=== PATIENT | female | born 1970 | race Caucasian/White ===

== ENCOUNTER → 2022-11-20 09:58 | Outpatient (BNVA) | payer OTHER, SELFPAY | PROVIDERS: PCP Pediatrics; Visit Provider Internal Medicine Rheumatology | DX: Z13.89 Encounter for screening for other disorder (principal) ==

== ENCOUNTER 2023-06-29 16:04 | Outpatient (REF) | payer OTHER, SELFPAY ==
--- NOTE | ~2023-06-29 | XR_ITS ---
EXAMINATION: XR FOOT, RIGHT CLINICAL INFORMATION: Arthropathic psoriasis. COMPARISON: None available. TECHNIQUE: AP, lateral, and oblique views of the right foot. FINDINGS: Bony alignment and mineralization are normal. No fracture, dislocation or right ankle joint effusion is seen. Boehler's angle is normal. There are tiny posterior and moderate plantar calcaneal spurs. There is a moderately large bunion noted at the medial aspect of the right first metatarsal head, with adjacent tiny soft tissue calcification. No bone erosion is seen. There is no focal soft tissue swelling, gas or foreign body. XR/XR foot LT min 3V IMPRESSION: 1. No fracture, dislocation or right ankle joint effusion is seen. 2. There are calcaneal spurs. 3. There is a moderately large bunion of the right first metatarsal head. 4. There is no abnormal bone erosion. EXAMINATION: XR FOOT, LEFT CLINICAL INFORMATION: Arthropathic psoriasis. COMPARISON: None available. TECHNIQUE: AP, lateral, and oblique views of the left foot. FINDINGS: Bony alignment and mineralization are normal. No fracture, dislocation or left ankle joint effusion is seen. Boehler's angle is normal. There are small posterior and moderate plantar calcaneal spurs. There are mild degenerative changes of the dorsal midfoot. There is no abnormal bone erosion. No focal soft tissue swelling, gas or foreign body is seen. IMPRESSION: 1. No fracture, dislocation or left ankle joint effusion is seen. 2. There are calcaneal spurs. 3. There is no abnormal bone erosion.
--- NOTE | ~2023-06-29 | XR_ITS ---
EXAMINATION: XR FOOT, RIGHT CLINICAL INFORMATION: Arthropathic psoriasis. COMPARISON: None available. TECHNIQUE: AP, lateral, and oblique views of the right foot. FINDINGS: Bony alignment and mineralization are normal. No fracture, dislocation or right ankle joint effusion is seen. Boehler's angle is normal. There are tiny posterior and moderate plantar calcaneal spurs. There is a moderately large bunion noted at the medial aspect of the right first metatarsal head, with adjacent tiny soft tissue calcification. No bone erosion is seen. There is no focal soft tissue swelling, gas or foreign body. XR/XR foot RT min 3V IMPRESSION: 1. No fracture, dislocation or right ankle joint effusion is seen. 2. There are calcaneal spurs. 3. There is a moderately large bunion of the right first metatarsal head. 4. There is no abnormal bone erosion. EXAMINATION: XR FOOT, LEFT CLINICAL INFORMATION: Arthropathic psoriasis. COMPARISON: None available. TECHNIQUE: AP, lateral, and oblique views of the left foot. FINDINGS: Bony alignment and mineralization are normal. No fracture, dislocation or left ankle joint effusion is seen. Boehler's angle is normal. There are small posterior and moderate plantar calcaneal spurs. There are mild degenerative changes of the dorsal midfoot. There is no abnormal bone erosion. No focal soft tissue swelling, gas or foreign body is seen. IMPRESSION: 1. No fracture, dislocation or left ankle joint effusion is seen. 2. There are calcaneal spurs. 3. There is no abnormal bone erosion.
[2023-06-29 18:03] LABS: C Reactive Protein 0.36 mg/dL (< or = 0.50)
[2023-06-29 18:09] LABS: Erythrocyte Sedimentation Rate 7 MM/HR (0-20)
== END 2023-06-29 16:05 | disposition home or self-care (01) ==
LOC: HO.XRAY 16:04
PROVIDERS: Visit Provider Internal Medicine Rheumatology
DX: L40.50 Arthropathic psoriasis, unspecified (principal)
CPT/HCPCS: 36415; 73630; 85652; 86140

== ENCOUNTER 2023-07-09 09:46 | Outpatient (AMB) | payer OTHER, SELFPAY ==
--- NOTE | 2023-07-09 09:47 | MHC.OFFVIS ---
Intake Vital Signs 07/09/23 09:48 Height 5 ft 5 in Weight 235 lb 14.314 oz BMI 39.3 BP 140/82 H Blood Pressure Location Lt brachial Position Sitting Pulse 96 Pulse Source Pulse Oximeter Intake Visit Reasons: follow up Intake Note: Patient presents today to follow up on PsA. Fermentation Scientist Required: No Accompanied by: Self / Same As Patient Allergies Penicillins Allergy (Unknown, Verified 07/09/23 09:50) Nausea and Vomiting codeine Adverse Reaction (Unknown, Verified 07/09/23 09:50) Abdominal Pain Medication List - Last Reconciled 07/09/23 by Al Fong MD apremilast (Otezla) 30 mg PO BID clobetasol 0.05% 1 appl topical BID 2 weeks meloxicam 15 mg PO DAILY NS rosuvastatin 20 mg PO BEDTIME triamcinolone acetonide 0.1% 1 appl topical DAILY HPI HPI Comments History of Present Illness Details The patient returns for evaluation of her psoriatic arthritis and psoriasis. She is currently on Otezla 30 mg b.i.d., clobetasol ointment, on triamcinolone lotion to the scalp. Unfortunate these measures have not continued with good control of her psoriasis. She has patches over the arms, scalp, abdomen, and lower back. She does remain on the meloxicam 15 mg daily for her psoriatic arthritis and osteoarthritis. There is pain in the thumbs, feet at the MTP and insteps, and in the lower back so the psoriatic arthritis is also not controlled well. Her back surgery did relieve her of the radicular pain down the legs and she finds that she is walking better. She is having neck pain that gives her paresthesias in the arms. Surgery for that has been proposed but she has not scheduled that yet. 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 Card Details: Negative chest pain, edema and syncope Resp Details: Negative for SOB, cough and wheezing GI Details: Negative indigestion/heartburn, nausea, abdominal pain, bowel changes, diarrhea, constipation and bloody stool. Details: Negative for dysuria, hematuria, nocturia, decreased force/flow and genital discharge Skin/Breast Details: As noted above, the psoriasis is more active. Negative for, hives, Raynaud's symptoms, sun sensitivity, and skin cancer Neuro Details: Some numbness in the hands comes and goes, more prominent on the right. No hand weakness. Negative for epilepsy, palsy, stroke, changes in speech and weakness Kenneth/Lymph Details: Negative for excessive bruising or bleeding. Physical Exam Vital Signs: Last Vital Signs Pulse 96 07/09/23 09:48 BP 140/82 H 07/09/23 09:48 BMI result Body Mass Index 39.3 APPEARANCE: Patient in no acute distress EYES no redness, pupils equal and reactive to light, eyelids normal EARS: External ear normal, canal clear and tympanic membrane normal. NOSE/SINUS: Airflow through both nares, no nasal discharge, no bleeding THROAT: Oral mucosa moist, no ulcerations NECK: No thyromegaly or masses, no adenopathy, trachea midline. HEART: Regulrar rhythm, S1-S2 heard, no murmurs, rubs or gallops. LUNG: Clear to percussion and auscultation ABD: Normal bowel sounds, no organomegaly, masses or tenderness. EXTREMITIES: No edema, no calf tenderness, normal peripheral pulses. JOINT EXAM: Cervical Spine:? Decreased range of motion with mild pain. There is some slight posterior cervical muscle tenderness. Thoracic Spine:? No scoliosis.? No tenderness on palpation. Lumbar Spine:? Alignment normal.? Lumbar pain with flexion at 75 degrees.? No tenderness.? Straight leg raising is negative. Chest Wall:? No tenderness, swelling, increased warmth or erythema. Hands:? Right: Slight tenderness at the thumb MCP and PIP. Minimal tenderness without swelling at the thumb CMC joint. There is mild bony enlargement at the 1st and 3rd PIP joints where there is mild tenderness. Left: There is mild tenderness at the 3rd PIP. That joint is slightly thickened. Other joints have normal pain-free range of motion without tenderness, swelling, increased warmth or erythema. Able to make a full fist and has a good master glazier strength. Wrists:? Normal pain-free range of motion without tenderness, swelling, increased warmth or erythema. Elbows: Normal pain-free range of motion without tenderness, swelling, increased warmth or erythema. Shoulders:? Left: Mild discomfort with abduction 160 degrees or with extremes of rotation.? Pain is felt over the deltoid and trapezial regions.? She has slight a anterior tenderness without abductor weakness or adenopathy.? Right:.?? Full range of motion without pain. No tenderness, weakness, swelling, increased warmth or erythema. Hips:.? Full range of motion without pain. Hip bursa:.? No tenderness. Knees:?? Normal pain-free range of motion with mild patellofemoral crepitus but no effusion, tenderness, swelling, increased warmth or erythema.? Ankles:.? Normal pain-free range of motion without tenderness, swelling, increased warmth or erythema. Feet:. Right:? Normal pain-free range of motion with mild 1st MTP bony enlargement, mild hallux valgus deformity, slight pes planus deformity, and some tenderness in the instep where she has some bony prominence. Other toes currently are not tender or swollen. Left: Slight hallux valgus deformity, mild tenderness and mild bony enlargement at the 1st MTP. This is not as tender as on the right. There is also some tenderness in the instep with some questionable bony enlargement. Other joints have no tenderness, swelling, increased warmth or erythema. Tender points: No tenderness to digital palpation at the occiput, trapezius, second rib, lateral epicondyle, knees, greater trochanter and gluteal area bilaterally. Results Reviewed Results Reviewed: Laboratory Tests 06/29/23 16:14 ESR 7 C-Reactive Protein 0.[address] [address] XRay Report Signed Patient: Yasmine Chau MR#: [id number] : 1970 Acct:[id number] Age/Sex: 53 / F ADM Date: 06/29/23 Ordering Physician: Al Fong MD Date of Service: 06/29/23 Procedure(s): XR foot RT min 3V Accession Number(s): [id number] cc: Al Fong MD~ EXAMINATION: XR FOOT, RIGHT CLINICAL INFORMATION: Arthropathic psoriasis. COMPARISON: None available. TECHNIQUE: AP, lateral, and oblique views of the right foot. FINDINGS: Bony alignment and mineralization are normal. No fracture, dislocation or right ankle joint effusion is seen. Boehler's angle is normal. There are tiny posterior and moderate plantar calcaneal spurs. There is a moderately large bunion noted at the medial aspect of the right first metatarsal head, with adjacent tiny soft tissue calcification. No bone erosion is seen. There is no focal soft tissue swelling, gas or foreign body. XR/XR foot RT min 3V IMPRESSION: 1. No fracture, dislocation or right ankle joint effusion is seen. 2. There are calcaneal spurs. 3. There is a moderately large bunion of the right first metatarsal head. 4. There is no abnormal bone erosion. EXAMINATION: XR FOOT, LEFT CLINICAL INFORMATION: Arthropathic psoriasis. COMPARISON: None available. TECHNIQUE: AP, lateral, and oblique views of the left foot. FINDINGS: Bony alignment and mineralization are normal. No fracture, dislocation or left ankle joint effusion is seen. Boehler's angle is normal. There are small posterior and moderate plantar calcaneal spurs. There are mild degenerative changes of the dorsal midfoot. There is no abnormal bone erosion. No focal soft tissue swelling, gas or foreign body is seen. IMPRESSION: 1. No fracture, dislocation or left ankle joint effusion is seen. 2. There are calcaneal spurs. 3. There is no abnormal bone erosion. 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: Code(s): Z79.899 - Other nursing home (current) drug therapy (2) Cervical osteoarthritis: Code(s): M47.812 - Spondylosis without myelopathy or radiculopathy, cervical region (3) Osteoarthritis of feet, bilateral: Code(s): M19.071 - Primary osteoarthritis, right ankle and foot; M19.072 - Primary osteoarthritis, left ankle and foot (4) Osteoarthritis of lumbar spine: Comment: L5-S1 Surgery 05/14 L4-L5 surgery 09/18 Fusion 06/2022 Code(s): M47.816 - Spondylosis without myelopathy or radiculopathy, lumbar region (5) Psoriasis: Code(s): L40.9 - Psoriasis, unspecified (6) Psoriatic arthritis: Comment: 01/09 - poor response to NSAIDs; took Mobic, now meloxicam fall - Enbrel caused injection site reactions December 2016 - Humira started - stopped 04/16 - she felt she had weight gain and not effective 06/16: Otezla started Code(s): L40.50 - Arthropathic psoriasis, unspecified Plan Psoriatic arthritis with still significant symptoms in the 1st MTPs and her thumbs bilaterally. Of course some of the joint symptoms in the neck, lower back, feet and hands could be due to osteoarthritis but the current medications are not holding back her joint symptom. Additionally the psoriasis is much more active with multiple areas of involvement spite of use of the Otezla. We had discussed previously possibly switching to a different agent. Given the prominence of the psoriatic skin changes I think pushing for an anti-IL 12/23 agent would be advisable. We will check for some serologic studies for TB and hepatitis. If those check out okay we will pursue some prior authorization procedures for the use of ustekinumab(Stelara) 90 mg in weeks 0, week 4, and then every 12 weeks thereafter. We reviewed the potential side effect issues with ustekinumab. I gave her some written information on the drug to review. When she does start the ustekinumab she probably will need some instruction on its use. At that time also she will stop the Otezla. We will schedule a recheck at about 3 months. Orders: Orders Comprehensive Met. Panel Today Z79.899 - Other revenue accounting manager (current) drug therapy Hepatitis A,B,C Profile Today Z79.899 - Other revenue accounting manager (current) drug therapy T Spot TB Today Z79.899 - Other revenue accounting manager (current) drug therapy Complete Blood Count Auto Diff Today Z79.899 - Other nursing home (current) drug therapy Medications: Refilled triamcinolone acetonide 0.1% 1 appl topical DAILY 5 mL 5RF L40.9 - Psoriasis, unspecified clobetasol 0.05% 1 appl topical BID 2 weeks 60 grams 3RF to affected sjkin areas L40.9 - Psoriasis, unspecified Coding Level of Care Code Est Pt Level 3 (36803) Diagnoses 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
[2023-07-09 09:48] VITALS: BP 140/82; PULSE 96; BMI 39.3
== END 2023-07-09 10:30 | disposition home or self-care (01) ==
PROVIDERS: PCP Pediatrics; Visit Provider Internal Medicine Rheumatology
DX: Z79.899 Other long term (current) drug therapy (principal); M47.812 Spondylosis without myelopathy or radiculopathy, cervical region; M19.071 Primary osteoarthritis, right ankle and foot; M19.072 Primary osteoarthritis, left ankle and foot; M47.816 Spondylosis without myelopathy or radiculopathy, lumbar region; L40.9 Psoriasis, unspecified; L40.50 Arthropathic psoriasis, unspecified
CPT/HCPCS: 99213

== ENCOUNTER 2023-07-09 09:46 | Outpatient (REF) | payer OTHER, SELFPAY ==
[2023-07-09 10:51] LABS: MANUAL DIFF FLAG NO
[2023-07-09 12:39] LABS: Basophils Absolute Auto 0.1 X10*3/uL (0.0-0.2); Basophils Percent Auto 0.7 % (0-2); Eosinophils Absolute Auto 0.1 X10*3/uL (0.0-0.4); Eosinophils Percent Auto 1.3 % (0-4); Hematocrit 41.5 % (37.0-47.0); Imm Gran Abs Auto 0.04 X10*3/uL (0.00-0.03); Imm Gran Pct Auto 0.5 % (0.0-0.4); Lymphocytes Absolute Auto 1.5 X10*3/uL (1.2-4.9); Mean Corpuscular HGB Conc 33.7 g/dl (31.0-35.0); Mean Corpuscular Hemoglobin 30.7 pg (27.0-33.0); Mean Platelet Volume 9.1 fL (9.4-12.3); Monocytes Absolute Auto 0.5 X10*3/uL (0.1-1.2); Monocytes Percent Auto 5.6 % (2-11); Neutrophils Absolute Auto 6.2 x10*3/uL (2.0-8.3); Neutrophils Percent Auto 73.9 % (45-73); Platelet Count 322 X10*3/uL (160-400); Red Blood Count 4.56 X10*6/uL (4.20-5.50); Red Cell Distribution Width 12.1 % (11.0-16.0); White Blood Count 8.4 X10*3/uL (4.8-10.8)
[2023-07-09 13:20] LABS: Alanine Aminotransferase 46 U/L (0-31); Albumin Level 4.4 g/dL (3.5-5.0); Alkaline Phosphatase 72 U/L (39-117); Anion Gap 12 (12-20); Aspartate Amino Transferase 33 U/L (5-31); Bilirubin Total 1.3 mg/dL (0.0-1.0); Blood Urea Nitrogen 16 mg/dL (9-16); Calcium 9.9 mg/dL (8.4-10.2); Carbon Dioxide 26 mmol/L (22-29); Chloride 105 mmol/L (96-108); Estimated Glomerular Filt Rate > 60; Glucose Random 112 mg/dL (60-115); Potassium 4.2 mmol/L (3.3-5.1); Sodium 139 mmol/L (135-145); Total Protein 7.4 g/dL (6.5-8.0)
[2023-07-10 08:13] LABS: HBS Num1 0.88 mIU/mL (0-7.99); HBc Num1 0.09 S/CO (0.00-0.79); HBsAGNum1 0.38 S/CO (0.00-0.99); Hepatitis A Antibody IgM 0.19 Index (0-0.79); Hepatitis B Core Antibody Nonreactive (Nonreactive); Hepatitis B Surface Antigen Negative (Negative); ~HepC Num1 0.13 S/CO (0.00-0.79); ~Hepatitis A Antibody IgM Nonreactive (Nonreactive); ~Hepatitis B Surface Antibody NONREACTIVE (Nonreactive); ~Hepatitis C Antibody Nonreactive (Nonreactive)
[2023-07-12 07:54] LABS: TS Negative Control Passed; TS Panel A 0; TS Panel B 0; TS Positive Control Passed; TSpotTB Negative (Negative)
== END 2023-07-09 09:47 | disposition home or self-care (01) ==
LOC: HO.LAB 09:46
PROVIDERS: PCP Pediatrics; Visit Provider Internal Medicine Rheumatology
DX: Z11.1 Encounter for screening for respiratory tuberculosis (principal); M47.812 Spondylosis without myelopathy or radiculopathy, cervical region; M19.071 Primary osteoarthritis, right ankle and foot; M19.072 Primary osteoarthritis, left ankle and foot; M47.816 Spondylosis without myelopathy or radiculopathy, lumbar region; L40.9 Psoriasis, unspecified; L40.50 Arthropathic psoriasis, unspecified; Z79.899 Other long term (current) drug therapy
CPT/HCPCS: 36415; 80053; 85025; 86481; 86704; 86706; 86709; 86803; 87340

== ENCOUNTER 2023-09-25 08:37 | Outpatient (AMB) | payer OTHER, SELFPAY ==
--- NOTE | 2023-09-25 08:39 | MHC.OFFVIS ---
Intake Vital Signs 09/25/23 08:41 Height 5 ft 5 in Weight 231 lb 7.766 oz BMI 38.5 BP 134/76 Blood Pressure Location Rt brachial Position Sitting Pulse 76 Pulse Source Pulse Oximeter Pulse Oximetry (%) 96 Oxygen Delivery Method Room Air Intake Visit Reasons: pso/psa with Dr Leroy Sol rezeb Intake Note: Pt last seen by Dr Fong 07/09/23 presents today for follow up and test results. Cable Layer Required: No Accompanied by: Self / Same As Patient Allergies Penicillins Allergy (Unknown, Verified 09/25/23 08:43) Nausea and Vomiting codeine Adverse Reaction (Unknown, Verified 09/25/23 08:43) Abdominal Pain Medication List - Last Reconciled 09/25/23 by Nora Patel MD clobetasol 0.05% 1 appl topical BID 2 weeks meloxicam 15 mg PO DAILY NS rosuvastatin 20 mg PO BEDTIME triamcinolone acetonide 0.1% 1 appl topical DAILY ustekinumab (Stelara) 90 mg subcutaneously at week 0, week 4 and then every 12 weeks thereafter 2 doses HPI HPI Comments History of Present Illness Details 53-year-old female with psoriasis and psoriatic arthritis returns for follow-up. She started Stelara about a month ago, she received the 1st 2 doses. She states that her skin is much better. She continues to have some patches on her arms and legs, lower back but much better overall. States that her joint pain is about the same overall. Continues to have pain at the base of the thumbs, bilateral 1st MCPs, few PIPs and bilateral bunions. Most recent history by Dr. Fong 06/2023: The patient returns for evaluation of her psoriatic arthritis and psoriasis. She is currently on Otezla 30 mg b.i.d., clobetasol ointment, on triamcinolone lotion to the scalp. Unfortunate these measures have not continued with good control of her psoriasis. She has patches over the arms, scalp, abdomen, and lower back. She does remain on the meloxicam 15 mg daily for her psoriatic arthritis and osteoarthritis. There is pain in the thumbs, feet at the MTP and insteps, and in the lower back so the psoriatic arthritis is also not controlled well. Her back surgery did relieve her of the radicular pain down the legs and she finds that she is walking better. She is having neck pain that gives her paresthesias in the arms. Surgery for that has been proposed but she has not scheduled that yet. 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 Review of Systems [employer] Reports arthralgias and Reports stiffness Skin/Breast Reports rash Physical Exam Vital Signs: Last Vital Signs Pulse 76 09/25/23 08:41 BP 134/76 09/25/23 08:41 Pulse Ox 96 09/25/23 08:41 Oxygen Delivery Method Room Air 09/25/23 08:41 BMI result Body Mass Index 38.5 Const General: cooperative, healthy appearing and comfortable Nutritional Appearance: obese morbidly obese Orientation/consciousness: patient oriented x3 Limitations: no limitations HEENT Head: Yes normocephalic and Yes atraumatic Mouth: moist mucous membranes Resp Effort & Inspection: normal respiratory effort and able to speak in complete sentences Auscultation: clear to auscultation bilaterally Cardio Rate: regular rate Skin Other: Faint psoriasis patches on extensor surface of arms, forearms bilaterally, lower back No nail pitting Neuro General: patient oriented x3 Extrem Other: No swollen joints, no dactylitis Pain at the base of both thumbs Bilateral 1st MCP joints Few tender PIP is Bilateral tender bunions Results Reviewed Results Reviewed: Laboratory Tests 06/29/23 16:14 ESR 7 C-Reactive Protein 0.[address] [address] XRay Report Signed Patient: Yasmine Chau MR#: [id number] : 1970 Acct:[id number] Age/Sex: 53 / F ADM Date: 06/29/23 Ordering Physician: Al Fong MD Date of Service: 06/29/23 Procedure(s): XR foot RT min 3V Accession Number(s): [id number] cc: Al Fong MD~ EXAMINATION: XR FOOT, RIGHT CLINICAL INFORMATION: Arthropathic psoriasis. COMPARISON: None available. TECHNIQUE: AP, lateral, and oblique views of the right foot. FINDINGS: Bony alignment and mineralization are normal. No fracture, dislocation or right ankle joint effusion is seen. Boehler's angle is normal. There are tiny posterior and moderate plantar calcaneal spurs. There is a moderately large bunion noted at the medial aspect of the right first metatarsal head, with adjacent tiny soft tissue calcification. No bone erosion is seen. There is no focal soft tissue swelling, gas or foreign body. XR/XR foot RT min 3V IMPRESSION: 1. No fracture, dislocation or right ankle joint effusion is seen. 2. There are calcaneal spurs. 3. There is a moderately large bunion of the right first metatarsal head. 4. There is no abnormal bone erosion. EXAMINATION: XR FOOT, LEFT CLINICAL INFORMATION: Arthropathic psoriasis. COMPARISON: None available. TECHNIQUE: AP, lateral, and oblique views of the left foot. FINDINGS: Bony alignment and mineralization are normal. No fracture, dislocation or left ankle joint effusion is seen. Boehler's angle is normal. There are small posterior and moderate plantar calcaneal spurs. There are mild degenerative changes of the dorsal midfoot. There is no abnormal bone erosion. No focal soft tissue swelling, gas or foreign body is seen. IMPRESSION: 1. No fracture, dislocation or left ankle joint effusion is seen. 2. There are calcaneal spurs. 3. There is no abnormal bone erosion. Dictated By: Den Pedro MD Signed By: <Electronically signed by Den Pedro MD in OV> 07/05/23 2752 Assessment & Plan Assessment & Plan (1) Psoriatic arthritis: Comment: 01/09 - poor response to NSAIDs; took Mobic, now meloxicam fall - Enbrel caused injection site reactions December 2016 - Humira started - stopped 04/16 - she felt she had weight gain and not effective 06/16: Otezla started ineffective DC 06/2023 Stelara 90 mg 07/2023 Code(s): L40.50 - Arthropathic psoriasis, unspecified Plan: This is a 53-year-old female with psoriasis and psoriatic arthritis who presents for follow-up. This is her 1st visit with me. She used to follow-up with Dr. Fong. She started Stelara 90 mg last month and her skin is doing much better overall. She continues to have a few patches on her arms, lower back, minimal on legs. There is no active synovitis on exam, joint symptoms are more likely related to degenerative arthritis. (2) Psoriasis: Code(s): L40.9 - Psoriasis, unspecified Plan: As mentioned above, doing better on Stelara (3) Osteoarthritis of feet, bilateral: Code(s): M19.071 - Primary osteoarthritis, right ankle and foot; M19.072 - Primary osteoarthritis, left ankle and foot Qualifiers: Osteoarthritis type: primary Qualified Code(s): M19.071 - Primary osteoarthritis, right ankle and foot; M19.072 - Primary osteoarthritis, left ankle and foot Plan: Discussed management of osteoarthritis, patient is on meloxicam daily. Advised patient to try to limit systemic NSAIDs, consider applying Voltaren gel on affected joints. Referred patient for occupational therapy for bilateral hand osteoarthritis Advised patient to wear comfortable shoes for her bunions. Can consider evaluation by Podiatry (4) Transaminitis: Code(s): R74.01 - Elevation of levels of liver transaminase levels Plan: Transaminitis is fairly common in patients with psoriasis. Will monitor periodically, if getting progressively worse, will refer to GI Plan I spent 46 minutes reviewing patient's chart, evaluating patient, ordering diagnostic workup, counseling patient and documenting in the chart Orders: Orders Complete Blood Count Auto Diff 3 Months L40.50 - Arthropathic psoriasis, unspecified Comprehensive Met. Panel 3 Months L40.50 - Arthropathic psoriasis, unspecified C Reactive Protein 3 Months L40.50 - Arthropathic psoriasis, unspecified Erythrocyte Sedimentation Rate 3 Months L40.50 - Arthropathic psoriasis, unspecified OT Evaluation and Treatment Today M19.041 - Primary osteoarthritis, right hand, M19.042 - Primary osteoarthritis, left hand Coding Level of Care Code Est Pt Level 4 (68048) Diagnoses Psoriatic arthritis L40.50 Psoriasis L40.9 Primary osteoarthritis of both feet M19.071; M19.072 Osteoarthritis type: primary Transaminitis R74.01
[2023-09-25 08:41] VITALS: BP 134/76; PULSE 76; O2SAT 96; BMI 38.5
== END 2023-09-25 09:14 | disposition home or self-care (01) ==
PROVIDERS: PCP Pediatrics; Visit Provider Student in an Organized Health Care Education/Training Program
DX: L40.50 Arthropathic psoriasis, unspecified (principal); L40.9 Psoriasis, unspecified; M19.071 Primary osteoarthritis, right ankle and foot; M19.072 Primary osteoarthritis, left ankle and foot; R74.01 Elevation of levels of liver transaminase levels
CPT/HCPCS: 99214

== ENCOUNTER → 2023-09-25 08:37 | Outpatient (BNVA) | payer OTHER, SELFPAY | PROVIDERS: PCP Pediatrics; Visit Provider Student in an Organized Health Care Education/Training Program ==

== ENCOUNTER 2023-10-24 07:00 | Outpatient (RCR) | payer OTHER, SELFPAY ==
--- NOTE | 2023-10-08 14:18 | MHC.OT.OEV ---
[address] [phone] F: [phone] Occupational Therapy Evaluation Patient Name: Yasmine Chau Diagnosis: (B)hand arthritis Date of Onset: 09/27/23 Date of Surgery: Attending Provider: Nora Patel Prescribed Treatment: MD Follow Up Appointment: History of Current Condition: Patient is a 53 year old right handed female who was referred to skilled OT for (B) arthritis of the hands. She reported that her symptoms started years ago. She reports pain of 1-3/10 at rest and 6/10 with movement. She states she has swelling when waking up, and is unable to wear her wedding rings, they are stiff, and will have pain through out the day. Significant Medical History: Patient reports: Pinched n. of the neck, 2 herniated discs and will need a fusion. The pinch n. causes numbness/ tingling in the (R)UE. 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 but reports it is painful to complete tasks Sleep: hand pain does not wake patient Driving: (I) Vision: Balance: Pain Assessment Pain Score: 6 Pain Scale Used: Numeric (0 - 10) Pain Location and Description: All fingers, (R)hand is the worst, and (R)thumb and 1st digit Aggravating Factors: Alleviating Factors: Mloxicam- for swelling of the joints Skin and Soft Tissue Assessment Skin and Soft Tissue: Comments: Nodule present at (R)1st DIP, Nerve assessment Ulnar Nerve: Median Nerve: Radial Nerve: Comments: Sensory Assessment Temperature: Light Touch: Proprioception: Vibration: Comments: Monofilament= WFL Edema Assessment Upper Extremity: Lower Extremity: Comments: Patient reports swelling in the morning Dexterity Assessment Dexterity: WFL Comments: Functional Dexterity Test= WFL Special Tests Comments: AROM(PROM) Strength Cervical Cervical Flexion: Cervical Extension: Cervical Lateral Flexion: Cervical Rotation: Comments: Shoulder Flexion: Extension: Abduction: Internal Rotation: External Rotation: Comments: WFL Flexion: Extension: Abduction: Internal Rotation: External Rotation: Comments: WFL Elbow Flexion: Extension: Pronation: Supination: Comments: WFL Flexion: Extension: Pronation: Supination: Comments: WFL Wrist Flexion: WFL Extension: (R)50*, (L)45 Ulnar Deviation: (R)WFL, (L) 20* Radial Deviation: (R)WFL, (L)15* Comments: Flexion: Extension: Ulnar Deviation: Radial Deviation: Comments: WFL Thumb Thumb CMC Flexion: Thumb MCP Flexion: Thumb IP Flexion: Radial Abduction: [place] Abduction: [place] ([place] 0-10): Comments: WFL Digits Index MCP: PIP: DIP: Long MCP: PIP: DIP: Ring MCP: PIP: DIP: Small MCP: PIP: DIP: Comments: WFL Gross Grasp: (R)33.6lbs., (L)38.6 Lateral Pinch: (R)7, (L)6 Two-Point Pinch: (R)9, (L)11 Three-Jaw Reynaldo: (R)7, (L)10 Comments: Patient Education Primary Language: Colombian Welding Manager Required: Current Knowledge: Teaching Method: Education Needs Identified on Evaluation: How did patient/family demonstrate learning? Barriers to Learning: Readiness for Learning: Who was educated? Comments: Plan of Care Assessment: Patient is 53 year old female with PMHx of Psoriasis, 2 herniated discs which causes numbness of her (R)UE, who was referred for (B) arthritis of this hands. She reported she has had symptoms for years but no one suggested therapy until recently. 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 She stated she has pain and stiffness in the morning as well as swelling to the point where she is unable to wear her wedding rings. During the day she has pain that will come and go. She reported numbness down her (R)UE but stated this is due to her 2 herniated discs and she requires a spinal fusion in the near future. She states her pain at rest can be anywhere from a 1-3/10 and during movement can be a 6/10 pain. She stated her pain is mostly in the 1st digit and the CMC of the (R)hand. Patients wrist ROM measurements are as follows: (R) wrist 50* extension, WFL flexion, radial deviation WFL, ulna deviation WFL; (L)wrist 45* extension, WFL flexion, radial deviation 15*, ulna deviation 20*, digits (B'ly) WFL. Patient's bander operator strength is under for patient's age and gender as she achieved 33.6lbs (R) and 38.6lbs. (L). Quick DASH score= 38.6 indicating patient's perceived impairment of the (B)upper extremity during functional activities. Based on initial evaluation patient presents with impaired strength, impaired ROM, pain and impaired performance during selfcare tasks. Due to the documented impairments it is recommended that patient receive skilled OT services in order to achieve enhance her QOL. Thank your for your referral. STG Duration: 2 weeks Short Term Goals: Patient will be (I) with edema management techniques Patient will increase (B)wrist extension by 10* Patient will report 4/10 pain during performance of self care tasks patient will increase bander operator strength by 5lbs. LTG Duration: 4 weeks Alf Goals: Patient will have full wrist extension for performance during self care tasks. Patient will report 0/10 pain during performance of self care tasks Patient will be (I) with HEP Patient will have improved Quick DASH score by 20 points indicating overall improved performance of the upper extremities Frequency and Duration: The patient will be seen 2x a week for 4 weeks Treatment Plan: Therapeutic Exercise Therapeutic Activity Home Exercise Program Patient Education Edema Control ADL Training Paraffin Fluidotherapy MHP Cold Packs Kinesiotaping OT evaluation and treat Electronically Signed By: TI Lamas/Jazmine, CLT Reviewed/agree with student documentation: Therapist: Please sign and return to therapist, Thank you for your referral.
--- NOTE | 2023-10-29 08:27 | MHC.OT.DC ---
[address] [phone] F: [phone] Occupational Therapy Discharge Note Patient Name: Yasmine Chau Provider: Dr Nora Patel Diagnosis: (B)hand arthritis Date of Evaluation: 10/08/23 Date of Discharge: 10/29/23 Treatments to Date: 5 Discharge Status: Achieved Goals Independent with HEP Discharge Summary: Yasmine was referred to OT for education and conservative management of B/L hand pain due to arthritis. She is reporting decreased pain in fingers, has good follow through w/ HEP and has ease w/ exercise. She has good understanding of joint protection and activity modification. No further outpatient OT indicated a this time, she will continue w/ self management. Electronically Signed By: Alana Liu, OTR/L CHT Please Sign and return to therapist, thank you for your referral.
== END 2023-10-29 08:28 | disposition home or self-care (01) ==
LOC: HO.OT 07:00
PROVIDERS: PCP Pediatrics; Visit Provider Student in an Organized Health Care Education/Training Program
DX: M19.041 Primary osteoarthritis, right hand (principal); M19.042 Primary osteoarthritis, left hand
CPT/HCPCS: 29130; 97110; 97140; 97165; 97760

== ENCOUNTER 2023-12-20 08:22 | Outpatient (AMB) | payer OTHER, SELFPAY ==
--- NOTE | 2023-12-20 08:26 | A.OFFVIS_ITS ---
Vital Signs 12/20/23 08:33 Height 5 ft 5 in Weight 234 lb 9.149 oz BMI 39.0 BP 112/86 Blood Pressure Location Rt brachial Position Sitting Pulse 82 Pulse Oximetry (%) 97 Intake Visit Reasons: PsA Intake Note: Patient last seen 09/25/23 presents today for follow up and test results. Patient reports worsening joint paints. She feels Otezla worked better than Stelara. Allergies Penicillins Allergy (Unknown, Verified 12/20/23 08:26) Nausea and Vomiting codeine Adverse Reaction (Unknown, Verified 12/20/23 08:26) Abdominal Pain Medication List - Last Reconciled 12/20/23 by Nora Patel MD clobetasol 0.05% 1 appl topical BID 2 weeks meloxicam 15 mg PO DAILY PRN NS rosuvastatin 20 mg PO BEDTIME Stelara (ustekinumab) 90 mg subcut Q12W NS triamcinolone acetonide 0.1% 1 appl topical DAILY HPI Comments Details: 53-year-old female with psoriasis and psoriatic arthritis returns for follow-up. She is on Stelara 90 mg q. twelve weeks. States that her skin is doing very well except for the soles of her feet. She is having some more joint pain especially in her thumbs, fingers, toes. She feels that Otezla worked a little better for the joints compared to the Stelara. She continues to take meloxicam 15 mg daily Most recent history by Dr. Fong 06/2023: The patient returns for evaluation of her psoriatic arthritis and psoriasis. She is currently on Otezla 30 mg b.i.d., clobetasol ointment, on triamcinolone lotion to the scalp. Unfortunate these measures have not continued with good control of her psoriasis. She has patches over the arms, scalp, abdomen, and lower back. She does remain on the meloxicam 15 mg daily for her psoriatic arthritis and osteoarthritis. There is pain in the thumbs, feet at the MTP and insteps, and in the lower back so the psoriatic arthritis is also not controlled well. Her back surgery did relieve her of the radicular pain down the legs and she finds that she is walking better. She is having neck pain that gives her paresthesias in the arms. Surgery for that has been proposed but she has not scheduled that yet. 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 Review of Systems Musc Reports arthralgias and Reports stiffness Skin/Breast Reports rash Physical Exam Vital Signs: Last Vital Signs Pulse 82 12/20/23 08:33 BP 112/86 12/20/23 08:33 Pulse Ox 97 12/20/23 08:33 BMI result Body Mass Index 39.0 Const General: cooperative, healthy appearing and comfortable Nutritional Appearance: obese morbidly obese Orientation/consciousness: patient oriented x3 Limitations: no limitations HEENT Head: Yes normocephalic and Yes atraumatic Mouth: moist mucous membranes Resp Effort & Inspection: normal respiratory effort and able to speak in complete sentences Auscultation: clear to auscultation bilaterally Cardio Rate: regular rate Skin Other: Faint psoriasis scaly plaques on the soles of her feet Neuro General: patient oriented x3 Extrem Other: No swollen joints, no dactylitis Pain at the base of both thumbs Left 2nd and 3rd PIP tenderness Results Reviewed Results Reviewed: Laboratory Tests 06/29/23 16:14 ESR 7 C-Reactive Protein 0.[address] [address] XRay Report Signed Patient: Yasimne Chau MR#: [id number] : 1970 Acct:[id number] Age/Sex: 53 / F ADM Date: 06/29/23 Ordering Physician: Al Fong MD Date of Service: 06/29/23 Procedure(s): XR foot RT min 3V Accession Number(s): [id number] cc: Al Fong MD~ EXAMINATION: XR FOOT, RIGHT CLINICAL INFORMATION: Arthropathic psoriasis. COMPARISON: None available. TECHNIQUE: AP, lateral, and oblique views of the right foot. FINDINGS: Bony alignment and mineralization are normal. No fracture, dislocation or right ankle joint effusion is seen. Boehler's angle is normal. There are tiny posterior and moderate plantar calcaneal spurs. There is a moderately large bunion noted at the medial aspect of the right first metatarsal head, with adjacent tiny soft tissue calcification. No bone erosion is seen. There is no focal soft tissue swelling, gas or foreign body. XR/XR foot RT min 3V IMPRESSION: 1. No fracture, dislocation or right ankle joint effusion is seen. 2. There are calcaneal spurs. 3. There is a moderately large bunion of the right first metatarsal head. 4. There is no abnormal bone erosion. EXAMINATION: XR FOOT, LEFT CLINICAL INFORMATION: Arthropathic psoriasis. COMPARISON: None available. TECHNIQUE: AP, lateral, and oblique views of the left foot. FINDINGS: Bony alignment and mineralization are normal. No fracture, dislocation or left ankle joint effusion is seen. Boehler's angle is normal. There are small posterior and moderate plantar calcaneal spurs. There are mild degenerative changes of the dorsal midfoot. There is no abnormal bone erosion. No focal soft tissue swelling, gas or foreign body is seen. IMPRESSION: 1. No fracture, dislocation or left ankle joint effusion is seen. 2. There are calcaneal spurs. 3. There is no abnormal bone erosion. Dictated By: Den Pedro MD Signed By: <Electronically signed by Den Pedro MD in OV> 07/05/23 4358 Assessment & Plan Assessment & Plan (1) Psoriatic arthritis: Comment: 01/09 - poor response to NSAIDs; took Mobic, now meloxicam fall - Enbrel caused injection site reactions December 2016 - Humira started - stopped 04/16 - she felt she had weight gain and not effective 06/16: Otezla started ineffective DC 06/2023 Stelara 90 mg 07/2023 effective for skin Code(s): L40.50 - Arthropathic psoriasis, unspecified Category: Medical Plan: This is a 53-year-old female with psoriasis and psoriatic arthritis who presents for follow-up. She is on Stelara 90 mg Q 12 weeks. Her psoriasis is doing great except for few scaly plaques on the soles of her feet. She is complaining of a little more joint pain. She feels that her joints are a little worse since Otezla was discontinued. On exam she does not have any swollen joints. She takes meloxicam 15 mg daily. I believe some of her joint pain is related to mild psoriatic arthritis as well as degenerative arthritis. Continue Stelara 90 mg q.12 weeks. Will change meloxicam to 7.5 mg tablet. Patient to take 1-2 tablets daily as needed for joint pain. If patient continues to have progressive joint pain. Switching to an IL 17 inhibitor such as Cosentyx or Taltz can be considered Labs before next visit in 3 months (2) Psoriasis: Code(s): L40.9 - Psoriasis, unspecified Category: Medical Plan: As mentioned above, doing better on Stelara (3) Osteoarthritis of feet, bilateral: Code(s): M19.071 - Primary osteoarthritis, right ankle and foot; M19.072 - Primary osteoarthritis, left ankle and foot Category: Medical Qualifiers: Osteoarthritis type: primary Qualified Code(s): M19.071 - Primary osteoarthritis, right ankle and foot; M19.072 - Primary osteoarthritis, left ankle and foot Plan: Discussed management of osteoarthritis, patient is on meloxicam daily. Advised patient to try to limit systemic NSAIDs, consider applying Voltaren gel on affected joints. She did OT for the hands which did help Advised patient to wear comfortable shoes for her bunions. Can consider evaluation by Podiatry (4) Transaminitis: Code(s): R74.01 - Elevation of levels of liver transaminase levels Category: Medical Plan: Transaminitis is fairly common in patients with psoriasis. Will monitor periodically, if getting progressively worse, will refer to GI Plan I spent 30 minutes reviewing patient's chart, evaluating patient, ordering diagnostic workup, counseling patient and documenting in the chart Orders: Orders Complete Blood Count Auto Diff 3 Months L40.50 - Arthropathic psoriasis, unspecified Comprehensive Met. Panel 3 Months L40.50 - Arthropathic psoriasis, unspecified C Reactive Protein 3 Months L40.50 - Arthropathic psoriasis, unspecified Erythrocyte Sedimentation Rate 3 Months L40.50 - Arthropathic psoriasis, unspecified Medications: New meloxicam 7.5 mg PO BID PRN 180 tabs 0RF joint pain Discontinued meloxicam Discontinued Reason: Doctor's Order 15 mg PO DAILY PRN 30 tabs 1RF pain NS L40.50 - Arthropathic psoriasis, unspecified Coding Level of Care Code Est Pt Level 4 (05488) Diagnoses Psoriatic arthritis L40.50 Psoriasis L40.9 Primary osteoarthritis of both feet M19.071; M19.072 Osteoarthritis type: primary Transaminitis R74.01
[2023-12-20 08:33] VITALS: BP 112/86; PULSE 82; O2SAT 97; BMI 39.0
== END 2023-12-20 08:48 | disposition home or self-care (01) ==
PROVIDERS: PCP Pediatrics; Visit Provider Student in an Organized Health Care Education/Training Program
DX: L40.50 Arthropathic psoriasis, unspecified (principal); L40.9 Psoriasis, unspecified; M19.071 Primary osteoarthritis, right ankle and foot; M19.072 Primary osteoarthritis, left ankle and foot; R74.01 Elevation of levels of liver transaminase levels
CPT/HCPCS: 99214

== ENCOUNTER → 2023-12-20 08:22 | Outpatient (BNVA) | payer OTHER, SELFPAY | PROVIDERS: PCP Pediatrics; Visit Provider Student in an Organized Health Care Education/Training Program ==

== ENCOUNTER 2024-03-13 08:59 | Outpatient (AMB) | payer OTHER, SELFPAY ==
--- NOTE | 2024-03-13 09:00 | A.OFFVIS_ITS ---
Vital Signs 03/13/24 09:03 Height 5 ft 5 in Weight 240 lb 1.334 oz BMI 39.9 BP 132/80 Blood Pressure Location Rt brachial Position Sitting Pulse 82 Pulse Source Pulse Oximeter Pulse Oximetry (%) 95 Oxygen Delivery Method Room Air Intake Visit Reasons: PsA/CM Intake Note: Patient presents for PsA. Allergies Penicillins Allergy (Unknown, Verified 03/13/24 09:02) Nausea and Vomiting codeine Adverse Reaction (Unknown, Verified 03/13/24 09:02) Abdominal Pain Medication List - Last Reconciled 03/13/24 by Nora Patel MD clobetasol 0.05% 1 appl topical BID 2 weeks meloxicam 7.5 mg PO BID PRN rosuvastatin 20 mg PO BEDTIME Stelara (ustekinumab) 90 mg subcut Q12W NS triamcinolone acetonide 0.1% 1 appl topical DAILY HPI Comments Details: 53-year-old female with psoriasis and psoriatic arthritis returns for follow-up. She is on Stelara 90 mg q. twelve weeks. States that her skin is doing very well. She states that she slipped down the stairs recently and herniated disc above her already fused disc in her lower back. She also has significant neck pain. She was evaluated by a spine surgeon and was told that she will need to surgeries, she is going to need another fusion in her spine and a fusion in her neck. She has a procedure scheduled May 15. Since last visit she has lowered her meloxicam to 7.5 mg daily. She continues to have some days when she has pain and swelling of the top of her foot. Most recent history by Dr. Fong 06/2023: The patient returns for evaluation of her psoriatic arthritis and psoriasis. She is currently on Otezla 30 mg b.i.d., clobetasol ointment, on triamcinolone lotion to the scalp. Unfortunate these measures have not continued with good control of her psoriasis. She has patches over the arms, scalp, abdomen, and lower back. She does remain on the meloxicam 15 mg daily for her psoriatic arthritis and osteoarthritis. There is pain in the thumbs, feet at the MTP and insteps, and in the lower back so the psoriatic arthritis is also not controlled well. Her back surgery did relieve her of the radicular pain down the legs and she finds that she is walking better. She is having neck pain that gives her paresthesias in the arms. Surgery for that has been proposed but she has not scheduled that yet. 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 Review of Systems ENT Reports neck pain Musc Reports back pain, Reports arthralgias, Reports neck pain and Reports stiffness Skin/Breast Denies rash Physical Exam Vital Signs: Last Vital Signs Pulse 82 03/13/24 09:03 BP 132/80 03/13/24 09:03 Pulse Ox 95 03/13/24 09:03 Oxygen Delivery Method Room Air 03/13/24 09:03 BMI result Body Mass Index 39.9 Const General: cooperative, healthy appearing and comfortable Nutritional Appearance: obese morbidly obese Orientation/consciousness: patient oriented x3 Limitations: no limitations HEENT Head: Yes normocephalic and Yes atraumatic Mouth: moist mucous membranes Resp Effort & Inspection: normal respiratory effort and able to speak in complete s entences Auscultation: clear to auscultation bilaterally Cardio Rate: regular rate Skin General skin exam: no rashes or lesions noted Neuro General: patient oriented x3 Extrem Other: No active synovitis today Results Reviewed Results Reviewed: Laboratory Tests 06/29/23 16:14 ESR 7 C-Reactive Protein 0.[address] [address] XRay Report Signed Patient: Yasmine Chau MR#: [id number] : 1970 Acct:[id number] Age/Sex: 53 / F ADM Date: 06/29/23 Ordering Physician: Al Fong MD Date of Service: 06/29/23 Procedure(s): XR foot RT min 3V Accession Number(s): [id number] cc: Al Fong MD~ EXAMINATION: XR FOOT, RIGHT CLINICAL INFORMATION: Arthropathic psoriasis. COMPARISON: None available. TECHNIQUE: AP, lateral, and oblique views of the right foot. FINDINGS: Bony alignment and mineralization are normal. No fracture, dislocation or right ankle joint effusion is seen. Boehler's angle is normal. There are tiny posterior and moderate plantar calcaneal spurs. There is a moderately large bunion noted at the medial aspect of the right first metatarsal head, with adjacent tiny soft tissue calcification. No bone erosion is seen. There is no focal soft tissue swelling, gas or foreign body. XR/XR foot RT min 3V IMPRESSION: 1. No fracture, dislocation or right ankle joint effusion is seen. 2. There are calcaneal spurs. 3. There is a moderately large bunion of the right first metatarsal head. 4. There is no abnormal bone erosion. EXAMINATION: XR FOOT, LEFT CLINICAL INFORMATION: Arthropathic psoriasis. COMPARISON: None available. TECHNIQUE: AP, lateral, and oblique views of the left foot. FINDINGS: Bony alignment and mineralization are normal. No fracture, dislocation or left ankle joint effusion is seen. Boehler's angle is normal. There are small posterior and moderate plantar calcaneal spurs. There are mild degenerative changes of the dorsal midfoot. There is no abnormal bone erosion. No focal soft tissue swelling, gas or foreign body is seen. IMPRESSION: 1. No fracture, dislocation or left ankle joint effusion is seen. 2. There are calcaneal spurs. 3. There is no abnormal bone erosion. Dictated By: Den Pedro MD Signed By: <Electronically signed by Den Pedro MD in OV> 07/05/23 1421 Assessment & Plan Assessment & Plan (1) Psoriatic arthritis: Comment: 01/09 - poor response to NSAIDs; on meloxicam fall - Enbrel caused injection site reactions December 2016 - Humira started - stopped 04/16 - she felt she had weight gain and not effective 06/16: Otezla started ineffective DC 06/2023 Stelara 90 mg 07/2023 effective for skin Code(s): L40.50 - Arthropathic psoriasis, unspecified Category: Medical Plan: This is a 53-year-old female with psoriasis and psoriatic arthritis who presents for follow-up. She is on Stelara 90 mg Q 12 weeks. Her psoriasis and psoriatic arthritis and doing quite well overall. Her skin is entirely clear. 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 He is scheduled for spine surgery May 15. Continue Stelara 90 mg q.12 weeks. Continue meloxicam 7.5 mg tablet as needed Labs today and before next visit in 4 months (2) Psoriasis: Code(s): L40.9 - Psoriasis, unspecified Category: Medical Plan: As mentioned above, doing great on Stelara Plan I spent 30 minutes reviewing patient's chart, evaluating patient, ordering diagnostic workup, counseling patient and documenting in the chart Orders: Orders Complete Blood Count Auto Diff 4 Months L40.50 - Arthropathic psoriasis, unspecified, Z79.899 - Other fpc (current) drug therapy C Reactive Protein 4 Months L40.50 - Arthropathic psoriasis, unspecified, Z79.899 - Other adjunct faculty for medical terminology (current) drug therapy Comprehensive Met. Panel 4 Months L40.50 - Arthropathic psoriasis, unspecified, Z79.899 - Other adjunct faculty for medical terminology (current) drug therapy Erythrocyte Sedimentation Rate 4 Months L40.50 - Arthropathic psoriasis, unspecified, Z79.899 - Other fpc (current) drug therapy Coding Level of Care Code Est Pt Level 4 (56874) Diagnoses Psoriatic arthritis L40.50 Psoriasis L40.9
[2024-03-13 09:03] VITALS: BP 132/80; PULSE 82; O2SAT 95; BMI 39.9
== END 2024-03-13 09:24 | disposition home or self-care (01) ==
PROVIDERS: PCP Pediatrics; Visit Provider Student in an Organized Health Care Education/Training Program
DX: L40.50 Arthropathic psoriasis, unspecified (principal); L40.9 Psoriasis, unspecified
CPT/HCPCS: 99214

== ENCOUNTER → 2024-03-13 08:59 | Outpatient (BNVA) | payer OTHER, SELFPAY | PROVIDERS: PCP Pediatrics; Visit Provider Student in an Organized Health Care Education/Training Program ==

== ENCOUNTER 2024-03-13 09:31 | Outpatient (REF) | payer OTHER, SELFPAY ==
[2024-03-13 10:46] LABS: MANUAL DIFF FLAG NO
[2024-03-13 10:51] LABS: Basophils Absolute Auto 0.1 X10*3/uL (0.0-0.2); Basophils Percent Auto 0.9 % (0-2); Eosinophils Absolute Auto 0.1 X10*3/uL (0.0-0.4); Hematocrit 43.7 % (37.0-47.0); Hemoglobin 14.9 g/dl (12.0-16.0); Imm Gran Abs Auto 0.01 X10*3/uL (0.00-0.03); Imm Gran Pct Auto 0.1 % (0.0-0.4); Lymphocytes Absolute Auto 1.6 X10*3/uL (1.2-4.9); Lymphocytes Percent Auto 22.1 % (20-40); Mean Corpuscular HGB Conc 34.1 g/dl (31.0-35.0); Mean Corpuscular Hemoglobin 30.7 pg (27.0-33.0); Mean Corpuscular Volume 90.1 fL (80.0-98.0); Mean Platelet Volume 8.9 fL (9.4-12.3); Monocytes Absolute Auto 0.6 X10*3/uL (0.1-1.2); Monocytes Percent Auto 9.1 % (2-11); Neutrophils Absolute Auto 4.6 x10*3/uL (2.0-8.3); Neutrophils Percent Auto 65.8 % (45-73); Platelet Count 321 X10*3/uL (160-400); Red Blood Count 4.85 X10*6/uL (4.20-5.50); White Blood Count 7.1 X10*3/uL (4.8-10.8)
[2024-03-13 11:33] LABS: Erythrocyte Sedimentation Rate 6 MM/HR (0-20)
[2024-03-13 11:52] LABS: Alanine Aminotransferase 36 U/L (0-31); Albumin Level 4.5 g/dL (3.5-5.0); Alkaline Phosphatase 74 U/L (39-117); Anion Gap 14 (12-20); Aspartate Amino Transferase 27 U/L (5-31); Bilirubin Total 1.5 mg/dL (0.0-1.0); Blood Urea Nitrogen 19 mg/dL (9-16); C Reactive Protein 0.26 mg/dL (< or = 0.50); Calcium 10.1 mg/dL (8.4-10.2); Carbon Dioxide 25 mmol/L (22-29); Chloride 105 mmol/L (96-108); Estimated Glomerular Filt Rate > 60; Glucose Random 130 mg/dL (60-115); Potassium 4.4 mmol/L (3.3-5.1); Sodium 140 mmol/L (135-145); Total Protein 7.4 g/dL (6.5-8.0)
== END 2024-03-13 09:32 | disposition home or self-care (01) ==
LOC: HO.10HDL 09:31
PROVIDERS: Visit Provider Student in an Organized Health Care Education/Training Program
DX: L40.50 Arthropathic psoriasis, unspecified (principal)
CPT/HCPCS: 36415; 80053; 85025; 85652; 86140

== ENCOUNTER 2024-07-11 09:46 | Outpatient (REF) | payer OTHER, SELFPAY ==
[2024-07-11 10:12] LABS: MANUAL DIFF FLAG NO
[2024-07-11 10:28] LABS: Basophils Absolute Auto 0.1 X10*3/uL (0.0-0.2); Basophils Percent Auto 0.9 % (0-2); Eosinophils Absolute Auto 0.2 X10*3/uL (0.0-0.4); Eosinophils Percent Auto 2.1 % (0-4); Hematocrit 42.3 % (37.0-47.0); Hemoglobin 14.3 g/dl (12.0-16.0); Imm Gran Abs Auto 0.03 X10*3/uL (0.00-0.03); Imm Gran Pct Auto 0.4 % (0.0-0.4); Lymphocytes Absolute Auto 1.7 X10*3/uL (1.2-4.9); Lymphocytes Percent Auto 21.9 % (20-40); Mean Corpuscular HGB Conc 33.8 g/dl (31.0-35.0); Mean Corpuscular Volume 88.9 fL (80.0-98.0); Mean Platelet Volume 8.9 fL (9.4-12.3); Monocytes Absolute Auto 0.7 X10*3/uL (0.1-1.2); Monocytes Percent Auto 8.6 % (2-11); Neutrophils Absolute Auto 5.1 x10*3/uL (2.0-8.3); Neutrophils Percent Auto 66.1 % (45-73); Platelet Count 268 X10*3/uL (160-400); Red Blood Count 4.76 X10*6/uL (4.20-5.50); White Blood Count 7.6 X10*3/uL (4.8-10.8)
[2024-07-11 11:08] LABS: Erythrocyte Sedimentation Rate 6 MM/HR (0-20)
[2024-07-11 11:16] LABS: Alanine Aminotransferase 37 U/L (0-31); Albumin Level 4.1 g/dL (3.5-5.0); Alkaline Phosphatase 88 U/L (39-117); Anion Gap 11 (12-20); Aspartate Amino Transferase 28 U/L (5-31); Bilirubin Total 1.2 mg/dL (0.0-1.0); Blood Urea Nitrogen 12 mg/dL (9-16); C Reactive Protein 0.19 mg/dL (< or = 0.50); Calcium 9.4 mg/dL (8.4-10.2); Carbon Dioxide 25 mmol/L (22-29); Chloride 105 mmol/L (96-108); Estimated Glomerular Filt Rate > 60; Glucose Random 211 mg/dL (60-115); Potassium 4.4 mmol/L (3.3-5.1); Sodium 137 mmol/L (135-145); Total Protein 6.9 g/dL (6.5-8.0)
== END 2024-07-11 09:47 | disposition home or self-care (01) ==
LOC: HO.LAB 09:46
PROVIDERS: PCP Pediatrics; Visit Provider Student in an Organized Health Care Education/Training Program
DX: L40.50 Arthropathic psoriasis, unspecified (principal); Z79.899 Other long term (current) drug therapy
CPT/HCPCS: 36415; 80053; 85025; 85652; 86140

== ENCOUNTER 2024-07-14 07:37 | Outpatient (AMB) | payer OTHER, SELFPAY ==
--- NOTE | 2024-07-14 07:40 | MHC.OFFVIS ---
Vital Signs 07/14/24 07:45 Height 5 ft 4 in Weight 245 lb 9.519 oz BMI 42.2 BP 130/82 Blood Pressure Location Lt brachial Position Sitting Pulse 9 L Pulse Source Pulse Oximeter Pulse Oximetry (%) 95 Oxygen Delivery Method Room Air Intake Visit Reasons: PsA Intake Note: Patient presents for PsA. Allergies adhesive Allergy (Severe, Verified 07/14/24 07:44) Swelling Penicillins Allergy (Unknown, Verified 07/14/24 07:44) Nausea and Vomiting codeine Adverse Reaction (Unknown, Verified 07/14/24 07:44) Abdominal Pain Medication List - Last Reconciled 07/14/24 by Nora Patel MD amlodipine 2.5 mg PO DAILY clobetasol 0.05% 1 appl topical BID 2 weeks meloxicam 7.5 mg PO BID PRN rosuvastatin 20 mg PO BEDTIME Stelara (ustekinumab) 90 mg subcut Q12W NS triamcinolone acetonide 0.1% 1 appl topical DAILY HPI Comments Details: 54-year-old female with psoriasis, psoriatic arthritis and degenerative arthritis returns for follow-up. She had cervical spine surgery about 2 months ago and will be going for back surgery in a couple of days. Her last dose of Stelara was back in January. She states that she is now having more psoriasis patches especially on her hand and on her buttocks. She was diagnosed with hypertension started on blood pressure medication as well as diabetes mellitus and metformin was discussed but patient has not started it yet Most recent history by Dr. Fong 06/2023: The patient returns for evaluation of her psoriatic arthritis and psoriasis. She is currently on Otezla 30 mg b.i.d., clobetasol ointment, on triamcinolone lotion to the scalp. Unfortunate these measures have not continued with good control of her psoriasis. She has patches over the arms, scalp, abdomen, and lower back. She does remain on the meloxicam 15 mg daily for her psoriatic arthritis and osteoarthritis. There is pain in the thumbs, feet at the MTP and insteps, and in the lower back so the psoriatic arthritis is also not controlled well. Her back surgery did relieve her of the radicular pain down the legs and she finds that she is walking better. She is having neck pain that gives her paresthesias in the arms. Surgery for that has been proposed but she has not scheduled that yet. 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 Review of Systems ENT Reports neck pain Musc Reports back pain, Reports arthralgias, Reports neck pain and Reports stiffness Skin/Breast Reports rash Physical Exam Vital Signs: Last Vital Signs Pulse 9 L 07/14/24 07:45 BP 130/82 07/14/24 07:45 Pulse Ox 95 07/14/24 07:45 Oxygen Delivery Method Room Air 07/14/24 07:45 BMI result Body Mass Index 42.2 Const General: cooperative, healthy appearing and comfortable Nutritional Appearance: obese morbidly obese Orientation/consciousness: patient oriented x3 Limitations: no limitations HEENT Head: Yes normocephalic and Yes atraumatic Mouth: moist mucous membranes Resp Effort & Inspection: normal respiratory effort and able to speak in complete sentences Auscultation: clear to auscultation bilaterally Cardio Rate: regular rate Skin Other: Rashes on the outer ulnar aspect of her right hand, Seroquel psoriasis patches on her lower back Neuro General: patient oriented x3 Extrem Other: No active synovitis today Assessment & Plan Assessment & Plan (1) Psoriatic arthritis: Comment: 01/09 - poor response to NSAIDs; on meloxicam fall - Enbrel caused injection site reactions December 2016 - Humira started - stopped 04/16 - she felt she had weight gain and not effective 06/16: Otezla started ineffective DC 06/2023 Stelara 90 mg 07/2023 effective for skin Code(s): L40.50 - Arthropathic psoriasis, unspecified Category: Medical Plan: This is a 54-year-old female with psoriasis and psoriatic arthritis who presents for follow-up. She is on Stelara 90 mg Q 12 weeks. Patient has been off her Stelara since 01/2024 in preparation for her final surgeries she had cervical spine surgery 04/2024 and will be going for L-spine surgery in 2 days. Her psoriasis is flaring. I will prescribe her clobetasol cream. Advised patient that she can restart Stelara 1 week postop provided adequate wound healing with no signs of infection. Upon evaluation today I do not see signs of active psoriatic arthritis Labs before next visit in 5 months (2) Psoriasis: Code(s): L40.9 - Psoriasis, unspecified Category: Medical Plan: As mentioned above, for now will prescribed clobetasol cream, start Stelara as mentioned above Plan I spent 25 minutes reviewing patient's chart, evaluating patient, ordering diagnostic workup, counseling patient and documenting in the chart Orders: Orders Complete Blood Count Auto Diff 5 Months L40.50 - Arthropathic psoriasis, unspecified C Reactive Protein 5 Months L40.50 - Arthropathic psoriasis, unspecified Hepatitis A,B,C Profile 5 Months Z11.59 - Encounter for screening for other viral diseases T Spot TB 5 Months Z11.7 - Encounter for testing for latent tuberculosis infection Comprehensive Met. Panel 5 Months L40.50 - Arthropathic psoriasis, unspecified Erythrocyte Sedimentation Rate 5 Months L40.50 - Arthropathic psoriasis, unspecified Medications: Refilled clobetasol 0.05% 1 appl topical BID 60 grams 3RF to affected sjkin areas 2 weeks L40.9 - Psoriasis, unspecified Coding Level of Care Code Est Pt Level 4 (94150) Diagnoses Psoriatic arthritis L40.50 Psoriasis L40.9
[2024-07-14 07:45] VITALS: BP 130/82; PULSE 9; O2SAT 95; BMI 42.2
== END 2024-07-14 08:18 | disposition home or self-care (01) ==
PROVIDERS: PCP Pediatrics; Visit Provider Student in an Organized Health Care Education/Training Program
DX: L40.50 Arthropathic psoriasis, unspecified (principal); L40.9 Psoriasis, unspecified
CPT/HCPCS: 99214

== ENCOUNTER → 2024-07-14 07:37 | Outpatient (BNVA) | payer OTHER, SELFPAY | PROVIDERS: PCP Pediatrics; Visit Provider Student in an Organized Health Care Education/Training Program ==

== ENCOUNTER 2024-12-11 06:01 | Outpatient (REF) | payer OTHER, SELFPAY ==
--- OUTSIDE RECORDS SUMMARY | 2024-12-11 06:03 | XMS_ITS | Clinical Summary ---
Author Organization [facility] Address [address] [place] [address] Care Team Providers Care Railway Signal Electrician Name Role Phone Ady Pate MD Primary Care Provider Allergies Active Allergy Reactions Severity Noted Date Comments Codeine 10/04/2005 abdominal pains Penicillins 08/09/2018 vomiting Medications Medication Sig Dispensed Refills Start Date End Date Status cyclobenzaprine (FLEXERIL) 5 MG tablet TAKE 1 OR 2 TABLETS BY MOUTH EVERY 8 HOURS NEEDED FOR MUSCLE SPASM 0 01/22/2024 Active gabapentin (NEURONTIN) 300 MG capsule TAKE ONE CAPSULE BY MOUTH THREE TIMES A DAY 0 01/22/2024 Active meloxicam (MOBIC) 7.5 MG tablet 0 03/01/2024 Active methocarbamol (ROBAXIN) 750 MG tablet TAKE ONE TABLET BY MOUTH FOUR TIMES A DAY NEEDED FOR MUSCLE SPASMS 0 01/03/2024 Active Ustekinumab 90 MG/ML Solution Prefilled Syringe Inject into the skin Every 3 Months. 0 Active amlodipine (NORVASC) 2.5 MG tablet Take 1 Tablet by mouth daily for 180 days. 90 Tablet 1 04/09/2024 Active rosuvastatin (CRESTOR) 40 MG tablet Take 1 Tablet by mouth daily for 180 days. 90 Tablet 1 04/09/2024 Active metformin (GLUCOPHAGE-XR) 500 MG 24 hr tablet Take 1 tablet by mouth daily with food 90 Tablet 1 04/09/2024 Active Active Problems Problem Noted Date Hypertension 04/09/2024 Colon cancer screening 07/11/2021 Overview: 10/18 colonoscopy neg. Repeat 10 yrs Obstructive sleep apnea mild AHI 14 05/30 Overview: [facility] Home Sleep Apnea Test: Date 06/08/2020; Wt 230#; BMI 38; NGUYỄN (AHI) 14, AI 3; HI 11; Unclassified apneas 1; Obstructive apneas 17; Central apneas 3; Mixed apneas 0; hypopneas 90; average oxygen saturation 93% (lowest 87% without saturations <88% for 5% or more of study) - Obstructive Sleep Apnea - mild; mostly hypopneas with some obstructive and central apneas; without sleep related hypoventilation by 2019 home sleep apnea test. Primary osteoarthritis of both feet 04/29 Diabetes 09/13/2017 Overview: 04/22 - HgbA1C 6.9% Lumbar disc disease with radiculopathy 1 08/01/2015 Overview: L5-S1 Surgery 05/14 L4-L5 surgery 09/18 Family history of ovarian cancer 015 Overview: 10/11 - did not follow up on Genetics referral Last Assessment & Plan: I am referring you for potential genetic testing. Family history of carotid endarterectomy 09/23/2007 Sacroiliitis - by xray 09/0609/10/2007 Overview: Clem Causey Psoriatic arthropathy 10/01/2006 Overview: Dr. Fong 01/09 - poor response to NSAIDs; took Mobic, now meloxicam fall - Enbrel caused injection site reactions December 2016 - Humira started - stopped 04/16 - she felt she had weight gain and not effective 06/16: Otezla started Psoriasis 02/02/2006 Overview: Julio Cesar Doss PA-C 04/13 - apremilast denied coverage by insurance 08/14 - referred to external gaming floor supervisor for consideration of UV therapy Last Assessment & Plan: Make sure to keep your gaming floor supervisor appointment. Mixed hyperlipidemia 10/04/2005 Overview: 04/13 - ASCVD 10yr risk 0.8% IMO update Obesity (BMI 30-39.9) 10/04/2005 Resolved Problems Problem Noted Date Resolved Date Left shoulder pain 03/14/2013 07/18/2013 Overview: [facility] - minimal improvement Left foot pain 05/12/2009 09/25/2014 Immunizations Name Administration Dates Next Due COVID-19 (Moderna) 11/18/2020,10/20/2020 Influenza (> 6 Months) 06/20/2020 Influenza Vaccine-preservati ve Free-quadrivalent 4 Years 04/09/2024,07/11/2021,05/10/2018 Pneumoccoccal(Adult) Polysaccharide PPSV23 09/10 Tdap 03/20/2023,07/18/2013 Family History Medical History Relation Name Comments Cancer, Other Aunt ovarian Alcohol and Other Drug Abuse Father Arthritis Maternal Grandmother Hypertension Maternal Grandmother Arthritis Mother Cholesterol Level Mother Hypertension Mother Stroke Mother Hypertension Uncle 1 AL Uncle 1 AL Uncle 2 Relation Name Status Comments Aunt Father alcoholism Maternal Grandmother Mother Uncle 1 Uncle 2 Social History Tobacco Use Types Packs/Day Years Used Date Smoking Tobacco: Never Smokeless Tobacco: Never Tobacco Cessation:Counseling Given: Not Answered Alcohol Use Standard Drinks/Week Comments Yes 0 (1 standard drink = 0.6 oz pur e alcohol) rare Sex Assigned at Date Recorded Not on file Last Filed Vital Signs Vital Sign Reading Time Taken Comments Blood Pressure 142/80 04/09/2024 11:05 AM EDT Pulse 64 04/09/2024 10:32 AM EDT Temperature 36.3 ??C (97.3 ??F) 04/09/2024 1 0:32 AM EDT Respiratory Rate 14 03/20/2023 9:47 AM EDT Oxygen Saturation 96% 05/10/2022 9:11 AM EDT Inhaled Oxygen Concentration - - Weight 110.8 kg (244 lb 3.2 oz) 024 10:32 AM EDT Height 167.6 cm (5' 6 ) 04/09/2024 10:3 2 AM EDT Body Mass Index 39.41 04/09/2024 10:32 AM EDT Plan of Treatment Health Maintenance Due Date Last Done Comments DIABETES: ANNUAL EYE EXAM 1988 DIABETES: ANNUAL FOOT EXAM 1988 DIABETES: ANNUAL URINE PROTE IN TEST (MICROALBUMIN) 1988 CERVICAL CANCER SCREENING 1991 SHINGLES VACCINE (1 of 2) 2020 BASELINE HEALTH EXAM 40-64 07/26/202007/26, 07/26/2018, 09/10/2017, Additional history exists Covid-19 Vaccine (3 - 2022-2 4 season) 2024 11/18/2020, 10/20/2020 DIABETES: BLOOD SUGAR CONTRO L TEST (HGBA1C) 07/09/2024 04/09/2024, 03/20/2023, 03/24/2022, Additional history exists BMI CHECK/ADVISE 07/30/2024 03/20/2023, , 04/06/2022, Additional history exists MAMMOGRAM 11/21/2024 11/22/2023, 10/29 (External Completion), 11/16/2022, Additional history exists DIABETES/HEART DISEASE: MALGORZATA MCKENZIE CHOLESTEROL (LDL) 04/09/2025 04/09/2024, 03/20/2023, 09/20/2022, Additional history exists COLON CANCER SCREENING 10/21/2031 , 10/20/2021 (Completed) DTAP/TDAP/TD (3 - Td or Tdap) 03/20/2033 03/20/2023, 07/18/2013 PNEUMOCOCCAL VACCINE FOR HIG H RISK PATIENTS (#2) 2035 09/10/2017 INFLUENZA Completed 04/09/2024, 06/29, 06/20/2020, Additional history exists Insurance Payer Benefit Plan / Group Subscriber ID Effective Dates Phone Address Type WORKERS COMP WORKERS COMPENS[place] [id number] 2002-Pres ent [id number] [place] [address] OTHER [facility]/10%/ 30/F/PPO [id number] 2014-Pres ent [address] [place] [address] PPO Fee-for- Service WORKERS COMP WORKERS COMPENSATIO [place] [id number] 2015-Pre sent [address] [facility] [address] [place] [address] OTHER [employer] PPO $0 [place] [id number] 2021-Pre sent [employer] [address] [address] [place] [address] PPO Fee-for- Service Care Teams Railway Signal Electrician Relationship Specialty Start Date End Date Ady Pate MD [address] [place] [address] PCP - General Internal Medicine 04/23/21
--- OUTSIDE RECORDS SUMMARY | 2024-12-11 06:03 | XMS_ITS | Encounter Summary ---
Author Organization [facility] Address [address] [place] [address] Care Team Providers Care Credit Portfolio Advisor Name Role Phone Ady Pate MD Primary Care Provider +1- [phone] Encounter Details Date Type Department Care Team Description 03/29/2022 Pt. Non Urgent Medical Question Adult Medicine - [place] [address] [place] [address] Ady Pate MD [address] [place], [place] [id number] Social History Tobacco Use Types Packs/Day Years Used Date Smoking Tobacco: Never Smokeless Tobacco: Never Alcohol Use Standard Drinks/Week Comments Yes 0 (1 standard drink = 0.6 oz pur e alcohol) rare Sex Assigned at Date Recorded Not on file documented as of this encounter Miscellaneous Notes * Telephone Encounter - John Sorenson - 03/29/2022 9:38 AM EDTFrom: Yasmine Chau To: Rishi Pate Sent: 03/29/2022 9:36 AM EDT Subject: Shoulder Good morning I have been having a lot of pain in my left shoulder. I discontinued working out for the last couple of weeks as it was getting worse by the day. It has not helped. Can you please send a referral to whomever you would recommend I see? Thank you. Yasmine documented in this encounter Plan of Treatment Not on file documented as of this encounter Visit Diagnoses Not on filedocumented in this encounter Care Teams Credit Portfolio Advisor Relationship Specialty Start Date End Date Ady Pate MD [address] [place] [address] PCP - General Internal Medicine 04/23/21 documented as of this encounter
--- OUTSIDE RECORDS SUMMARY | 2024-12-11 06:03 | XMS_ITS | Encounter Summary ---
Author Organization [facility] Address [address] [place] [address] Care Team Providers Care Electroplating Laborer Name Role Phone Shannon Cardozo MD Primary Care Provider Ady Meng MD Primary Care Provider Reason for Visit * Reason Onset Date Comments Prior Authorization 05/20/2019 Elizabeth Encounter Details Date Type Department Care Team Description 05/20/2019 Telephone Adult Medicine - [address] [address] Shannon Cardozo MD Prior Authorization (Elizabeth) Social History Tobacco Use Types Packs/Day Years Used Date Smoking Tobacco: Never Smokeless Tobacco: Never Alcohol Use Standard Drinks/Week Comments Yes 0 (1 standard drink = 0.6 oz pur e alcohol) rare Sex Assigned at Date Recorded Not on file documented as of this encounter Miscellaneous Notes * Telephone Encounter - Lacy Wong L.P.N. - 05/23/2019 11:17 AM EDT She needs a new PA.. I think I actually filled one out and put it on your desk,,, I sent this because it is CMM * Telephone Encounter - Al Fong MD - 05/22/2019 1:49 PM EDT Miriam Do you know what this is about? We restarted it 06/16 Dr. Fong * Telephone Encounter - Aniyah Osullivan - 05/20/2019 1:54 PM EDT Prior Authorization for Medication-do not complete and send this encounter unless you have the fax from the pharmacy. Is this a Cover My Meds request: Yes -- Barker Code [id number] Name of Medication Apremilast (OTEZLA) 30 MG Tab Dose of Medication 30MG What is the RX # from the faxed refill? How does patient take this med? Sig - Route: Take 30 mg by mouth 2 times daily. - Oral What Pharmacy did the fax come from: [facility] fax #: [phone] [employer] Party Information from fax: What Prescription Plan does the patient have? [employer] RX BIN/PCN if applicable: Cardholder ID:[id number] Person Code: Relationship Code: spouse Help desk phone: documented in this encounter Plan of Treatment Not on file documented as of this encounter Visit Diagnoses Not on filedocumented in this encounter Care Teams Electroplating Laborer Relationship Specialty Start Date End Date Shannon Cardozo MD PCP - General Internal Medicine 12/06/15 04/22/21 Ady Pate MD [address] [place] [address] PCP - General Internal Medicine 04/23/21 documented as of this encounter
--- OUTSIDE RECORDS SUMMARY | 2024-12-11 06:03 | XMS_ITS | Encounter Summary ---
Author Organization [facility] Address [address] [place] [address] Care Team Providers Care Professor Of Music Name Role Phone Shannon Cardozo MD Primary [facility] Ady Pate MD Primary Care Provider Encounter Details Date Type Department Care Team Description 10/24/2018 Diesel Dinkey Engineer Report Medical Records [address] [place] [address] Elinor Shepherd Social History Tobacco Use Types Packs/Day Years Used Date Smoking Tobacco: Never Smokeless Tobacco: Never Alcohol Use Standard Drinks/Week Comments Yes 0 (1 standard drink = 0.6 oz pur e alcohol) rare Sex Assigned at Date Recorded Not on file documented as of this encounter Plan of Treatment Not on file documented as of this encounter Visit Diagnoses Not on filedocumented in this encounter Care Teams Professor Of Music Relationship Specialty Start Date End Date Shannon Cardozo MD PCP - General Internal Medicine 12/06/15 04/22/21 Ady Pate MD [address] [place] [address] PCP - General Internal Medicine 04/23/21 documented as of this encounter
--- OUTSIDE RECORDS SUMMARY | 2024-12-11 06:03 | XMS_ITS | Encounter Summary ---
Author Organization [facility] Address [address] [place] [address] Care Team Providers Care Client Consultant Name Role Phone Shannon Cardozo MD Primary Care Provider Ady Meng MD Primary Care Provider Reason for Visit * Reason Onset Date Comments Abnormal Mammogram 08/07/2018 Encounter Details Date Type Department Care Team Description 08/07/2018 Telephone Radiology - [address] [address] Radiology, Authorizing Abnormal Mammogram Social History Tobacco Use Types Packs/Day Years Used Date Smoking Tobacco: Never Smokeless Tobacco: Never Alcohol Use Standard Drinks/Week Comments Yes 0 (1 standard drink = 0.6 oz pur e alcohol) rare Sex Assigned at Date Recorded Not on file documented as of this encounter Miscellaneous Notes * Telephone Encounter - Timoteo Wyatt - 08/19/2018 2:44 PM EST [facility] to [facility] for 2nd breast biopsy. L.m. Therefore orders will be removed from our schedule.Thank you * Telephone Encounter - Cece Joe - 08/07/2018 12:05 PM EST [place] for pt to call us to sced appt For 6mo f/u rt brst us 08/07/18 bw documented in this encounter Plan of Treatment Not on file documented as of this encounter Visit Diagnoses Not on filedocumented in this encounter Care Teams Client Consultant Relationship Specialty Start Date End Date Shannon Cardozo MD PCP - General Internal Medicine 12/06/15 04/22/21 Ady Pate MD [address] [place] [address] PCP - General Internal Medicine 04/23/21 documented as of this encounter
--- OUTSIDE RECORDS SUMMARY | 2024-12-11 06:03 | XMS_ITS | Encounter Summary ---
Author Organization [facility] Address [address] [place] [address] Care Team Providers Care Oil And Gas Drafter Name Role Phone Ady Pate MD Primary Care Provider [phone]- [phone] Reason for Visit * Reason Onset Date Comments Orders Call 07/07/2022 Encounter Details Date Type Department Care Team Description 07/07/2022 Telephone Adult Medicine - [place] [address] [place], [place] [phone] Ady Pate MD [address] [place], [place] [phone] Orders Call Social History Tobacco Use Types Packs/Day Years Used Date Smoking Tobacco: Never Smokeless Tobacco: Never Alcohol Use Standard Drinks/Week Comments Yes 0 (1 standard drink = 0.6 oz pur e alcohol) rare Sex Assigned at Date Recorded Not on file documented as of this encounter Miscellaneous Notes * Telephone Encounter - Goldie Rosas L.P.N. - 07/11/2022 11:06 AM EST Called pt advised she needs hospital f/u with pcp States she has not had post op visit with her surgeon yet Will call us back to schedule after that post op appt is made * Telephone Encounter - Goldie Rosas L.P.N. - 07/07/2022 1:24 PM EST Left msg advising [facility] pcp will sign orders, if hospital f/u scheduled Called pt home:She is still in hospital per ,and advised to call us to schedule Hopsital d/cf/u agreed * Telephone Encounter - Ady Pate MD - 07/07/2022 12:07 PM EST If she schedules a hospital follow-up we can sign her orders * Telephone Encounter - Astrid Candelaria - 07/07/2022 10:14 AM EST Shweta Sarmiento [facility] called stating patient had a back surgery in [place]. Surgeon in not licensed in [place]. [facility] is asking if Dr will sign all the orders for the patient. Please advise documented in this encounter Plan of Treatment Not on file documented as of this encounter Visit Diagnoses Not on filedocumented in this encounter Care Teams Oil And Gas Drafter Relationship Specialty Start Date End Date Ady Pate MD [address] [place] [address] PCP - General Internal Medicine 04/23/21 documented as of this encounter
--- OUTSIDE RECORDS SUMMARY | 2024-12-11 06:03 | XMS_ITS | Encounter Summary ---
Author Organization [facility] Address [address] [place] [address] Care Team Providers Care Vamp Maker Name Role Phone Ady Pate MD Primary Care Provider [phone]- [phone] Encounter Details Date Type Department Care Team Description 11/20/2022 Cord Cutter Report Medical Records [address] [place] [address] Al Fong MD Social History Tobacco Use Types Packs/Day Years [...] on filedocumented in this encounter Care Teams Vamp Maker Relationship Specialty Start Date End Date Ady Pate MD [address] [place] [address] PCP - General Internal Medicine 04/23/21 documented as of this encounter
--- OUTSIDE RECORDS SUMMARY | 2024-12-11 06:03 | XMS_ITS | Encounter Summary ---
Author Organization [facility] Address [address] [place] [address] Care Team Providers Care Oil Separator Name Role Phone Ady Pate MD Primary Care Provider [phone]- [phone] Encounter Details Date Type Department Care Team Description 02/06/2024 Regional Wildlife Agent Report Medical Records [address] [place] [address] Abstract, Provider Social History Tobacco Use Types Packs/Day Years [...] filedocumented in this encounter Care Teams Oil Separator Relationship Specialty Start Date End Date Ady Pate MD [address] [place] [address] PCP - General Internal Medicine 04/23/21 documented as of this encounter
--- OUTSIDE RECORDS SUMMARY | 2024-12-11 06:03 | XMS_ITS | Encounter Summary ---
Author Organization [facility] Address [address] [place] [address] Care Team Providers Care Top Frame Fitter Name Role Phone Ady Pate MD Primary Care Provider [phone]- [phone] Reason for Visit * Reason Onset Date Comments Sleep Study 10/04/2022 Please request a [facility] for sleep study . Encounter Details Date Type Department Care Team Description 10/04/2022 Telephone Pulmonology - [place] [address] [phone] Carrie Deleon MD [address] [phone] Sleep Study (Please request auth for sleep study .) Social History Tobacco Use Types Packs/Day Years Used Date Smoking Tobacco: Never Smokeless Tobacco: Never Alcohol Use Standard Drinks/Week Comments Yes 0 (1 standard drink = 0.6 oz pur e alcohol) rare Sex Assigned at Date Recorded Not on file COVID-19 Exposure Response Date Recorded In the last 10 days, have yo u been in contact with someone who was confirmed or suspected to have Coronavirus/COVID-19? No / Unsure 09/20/2022 9:44 AM EST documented as of this encounter Plan of Treatment Not on file documented as of this encounter Visit Diagnoses Not on filedocumented in this encounter Care Teams Top Frame Fitter Relationship Specialty Start Date End Date Ady Pate MD [address] [place] [address] PCP - General Internal Medicine 04/23/21 documented as of this encounter
--- OUTSIDE RECORDS SUMMARY | 2024-12-11 06:03 | XMS_ITS | Encounter Summary ---
Author Organization [facility] Address [address] [place] [address] Care Team Providers Care Green Material Value Added Assessor Name Role Phone Ady Pate MD Primary Care Provider [phone]- [phone] Encounter Details Date Type Department Care Team Description 12/20/2023 Microfabrication Engineer Manager Report Medical Records [address] [place] [address] Nora Patel MD Social History Tobacco Use Types Packs/Day [...] on filedocumented in this encounter Care Teams Green Material Value Added Assessor Relationship Specialty Start Date End Date Ady Pate MD [address] [place], [place] [phone] PCP - General Internal Medicine 04/23/21 documented as of this encounter
--- OUTSIDE RECORDS SUMMARY | 2024-12-11 06:04 | XMS_ITS | Encounter Summary ---
Author Organization [facility] Address [address] [place] [address] Care Team Providers Care Manager Neonatal Name Role Phone Ady Pate MD Primary Care Provider Unava ilable Javier Recinos MD Unavailable [phone] System, Provider Not In Unavailable Unavaila ble Encounter Details Date Type Department Care Team (Late st Contact Info) Description 05/15/2024 Scanned Document [facility] [address] [place] [phone] Javier Recinos MD [address] [place] [address] [address] [place] [address] Social History Tobacco Use Types Packs/Day Years Used Date Smoking Tobacco: Never Smokeless Tobacco: Never Alcohol Use Standard Drinks/Week Comments Yes 0 (1 standard drink = 0.6 oz pure alcohol) 1-2 glass/month advised to stop 2 weeks before surgery AUDIT-C Answer Date Recorded Q1: How often do you have a drink containing alcohol? Monthly or less 04/22/2024 Q2: How many drinks containi ng alcohol do you have on a typical day when you are drinking? Patient does not drink Q3: How often do you have si x or more drinks on one occasion? Never 04/22/2024 Comments No Sex and Gender Information Value Date Recorded Sex Assigned at Female 03/03/2024 9:39 AM EDT Legal Sex Female 1:11 PM EST Gender Identity Female 03/03/2024 9:39 AM EDT Sexual Orientation Heterosexual (straight) 04/23 11:40 AM EDT documented as of this encounter Plan of Treatment Upcoming Encounters Date Type Department Care Team (Late st Contact Info) Description 12/15/2024 8:15 AM EDT [facility] Visit [facility] [address] [place] [address] Jocy Lazcano PA-C [address] [address] 02/27/2025 8:00 AM EDT [facility] [address] [phone] Javier Recinos MD [address] [place] [phone] documented as of this encounter Visit Diagnoses Not on filedocumented in this encounter Care Teams Manager Neonatal Relationship Specialty Start Date End Date Ady Pate MD PCP - General 06/09/22 Javier Recinos MD [address] [place] [phone] Surgery, Orthopedic 06/09/22 System, Provider Not In 07/02/24 documented as of this encounter
--- OUTSIDE RECORDS SUMMARY | 2024-12-11 06:04 | XMS_ITS | Encounter Summary ---
Author Organization [facility] Address [address] [place] [address] Care Team Providers Care Pigment Presser Name Role Phone Shannon Cardozo MD Primary Care Provider Parveen Ady Mariano MD Primary Care Provider [phone]- [phone] Reason for Visit * Reason Comments E-prescribe Rx Request Encounter Details Date Type Department Care Team Description 05/07/2020 Refill Adult Medicine - [address] [address] Shannon Cardozo MD E-prescribe Rx Request Social History Tobacco Use Types Packs/Day Years Used Date Smoking Tobacco: Never Smokeless Tobacco: Never Alcohol Use Standard Drinks/Week Comments Yes 0 (1 standard drink = 0.6 oz pur e alcohol) rare Sex Assigned at Date Recorded Not on file documented as of this encounter Miscellaneous Notes * Telephone Encounter - Jane Tinsley L.P.N. - 05/10/2020 10:18 AM EDT Lab Results Component Value Date CHOL 250 04/01/2020 LDL 154 04/01/2020 HDL 50 04/01/2020 TRIG 232 04/01/2020 Lab Results Component Value Date ALB 4.4 04/01/2020 SGOT 29 04/01/2020 SGPT 29 04/01/2020 TBILI 1.3 04/01/2020 DBILI 0.1 12/21/2016 IBILI 0.5 12/21/2016 ALKPHOS 84 04/01/2020 TP 7.6 04/01/2020 * Telephone Encounter - Mignon Roberts - 05/10/2020 9:35 AM EDT Patient would like script to be: E-PRESCRIBED/FAXED TO PHARMACY WHEN WAS THE PATIENT'S LAST APPOINTMENT IN ADULT MEDICINE? 03/30/2020 WHEN WAS THE LAST TIME THE PATIENT SAW THEIR PCP? Same as above Does patient have an upcoming appointment? Yes 09/20/2020 (THE MEDICATION REQUESTED IS ON THE MED LIST ABOVE) All of the medications requested were on the CURRENT MEDS list Did you check the Pharmacy information above?: YES Patient wants: 30 -day supply Is this a mail order prescription request ? NO If the refill is from a FAXED refill request what is the RX # listed on the fax? N/A Patients current insurance carrier is: Payor: [facility] / Plan: POS $0 GALLITO [id number] / Product Type: POS [id number] documented in this encounter Plan of Treatment Not on file documented as of this encounter Visit Diagnoses Not on filedocumented in this encounter Care Teams Pigment Presser Relationship Specialty Start Date End Date Shannon Cardozo MD PCP - General Internal Medicine 12/06/15 04/22/21 Ady Pate MD [address] [place] [address] PCP - General Internal Medicine 04/23/21 documented as of this encounter
--- OUTSIDE RECORDS SUMMARY | 2024-12-11 06:04 | XMS_ITS | Encounter Summary ---
Author Organization [facility] Address [address] [place] [address] Care Team Providers Care Electronic Publications Specialist Name Role Phone Shannon Cardozo MD Primary Care Provider [facility] Ady Pate MD Primary Care Provider Encounter Details Date Type Department Care Team Description 08/15/2019 Sharepoint Solutions Developer Report Medical Records [address] [place] [address] Jersey Rooney Social History Tobacco Use Types Packs/Day Years [...] on filedocumented in this encounter Care Teams Electronic Publications Specialist Relationship Specialty Start Date End Date Shannon Cardozo MD PCP - General Internal Medicine 12/06/15 04/22/21 Ady Pate MD [address] [place] [address] PCP - General Internal Medicine 04/23/21 documented as of this encounter
--- OUTSIDE RECORDS SUMMARY | 2024-12-11 06:04 | XMS_ITS | Encounter Summary ---
Author Organization [facility] Address [address] [place] [address] Care Team Providers Care Treatment Manager Name Role Phone Ady Pate MD Primary Care Provider Unava ilable Javier Recinos MD Unavailable [phone] System, Provider Not In Unavailable Unavaila ble Encounter Details Date Type Department Care Team (Late st Contact Info) Description 02/13/2024 Scanned Document [facility] [address] [place] [phone] Huan Foley MD [address] [facility] [address] [place] [address] Social History Tobacco Use Types Packs/Day Years Used Date Smoking Tobacco: Never Smokeless Tobacco: Never Alcohol Use Standard Drinks/Week Comments Yes 0 (1 standard drink = 0.6 oz pure alcohol) 1-2 glass/month advised to stop 2 weeks before surgery AUDIT-C Answer Date Recorded Q1: How often do you have a drink containing alc ohol? Monthly or less 06/12/2022 Q2: How many drinks containi ng alcohol do you have on a typical day when you are drinking? 1 or 2 06/12/2022 Q3: How often do you have si x or more drinks on one occasion? Never 06/12/2022 Comments No Sex and Gender Information Value [...] 8:15 AM EDT Office Visit [facility] [address] [facility] [place] [address] Jocy Lazcano PA-C [address] [address] 02/27/2025 8:00 AM EDT [facility] [address] [phone] Javier Recinos MD [address] [place] [address] [phone] documented as of this encounter Visit Diagnoses Not on filedocumented in this encounter Care Teams Treatment Manager Relationship Specialty Start Date End Date Ady Pate MD PCP - General 06/09/22 Javier Recinos MD [address] [place] [address] [phone] Surgery, Orthopedic 06/09/22 System, Provider Not In 07/02/24 documented as of this encounter
--- OUTSIDE RECORDS SUMMARY | 2024-12-11 06:04 | XMS_ITS | Encounter Summary ---
Author Organization [facility] Address [address] [place] [address] Care Team Providers Care Can Filler Name Role Phone Shannon Cardozo MD Primary Care Provider Parveena Ady Mariano MD Primary Care Provider Reason for Referral * Non RAQUEL (Routine) - Authorized/Booked Specialty Diagnoses / Procedures Referred By Sydney moore Referred To Contact Pulmonology Procedures REFERRAL TO PULMONOLOGY Shannon Cardozo MD [address] [place] [address] Pulmo/[place] [address] [facility] [place] [address] Referral ID Status Reason Start Date Expiration Date V isits Requested Visits Authorized [id number] Authorized/B ooked 06/23/2020 06/23/2021 1 1 Reason for Visit * Reason Onset Date Comments Sleep Study 05/21/2020 Encounter Details Date Type Department Care Team Description 05/21/2020 Telephone Pulmonology - [place] [address] [place] [address] Reema Nunez FNP [address] [place] [address] Sleep Study Social History Tobacco Use Types Packs/Day Years Used Date Smoking Tobacco: Never Smokeless Tobacco: Never Alcohol Use Standard Drinks/Week Comments Yes 0 (1 standard drink = 0.6 oz pur e alcohol) rare Sex Assigned at Date Recorded Not on file documented as of this encounter Miscellaneous Notes * Telephone Encounter - Shannon Cardozo MD - 06/23/2020 12:54 PM EST Spoke with patient about sleep study demonstrating mild to moderate sleep apnea and benefits of CPAP for this. She agrees to referral to pulmonary which is ordered. * Telephone Encounter - LEONOR Cohen - 06/17/2020 4:44 PM EST Sleep study pending upload on EMR - media/procedures. DALY diagnosed - mild. Please refer to pulmo if the patient wishes to use CPAP and if you wish us to consult/manage. Thank you. * Telephone Encounter - Shannon Cardozo MD - 05/21/2020 7:58 PM EDT noted * Telephone Encounter - LEONOR Cohen - 05/21/2020 6:24 PM EDT Home study did not record sufficient data. SMS should be contacting patient for a repeat study. documented in this encounter Plan of Treatment Not on file documented as of this encounter Visit Diagnoses Diagnosis Obstructive sleep apnea mild AHI 14 Obstructive sleep apnea (adult) (pediatric) documented in this encounter Care Teams Can Filler Relationship Specialty Start Date End Date Shannon Cardozo MD PCP - General Internal Medicine 12/06/15 04/22/21 Ady Pate MD [address] [place] [id number] PCP - General Internal Medicine 04/23/21 documented as of this encounter
--- OUTSIDE RECORDS SUMMARY | 2024-12-11 06:04 | XMS_ITS | Encounter Summary ---
Author Organization [facility] Address [address] [place] [address] Care Team Providers Care Reliner Name Role Phone Jose Angel Tang Primary Care Provider Unav ailable Shannon Cardozo MD [facility] Ady Pate MD Primary Care Provider [phone] Encounter Details Date Type Department Care Team Description 10/04/2010 Night Triage Doc Medical Records [address] [place] [address] Abstract, Provider Social History Tobacco Use Types Packs/Day Years Used Date Smoking Tobacco: Never Alcohol Use Standard Drinks/Week Comments Yes 0 (1 standard drink = 0.6 oz pur e alcohol) rare Sex Assigned at Date Recorded Not on file documented as of this encounter Plan of Treatment Not on file documented as of this encounter Visit Diagnoses Not on filedocumented in this encounter Care Teams Reliner Relationship Specialty Start Date End Date Jose Angel Tang PCP - General 08/09/06 12/05/15 Shannon Cardozo MD PCP - General Internal Medicine 12/06/15 04/22/21 Ady Pate MD [address] [place], [place] [phone] PCP - General Internal Medicine 04/23/21 documented as of this encounter
--- OUTSIDE RECORDS SUMMARY | 2024-12-11 06:04 | XMS_ITS | Encounter Summary ---
Author Organization [facility] Address [address] [place] [address] Care Team Providers Care Utilities Service Investigator Name Role Phone Jose Angel Tang Primary Care Provider Unav ailable Shannon Cardozo MD Primary Care Provider Unavaila ble Ady Pate MD Primary Care Provider Encounter Details Date Type Department Care Team Description 03/10/2013 Packing Clerk Report Medical Records [address] [place] [address] [place] [address] [place] [address] Social History Tobacco Use Types Packs/Day Years Used Date Smoking Tobacco: Never Alcohol Use Standard Drinks/Week Comments Yes 0 (1 standard drink = 0.6 oz pur e alcohol) rare Sex Assigned at Date Recorded Not on file documented as of this encounter Plan of Treatment Not on file documented as of this encounter Visit Diagnoses Not on filedocumented in this encounter Care Teams Utilities Service Investigator Relationship Specialty Start Date End Date Jose Angel Tang PCP - General 08/09/06 12/05/15 Shannon Cardozo MD PCP - General Internal Medicine 12/06/15 04/22/21 Ady Pate MD [address] [place], [place] [phone] PCP - General Internal Medicine 04/23/21 documented as of this encounter
--- OUTSIDE RECORDS SUMMARY | 2024-12-11 06:04 | XMS_ITS | Encounter Summary ---
Author Organization [facility] Address [address] [place] [address] Care Team Providers Care Glass Technologist Name Role Phone Ady Pate MD Primary Care Provider [phone] Reason for Visit * Reason Onset Date Comments Prior Authorization 09/22/2021 Colonoscopy Encounter Details Date Type Department Care Team Description 09/22/2021 Telephone Internal Medicine - [address], [address] [place] [address] Michell William MD Prior Authorization (Colonoscopy) Social History Tobacco Use Types Packs/Day Years Used Date Smoking Tobacco: Never Smokeless Tobacco: Never Alcohol Use Standard Drinks/Week Comments Yes 0 (1 standard drink = 0.6 oz pur e alcohol) rare Sex Assigned at Date Recorded Not on file documented as of this encounter Miscellaneous Notes * Telephone Encounter - Missy Ochoa - 09/22/2021 12:42 PM EST R auth # [id number] Valid 09/22/21-10/20/21 {Per David Frank with [employer] Forwarded to [facility] Schedulers documented in this encounter Plan of Treatment Not on file documented as of this encounter Visit Diagnoses Not on filedocumented in this encounter Care Teams Glass Technologist Relationship Specialty Start Date End Date Ady Pate MD [address] [place] [address] PCP - General Internal Medicine 04/23/21 documented as of this encounter
--- OUTSIDE RECORDS SUMMARY | 2024-12-11 06:04 | XMS_ITS | Clinical Summary ---
Author Organization [facility] Address [address] [place] [address] Care Team Providers Care Potato Chip Sacking Machine Operator Name Role Phone Ady Pate MD Primary Care Provider Javier Gonzalez MD Unavailable [phone] System, Provider Not In Unavailable Unavaila ble Allergies Active Allergy Reactions Criticality Noted Date Comments Adhesives/Tape Rash/Dermatitis Medium 07/02/2024 Codeine Other (See Comments) Medium 06/12/2022 Stomach cramps Penicillins GI Intolerance/Nausea/Vomiting Low 05/30 Medications amLODIPine (NORVASC) 2.5 MG tablet Take 1 tablet (2.5 mg total) by mouth every evening. 4 Active Stelara 90 MG/ML subcutaneous injection Inject 1 mL (90 mg total) under the skin every 3 (three) months. Last taken 03/01/2024 4 Active rosuvastatin (CRESTOR) 40 MG tablet 4 Active gabapentin (NEURONTIN) 300 MG capsuleIndication s:Radiculopathy, lumbar region Take 1 capsule (300 mg total) by mouth 3 (three) times a day. 90 capsule 5 Active methylPREDNISolon e (MEDROL DOSEPAK) 4 MG tabletIndications :Radiculopathy, lumbar region Take as directed on package insert. Take with food to avoid GI upset. 21 tablet 5 Active methocarbamol (ROBAXIN) 750 MG tabletIndications :Lumbar radiculitis TAKE ONE TABLET BY MOUTH FOUR TIMES A DAY NEEDED FOR MUSCLE SPASMS 60 tablet 5 Active Active Problems Problem Noted Date Diagnosed Date Lumbar radiculitis 07/16/2024 Neurogenic claudication due to lumbar spinal josie nosis 07/02/2024 Assessment & Plan (07/02/2024 4:33 PM EST): Planned surgical intervention of L3-4 xtreme lumbar interbody fusion on 07/16/[address] Recinos. 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 Recinos. Morbid obesity 04/22/2024 Assessment & Plan (07/03/2024 8:00 AM EST): Preop BMI 43.22. Weight loss encouraged Assessment & Plan (04/22/2024 4:42 PM EDT): BMI at PREPARE Weight loss encouraged Hypertension 04/09/2024 Assessment & Plan (07/02/2024 4:39 PM EST): Well controlled on amlodipine- take the night before surgery. Assessment & Plan (04/22/2024 4:40 PM EDT): Well controlled on current medication. Take amlodipine the night before surgery. S/P laminectomy with spinal fusion 07/05/2022 Diabetes 09/13/2017 Overview (04/22/2024): 04/22 - HgbA1C 6.9% Assessment & Plan (07/02/2024 4:39 PM EST): Preop Hgb A1C Diet controlled Assessment & Plan (04/22/2024 4:40 PM EDT): Preop Hgb A1C 6.9. Diet controlled. No medication for diabetes. Mixed hyperlipidemia 10/04/2005 Overview (04/22/2024): 04/13 - ASCVD 10yr risk 0.8% IMO update Assessment & Plan (07/02/2024 4:39 PM EST): Managed on rosuvastatin Assessment & Plan (04/22/2024 4:41 PM EDT): Managed on rosuvastatin. Psoriatic arthritis Assessment & Plan (07/02/2024 4:38 PM EST): Followed by brake holder Dr. Bharat patrick appt 12/20/2023. Currently on stelara- last injection 03/01/2024. Do not take any further injections prior to surgery Assessment & Plan (04/22/2024 4:41 PM EDT): Followed by brake holder Dr. Bharat patrick appt 12/20/2023. Currently on stelara- last injection 03/01/2024. Sleep apnea Overview (06/15/2022): presumed, hasn't performed sleep study as of 05/2022 Assessment & Plan (07/02/2024 4:39 PM EST): Mild- no CPAP. Perioperative DALY protocols. Assessment & Plan (04/22/2024 4:39 PM EDT): Noncompliant with CPAP. Perioperative DALY protocols. Resolved Problems Problem Noted Date Diagnosed Date Resolved Date Acute deep vein thrombosis ( DVT) of proximal vein of right lower extremity 05/20/2024 07/03/2024 Encounters Date Type Department Care Team Description 11/03/2024 Refill [facility] [address] [place] [address] Javier Recinos MD Lumbar radiculitis 10/27/2024 8:30 AM EDT Ancillary Procedure [facility] [address] [phone] 10/27/2024 8:15 AM EDT Office Visit [facility] [address] [phone] Jocy Lazcano PA-C Postsurgical arthrodesis status (Primary Dx) 10/23/2024 Orders Only [facility] [address] [phone] Jocy Lazcano PA-C Radiculopathy, lumbar region (Primary Dx) 10/13/2024 5:30 PM EDT Treatment [facility] [address] [address] Yari García, PT Lumbar radiculopathy (Primary Dx) 10/07/2024 7:30 AM EDT Treatment [facility] [address] [address] Yari García, PT Lumbar radiculopathy (Primary Dx) 10/03/2024 7:30 AM EST Treatment [facility] [address] [address] Yari García, PT Lumbar radiculopathy (Primary Dx) 10/01/2024 7:00 AM EST Treatment [facility] [address] [address] Yari García, PT Lumbar radiculopathy (Primary Dx) 09/24/2024 8:30 AM EST Treatment [facility] [address] [address] Yari García, PT Lumbar radiculopathy (Primary Dx) 09/22/2024 11:15 AM EST Treatment [facility] [address] [address] Yari García, PT Lumbar radiculopathy (Primary Dx) 09/17/2024 1:00 PM EST Treatment [facility] [address] [place] [address] Yari García, PT Lumbar radiculopathy (Primary Dx) from Last 3 Months Family History Medical History Relation Name Comments Heart disease Brother 1 Skin cancer Brother 1 Skin cancer Brother 3 Heart attack Brother 4 Hyperlipidemia Mother Hypertension Mother Stroke Mother Relation Name Status Comments Brother 1 Alive Brother 2 Alive Brother 3 Brother 4 Mother Social History Tobacco Use Types Packs/Day Years Used Date Smoking Tobacco: Never Passive Smoke Exposure: Past Smokeless Tobacco: Never Tobacco Cessation:Counseling Given: Not Answered Alcohol Use Standard Drinks/Week Comments Yes 0 (1 standard drink = 0.6 oz pure alcohol) 1 glass/month advised to stop 2 weeks before surgery [facility] [employer] Answer Date Recorded In the past 12 months has th e [employer], gas, oil, or water [employer] threatened to shut off services in your home? No 07/17/2024 AUDIT-C Answer Date Recorded Q1: How often do you have a drink containing alc ohol? Monthly or less 07/02/2024 Q2: How many drinks containi ng alcohol do you have on a typical day when you are drinking? 1 or 2 07/02/2024 Q3: How often do you have si x or more drinks on one occasion? Never 07/02/2024 Hunger Vital Sign Answer Date Recorded Within the past 12 months, y ou worried that your food would run out before you got the money to buy more. Never true 07/17/20 24 Within the past 12 months, t he food you bought just didn't last and you didn't have money to get more. Never true 07/17/2024 PRAPARE - Transportation Answer Date Re corded In the past 12 months, has l ack of transportation kept you from medical appointments or from getting medications? No 06/29 In the past 12 months, has l ack of transportation kept you from meetings, work, or from getting things needed for daily living? No 07/17/2024 Housing Stability Vital Sign Answer Dante e Recorded In the last 12 months, was t here a time when you were not able to pay the mortgage or rent on time? No 07/17/2024 In the past 12 months, how m any times have you moved where you were living? 0 07/17/2024 At any time in the past 12 m [facility], were you homeless or living in a senior care (including now)? No 07/17/2024 Comments No Sex and Gender Information Value Date Recorded Sex Assigned at Female 03/03/2024 9:39 AM EDT Legal Sex Female 1:11 PM EST Gender Identity Female 03/03/2024 9:39 AM EDT Sexual Orientation Heterosexual (straight) 04/23 11:40 AM EDT Last Filed Vital Signs Vital Sign Reading Time Taken Comments Blood Pressure 133/64 07/17/2024 9:00 AM EST Pulse 86 07/17/2024 9:00 AM EST Temperature 36.4 ??C (97.5 ??F) 07/17/2024 9:00 AM ES T Respiratory Rate 18 07/17/2024 9:00 AM EST Oxygen Saturation 97% 07/17/2024 9:00 AM EST Inhaled Oxygen Concentration - - Weight 111 kg (244 lb) 07/17/2024 10:49 AM EST Height 160 cm (5' 3 ) 07/17/2024 10:49 AM EST Body Mass Index 43.22 07/17/2024 10:49 AM EST Plan of Treatment Upcoming Encounters Date Type Department Care Team (Late st Contact Info) Description 12/15/2024 8:15 AM EDT [facility] [address] [phone] Jocy Lazcano PA-C [address] [place] [address] 02/27/2025 8:00 AM EDT [facility] [address] [phone] Javier Recinos MD [address] [place] [address] Health Maintenance Due Date Last Done Comments Hepatitis C Virus Screening 1970 Foot Exam 1980 Lipid Panel 1980 Ophthalmology Exam 1980 Quantiferon Gold TB 1980 HIV Screening 1983 Microalbumin/Creatinine Rati o Urine 1988 DTaP/Tdap/Td Vaccines (1 - Tdap) 1989 Hepatitis B Vaccines (1 of 3 - 19+ 3-dose series) 1989 Pneumococcal Vaccines 50+ (1 of 2 - PCV) 1989 Zoster (Shingles) Vaccine (1 of 2) 1989 Pap Smear (Ages 21-65) 1991 Mammogram 2010 Colonoscopy 2015 COVID-19 Vaccine (3 - Modern a risk series) 12/16/2020 11/18/2020, 10/20/2020 Hemoglobin A1C 01/01/2025 07/03/2024, 05/30, 07/16/2018 Influenza Vaccine 02/27/2025 04/09/2024, , 07/11/2021, Additional history exists Creatinine with GFR 07/17/2025 07/17/2024, 07/03/2024, 07/06/2022, Additional history exists Goals Goal Patient Goal Type Associated Problems Recent Progress Patient-Stated? Author PT LTG 2 Physical Therapy On track(2024 6:31 PM EDT) No Yari García, PT Note: Increase Forward Flexion AROM to 75% to be able to decrease pain and be independent in ADLs in 8 weeks. Increase strength of B hip flexion to be able to lift groceries without pain in 8 weeks. Demonstrate good posture without cueing in 4 weeks. Report pain less than 3/10 in 4 weeks. Be able to sit greater than or equal to 30 minutes to be able to return to work in 4 weeks. Independent in HEP in 4 weeks. Be able to walk 30 minutes to be able to lift groceries without pain in 8 weeks. Be able to lift 10# grocery bag to be able to lift groceries without pain in 8 weeks. Decrease Oswestry/NDI score by 20 in 8 weeks. Patient will have centralization of LB radiculopathy, with no pain in LE in 8 weeks. Medical Devices Implanted Type Area Commercial Lines Account Executive Device Identifier Shelf Expiration Date Model / Serial / Lot [id number] Re-Line-O Ti Ned, 5.5x35mm Lordotic Implanted:Qty : 2 on 07/05/2022 by Javier Recinos MD at [facility] Nail/Ned N/A: Spine Lumbar [employer] [id number] / / [id number] Ned Spinal 55mm 5.5mm Reline Lrdtc Ti Mas Nonst - [id number] Implanted:Qty : 1 on 07/16/2024 by Javier Recinos MD at [facility] Nail/Ned N/A: Spine Lumbar [employer] 03/08/2040 [id number] / / N/A [id number] Ned Spinal 55mm 5.5mm Reline Lrdtc Ti Mas Nonst - [id number] Implanted:Qty : 1 on 07/16/2024 by Javier Recinos MD at [facility] Nail/Ned N/A: Spine Lumbar [employer] 03/08/2040 [id number] / / N/A [id number] Screw Bone Spine Reline 2c 50mm 7.5mm Mdlr Shnk Nonst Mas - [id number] Implanted:Qty : 4 on 07/05/2022 by Javier Recinos MD at [facility] Spine N/A: Spine Lumbar [employer] [id number] / / [id number] Screw Bone Spine Reline Mdlr Reduction Extension Tulip Nonst - [id number] Implanted:Qty : 4 on 07/05/2022 by Javier Recinos MD at [facility] Spine N/A: Spine Lumbar [employer] [id number] / / [id number] Screw Bone Spine Reline 5.5mm Lock Open [place] Nonst - [id number] Implanted:Qty : 4 on 07/05/2022 by Javier Recinos MD at [facility] Spine N/A: Spine Lumbar [employer] [id number] / / [id number] Screw Bone Spine Reline 5.5mm Lock Open Tulip - [id number] Implanted:Qty : 1 on 07/16/2024 by Javier Recinos MD at [facility] Spine N/A: Spine Lumbar [employer] [id number] / / [id number] Screw Bone Spine Reline 5.5mm Lock Open Tulip - [id number] Implanted:Qty : 1 on 07/16/2024 by Javier Recinos MD at [facility] Spine N/A: Spine Lumbar [employer] [id number] / / [id number] Screw Bone Spine Reline 5.5mm Lock Open Tulip - [id number] Implanted:Qty : 1 on 07/16/2024 by Javier Recinos MD at [facility] Spine N/A: Spine Lumbar [employer] [id number] / / [id number] Screw Bone Spine Reline 5.5mm Lock Open [place]ip - [id number] Implanted:Qty : 1 on 07/16/2024 by Javier Recinos MD at [facility] Spine N/A: Spine Lumbar [employer] [id number] / / [id number] Screw Bone Spine Reline 5.5mm Lock Open Tulip - [id number] Implanted:Qty : 1 on 07/16/2024 by Javier Recinos MD at [facility] Spine N/A: Spine Lumbar [employer] [id number] / / [id number] Screw Bone Spine Reline 5.5mm Lock Open [place]ip - [id number] Implanted:Qty : 1 on 07/16/2024 by Javier Recinos MD at [facility] Spine N/A: Spine Lumbar [employer] [id number] / / [id number] Screw Bone Spine Reline Mdlr Reduction Extension [place]ip Nonst - [id number] Implanted:Qty : 1 on 07/16/2024 by Javier Recinos MD at [facility] Spine N/A: Spine Lumbar [employer] [id number] / / [id number] Screw Bone Spine Reline Mdlr Reduction Extension [place]ip Nonst - [id number] Implanted:Qty : 1 on 07/16/2024 by Javier Recinos MD at [facility] Spine N/A: Spine Lumbar [employer] [id number] / / [id number] Screw Bone Spine Reline Mdlr Reduction Extension [place]ip Nonst - [id number] Implanted:Qty : 1 on 07/16/2024 by Javier Recinos MD at [facility] Spine N/A: Spine Lumbar [employer] [id number] / / [id number] Screw Bone Spine Reline 2c 50mm 7.5mm Mdlr Shnk Nonst Mas - [id number] Implanted:Qty : 1 on 07/16/2024 by Javier Recinos MD at [facility] Spine N/A: Spine Lumbar [employer] 07/04/2027 [id number] / / N/A [id number] Shank Screw 50mm 6.5mm Reline 2c Spine Mdlr Mas Nonst Lf - [id number] Implanted:Qty : 1 on 07/16/2024 by Javier Recinos MD at [facility] Spine N/A: Spine Lumbar [employer] [id number] / / [id number] Shank Screw 50mm 6.5mm Reline 2c Spine Mdlr Mas Nonst Lf - [id number] Implanted:Qty : 1 on 07/16/2024 by Javier Recinos MD at [facility] Spine N/A: Spine Lumbar [employer] [id number] / / [id number] Substitute Bone Graft Ms Grft Matrix Block Void Filler 20ml - [id number] Implanted:Qty : 1 on 07/05/2022 by Javier Recinos MD at [facility] Void Filler N/A: Spine Lumbar [employer] 01/26/2025 [id number] / / [id number] Filler Bone Void 15cc 1.7-10mm Canc Algrf Chp Frzdr - [id number] Implanted:Qty : 1 on 07/05/2022 by Javier Recinos MD at [facility] Void Filler N/A: Spine Lumbar [employer]LET[employer] TRANSPLANT F[employer] 02/14/2025 [id number] / [id number] / [id number] Filler Bone Void 5cc Dbx Algrf Putty Frzdr - [id number] Implanted:Qty : 1 on 07/16/2024 by Javier Recinos MD at [facility] Void Filler N/A: Spine Lumbar [employer] 03/05/2026 [id number] / [id number] / [id number] Filler Bone Void 30cc 1.7-10mm Canc Algrf Chp Frzdr - [id number] Implanted:Qty : 1 on 07/16/2024 by Javier Recinos MD at [facility] Void Filler N/A: Spine Lumbar [employer] 04/05/2027 [id number] / [id number] / [id number], 20 Degree Implanted:Qty : 1 on 07/05/2022 by Javier Recinos MD at [facility] N/A: Spine Lumbar 03/15/2027 / / [id number] Description:catalog# [id number] [id number] Implanted:Qty : 1 on 07/16/2024 by Javier Recinos MD at [facility] N/A: Spine Lumbar [employer] [id number] / / Procedures Procedure Name Priority Date/Time Associated Diagnosis Comments XR LUMBAR SPINE COMPLETE W/FLEX,EXT 4+VIEWS Routine 10/27/2024 8:29 AM EDT Postsurgical arthrodesis status BASIC METABOLIC PANEL Routine 07/17/2024 4:55 AM EST HEMOGLOBIN A1C WITH ESTIMATED AVERAGE GLUCOSE Routine 07/03/2024 9:00 AM EST Preop examination Neurogenic claudication due to lumbar spinal stenosis Type 2 diabetes mellitus without complication, without long-term current use of insulin (HCC) Obstructive sleep apnea syndrome Primary hypertension Psoriatic arthritis (HCC) Mixed hyperlipidemia Morbid obesity (HCC) from Last 3 Months or Most Recently Relevant to Health Maintenance Results * XR Lumbar spine complete w/Flex,Ext, 4+Views (10/27/2024 8:29 AM EDT) Narrative OAH - 10/27/2024 8:29 AM EDT This exam was performed in office at [facility] and images reviewed by orthopedic provider. ??Any findings are documented within ambulatory encounter note on date of service. us Jocy Lazcano PA-C IMG DIAGNOSTIC IMAGING ORDERA BLES Final Result OA * (ABNORMAL) Basic Metabolic Panel (07/17/2024 4:55 AM EST) Glucose 215(H) 65 - 99 mg/dL 07/17/2024 7:20 AM [facility] Comment:Fasting: <100 mg/dL, Non-Fasting: <200 mg/dL (ADA 2005) Blood Urea Nitrogen (BUN) 12 8 - 21 mg/dL 07/17/2024 7:20 AM [facility] Creatinine 0.7 0.4 - 1.1 mg/dL 07/17/2024 7:20 AM [facility] eGFR >90 >59 07/17/2024 7:20 AM [facility] Comment:CKD-EPI (2020) in mL /min/1.73 sq meters. Sodium 136 136 - 145 mmol/L 07/17/2024 7:20 AM [facility] Potassium 4.5 3.4 - 5.3 mmol/L 07/17/2024 7:20 AM [facility] Chloride 103 98 - 107 mmol/L 07/17/2024 7:20 AM [facility] CO2 22 22 - 33 mmol/L 07/17/2024 7:20 AM [facility] Anion Gap 11 7 - 17 07/17/2024 7:20 AM [facility] Calcium 9.0 8.7 - 10.5 mg/dL 07/17/2024 7:20 AM [facility] BUN/Creatinine Ratio 17 10.0 - 25.0 Ratio 07/17/2024 7:20 AM [facility] Blood (Plasma/Serum) 07/17/2024 4:55 AM EST 07/17/2024 5:32 AM EST us Javier Recinos MD LAB BLOOD [place]AB[place] [address], [place] [address] * (ABNORMAL) Hemoglobin A1c with Estimated Average Glucose (07/03/2024 9:00 AM EST) Hemoglobin A1C 7.8(H) <5.7 % 07/03/2024 1:28 PM [facility] Comment: A1c% ? Interpretation 5.7 - 6.0 ?Increase risk of diabetes 6.1 - 6.4 ?Higher risk of diabetes > or = 6.5 ?? Consistent with diabetes Diabetes Care, 33(Supp 1):S1-S61, 2010 Estimated Average Glucose 177 mg/dL 07/03/2024 1:28 PM EST [facility] Blood Blood specimen / Unknown 07/03/2024 9:00 AM EST 07/03/2024 12:57 PM EST Li Woodson PA-C LAB BLOOD ORDERABLES Final Result Performing Organization Address City/State/[facility] Co de Phone Number [facility] [address] [place] [address], [facility] [address] [place] [address] from Last 3 Months or Most Recently Relevant to Health Maintenance Insurance [facility] UMR Advance Directives * Full Code (Latest Code Status on File) Date Activated Date Inactivated Comments 07/16/2024 7:54 PM * Full Code Date Activated Date Inactivated Comments 07/16/2024 10:28 AM 07/16/2024 7:54 PM * Full Code Date Activated Date Inactivated Comments 07/05/2022 3:24 PM 07/16/2024 10:23 AM * Full Code Date Activated Date Inactivated Comments 07/05/2022 6:49 AM 07/05/2022 3:24 PM Care Teams Potato Chip Sacking Machine Operator Relationship Specialty Start Date End Date Ady Pate MD PCP - General 06/09/22 Javier Recinos MD [address] [place] [address] Surgery, Orthopedic 06/09/22 System, Provider Not In 07/02/24
--- OUTSIDE RECORDS SUMMARY | 2024-12-11 06:04 | XMS_ITS | Encounter Summary ---
Author Organization [facility] Address [address] [place] [address] Care Team Providers Care Message And Delivery Service Pricer Name Role Phone Ady Pate MD Primary Care Provider Unava ilable Javier Recinos MD Unavailable [phone] System, Provider Not In Unavailable Unavaila ble Encounter Details Date Type Department Care Team (Late st Contact Info) Description 06/14/2022 Telephone [facility] [address] [facility] [address] [place] [address] Jia Osorio, [place] [address] [place] [address] Social History Tobacco Use Types Packs/Day Years [...] drinks on one occasion? Never 06/12/2022 Comments Unknown Sex and Gender Information Value Date Recorded Sex Assigned at Female 03/03/2024 9:39 AM EDT Legal Sex Female 1:11 PM EST Gender Identity Female 03/03/2024 9:39 AM EDT Sexual Orientation Heterosexual (straight) 04/23 11:40 AM EDT COVID-19 Exposure Response Date Recorded In the last 10 days, have yo u been in contact with someone who was confirmed or suspected to have Coronavirus/COVID-19? No / Unsure 06/15/2022 7:21 AM EST documented as of this encounter Miscellaneous Notes * Telephone Encounter - Jia Osorio MA - 06/14/2022 4:02 PM EST COVID screen: 1) Current temperature: Temp Readings from Last 1 Encounters: No data found for Temp - Temperature >100.0 F: No In the past two weeks, have you experienced (two of the following): 2) Cough: No 3) Difficulty breathing: No 4) Shortness of breath: No 5) N/V: No 6) Diarrhea: No 7) Abdominal pain: No 8) Loss of sense of taste: No 9) Loss of sense of smell: No 10) Body aches: No 11) Muscle pain: No 12) Sneezing: No 13) Runny nose: No 14) Sore throat: No 15) Headache: No 16)Fever: No 17)Chills: No 18)Repeated shaking with chills: No Have you recently been in close contact with a person confirmed or suspected of COVID-19? No Have you recently been in close contact with a person with flu like symptoms? No Have you recently had an admission to SNF/Rehab/Penitentiary? No Have you traveled internationally or domestically in the last month? No documented in this encounter Plan of Treatment Upcoming Encounters Date Type Department Care Team (Late st Contact Info) Description 12/15/2024 8:15 AM EDT [facility] [address] [phone] Jocy Lazcano PA-C [address] [place] [address] 02/27/2025 8:00 AM EDT [facility] [address] [phone] Javier Recinos MD [address] [place] [phone] documented as of this encounter Visit Diagnoses Not on filedocumented in this encounter Care Teams Message And Delivery Service Pricer Relationship Specialty Start Date End Date Ady Pate MD PCP - General 06/09/22 Javier Recinos MD [address] [place] [address] Surgery, Orthopedic 06/09/22 System, Provider Not In 07/02/24 documented as of this encounter
--- OUTSIDE RECORDS SUMMARY | 2024-12-11 06:04 | XMS_ITS | Encounter Summary ---
Author Organization [facility] Address [address] [place] [address] Care Team Providers Care Lieutenant Shift Supervisor Name Role Phone Shannon Cardozo MD Primary Care Provider [facility] Ady Pate MD Primary Care Provider [phone] Encounter Details Date Type Department Care Team Description 04/01/2020 Orders Only Adult Medicine - [place] [address] [place] [address] Shannon Cardozo MD Social History Tobacco Use Types Packs/Day Years Used Date Smoking Tobacco: Never Smokeless Tobacco: Never Alcohol Use Standard Drinks/Week Comments Yes 0 (1 standard drink = 0.6 oz pur e alcohol) rare Sex Assigned at Date Recorded Not on file COVID-19 Exposure Response Date Recorded In the last month, have you been in contact with someone who was confirmed or suspected to have Coronavirus / COVID-19? No / Unsure 04/01/2020 12:15 PM EDT documented as of this encounter Plan of Treatment Not on file documented as of this encounter Visit Diagnoses Not on filedocumented in this encounter Care Teams Lieutenant Shift Supervisor Relationship Specialty Start Date End Date Shannon Cardozo MD PCP - General Internal Medicine 12/06/15 04/22/21 Ady Pate MD [address] [place] [address] PCP - General Internal Medicine 04/23/21 documented as of this encounter
--- OUTSIDE RECORDS SUMMARY | 2024-12-11 06:04 | XMS_ITS | Encounter Summary ---
Author Organization [facility] Address [address] [place] [address] Care Team Providers Care Natural Gas Plant Supervisor Name Role Phone Shannon Cardozo MD Primary Care Provider [facility] Ady Pate MD Primary Care Provider [phone] Encounter Details Date Type Department Care Team Description 09/12/2019 [facility] Medical Records [address] [place] [address] [place] Rooney Social History Tobacco Use Types [...] on filedocumented in this encounter Care Teams Natural Gas Plant Supervisor Relationship Specialty Start Date End Date Shannon Cardozo MD PCP - General Internal Medicine 12/06/15 04/22/21 Ady Pate MD [address] [place] [address] PCP - General Internal Medicine 04/23/21 documented as of this encounter
--- OUTSIDE RECORDS SUMMARY | 2024-12-11 06:04 | XMS_ITS | Encounter Summary ---
Author Organization [facility] Address [address] [place] [address] Care Team Providers Care Podiatry Teacher Name Role Phone Ady Pate MD Primary Care Provider [phone] Reason for Visit * Reason Onset Date Comments Prior Authorization 07/12/2021 Encounter Details Date Type Department Care Team Description 07/12/2021 Telephone Gastroenterology - [place] [address] [facility] [address] [place] [id number] Michell William MD Prior Authorization Social History Tobacco Use Types Packs/Day Years [...] have Coronavirus / COVID-19? No / Unsure 07/11/2021 9:35 AM EST documented as of this encounter Miscellaneous Notes * Telephone Encounter - Missy Ochoa - 09/22/2021 12:40 PM EST R Auth # [id number] Valid 09/22/21-10/20/21 Per David Frank with [employer] * Telephone Encounter - Aiden Luo - 09/20/2021 9:58 AM EST Good morning, Patient has a plan through [employer] - ID [id number]. Sorry for he delay, I was finally able to reach her today. * Telephone Encounter - Missy Erazoauregard - 09/20/2021 9:14 AM EST Any update on patient insurance? * Telephone Encounter - Aiden Luo - 09/13/2021 10:43 AM EST Phoned patient, LM on to obtain new insurance information. * Telephone Encounter - Missy Ochoa - 09/13/2021 10:32 AM EST Patient insurance termed 07/29/21. Please get updated insurance information so we may obtain authorization for patient Thank You Missy Ochoa [phone] Prior Auth Department * Telephone Encounter - Aiden Luo - 07/12/2021 2:12 PM EST Pre-auth needed Patient is scheduled for a colonoscopy 10/20/2021 Diagnosis Screening Patients insurance: [facility] Appointment is with Michell William MD Code to process pre-auth for: [id number] Location of procedure: [facility] documented in this encounter Plan of Treatment Not on file documented as of this encounter Visit Diagnoses Not on filedocumented in this encounter Care Teams Podiatry Teacher Relationship Specialty Start Date End Date Ady Pate MD [address] [place] [id number] PCP - General Internal Medicine 04/23/21 documented as of this encounter
--- OUTSIDE RECORDS SUMMARY | 2024-12-11 06:04 | XMS_ITS | Encounter Summary ---
Author Organization [facility] Address [address] [place] [address] Care Team Providers Care Assembler Sandal Parts Name Role Phone Ady Pate MD Primary Care Provider [phone] Reason for Visit * Reason Onset Date Comments LAB WORK 07/11/2021 Encounter Details Date Type Department Care Team Description 07/11/2021 Telephone Adult Medicine - [place] [address] [place] [address] Ady Pate MD [address] [place], [place] [phone] LAB WORK Social History Tobacco Use Types Packs/Day Years [...] encounter Miscellaneous Notes * Telephone Encounter - Nadja Darnell M.A. - 07/11/2021 2:04 PM EST Patient notified. * Telephone Encounter - Ady Pate MD - 07/11/2021 1:46 PM EST We do not routinely test vitamin D. There were no specific issues at her visit that would warrant this testing. * Telephone Encounter - Nadja Darnell M.A. - 07/11/2021 1:35 PM EST Patient requesting vit d. Pended if appropriate * Telephone Encounter - Carey Jesus - 07/11/2021 10:46 AM EST Patient calling to request labs be ordered: What lab work is patient requesting? Vit D Does patient have an upcoming appointment, if yes when and WITH WHO? yes Today Patients PCP is: Ady Pate documented in this encounter Plan of Treatment Not on file documented as of this encounter Visit Diagnoses Not on filedocumented in this encounter Care Teams Assembler Sandal Parts Relationship Specialty Start Date End Date Ady Pate MD [address] [place] [id number] PCP - General Internal Medicine 04/23/21 documented as of this encounter
--- OUTSIDE RECORDS SUMMARY | 2024-12-11 06:04 | XMS_ITS | Encounter Summary ---
Author Organization [facility] Address [address] [place] [address] Care Team Providers Care Circuit Court Magistrate Name Role Phone Shannon Cardozo MD Primary Care Provider [facility] Ady Pate MD Primary Care Provider [phone] Encounter Details Date Type Department Care Team Description 05/16/2016 Help Desk Rep Report Medical Records [address] [place] [address] [place] Rooney Social History Tobacco Use Types [...] on filedocumented in this encounter Care Teams Circuit Court Magistrate Relationship Specialty Start Date End Date Shannon Cardozo MD PCP - General Internal Medicine 12/06/15 04/22/21 Ady Pate MD [address] [place] [address] PCP - General Internal Medicine 04/23/21 documented as of this encounter
--- OUTSIDE RECORDS SUMMARY | 2024-12-11 06:04 | XMS_ITS | Encounter Summary ---
Author Organization [facility] Address [address] [place] [address] Care Team Providers Care Chief Catalyst Operator Name Role Phone Shannon Cardozo MD Primary Care Provider [facility] Ady Pate MD Primary Care Provider Encounter Details Date Type Department Care Team Description 02/08/2016 WELLNESS ASSISTANT/[employer] Report Medical Records [address] [place] [address] Abstract, Provider Social History Tobacco Use Types [...] on filedocumented in this encounter Care Teams Chief Catalyst Operator Relationship Specialty Start Date End Date Shannon Cardozo MD PCP - General Internal Medicine 12/06/15 04/22/21 Ady Pate MD [address] [place] [address] PCP - General Internal Medicine 04/23/21 documented as of this encounter
--- OUTSIDE RECORDS SUMMARY | 2024-12-11 06:04 | XMS_ITS | Encounter Summary ---
Author Organization [facility] Address [address] [place] [address] Care Team Providers Care Studio Musician Name Role Phone Shannon Cardozo MD Primary Care Provider [facility] Ady Pate MD Primary Care Provider Encounter Details Date Type Department Care Team Description 09/10/2020 Old Medical Records Medical Records [address] [place] [address] Abstract, Provider Social History Tobacco Use Types [...] on filedocumented in this encounter Care Teams Studio Musician Relationship Specialty Start Date End Date Shannon Cardozo MD PCP - General Internal Medicine 12/06/15 04/22/21 Ady Pate MD [address] [place] [address] PCP - General Internal Medicine 04/23/21 documented as of this encounter
--- OUTSIDE RECORDS SUMMARY | 2024-12-11 06:04 | XMS_ITS | Encounter Summary ---
Author Organization [facility] Address [address] [place] [address] Care Team Providers Care Testing Manager Name Role Phone Ady Pate MD Primary Care Provider Unava ilable Javier Recinos MD Unavailable [phone] System, Provider Not In Unavailable Unavaila ble Encounter Details Date Type Department Care Team (Late st Contact Info) Description 05/27/2024 Scanned Document [facility] [address] [phone] Mayte Lowe [address] [place] [address] Social History Tobacco Use Types Packs/Day Years [...] 8:15 AM EDT Office Visit [facility] [address] [facility] [place] [address] Jocy Lazcano PA-C [address] [address] 02/27/2025 8:00 AM EDT [facility] [address] [phone] Javier Recinos MD [address] [place] [phone] documented as of this encounter Visit Diagnoses Not on filedocumented in this encounter Care Teams Testing Manager Relationship Specialty Start Date End Date Ady Pate MD PCP - General 06/09/22 Javier Recinos MD [address] [place] [phone] Surgery, Orthopedic 06/09/22 System, Provider Not In 07/02/24 documented as of this encounter
--- OUTSIDE RECORDS SUMMARY | 2024-12-11 06:04 | XMS_ITS | Encounter Summary ---
Author Organization [facility] Address [address] [place] [address] Care Team Providers Care Registered Account Administrator Name Role Phone Shannon Cardozo MD Primary Care Provider [facility] Ady Pate MD Primary Care Provider Encounter Details Date Type Department Care Team Description 11/14/2016 Orders Only Adult Medicine [address] [address] Marni Bejarano MD Bacterial sinusitis (Primary Dx) Social History Tobacco Use Types Packs/Day Years Used Date Smoking Tobacco: Never Smokeless Tobacco: Never Alcohol Use Standard Drinks/Week Comments Yes 0 (1 standard drink = 0.6 oz pur e alcohol) rare Sex Assigned at Date Recorded Not on file documented as of this encounter Plan of Treatment Not on file documented as of this encounter Visit Diagnoses Diagnosis Bacterial sinusitis- Primary Unspecified sinusitis (chronic) documented in this encounter Care Teams Registered Account Administrator Relationship Specialty Start Date End Date Shannon Cardozo MD PCP - General Internal Medicine 12/06/15 04/22/21 Ady Pate MD [address] [place] [address] PCP - General Internal Medicine 04/23/21 documented as of this encounter
--- OUTSIDE RECORDS SUMMARY | 2024-12-11 06:04 | XMS_ITS | Encounter Summary ---
Author Organization [facility] Address [address] [place] [address] Care Team Providers Care Functional Mental Disability Teacher Name Role Phone Jose Angel Tang Primary Care Provider Shannon Hernadez MD Primary Care Provider Ady Meng MD Primary Care Provider [phone] Reason for Visit * Reason Onset Date Comments REFERRAL 12/30/2014 Encounter Details Date Type Department Care Team Description 12/30/2014 Telephone Podiatry - [address] [address] Krupa Sanon DPM REFERRAL Social History Tobacco Use Types Packs/Day Years Used Date Smoking Tobacco: Never Alcohol Use Standard Drinks/Week Comments Yes 0 (1 standard drink = 0.6 oz pur e alcohol) rare Sex Assigned at Date Recorded Not on file documented as of this encounter Miscellaneous Notes * Telephone Encounter - Libia Barraza - 12/30/2014 12:53 PM EDT Patient was referred for: Podiatry. Reason for referral: Problem visit for pain in foot Priority: Next Available FYI We left 2 messages and sent an unable to reach letter. No response from patient. We took the referral off the report. Thank You documented in this encounter Plan of Treatment Not on file documented as of this encounter Visit Diagnoses Not on filedocumented in this encounter Care Teams Functional Mental Disability Teacher Relationship Specialty Start Date End Date Jose Angel Tang PCP - General 08/09/06 12/05/15 Shannon Cardozo MD PCP - General Internal Medicine 12/06/15 04/22/21 Ady Pate MD [address] [place] [address] PCP - General Internal Medicine 04/23/21 documented as of this encounter
--- OUTSIDE RECORDS SUMMARY | 2024-12-11 06:04 | XMS_ITS | Encounter Summary ---
Author Organization [facility] Address [address] [place] [address] Care Team Providers Care Repair Armature Winder Name Role Phone Ady Pate MD Primary Care Provider Unava ilable Javier Recinos MD Unavailable [phone] System, Provider Not In Unavailable Unavaila ble Encounter Details Date Type Department Care Team (Late st Contact Info) Description 09/03/2024 Scanned Document [facility] [address] [phone] Mayte Lowe [address] [place] [phone] Social History Tobacco Use Types Packs/Day Years Used Date Smoking Tobacco: Never Passive Smoke Exposure: Past Smokeless Tobacco: Never Alcohol Use Standard Drinks/Week Comments Yes 0 (1 standard drink = 0.6 oz pure alcohol) 1 glass/month advised to stop 2 weeks before surgery [facility] Utilities Answer Date Recorded In the past 12 months has [employer], oil, or water [employer] threatened to shut off services in your [...] any time in the past 12 m onths, were you homeless or living in a retirement (including now)? No 07/17/2024 Comments No Sex [...] 12/15/2024 8:15 AM EDT Office Visit Orthopedic [address] [phone] Jocy Lazcano PA-C [address] [place] [address] 02/27/2025 8:00 AM EDT Office Visit Orthopedic [address] [phone] Javier Recinos MD [address] [address] documented as of this encounter Goals Goal Patient Goal Type Associated Problems [...] no pain in LE in 8 weeks. documented as of this encounter Visit Diagnoses Not on filedocumented in this encounter Care Teams Repair Armature Winder Relationship Specialty Start Date End Date Ady Pate MD PCP - General 06/09/22 Javier Recinos MD [address] [place] [address] Surgery, Orthopedic 06/09/22 System, Provider Not In 07/02/24 documented as of this encounter
--- OUTSIDE RECORDS SUMMARY | 2024-12-11 06:04 | XMS_ITS | Encounter Summary ---
Author Organization [facility] Address [address] [place] [address] Care Team Providers Care Counselor Camp Name Role Phone Ady Pate MD Primary Care Provider [phone] Encounter Details Date Type Department Care Team Description 04/25/2021 Telephone Rheumatology - [address] [address] Al Fong MD Social History Tobacco Use Types Packs/Day Years Used Date Smoking Tobacco: Never Smokeless Tobacco: Never Alcohol Use Standard Drinks/Week Comments Yes 0 (1 standard drink = 0.6 oz pur e alcohol) rare Sex Assigned at Date Recorded Not on file documented as of this encounter Miscellaneous Notes * Telephone Encounter - Adriana Trevino L.P.N. - 04/25/2021 4:37 PM EDT Prior authorization form filled out and forwarded to provider. On CMM for Otezla 30 mg 1 BID [facility] documented in this encounter Plan of Treatment Not on file documented as of this encounter Visit Diagnoses Not on filedocumented in this encounter Care Teams Counselor Camp Relationship Specialty Start Date End Date Ady Pate MD [address] [place] [address] PCP - General Internal Medicine 04/23/21 documented as of this encounter
--- OUTSIDE RECORDS SUMMARY | 2024-12-11 06:04 | XMS_ITS | Encounter Summary ---
Author Organization [facility] Address [address] [place] [address] Care Team Providers Care Sheet Rock Sander Name Role Phone Shannon Cardozo MD Primary Care Provider [facility] Ady Pate MD Primary Care Provider Encounter Details Date Type Department Care Team Description 04/04/2016 Safety Teacher Report Medical Records [address] [place] [address] [place] Social History Tobacco Use Types [...] on filedocumented in this encounter Care Teams Sheet Rock Sander Relationship Specialty Start Date End Date Shannon Cardozo MD PCP - General Internal Medicine 12/06/15 04/22/21 Ady Pate MD [address] [place] [address] PCP - General Internal Medicine 04/23/21 documented as of this encounter
--- OUTSIDE RECORDS SUMMARY | 2024-12-11 06:04 | XMS_ITS | Encounter Summary ---
Author Organization [facility] Address [address] [place] [address] Care Team Providers Care Director Field Services Name Role Phone Shannon Cardozo MD Primary Care Provider Ady Meng MD Primary Care Provider [phone] Reason for Visit * Reason Onset Date Comments REFERRAL 09/21/2017 Encounter Details Date Type Department Care Team Description 09/21/2017 Telephone Genetic & Disease Counseling - [address] [address] Aysha Espinoza PA-C REFERRAL Social History Tobacco Use Types Packs/Day Years Used Date Smoking Tobacco: Never Smokeless Tobacco: Never Alcohol Use Standard Drinks/Week Comments Yes 0 (1 standard drink = 0.6 oz pur e alcohol) rare Sex Assigned at Date Recorded Not on file documented as of this encounter Miscellaneous Notes * Telephone Encounter - Libia Waggoner - 09/21/2017 11:55 AM EST FYI ONLY. Called pt 09/11/17,09/13/17, and sent letter 09/14/17 with no response. I am removing this pt's order from the genetic testing schedule. Order expires 09/10/18,[facility]. documented in this encounter Plan of Treatment Not on file documented as of this encounter Visit Diagnoses Not on filedocumented in this encounter Care Teams Director Field Services Relationship Specialty Start Date End Date Shannon Cardozo MD PCP - General Internal Medicine 12/06/15 04/22/21 Ady Pate MD [address] [place] [address] PCP - General Internal Medicine 04/23/21 documented as of this encounter
--- OUTSIDE RECORDS SUMMARY | 2024-12-11 06:04 | XMS_ITS | Encounter Summary ---
Author Organization [facility] Address [address] [place] [address] Care Team Providers Care Drilling Superintendent Name Role Phone Shannon Cardozo MD Primary Care Provider [facility] Ady Pate MD Primary Care Provider Encounter Details Date Type Department Care Team Description 02/23/2017 Underground Mine Superintendent Report Medical Records [address] [place] [address] Al Gonzalez PA-C Social History Tobacco Use Types Packs/Day Years [...] on filedocumented in this encounter Care Teams Drilling Superintendent Relationship Specialty Start Date End Date Shannon Cardozo MD PCP - General Internal Medicine 12/06/15 04/22/21 Ady Pate MD [address] [place] [address] PCP - General Internal Medicine 04/23/21 documented as of this encounter
--- OUTSIDE RECORDS SUMMARY | 2024-12-11 06:04 | XMS_ITS | Continuity of Care Document ---
Author Organization [facility] Address [address] [place] [address] Care Team Providers Care Cogeneration Technician Name Role Phone Cases Gary MENDOZA Unavailable Unavailable Procedures Procedure Date Patient Left Without Being Seen 014 Advance Directives Directive Yes / No Effective Date File Name No Information Encounters Encounter Description Practice Location Reason(s) For Visit Diagnoses Date Provider Providers Copied on Encounter [facility], [address], [place], [place], [id number], [place] [facility] [place] No Information Cases Gary. [address], [address], [place], [place], [id number], [place]. tel:[phone] Family History Family Member Type Diagnosis Age At Onset No Information Payers Payer name Insurance type Covered libertarian ID Authoriza tion(s) [employer] PPO POS EPO QPOS MISC CI [id number] Social History Type Description Quantity Date Captured [...]
--- OUTSIDE RECORDS SUMMARY | 2024-12-11 06:04 | XMS_ITS | Encounter Summary ---
Author Organization [facility] Address [address] [place] [address] Care Team Providers Care Beer Coil Cleaner Name Role Phone Shannon Cardozo MD Primary Care Provider Ady Meng MD Primary Care Provider Reason for Visit * Reason Onset Date Comments Call From Pharmacy 12/29/2019 meloxicam ([place] BIC) 15 MG tablet Encounter Details Date Type Department Care Team Description 12/29/2019 Telephone Rheumatology - [address] [address] Al Fong MD Call From Pharmacy (meloxicam (MOBIC) 15 MG tablet) Social History Tobacco Use Types Packs/Day Years Used Date Smoking Tobacco: Never Smokeless Tobacco: Never Alcohol Use Standard Drinks/Week Comments Yes 0 (1 standard drink = 0.6 oz pur e alcohol) rare Sex Assigned at Date Recorded Not on file documented as of this encounter Miscellaneous Notes * Telephone Encounter - Beverley Carroll M.A. - 12/29/2019 1:54 PM EDT Called patient to confirm how she is taking it. Left voicemail asking to return call. * Telephone Encounter - Sindhu Mancia - 12/29/2019 11:11 AM EDT Who is calling? A pharmacist: Pharmacy: [facility] Pharmacist Name: [facility] Name of the medication meloxicam (MOBIC) 15 MG tablet What is the specific problem or interaction? The pharmacy is refilling this and states the patient is telling them she takes two tablets daily. Please review. If the patient is having a problem with taking the med - how long has the problem been going on? N/A documented in this encounter Plan of Treatment Not on file documented as of this encounter Visit Diagnoses Not on filedocumented in this encounter Care Teams Beer Coil Cleaner Relationship Specialty Start Date End Date Shannon Cardozo MD PCP - General Internal Medicine 12/06/15 04/22/21 Ady Pate MD [address] [place] [id number] PCP - General Internal Medicine 04/23/21 documented as of this encounter
--- OUTSIDE RECORDS SUMMARY | 2024-12-11 06:04 | XMS_ITS | Clinical Summary ---
Author Organization [facility] [address] [facility] lding Address [address] [place] [address] Phone Care Team Providers Care Fixing Machine Operator Name Role Phone Rishi Pate MD Primary Care Provider [phone] Allergies Active Allergy Reactions Criticality Noted Date Comments Codeine GI intolerance 10/04/2005 abdominal pains Penicillins Nausea And Vomiting 08/09/2018 Medications cyclobenzaprin e (FLEXERIL) 5 mg tablet TAKE 1 OR 2 TABLETS BY MOUTH EVERY 8 HOURS NEEDED FOR MUSCLE SPASM 01/22/20 24 Active gabapentin (NEURONTIN) 300 mg capsule if needed. 01/22/20 24 Active meloxicam (MOBIC) 7.5 mg tablet 03/01/20 24 Active metFORMIN XR (GLUCOPHAGE-XR ) 500 mg 24 hr tablet Take 1 tablet by mouth daily with food 04/09/20 24 Active methocarbamoL (ROBAXIN) 750 mg tablet TAKE ONE TABLET BY MOUTH FOUR TIMES A DAY NEEDED FOR MUSCLE SPASMS 01/03/20 24 Active rosuvastatin (CRESTOR) 40 mg tablet Take 1 Tablet by mouth daily for 180 days. 04/09/20 24 Active ustekinumab (Stelara) 90 mg/mL syringe Inject into the skin Every 3 Months. Active blood-glucose meter kit Use to check blood sugar every morning before breakfast and 2 hours after if BS is below 120. If higher than 120 in the AM or 250 - 300 2 hours after meal contact MD office. 1 kit 10/30/19 25 Active glucose blood (Contour Test Strips) test strip Use as instructed 200 each 11 04/11/ 026 Active lancets lancets Check blood sugar 4 times a day or as directed. 200 each 11/08/19 25 026 Active amLODIPine (NORVASC) 2.5 mg tablet TAKE 1 TABLET BY MOUTH ONCE DAILY 90 tablet 1 12/09/19 25 Active amLODIPine (NORVASC) 2.5 mg tablet Take 1 tablet (2.5 mg total) by mouth 1 (one) time each day. 90 tablet 10/03/19 025 Discontinued Active Problems Problem Noted Date Diagnosed Date Hypertension 04/09/2024 Obstructive sleep apnea 06/17/2020 Overview (08/28/2024): [facility] Home Sleep Apnea Test: Date 06/08/2020; [...] apnea test. Primary osteoarthritis of both feet 05/13/2019 Diabetes ([facility] V24, [facility] V28) 09/13/2017 Overview (08/28/2024): 04/22 - HgbA1C 6.9% Lumbar disc disease with radiculopathy 6 Overview (08/28/2024): L5-S1 Surgery 05/14 L4-L5 surgery 09/18 Sacroiliitis ([facility] V24) 09/10/2007 Overview (08/28/2024): Clem Causey Psoriatic arthropathy ([facility] V24, [facility] V28) 10/01/2006 Overview (08/28/2024): Dr. Fong 01/09 - poor response to NSAIDs; took Mobic, now meloxicam fall - Enbrel caused injection site reactions December 2016 - Humira started - stopped 04/16 - she felt she had weight gain and not effective 06/16: Otezla started Psoriasis 02/02/2006 Overview (08/28/2024): Julio Cesar Doss PA-C 04/13 - apremilast denied coverage by insurance 08/14 - referred to external wet crown blocking operator for consideration of UV therapy Last Assessment & Plan: Make sure to keep your wet crown blocking operator appointment. Mixed hyperlipidemia 10/04/2005 Overview (08/28/2024): 04/13 - ASCVD 10yr risk 0.8% IMO update Obesity (BMI 30-39.9) 10/04/2005 Encounters Date Type Department Care Team Description 10/23/2024 3:30 PM EDT Office Visit Adult Medicine [address] [phone] Edna Mcpherson NP Primary hypertension (Primary Dx); Type 2 diabetes mellitus without complication, without long-term current use of insulin ([facility] V24, [facility] V28); Mixed hyperlipidemia from Last 3 Months Immunizations Name Administration Dates Next Due Influenza Quadravalent, MDCK , 0.5ml, preservative free (Flucelvax) 6mo and older 04/09/2024,07/11/2021,05/10/2018 Influenza trivalent, 0.5mL, preservative free (Fluarix; FluLaval; Fluzone) ages 6mo and older (Afluria) 3 years and older 06/20/2020 Pneumococcal polysaccharide 23 valent (Pneumovax 23) 2yo and older 09/10/2017 Tdap Tetanus diptheria acell ular pertussis (Boostrix; Adacel) 7yo and older 03/20/2023,07/18/2013 Surgical History Surgery Date Site/Laterality Comments CHOLECYSTECTOMY PROCEDURE: CA LAPAROSCOPY SURG CHOLECYSTECTOMY BREAST BIOPSY 2018 Right PROCEDURE: BX BREAST; PERC NEEDLE CORE W/IMAG GUID BACK SURGERY 04/2016 PROCEDURE: HISTORICAL BACK SURGERY; COMMENT: microdiskectomy S5-L1 OTHER SURGICAL HISTORY 09/15/2019 Right PROCEDURE: HISTORY OTHER; COMMENT: microdiscectomy on l4=-5 COLONOSCOPY 10/20/2021 PROCEDURE: HISTORICAL COLONOSCOPY; COMMENT: negative Medical History Medical History Date Comments Obesity, unspecified 10/04/2005 DX:Obesity, unspecified Other and unspecified hyperlipidemia 10/04/2005 DX:Other and unspecified hyperlipidemia Esophageal reflux 10/04/2005 DX:Esophageal reflux; COMMENT: improved after DC [employer] Other psoriasis and similar disorders 02/02/2006 DX:Other psoriasis and similar disorders Left shoulder pain 03/14/2013 DX:Left shoul teresa pain; COMMENT: [facility] - minimal improvement Left foot pain 05/12/2009 DX:Left foot keven n Family History Medical History Relation Name Comments Other cancer Aunt ovarian Alcohol/Drug Father Arthritis Maternal Grandmother Hypertension Maternal Grandmother Arthritis Mother Hyperlipidemia Mother Hypertension Mother Stroke Mother Heart attack Uncle 1 Hypertension Uncle 1 Heart attack Uncle 2 Relation Name Status Comments Aunt Father alcoholism Maternal Grandmother Mother Uncle 1 Uncle 2 Social History Tobacco Use Types Packs/Day Years Used Date Smoking Tobacco: Never Smokeless Tobacco: Never Alcohol Use Standard Drinks/Week Comments Yes 0 (1 standard drink = 0.6 oz pur e alcohol) occasional Comments No Sex and Gender Information Value Date Recorded Sex Assigned at Not on file Legal Sex Female 7:27 AM EST Gender Identity Not on file Sexual Orientation Not on file Obstetrics History Last Filed Vital Signs Vital Sign Reading Time Taken Comments Blood Pressure 122/86 10/23/2024 3:42 PM EDT Pulse 83 10/23/2024 3:42 PM EDT Temperature 36.7 ??C (98.1 ??F) 10/23/2024 3:42 PM ED T Respiratory Rate - - Oxygen Saturation - - Inhaled Oxygen Concentration - - Weight 110 kg (242 lb) 10/23/2024 3:42 PM EDT Height 167.6 cm (5' 6 ) 10/23/2024 3:42 PM EDT Body Mass Index 39.06 10/23/2024 3:42 PM EDT Plan of Treatment Upcoming Encounters Date Type Department Care Team (Late st Contact Info) Description 01/26/2025 3:00 PM EDT Office Visit Adult Medicine - [place] [address] [place] [address] Edna Mcpherson NP [address] [place] [address] Health Maintenance Due Date Last Done Comments Diabetes: Annual Foot Exam 1980 Diabetes: Annual Retina Eye Exam 1980 Hepatitis B Vaccines (1 of 3 - 19+ 3-dose series) 1989 Cervical Cancer Screening: Pap Smear 1991 Pneumococcal Vaccine: 50+ Years (2 of 2 - PCV) 09/10/2018 09/10/2017 Pneumococcal Vaccine: Pediatrics (0 to 5 Years) and At-Risk Patients (6 to 64 Years) (2 of 2 - PCV) 09/10/2018 09/10/2017 Zoster Vaccines (1 of 2) 2020 Breast Cancer Screening 08/05/2020 08/05/2018, 07/26 Depression Screening 07/08/2022 HIV Screening 07/08/2022 Social Influencers of Health Screening 07/08/2022 COVID-19 Vaccine ( season) 2024 05/26/2021, 11/18/2020, 10/20/2020 Diabetes: Annual Urine Albumin-Creatinine Ratio (uACR) 05/08/2024 Diabetes: Blood Sugar Control Test (HGBA1C) 01/01/2025 07/03/2024, 04/09/2024, 04/09/2024 Diabetes: Annual GFR (Glomerular Filtration Rate) 07/17/2025 07/17/2024, 07/17/2024, 07/03/2024, Additional history exists Hypertension/CHF/CAD Annual BMP Blood Test 07/17/2025 07/17/2024, 07/17/2024, 07/03/2024, Additional history exists Cholesterol Screening (Lipid Panel) 04/09/2029 04/09/2024, 04/09/2024 Colorectal Cancer Screening: Colonoscopy 10/21/2031 10/20/2021 DTaP,Tdap,and Td Vaccines (3 - Td or Tdap) 03/20/2033 03/20/2023, 07/18/2013 Hepatitis C Screening Completed 12/21/2016 Influenza Vaccine Completed 04/09/2024, , 06/20/2020, Additional history exists HIB Vaccines Aged Out No longer eligi ble based on patient's age to complete this topic HPV Vaccines Aged Out No longer eligi ble based on patient's age to complete this topic Hepatitis A Vaccines Aged Out No long er eligible based on patient's age to complete this topic IPV Vaccines Aged Out No longer eligi ble based on patient's age to complete this topic MMR Vaccines Aged Out No longer eligi ble based on patient's age to complete this topic Meningococcal ACWY Vaccine Aged Out N o longer eligible based on patient's age to complete this topic Meningococcal B Vaccine Aged Out No l onger eligible based on patient's age to complete this topic RSV Immunization Patients Under 20 months Aged Out No longer eligible based on patient's age to complete this topic Varicella Vaccines Aged Out No longer eligible based on patient's age to complete this topic Procedures Procedure Name Priority Date/Time Associated Diagnosis Comments ANNUAL BMP BLOOD TEST Routine 04/09/2024 HEMOGLOBIN A1C Routine 04/09/2024 LIPID PANEL Routine 04/09/2024 COLONOSCOPY Routine 10/20/2021 DX MAMMO INCL CAD UNI Routine 08/05/2018 10:37 AM EST Other abnormal and inconclusive findings on diagnostic imaging of breast HEPATITIS C SCREENING Routine 12/21/2016 from Last 3 Months or Most Recently Relevant to Health Maintenance Results * Annual BMP Blood Test (04/09/2024) Pathologist [facility] Annual BMP Blood Test abstracted Historical Provider HEALTH MAINTENANCE Final Result * (ABNORMAL) Hemoglobin A1c (04/09/2024) Pathologist [facility] Hemoglobin A1C 6.9(A) <=6.5 % Blood Venous blood specimen / Unknown Historical Provider LAB BLOOD ORDERABLES [place] Result * (ABNORMAL) Lipid panel (04/09/2024) Pathologist [facility] LDL/HDL Ratio 4 0 - 4 Triglycerides 202(A) 0 - 150 mg/dL Cholesterol 213(A) 0 - 200 mg/dL HDL 49 >=40 mg/dL LDL Cholesterol 124(A) 0 - 100 mg/dL Blood Venous blood specimen / Unknown Result [facility] Historical Provider LAB BLOOD ORDERABLES [place] Result * Colonoscopy (10/20/2021) Pathologist [facility] Colonoscopy no interpretation , abstracted Anatomical Region Laterality Modality Other Result [facility] Historical Provider HEALTH MAINTENANCE Final Result * DX MAMMO INCL CAD UNI (08/05/2018 10:37 AM EST) Anatomical Region Laterality Modality Mammography 08/01/2018 3:08 PM EST Narrative 08/06/2018 12:46 PM EST This is a summary report. The complete report is available in the patient's medical record. If you cannot access the medical record, please contact the sending organization for a detailed fax or copy. Postprocedure digital right mammogram: Digital right mammogram 2 projections following ultrasound-guided core biopsy with clip placement demonstrates the biopsy clip to be within the well-circumscribed oval mammographic mass right breast noted on baseline screening mammogram. Impression: Ultrasound placed biopsy clip documented be within the well- circumscribed oval mammographic mass right breast noted on recent screening mammogram. Procedure Note Al Edward MD - 07/18/2022 This is a summary report. The complete report is available in thepatient's medical record. If you cannot access the medical record, pleasecontact the sending organization for a detailed fax or copy. Postprocedure digital right mammogram: Digital right mammogram 2projections following ultrasound-guided core biopsy with clip placementdemonstrates the biopsy clip to be within the well-circumscribed ovalmammographic mass right breast noted on baseline screening mammogram. Impression: Ultrasound placed biopsy clip documented be within thewell- circumscribed oval mammographic mass right breast noted on recentscreening mammogram. Shannon Cardozo MD IMG BI PROCEDURES Final Result * Hepatitis C Screening (12/21/2016) Pathologist [facility] Hepatitis C Screening abstracted us Historical Provider HEALTH MAINTENANCE Final Result from Last 3 Months or Most Recently Relevant to Health Maintenance Insurance [facility] [id number] Care Teams Fixing Machine Operator Relationship Specialty Start Date End Date Rishi Pate MD [address] [place] [id number] PCP - General Internal Medicine 04/23/21
--- OUTSIDE RECORDS SUMMARY | 2024-12-11 06:04 | XMS_ITS ---
Author Name [facility] Results Test Name/Text Value Interpretation Date Range Source POC Glucose 201mg/dL Above high normal 65 - 99 [facility] POC Glucose 194mg/dL Above high normal 65 - 99 [facility] Glucose SerPl-mCnc 215mg/dL Above high normal 65 - 99 [facility] BUN/Creat SerPl 17Ratio Normal 10 - 25 H [facility] Sodium SerPl-sCnc 136mmol/L Normal 136 - 145 [facility] BUN SerPl-mCnc 12mg/dL Normal 8 - 21 HH CCT GFR/BSA.pred SerPlBld [id number] 90 Normal 59 - H[facility]CT Potassium SerPl-sCnc 4.5mmol/L Normal 3.4 - 5.3 [facility] Calcium SerPl-mCnc 9mg/dL Normal 8.7 - 10 .5 [facility] Anion Gap Bld-sCnc 11 Normal 7 - 17 [facility] CO2 SerPl-sCnc 22mmol/L Normal 22 - 33 HH CCT Creat SerPl-mCnc 0.7mg/dL Normal 0.4 - 1.1 [facility] Chloride SerPl-sCnc 103mmol/L Normal 98 - 10 7 H[facility]CT MCHC RBC Auto-mCnc 33.2g/dL Normal 30 - 36 [facility] RBC num Bld Auto 4.19Mil/uL Normal 4 - 5.4 [facility] Platelet num Bld Auto 252Thou/uL Normal 150 - 450 [facility] MCV RBC Auto 89fL Normal 80 - 100 HHCC T MCH RBC Qn Auto 29.6pg Normal 27 - 31 H HCCT Hct VFr Bld Auto 37.3% Normal 35 - 47 H[facility] WBC num Bld Auto 16.4Thou/uL Above high normal [id number] 4 - 11 [facility] PMV Bld Auto 9.1fL Normal 7.5 - 12.[address] Hgb Bld-mCnc 12.4g/dL Normal 11.7 - 15.7 HH CCT RDW RBC Auto-Rto 11.9% Normal 11.5 - 14. 5 [facility] POC Glucose 222mg/dL Above high normal [id number] 65 - 99 [facility] POC Glucose 259mg/dL Above high normal [id number] 65 - 99 [facility] POC Glucose 224mg/dL Above high normal [id number] 65 - 99 [facility] POC Glucose 210mg/dL Above high normal [id number] 65 - 99 [facility] POC Glucose 157mg/dL Above high normal [id number] 65 - 99 [facility] Prealb SerPl-mCnc 22mg/dL Normal 20 - 40 [facility] Glucose SerPl-mCnc 199mg/dL Above high normal [id number] 65 - 99 H[facility]CT Creat SerPl-mCnc 0.6mg/dL Normal 0.4 - 1.1 H[facility]CT GFR/BSA.pred SerPlBld [id number] 90 Normal [id number] 59 - HHCCT CO2 SerPl-sCnc 22mmol/L Normal [id number] 22 - 33 HH CCT Chloride SerPl-sCnc 102mmol/L Normal 98 - 10 7 [facility] BUN/Creat SerPl 22Ratio Normal [id number] 10 - 25 H HCCT Anion Gap Bld-sCnc 13 Normal [id number] 7 - 17 [facility] BUN SerPl-mCnc 13mg/dL Normal 8 - 21 HH CCT Calcium SerPl-mCnc 9.4mg/dL Normal 8.7 - 10 .5 H[facility]CT Potassium SerPl-sCnc 4.4mmol/L Normal 3.4 - 5.3 H[facility]CT Sodium SerPl-sCnc 137mmol/L Normal 136 - 145 H[facility]CT Transferrin SerPl-mCnc 313mg/dL Normal 200 - 360 [facility] aPTT PPP 33seconds Normal 25 - 36 [facility] Anticoagulant Normal [facility] CT Prothrombin time 10.3seconds Normal 10 - 13. 5 H[facility] INR PPP 0.9 Normal CCT Anticoagulant Normal [facility] CT Hgb A1c MFr Bld 7.8% Above high normal [id number] - 5 .7 [facility] Est. average glucose Bld gHb Est-mCnc 177mg/dL Normal [facility] Basophils/leuk NFr Bld Auto 0.7% Normal H[facility]CT MCHC RBC Auto-mCnc 33.2g/dL Normal 30 - 36 H[facility]CT Hgb Bld-mCnc 14.2g/dL Normal 11.7 - 15.7 HH CCT Eosinophil/leuk NFr Bld Auto 1.9% Normal H[facility]CT Monocytes/leuk NFr Bld Auto 6.7% Normal H[facility]CT Lymphocytes num Bld Auto 1.34Thou/uL Below low normal 1.5 - 4.5 H[facility]CT Neutrophils/leuk NFr Bld Auto 72.3% Normal H[facility] MCV RBC Auto 89fL Normal 80 - 100 [facility] T Eosinophil num Bld Auto 0.14Thou/uL Normal 0 - 0.7 H[facility] Imm Granulocytes/leuk NFr Bld Auto 0.1% Normal H[facility] Basophils num Bld Auto 0.05Thou/uL Normal 0 - 0.2 H[facility]CT Hct VFr Bld Auto 42.8% Normal 35 - 47 [facility] Monocytes num Bld Auto 0.49Thou/uL Normal 0. 2 - 1.5 [facility] Imm Granulocytes num Bld Auto 0.01Thou/uL Normal 0 - 0.1 [facility] PMV Bld Auto 8.6fL Normal 7.5 - 12.[address] Platelet num Bld Auto 297Thou/uL Normal 150 - 450 H[facility]CT MCH RBC Qn Auto 29.4pg Normal 27 - 31 H HCCT RBC num Bld Auto 4.83Mil/uL Normal 4 - 5.4 H[facility]CT WBC num Bld Auto 7.3Thou/uL Normal 4 - 11 [facility] RDW RBC Auto-Rto 11.9% Normal 11.5 - 14. 5 [facility] Lymphocytes/leuk NFr Bld Auto 18.3% Normal H[facility]CT Neutrophils num Bld Auto 5.3Thou/uL Normal 2 - 7.5 H[facility] Result Normal [id number] - [facility] Result Normal [id number] - [facility] Transferrin SerPl-mCnc 333mg/dL Normal [id number] 200 - 360 [facility] Prealb SerPl-mCnc 22mg/dL Normal [id number] 20 - 40 H[facility] INR PPP 0.9 Normal [id number] CCT Prothrombin time 10seconds Normal [id number] 10 - 13.5 [facility]CT Anticoagulant Normal [id number] [facility] CT aPTT PPP 33seconds Normal [id number] 25 - 36 [facility] Anticoagulant Normal [id number] [facility] CT History of Medication Use Medication Directions Dispensed Refills Start Date End Date Stat methocarbamol (ROBAXIN) 750 MG tablet TAKE ONE TABLET BY MOUTH FOUR TIMES A DAY NEEDED FOR MUSCLE SPASMS 11/03/2024 active bisacodyl (DULCOLAX) 10 MG suppository Insert 1 suppository (10 mg total) into the rectum daily as needed for constipation (if no bowel movement by day 2). 07/17/2024 active polyethylene glycol (miraLAx) 17 g packet Take 1 packet (17 g total) by mouth daily. 07/17/2024 active clindamycin (CLEOCIN) 300 MG capsule TAKE 2 CAPSULES BY MOUTH 1 HOUR PRIOR TO DENTAL PROCEDURE 07/07/2024 4 active rosuvastatin (CRESTOR) 40 MG tablet 07/03/2024 active senna (SENOKOT) 8.6 MG Tab tablet Take 1 tablet by mouth 2 (two) times a day as needed for constipation. 05/14/2024 active gabapentin (NEURONTIN) 300 MG capsule Take 1 capsule (300 mg total) by mouth 3 (three) times a day. 01/22/2024 5 active cyclobenzaprine (FLEXERIL) 5 MG tablet Take 1 or 2 tabs by mouth every 8 hours as needed for muscle spasm 01/22/2024 active methocarbamol (ROBAXIN) 750 MG tablet Take 1 tablet (750 mg total) by mouth 4 (four) times a day as needed for muscle spasms. 07/07/2022 5 active ustekinumab (STELARA) 90 MG/ML subcutaneous injection Inject under the skin. 4 aborted rosuvastatin (CRESTOR) 20 MG tablet Take 1 tablet (20 mg total) by mouth nightly. active Problems Problem Status Onset Date Problem Type Date of Resoluti on Source Lumbar radiculitis active 2024-07-16 ProblemAct [facility] Psoriatic arthritis active ProblemAct [facility] S/P laminectomy with spinal fusion active 2022-07-05 ProblemAct [facility] Hypertension active 2024-04-09 ProblemAct [facility] Disorder of intervertebral disc at C5-C6 level with radiculopathy active 2024-04-22 ProblemAct [facility] Morbid obesity active 2024-04-22 ProblemAct [facility] CT Neurogenic claudication due to lumbar spinal stenosis active 2024-07-02 ProblemAct [facility] Mixed hyperlipidemia active 2005-10-04 ProblemAct [facility] Diabetes active 2017-09-13 ProblemAct [facility] Sleep apnea active ProblemAct [facility] Encounters Encounter Type Encounter Reason Primary Diagnosis Location Date [facility]ulatory [facility] 10/27/2024 Ambulatory Arthrodesis status Arthrodesis status [facility] 10/27/2024 Ambulatory Radiculopathy, lumba r region Radiculopathy, lumbar region [facility] 10/13/2024 Ambulatory Radiculopathy, lumba r region Radiculopathy, lumbar region [facility] 10/07/2024 Ambulatory Radiculopathy, lumba r region Radiculopathy, lumbar region [facility] 10/03/2024 Ambulatory Radiculopathy, lumba r region Radiculopathy, lumbar region [facility] 10/01/2024 Ambulatory Radiculopathy, lumba r region Radiculopathy, lumbar region [facility] 09/24/2024 Ambulatory Radiculopathy, lumba r region Radiculopathy, lumbar region [facility] 09/17/2024 Ambulatory Radiculopathy, lumba r region Radiculopathy, lumbar region [facility] 09/10/2024 Ambulatory Radiculopathy, lumba r region Radiculopathy, lumbar region [facility] 09/04/2024 Ambulatory Radiculopathy, lumba r region Radiculopathy, lumbar region [facility] 09/02/2024 Ambulatory Radiculopathy, cervical region Radiculopathy, cervical region [facility] 08/29/2024 Ambulatory [facility] 08/29/2024 Ambulatory Radiculopathy, cervical region Radiculopathy, cervical region [facility] 08/29/2024 Ambulatory Radiculopathy, cervical region Radiculopathy, cervical region [facility] 08/26/2024 Ambulatory Radiculopathy, cervical region Radiculopathy, cervical region [facility] 08/22/2024 Ambulatory Radiculopathy, cervical region Radiculopathy, cervical region [facility] 08/20/2024 Ambulatory Radiculopathy, cervical region Radiculopathy, cervical region [facility] 08/13/2024 Ambulatory [facility] 08/01/2024 Ambulatory Radiculopathy, lumba r region Radiculopathy, lumbar region [facility] 08/01/2024 Inpatient Radiculopathy, lumba r region Radiculopathy, lumbar region [facility] 07/16/2024 Ambulatory Encounter for other preprocedural examination Encounter for other preprocedural examination [facility] 07/03/2024 Ambulatory [facility] 06/02/2024 Ambulatory Radiculopathy, cervical region Radiculopathy, cervical region [facility] 06/02/2024 Ambulatory Pain Pain [facility] 05/20/2024 Ambulatory CREATE Cervical disc disorder at C5-C6 level with radiculopathy [facility] 05/15/2024 Ambulatory Pain Pain [facility] 05/12/2024 Ambulatory Spinal stenosis, lumbar region with neurogenic claudication Spinal stenosis, lumbar region with neurogenic claudication [facility] 05/06/2024 Ambulatory Encounter for other preprocedural examination Encounter for other preprocedural examination [facility] 04/24/2024 Ambulatory Follow-up Follow-up [facility] 03/03/2024 Ambulatory CREATE Radiculopathy, lumbosacral region [facility] 02/13/2024 Ambulatory Radiculopathy, lumbosacral region Radiculopathy, lumbosacral region [facility] 02/06/2024 Ambulatory Lumbago with sciatica, left side Lumbago with sciatica, left side [facility] 01/22/2024 Ambulatory [facility] 12/12/2023 [facility] Cervical disc disorder at C5-C6 level with radiculopathy Cervical disc disorder at C5-C6 level with radiculopathy [facility] 03/09/2023 Ambulatory Sacroiliitis, no t elsewhere classified [facility] 02/20/2023 Inpatient Arthrodesis status [facility] 07/05/2022 Ambulatory Encounter for preprocedural laboratory examination [facility] 07/03/2022 Ambulatory Encounter for ot her preprocedural examination [facility] 06/15/2022 Care Team Organization Name Specialty Phone Email Start Date End Da te [facility] 04/16/2024 [facility] 02/08/2024 [facility] 12/12/2023 [facility] 06/15/202211/26/ 025 [facility] 06/15/2022 07/06/2022
--- OUTSIDE RECORDS SUMMARY | 2024-12-11 06:04 | XMS_ITS | Encounter Summary ---
Author Organization [facility] Address [address] [place] [address] Care Team Providers Care Forging Engineer Name Role Phone Ady Pate MD Primary Care Provider [phone] Encounter Details Date Type Department Care Team Description 04/24/2024 Mammal Control Agent Report Medical Records [address] [place] [id number] Abstract, Provider Social History Tobacco Use Types [...] on filedocumented in this encounter Care Teams Forging Engineer Relationship Specialty Start Date End Date Ady Pate MD [address] [place] [address] PCP - General Internal Medicine 04/23/21 documented as of this encounter
--- OUTSIDE RECORDS SUMMARY | 2024-12-11 06:04 | XMS_ITS | Encounter Summary ---
Author Organization [facility] Address [address] [place] [address] Care Team Providers Care Grain Grader Name Role Phone Ady Pate MD Primary Care Provider [phone]- [phone] Reason for Visit * Reason Comments E-prescribe Rx Request Encounter Details Date Type Department Care Team Description 02/17/2022 Refill Rheumatology - [address] [address] Al Fong MD E-prescribe Rx Request Social History Tobacco Use Types Packs/Day Years Used Date Smoking Tobacco: Never Smokeless Tobacco: Never Alcohol Use Standard Drinks/Week Comments Yes 0 (1 standard drink = 0.6 oz pur e alcohol) rare Sex Assigned at Date Recorded Not on file documented as of this encounter Miscellaneous Notes * Telephone Encounter - Ady Pate MD - 02/17/2022 11:29 AM EDT This medication needs to be prescribed by a book publisher. * Telephone Encounter - Tamiko Tomas M.A. - 02/17/2022 11:26 AM EDT Brit - 07/19/21 Nov - 03/07/22 Lab Results Component Value Date HGBA1C 6.1 07/11/2021 CHOL 170 07/11/2021 LDL 95 07/11/2021 HDL 52 07/11/2021 TRIG 116 07/11/2021 GLU 96 07/11/2021 CREAT 0.80 07/11/2021 * Telephone Encounter - Divya Evans - 02/17/2022 8:13 AM EDT Patient would like script to be: E-PRESCRIBED/FAXED TO PHARMACY WHEN WAS THE PATIENT'S LAST APPOINTMENT IN ADULT MEDICINE? 07/19/21 WHEN WAS THE LAST TIME THE PATIENT SAW THEIR PCP? 07/11/21 Does patient have an upcoming appointment? Yes 03/07/22 (THE MEDICATION REQUESTED IS ON THE MED LIST ABOVE) All of the medications requested were on the CURRENT MEDS list Did you check the Pharmacy information above?: YES Patient wants: 90 -day supply Is this a mail order prescription request ? NO If the refill is from a FAXED refill request what is the RX # listed on the fax? N/A Patients current insurance carrier is: Payor: [employer] / Plan: PPO $0 [place] [id number] / Product Type: PPO [id number] documented in this encounter Plan of Treatment Not on file documented as of this encounter Visit Diagnoses Diagnosis Psoriatic arthropathy Psoriasis Other psoriasis documented in this encounter Care Teams Grain Grader Relationship Specialty Start Date End Date Ady Pate MD [address] [place] [address] PCP - General Internal Medicine 04/23/21 documented as of this encounter
--- OUTSIDE RECORDS SUMMARY | 2024-12-11 06:04 | XMS_ITS | Encounter Summary ---
Author Organization [facility] Address [address] [place] [address] Care Team Providers Care Library Page Name Role Phone Shannon Cardozo MD [facility] Provider [facility] Ady Pate MD Primary Care Provider [phone]- [phone] Encounter Details Date Type Department Care Team Description 09/19/2019 [facility] Medical Records [address] [place] [address] [place] Rooney Social History Tobacco Use Types [...] on filedocumented in this encounter Care Teams Library Page Relationship Specialty Start Date End Date Shannon Cardozo MD PCP - General Internal Medicine 12/06/15 04/22/21 Ady Pate MD [address] [place] [address] PCP - General Internal Medicine 04/23/21 documented as of this encounter
--- OUTSIDE RECORDS SUMMARY | 2024-12-11 06:04 | XMS_ITS | Encounter Summary ---
Author Organization [facility] Address [address] [place] [address] Care Team Providers Care Emergency Department Rn Name Role Phone Ady Pate MD Primary Care Provider Unava ilable Javier Recinos MD Unavailable [phone] System, Provider Not In Unavailable Unavaila ble Encounter Details Date Type Department Care Team (Late st Contact Info) Description 01/24/2023 Scanned Document [facility] [address] [place] [phone] Javier Recinos MD [address] [place] [address] [address] [place] [address] Social History Tobacco Use Types Packs/Day Years [...] 8:15 AM EDT Office Visit [facility] [address] [place] [address] Jocy Lazcano PA-C [address] [address] 02/27/2025 8:00 AM EDT [facility] [address] [phone] Javier Recinos MD [address] [place] [address] [phone] documented as of this encounter Visit Diagnoses Not on filedocumented in this encounter Care Teams Emergency Department Rn Relationship Specialty Start Date End Date Ady Pate MD PCP - General 06/09/22 Javier Recinos MD [address] [place] [address] [phone] Surgery, Orthopedic 06/09/22 System, Provider Not In 07/02/24 documented as of this encounter
[2024-12-11 06:14] LABS: MANUAL DIFF FLAG NO
[2024-12-11 07:17] LABS: Basophils Absolute Auto 0.1 X10*3/uL (0.0-0.2); Eosinophils Absolute Auto 0.1 X10*3/uL (0.0-0.4); Eosinophils Percent Auto 2.3 % (0-4); Hematocrit 44.6 % (37.0-47.0); Hemoglobin 14.6 g/dl (12.0-16.0); Imm Gran Abs Auto 0.01 X10*3/uL (0.00-0.03); Imm Gran Pct Auto 0.2 % (0.0-0.4); Lymphocytes Absolute Auto 1.6 X10*3/uL (1.2-4.9); Mean Corpuscular HGB Conc 32.7 g/dl (31.0-35.0); Mean Corpuscular Volume 88.7 fL (80.0-98.0); Monocytes Absolute Auto 0.6 X10*3/uL (0.1-1.2); Monocytes Percent Auto 10.3 % (2-11); Neutrophils Absolute Auto 3.6 x10*3/uL (2.0-8.3); Neutrophils Percent Auto 59.2 % (45-73); Platelet Count 273 X10*3/uL (160-400); Red Blood Count 5.03 X10*6/uL (4.20-5.50); Red Cell Distribution Width 12.2 % (11.0-16.0)
[2024-12-11 07:43] LABS: Alanine Aminotransferase 37 U/L (0-31); Albumin Level 4.4 g/dL (3.5-5.0); Alkaline Phosphatase 95 U/L (39-117); Anion Gap 12 (12-20); Aspartate Amino Transferase 30 U/L (5-31); Bilirubin Total 1.7 mg/dL (0.0-1.0); Blood Urea Nitrogen 21 mg/dL (9-16); C Reactive Protein 0.16 mg/dL (< or = 0.50); Calcium 9.9 mg/dL (8.4-10.2); Carbon Dioxide 25 mmol/L (22-29); Chloride 106 mmol/L (96-108); Estimated Glomerular Filt Rate > 60; Glucose Random 176 mg/dL (60-115); Potassium 3.9 mmol/L (3.3-5.1); Sodium 139 mmol/L (135-145); Total Protein 7.2 g/dL (6.5-8.0)
[2024-12-11 07:55] LABS: Erythrocyte Sedimentation Rate 11 MM/HR (0-20)
[2024-12-11 08:14] LABS: HBS Num1 1.07 mIU/mL (0-7.99); HBc Num1 0.08 S/CO (0.00-0.79); HBsAGNum1 0.48 S/CO (0.00-0.99); Hepatitis A Antibody IgM 0.14 Index (0-0.79); Hepatitis B Core Antibody Nonreactive (Nonreactive); Hepatitis B Surface Antigen Negative (Negative); ~HepC Num1 0.08 S/CO (0.00-0.79); ~Hepatitis A Antibody IgM Nonreactive (Nonreactive); ~Hepatitis B Surface Antibody NONREACTIVE (Nonreactive); ~Hepatitis C Antibody Nonreactive (Nonreactive)
[2024-12-15 04:40] LABS: TS Negative Control Passed; TS Panel A 0; TS Panel B 0; TS Positive Control Passed; TSpotTB Negative (Negative)
== END 2024-12-11 06:02 | disposition home or self-care (01) ==
LOC: HO.LAB 06:01
PROVIDERS: PCP Pediatrics; Visit Provider Student in an Organized Health Care Education/Training Program
DX: L40.50 Arthropathic psoriasis, unspecified (principal); Z11.7 Encounter for testing for latent tuberculosis infection; Z79.899 Other long term (current) drug therapy; Z11.59 Encounter for screening for other viral diseases
CPT/HCPCS: 36415; 80053; 85025; 85652; 86140; 86481; 86704; 86706; 86709; 86803; 87340

== ENCOUNTER 2024-12-17 07:16 | Outpatient (AMB) | payer OTHER, SELFPAY ==
--- OUTSIDE RECORDS SUMMARY | 2024-12-17 07:19 | XMS_ITS | Encounter Summary ---
Author Organization [facility] Address [address] [place] [address] Care Team Providers Care Cementer Oil Well Name Role Phone Shannon Cardozo MD Primary Care Provider Ady Meng MD Primary Care Provider [phone] Reason for Visit * Reason Onset Date Comments Prior Authorization 05/20/2019 Elizabeth Encounter Details Date Type Department Care Team Description 05/20/2019 Telephone Adult Medicine - [address] [address] Shannon Cardozo MD Prior Authorization (Elizabeth) Social [...] My Meds request: Yes -- Barker Code [id number] Name of Medication Apremilast (OTEZLA) 30 MG Tab Dose of Medication 30MG What is the RX # from the faxed refill? How does patient take this med? Sig - Route: Take 30 mg by mouth 2 times daily. - Oral What Pharmacy did the fax come from: [facility] fax #: [phone] Third Green Party Information from fax: What Prescription Plan does the patient have? Optum RX BIN/PCN if applicable: Cardholder ID:[id number] Person Code: Relationship Code: spouse Help desk phone: documented in this encounter Plan of Treatment Not on file documented as of this encounter Visit Diagnoses Not on filedocumented in this encounter Care Teams Cementer Oil Well Relationship Specialty Start Date End Date Shannon Cardozo MD PCP - General Internal Medicine 12/06/15 04/22/21 Ady Pate MD [address] [place] [address] PCP - General Internal Medicine 04/23/21 documented as of this encounter
--- OUTSIDE RECORDS SUMMARY | 2024-12-17 07:19 | XMS_ITS | Encounter Summary ---
Author Organization [facility] Address [address] [place] [address] Care Team Providers Care Tree Pruner Name Role Phone Ady Pate MD Primary Care Provider [phone]- [phone] Encounter Details Date Type Department Care Team Description 06/15/2022 [facility] Medical Records [address] [place] [address] Abstract, Provider Social History Tobacco Use Types [...] on filedocumented in this encounter Care Teams Tree Pruner Relationship Specialty Start Date End Date Ady Pate MD [address] [place] [address] PCP - General Internal Medicine 04/23/21 documented as of this encounter
--- OUTSIDE RECORDS SUMMARY | 2024-12-17 07:19 | XMS_ITS | Clinical Summary ---
Author Organization [facility] Address [address] [place] [address] Care Team Providers Care Tile And Marble Installer Name Role Phone Ady Pate MD Primary [...] sleep apnea mild AHI 14 05/30 Overview: [facility] Home Sleep Apnea Test: Date 06/08/2020; Wt [...] by insurance 08/14 - referred to external parking meter attendant for consideration of UV therapy Last Assessment & Plan: Make sure to keep your parking meter attendant appointment. Mixed hyperlipidemia 10/04/2005 Overview: 04/13 - ASCVD 10yr risk 0.8% IMO update Obesity (BMI 30-39.9) 10/04/2005 Resolved Problems Problem Noted Date Resolved Date Left shoulder pain 03/14/2013 07/18/2013 Overview: [facility] - minimal improvement [...] Hypertension Mother Stroke Mother Hypertension Uncle 1 [place] Uncle 1 [place] Uncle 2 Relation Name Status Comments Aunt [...] Address Type WORKERS COMP WORKERS COMPENSATIO N/[place] [id number] 2002-Pres ent [address] [place] [address] OTHER [facility]/10%/ 30/F/PPO [id number] 2014-Pres ent [address] [place] [address] PPO Fee-for- Service WORKERS COMP WORKERS COMPENSATIO [place] [id number] 2015-Pre sent [address] [facility] [address] [place] [address] OTHER [employer] PPO $0 [place] [id number] 2021-Pre sent [employer] [address] [address] [place] [address] PPO Fee-for- Service Care Teams Tile And Marble Installer Relationship Specialty Start Date End Date Ady Pate MD [address] [place] [address] PCP - General Internal Medicine 04/23/21
--- OUTSIDE RECORDS SUMMARY | 2024-12-17 07:19 | XMS_ITS | Encounter Summary ---
Author Organization [facility] Address [address] [place] [address] Care Team Providers Care Phlebotomy Manager Name Role Phone Shannon Cardozo MD Primary Care Provider Ady Meng MD Primary Care Provider Reason for Visit * Reason Onset Date Comments Back Pain 07/24/2019 Encounter Details Date Type Department Care Team Description 07/24/2019 Telephone Adult Medicine - [address] [address] Shannon Cardozo MD Back Pain Social History Tobacco Use Types Packs/Day Years Used Date Smoking Tobacco: Never Smokeless Tobacco: Never Alcohol Use Standard Drinks/Week Comments Yes 0 (1 standard drink = 0.6 oz pur e alcohol) rare Sex Assigned at Date Recorded Not on file documented as of this encounter Miscellaneous Notes * Telephone Encounter - Shannon Cardozo MD - 08/01/2019 9:51 PM EST Noted. * Telephone Encounter - Aria Griffin - 07/24/2019 1:47 PM EST Patient is going in for back surgery on 08/15/19 at [facility]. FYI documented in this encounter Plan of Treatment Not on file documented as of this encounter Visit Diagnoses Not on filedocumented in this encounter Care Teams Phlebotomy Manager Relationship Specialty Start Date End Date Shannon Cardozo MD PCP - General Internal Medicine 12/06/15 04/22/21 Ady Pate MD [address] [place] [address] PCP - General Internal Medicine 04/23/21 documented as of this encounter
--- OUTSIDE RECORDS SUMMARY | 2024-12-17 07:19 | XMS_ITS | Encounter Summary ---
Author Organization [facility] Address [address] [place] [address] Care Team Providers Care Public Address Systems Mechanic Name Role Phone Ady Pate MD Primary Care Provider [phone] Encounter Details Date Type Department Care Team Description 08/09/2023 Orders Only Medical Records [address] [place] [address] Ady Pate MD [address] [place], [place] [id number] Social History Tobacco Use Types Packs/Day Years Used Date Smoking Tobacco: Never Smokeless Tobacco: Never Alcohol Use Standard Drinks/Week Comments Yes 0 (1 standard drink = 0.6 oz pur e alcohol) rare Sex Assigned at Date Recorded Not on file documented as of this encounter Plan of Treatment Not on file documented as of this encounter Procedures Procedure Name Priority Date/Time Associated Diagnosis Comments OUTSIDE MAMMO Routine 11/16/2022 documented in this encounter Results * OUTSIDE MAMMO (11/16/2022) Ady Pate MD RADIOLOGY documented in this encounter Visit Diagnoses Not on filedocumented in this encounter Care Teams Public Address Systems Mechanic Relationship Specialty Start Date End Date Ady Pate MD [address] [place], [place] [phone] PCP - General Internal Medicine 04/23/21 documented as of this encounter
--- OUTSIDE RECORDS SUMMARY | 2024-12-17 07:19 | XMS_ITS | Encounter Summary ---
Author Organization [facility] Address [address] [place] [address] Care Team Providers Care Healthcare Educator Name Role Phone Ady Pate MD Primary Care Provider [phone] Encounter Details Date Type Department Care Team Description 11/20/2022 Transition Coach Report Medical Records [address] [place] [address] Al Fong MD Social History Tobacco Use [...] on filedocumented in this encounter Care Teams Healthcare Educator Relationship Specialty Start Date End Date Ady Pate MD [address] [place] [address] PCP - General Internal Medicine 04/23/21 documented as of this encounter
--- OUTSIDE RECORDS SUMMARY | 2024-12-17 07:19 | XMS_ITS | Encounter Summary ---
Author Organization [facility] Address [address] [place] [address] Care Team Providers Care Seasonal Warehouse Associate Name Role Phone Ady Pate MD Primary Care Provider [phone] Encounter Details Date Type Department Care Team Description 12/05/2023 Orders Only Medical Records [address] [place] [address] Ady Pate MD [address] [place], [place] [phone] Social History Tobacco Use Types Packs/Day Years [...] Date/Time Associated Diagnosis Comments OUTSIDE MAMMO Routine 11/22/2023 documented in this encounter Results * OUTSIDE MAMMO (11/22/2023) Ady Pate MD RADIOLOGY documented in this encounter Visit Diagnoses Not on filedocumented in this encounter Care Teams Seasonal Warehouse Associate Relationship Specialty Start Date End Date Ady Pate MD [address] [place], [place] [phone] PCP - General Internal Medicine 04/23/21 documented as of this encounter
--- OUTSIDE RECORDS SUMMARY | 2024-12-17 07:19 | XMS_ITS | Encounter Summary ---
Author Organization [facility] Address [address] [place] [address] Care Team Providers Care Manager Qa Name Role Phone Ady Pate MD Primary Care Provider [phone]- [phone] Encounter Details Date Type Department Care Team Description 04/24/2024 Rn Hyperbaric Report Medical Records [address] [place] [address] Abstract, Provider Social History Tobacco Use Types [...] filedocumented in this encounter Care Teams Manager Qa Relationship Specialty Start Date End Date Ady Pate MD [address] [place] [address] PCP - General Internal Medicine 04/23/21 documented as of this encounter
--- OUTSIDE RECORDS SUMMARY | 2024-12-17 07:19 | XMS_ITS | Encounter Summary ---
Author Organization [facility] Address [address] [place] [address] Care Team Providers Care Orchid Grower Name Role Phone Ady Pate MD Primary Care Provider [phone]- [phone] Reason for Visit * Reason Onset Date Comments Prior Authorization 07/05/2022 In lab sleep study Encounter Details Date Type Department Care Team Description 07/05/2022 Telephone Adult Medicine [address] [address] Talita Arthur MD [address] [place] [phone] Prior Authorization (In lab sleep study) Social History Tobacco Use Types Packs/Day Years Used Date Smoking Tobacco: Never Smokeless Tobacco: Never Alcohol Use Standard Drinks/Week Comments Yes 0 (1 standard drink = 0.6 oz pur e alcohol) rare Sex Assigned at Date Recorded Not on file documented as of this encounter Miscellaneous Notes * Telephone Encounter - Margaux Krishnan - 07/05/2022 11:11 AM EST [employer] - Per [employer] for [employer] no auth required call reference # [id number]. [employer] phone # [phone] Order and benefits faxed to [email or web address] for scheduling. They will contact pt. Notification letter sent. documented in this encounter Plan of Treatment Not on file documented as of this encounter Visit Diagnoses Not on filedocumented in this encounter Care Teams Orchid Grower Relationship Specialty Start Date End Date Ady Pate MD [address] [place] [address] PCP - General Internal Medicine 04/23/21 documented as of this encounter
--- OUTSIDE RECORDS SUMMARY | 2024-12-17 07:19 | XMS_ITS | Encounter Summary ---
Author Organization [facility] Address [address] [place] [address] Care Team Providers Care Laminated Plastics Assembler And Gluer Name Role Phone Ady Pate MD Primary Care Provider [phone]- [phone] Reason for Visit * Reason Comments E-prescribe Rx Request Encounter Details Date Type Department Care Team Description 03/08/2022 Refill Rheumatology - [address] [address] Al Fong MD E-prescribe Rx Request Social History Tobacco Use Types Packs/Day Years Used Date Smoking Tobacco: Never Smokeless Tobacco: Never Alcohol Use Standard Drinks/Week Comments Yes 0 (1 standard drink = 0.6 oz pur e alcohol) rare Sex Assigned at Date Recorded Not on file documented as of this encounter Miscellaneous Notes * Telephone Encounter - Rosmery Harrislydia - 03/13/2022 8:34 AM EDT Duplicate - please close * Telephone Encounter - Divya Evans - 03/10/2022 1:47 PM EDT Images from the original note were not included. Possible duplicate: documented in this encounter Plan of Treatment Not on file documented as of this encounter Visit Diagnoses Diagnosis Psoriatic arthropathy documented in this encounter Care Teams Laminated Plastics Assembler And Gluer Relationship Specialty Start Date End Date Ady Pate MD [address] [place] [address] PCP - General Internal Medicine 04/23/21 documented as of this encounter
--- OUTSIDE RECORDS SUMMARY | 2024-12-17 07:20 | XMS_ITS | Encounter Summary ---
Author Organization [facility] Address [address] [place] [address] Care Team Providers Care Elastic Cutter Name Role Phone Shannon Cardozo MD Primary Care Provider [facility] Ady Pate MD Primary Care Provider Encounter Details Date Type Department Care Team Description 05/24/2020 Orders Only Medical Records [address] [place] [address] Shannon Cardozo MD Social History Tobacco Use [...] Name Priority Date/Time Associated Diagnosis Comments OUTSIDE SLEEP STUDY Routine 05/18/2020 documented in this encounter Results * OUTSIDE SLEEP STUDY (05/18/2020) Shannon Cardozo MD PULMONOLOGY documented in this encounter Visit Diagnoses Not on filedocumented in this encounter Care Teams Elastic Cutter Relationship Specialty Start Date End Date Shannon Cardozo MD PCP - General Internal Medicine 12/06/15 04/22/21 Ady Pate MD [address] [place] [address] PCP - General Internal Medicine 04/23/21 documented as of this encounter
--- OUTSIDE RECORDS SUMMARY | 2024-12-17 07:20 | XMS_ITS | Encounter Summary ---
Author Organization [facility] Address [address] [place] [address] Care Team Providers Care Humane Officer Name Role Phone Shannon Cardozo MD Primary Care Provider [facility] Ady Pate MD Primary Care Provider [phone]- [phone] Encounter Details Date Type Department Care Team Description 09/19/2019 [facility] Medical Records [address] [place] [address] [place] Rooney Social History Tobacco Use Types [...] on filedocumented in this encounter Care Teams Humane Officer Relationship Specialty Start Date End Date Shannon Cardozo MD PCP - General Internal Medicine 12/06/15 04/22/21 Ady Pate MD [address] [place] [address] PCP - General Internal Medicine 04/23/21 documented as of this encounter
--- OUTSIDE RECORDS SUMMARY | 2024-12-17 07:20 | XMS_ITS | Encounter Summary ---
Author Organization [facility] Address [address] [place] [address] Care Team Providers Care Computational Sciences Professor Name Role Phone Shannon Cardozo MD [facility] Ady Pate MD Primary Care Provider [phone]- [phone] Encounter Details Date Type Department Care Team Description 04/01/2020 Orders Only Adult Medicine - [facility] [address] [place] [address] Shannon Cardozo MD Social History Tobacco Use [...] on filedocumented in this encounter Care Teams Computational Sciences Professor Relationship Specialty Start Date End Date Shannon Cardozo MD PCP - General Internal Medicine 12/06/15 04/22/21 Ady Pate MD [address] [place] [address] PCP - General Internal Medicine 04/23/21 documented as of this encounter
--- OUTSIDE RECORDS SUMMARY | 2024-12-17 07:20 | XMS_ITS | Encounter Summary ---
Author Organization [facility] Address [address] [place] [address] Care Team Providers Care Remote Sensing Scientist Name Role Phone Shannon Cardozo MD Primary Care Provider [facility] Ady Pate MD Primary Care Provider [phone] Encounter Details Date Type Department Care Team Description 05/16/2016 Shellfish Checker Report Medical Records [address] [place] [address] [place] Rooney Social History Tobacco Use Types [...] on filedocumented in this encounter Care Teams Remote Sensing Scientist Relationship Specialty Start Date End Date Shannon Cardozo MD PCP - General Internal Medicine 12/06/15 04/22/21 Ady Pate MD [address] [place] [address] PCP - General Internal Medicine 04/23/21 documented as of this encounter
--- OUTSIDE RECORDS SUMMARY | 2024-12-17 07:20 | XMS_ITS | Encounter Summary ---
Author Organization [facility] Address [address] [place] [address] Care Team Providers Care Promotions Firm Accounts Manager Name Role Phone Shannon Cardozo MD Primary Care Provider [facility] Ady Pate MD Primary Care Provider Encounter Details Date Type Department Care Team Description 11/14/2016 Orders Only Adult Medicine [address] [address] Marni Bejarano MD Bacterial sinusitis (Primary Dx) [...] (chronic) documented in this encounter Care Teams Promotions Firm Accounts Manager Relationship Specialty Start Date End Date Shannon Cardozo MD PCP - General Internal Medicine 12/06/15 04/22/21 Ady Pate MD [address] [place] [address] PCP - General Internal Medicine 04/23/21 documented as of this encounter
--- OUTSIDE RECORDS SUMMARY | 2024-12-17 07:20 | XMS_ITS | Encounter Summary ---
Author Organization [facility] Address [address] [place] [address] Care Team Providers Care Pump Technician Name Role Phone Ady Pate MD Primary Care Provider [phone]- [phone] Reason for Visit * Reason Comments E-prescribe Rx Request Encounter Details Date Type Department Care Team Description 02/17/2022 Refill Rheumatology - [address] [address] Al Fong MD E-prescribe Rx Request Social [...] medication needs to be prescribed by a top frame fitter. * Telephone Encounter - Tamiko Tomas M.A. [...] Payor: [employer] / Plan: PPO $0 [place] [id number] / Product Type: PPO [id number] documented in this encounter Plan of Treatment Not on file documented as of this encounter Visit Diagnoses Diagnosis Psoriatic arthropathy Psoriasis Other psoriasis documented in this encounter Care Teams Pump Technician Relationship Specialty Start Date End Date Ady Pate MD [address] [place] [address] PCP - General Internal Medicine 04/23/21 documented as of this encounter
--- OUTSIDE RECORDS SUMMARY | 2024-12-17 07:20 | XMS_ITS | Encounter Summary ---
Author Organization [facility] Address [address] [place] [address] Care Team Providers Care Software Configuration Engineer Name Role Phone Shannon Cardozo MD Primary Care Provider Ady Meng MD Primary Care Provider [phone] Reason for Visit * Reason Onset Date Comments medication problems 03/22/2020 Encounter Details Date Type Department Care Team Description 03/22/2020 Telephone Adult Medicine - [address] [address] Shannon Cardozo MD medication problems Social History Tobacco Use Types Packs/Day Years Used Date Smoking Tobacco: Never Smokeless Tobacco: Never Alcohol Use Standard Drinks/Week Comments Yes 0 (1 standard drink = 0.6 oz pur e alcohol) rare Sex Assigned at Date Recorded Not on file documented as of this encounter Miscellaneous Notes * Telephone Encounter - Denisse Jackson L.P.N. - 03/22/2020 2:21 PM EDT Patient will call back to schedule follow up appt.Advised over due for follow up only 30 sent to [facility] * Telephone Encounter - Mignon Roberts - 03/22/2020 2:18 PM EDT Who is calling? The patient Name of the medication rosuvastatin (CRESTOR) 10 MG tablet What is the specific problem or interaction? Pt states that this medication is suppose to go to [facility] not [facility]. Please advise/. If the patient is having a problem with taking the med - how long has the problem been going on? N/A documented in this encounter Plan of Treatment Not on file documented as of this encounter Visit Diagnoses Not on filedocumented in this encounter Care Teams Software Configuration Engineer Relationship Specialty Start Date End Date Shannon Cardozo MD PCP - General Internal Medicine 12/06/15 04/22/21 Ady Pate MD [address] [place] [address] PCP - General Internal Medicine 04/23/21 documented as of this encounter
--- OUTSIDE RECORDS SUMMARY | 2024-12-17 07:20 | XMS_ITS | Encounter Summary ---
Author Organization [facility] Address [address] [place] [address] Care Team Providers Care Methodologist Name Role Phone Shannon Cardozo MD Primary Care Provider Parveena Ady Mariano MD Primary Care Provider [phone] Encounter Details Date Type Department Care Team Description 04/09/2020 Pt. Non Urgent Medical Question Adult Medicine - [address] [address] Shannon Cardozo MD Social History Tobacco Use [...] PM EDT documented as of this encounter Progress Notes * Denisse Jackson L.P.N. - 04/09/2020 8:43 AM EDTFrom: Yasmine Chau To: Shannon Cardozo MD Sent: 04/09/2020 12:34 AM EDT Subject: Question regarding CHOLESTEROL I have a question about CHOLESTEROL resulted on 04/01/20, 4:13 PM. Hi I started taking 2 tablets. Please go ahead and update the script with [facility]. I have a 90 day supply(1 pill per day) so I will be ok for a while. Thank you. I am going to see a subway repair supervisor and I am doing the 45 minutes of exercise per session. Yasmine documented in this encounter Plan of Treatment Not on file documented as of this encounter Visit Diagnoses Not on filedocumented in this encounter Care Teams Methodologist Relationship Specialty Start Date End Date Shannon Cardozo MD PCP - General Internal Medicine 12/06/15 04/22/21 Ady Pate MD [address] [place] [address] PCP - General Internal Medicine 04/23/21 documented as of this encounter
--- OUTSIDE RECORDS SUMMARY | 2024-12-17 07:20 | XMS_ITS | Encounter Summary ---
Author Organization [facility] Address [address] [place] [address] Care Team Providers Care Section Housekeeper Name Role Phone Ady Pate MD Primary Care Provider Unava ilable Javier Recinos MD Unavailable [phone] System, Provider Not In Unavailable Unavaila ble Encounter Details Date Type Department Care Team (Late st Contact Info) Description 09/03/2024 Scanned Document [facility] [address] [phone] Mayte Lowe [address] [place] [address] Social History Tobacco Use Types Packs/Day Years Used Date Smoking Tobacco: Never Passive Smoke Exposure: Past Smokeless Tobacco: Never Alcohol Use Standard Drinks/Week Comments Yes 0 (1 standard drink = 0.6 oz pure alcohol) 1 glass/month advised to stop 2 weeks before surgery [facility] Utilities Answer Date Recorded In the past 12 months has [email or web address] gas, oil, or water [employer] threatened to shut off services in your [...] were you homeless or living in a care home (including now)? No 07/17/2024 Comments No Sex and Gender Information Value Date Recorded Sex Assigned at Female 03/03/2024 9:39 AM EDT Legal Sex Female 1:11 PM EST Gender Identity Female 03/03/2024 9:39 AM EDT Sexual Orientation Heterosexual (straight) 04/23 11:40 AM EDT documented as of this encounter Plan of Treatment Upcoming Encounters Date Type Department Care Team (Late st Contact Info) Description 02/27/2025 8:00 AM EDT [facility] [address] [address] Javier Recinos MD [address] [place] [address] 03/16/2025 8:00 AM EDT Office Visit Orthopedic [address] [phone] Jocy Lazcano PA-C [address] [address] documented as of this encounter Goals Goal [...] on filedocumented in this encounter Care Teams Section Housekeeper Relationship Specialty Start Date End Date Ady Pate MD PCP - General 06/09/22 Javier Recinos MD [address] [place] [address] Surgery, Orthopedic 06/09/22 System, Provider Not In 07/02/24 documented as of this encounter
--- OUTSIDE RECORDS SUMMARY | 2024-12-17 07:20 | XMS_ITS | Encounter Summary ---
Author Organization [facility] Address [address] [place] [address] Care Team Providers Care Jewelry Consultant Name Role Phone Shannon Cardozo MD Primary Care Provider [facility] Ady Pate MD Primary Care Provider Encounter Details Date Type Department Care Team Description 02/23/2017 Senior Analyst Market Intelligence Report Medical Records [address] [place] [address] Al Gonzalez PA-C Social History Tobacco Use [...] on filedocumented in this encounter Care Teams Jewelry Consultant Relationship Specialty Start Date End Date Shannon Cardozo MD PCP - General Internal Medicine 12/06/15 04/22/21 Ady Pate MD [address] [place] [address] PCP - General Internal Medicine 04/23/21 documented as of this encounter
--- OUTSIDE RECORDS SUMMARY | 2024-12-17 07:20 | XMS_ITS | Encounter Summary ---
Author Organization [facility] Address [address] [place] [address] Care Team Providers Care Curb Worker Name Role Phone Shannon Cardozo MD Primary Care Provider [facility] Ady Pate MD Primary Care Provider [phone] Encounter Details Date Type Department Care Team Description 09/10/2020 Old Medical Records Medical Records [address] [place] [address] Abstract, Provider Social History Tobacco Use Types [...] on filedocumented in this encounter Care Teams Curb Worker Relationship Specialty Start Date End Date Shannon Cardozo MD PCP - General Internal Medicine 12/06/15 04/22/21 Ady Pate MD [address] [place] [address] PCP - General Internal Medicine 04/23/21 documented as of this encounter
--- OUTSIDE RECORDS SUMMARY | 2024-12-17 07:20 | XMS_ITS | Encounter Summary ---
Author Organization [facility] Address [address] [place] [address] Care Team Providers Care Warehouse Clerk Name Role Phone Shannon Cardozo MD Primary [facility] Provider [facility] Ady Pate MD Primary Care Provider Encounter Details Date Type Department Care Team Description 06/21/2020 Orders Only Medical Records [address] [place] [address] Shannon Cardozo MD Social History Tobacco Use [...] Associated Diagnosis Comments OUTSIDE SLEEP STUDY Routine 06/08/2020 documented in this encounter Results * OUTSIDE SLEEP STUDY (06/08/2020) Shannon Cardozo MD PULMONOLOGY documented in this encounter Visit Diagnoses Not on filedocumented in this encounter Care Teams Warehouse Clerk Relationship Specialty Start Date End Date Shannon Cardozo MD PCP - General Internal Medicine 12/06/15 04/22/21 Ady Pate MD [address] [place] [address] PCP - General Internal Medicine 04/23/21 documented as of this encounter
--- OUTSIDE RECORDS SUMMARY | 2024-12-17 07:20 | XMS_ITS | Encounter Summary ---
Author Organization [facility] Address [address] [place] [address] Care Team Providers Care Insurance Instructor Name Role Phone Shannon Cardozo MD Primary Care Provider Parveena Ady Mariano MD Primary Care Provider [phone] Reason for Referral * Non RAQUEL (Routine) - Authorized/Booked Specialty Diagnoses / Procedures Referred By Sydney moore Referred To Contact Pulmonology Procedures REFERRAL TO PULMONOLOGY Shannon Cardozo MD [address] [place] [address] Pulmo/[place] [address] [facility] [address] [place] [address] Referral ID Status Reason Start Date Expiration Date V isits Requested Visits Authorized [id number] Authorized/B ooked 06/23/2020 06/23/2021 1 1 Reason for Visit * Reason Onset Date Comments Sleep Study 05/21/2020 Encounter Details Date Type Department Care Team Description 05/21/2020 Telephone Pulmonology - [place] [address] [facility] [address] [place] [address] Reema Nunez FNP [address] [place] [address] Sleep Study Social History Tobacco Use Types [...] (pediatric) documented in this encounter Care Teams Insurance Instructor Relationship Specialty Start Date End Date Shannon Cardozo MD PCP - General Internal Medicine 12/06/15 04/22/21 Ady Pate MD [address] [place] [address] PCP - General Internal Medicine 04/23/21 documented as of this encounter
--- OUTSIDE RECORDS SUMMARY | 2024-12-17 07:20 | XMS_ITS | Clinical Summary ---
Author Organization [facility] [address] [facility] Address [address] [place] [address] Phone Care Team Providers Care Bicycle Subassembler Name Role Phone Rishi Pate MD Primary Care Provider [phone] Allergies Active Allergy Reactions Criticality Noted Date [...] NEEDED FOR MUSCLE SPASMS 01/03/20 24 Active ustekinumab (Stelara) 90 mg/mL syringe [...] test strip Use as instructed 200 each 11/08/19 25 026 Active lancets lancets Check blood sugar 4 times a day or as directed. 200 each 11/08/19 25 026 Active amLODIPine (NORVASC) 2.5 mg tablet TAKE 1 TABLET BY MOUTH ONCE DAILY 90 tablet 1 12/09/19 25 Active rosuvastatin (CRESTOR) 40 mg tablet Take 1 tablet (40 mg total) by mouth 1 (one) time each day. 90 tablet 1 12/15/19 25 Active rosuvastatin (CRESTOR) 40 mg tablet Take 1 tablet (40 mg total) by mouth 1 (one) time each day. 15 tablet 12/15/19 25 Active rosuvastatin (CRESTOR) 40 mg tablet Take 1 Tablet by mouth daily for 180 days. 04/09/20 24 025 Discontinued(Re order) amLODIPine (NORVASC) 2.5 mg tablet Take 1 tablet (2.5 mg total) by mouth 1 (one) time each day. 90 tablet 10/03/19 25 025 Discontinued Active Problems Problem Noted Date Diagnosed Date Hypertension 04/09/2024 Obstructive sleep apnea 06/17/2020 Overview (08/28/2024): [facility] Home Sleep Apnea Test: Date 06/08/2020; Wt [...] Primary osteoarthritis of both feet 05/13/2019 Diabetes ([facility] V24, [facility] V28) 09/13/2017 Overview (08/28/2024): 04/22 - HgbA1C 6.9% Lumbar disc disease with radiculopathy 6 Overview (08/28/2024): L5-S1 Surgery 05/14 L4-L5 surgery 09/18 Sacroiliitis ([facility] V24) 09/10/2007 Overview (08/28/2024): Clem Causey Psoriatic arthropathy ([facility] V24, [facility] V28) 10/01/2006 Overview (08/28/2024): Dr. Fong 01/09 [...] by insurance 08/14 - referred to external student advisor for consideration of UV therapy Last Assessment & Plan: Make sure to keep your student advisor appointment. Mixed hyperlipidemia 10/04/2005 Overview (08/28/2024): 04/13 - ASCVD 10yr risk 0.8% IMO update Obesity (BMI 30-39.9) 10/04/2005 Encounters Date Type Department Care Team Description 10/23/2024 3:30 PM EDT Office Visit Adult Medicine [address] [phone] Edna Mcpherson NP Primary hypertension (Primary Dx); Type 2 diabetes mellitus without complication, without long-term current use of insulin ([facility] V24, [facility] V28); Mixed hyperlipidemia from Last 3 Months [...] History Surgery Date Site/Laterality Comments CHOLECYSTECTOMY PROCEDURE: IN LAPAROSCOPY SURG CHOLECYSTECTOMY BREAST BIOPSY 2018 Right [...] pain 03/14/2013 DX:Left shoul teresa pain; COMMENT: [facility] - minimal improvement [...] PM EDT Office Visit Adult Medicine - [place] [address] [place] [phone] Edna Mcpherson NP [address] [place] [address] Health Maintenance Due Date Last Done Comments [...] 09/10/2017 Zoster Vaccines (1 of 2) 2020 Depression Screening 07/08/2022 HIV Screening 07/08/2022 Social Influencers of Health Screening 07/08/2022 COVID-19 Vaccine ( season) 2024 05/26/2021, 11/18/2020, 10/20/2020 Diabetes: Annual Urine Albumin-Creatinine Ratio (uACR) 05/08/2024 Diabetes: Blood Sugar Control Test (HGBA1C) 01/01/2025 07/03/2024, 04/09/2024, 04/09/2024 Diabetes: Annual GFR (Glomerular Filtration Rate) 07/17/2025 07/17/2024, 07/17/2024, 07/03/2024, Additional history exists Hypertension/CHF/CAD Annual BMP Blood Test 07/17/2025 07/17/2024, 07/17/2024, 07/03/2024, Additional history exists Breast Cancer Screening 12/11/2026 12/12/19, 08/05/2018, 07/26/2018 Cholesterol Screening (Lipid Panel) 04/09/2029 04/09/2024, 04/09/2024 [...] Procedure Name Priority Date/Time Associated Diagnosis Comments EXTERNAL CLINICAL LAB 12/11/2024 EXTERNAL MAMMOGRAM REPORT 12/11/2024 ANNUAL BMP BLOOD TEST Routine 04/09/2024 HEMOGLOBIN A1C Routine 04/09/2024 LIPID PANEL Routine 04/09/2024 COLONOSCOPY Routine 10/20/2021 HEPATITIS C SCREENING Routine 12/21/2016 from Last 3 Months or Most Recently Relevant to Health Maintenance Results * External Mammogram Report (12/11/2024) Anatomical Region Laterality Modality Mammography us Provider [facility] IMG BI PROCEDURES Final Result * External clinical lab (12/11/2024) us Provider [facility] LAB BLOOD ORDERABLES Fin al Result * Annual BMP Blood Test (04/09/2024) [facility] Annual BMP Blood Test abstracted [facility] Provider HEALTH MAINTENANCE Final Result * (ABNORMAL) Hemoglobin A1c (04/09/2024) [facility] Hemoglobin A1C 6.9(A) <=6.5 % Blood Venous blood specimen / Unknown Result [facility] Provider LAB BLOOD ORDERABLES [place] Result * (ABNORMAL) Lipid panel (04/09/2024) [facility] LDL/HDL Ratio 4 0 - 4 Triglycerides 202(A) 0 - 150 mg/dL Cholesterol 213(A) 0 - 200 mg/dL HDL 49 >=40 mg/dL LDL Cholesterol 124(A) 0 - 100 mg/dL Blood Venous blood specimen / Unknown Result [facility] Provider LAB BLOOD ORDERABLES [place] Result * Colonoscopy (10/20/2021) [facility] Colonoscopy no interpretation , abstracted Anatomical Region Laterality Modality Other [facility] Provider HEALTH MAINTENANCE Final Result * Hepatitis C Screening (12/21/2016) [facility] Hepatitis C Screening abstracted [facility] Provider HEALTH MAINTENANCE Final Result from Last 3 Months or Most Recently Relevant to Health Maintenance Insurance [facility] [place] [id number] Care Teams Bicycle Subassembler Relationship Specialty Start Date End Date Rishi Pate MD [address] [place] [address] PCP - General Internal Medicine 04/23/21
--- OUTSIDE RECORDS SUMMARY | 2024-12-17 07:20 | XMS_ITS | Encounter Summary ---
Author Organization [facility] Address [address] [place] [address] Care Team Providers Care Groundskeeping Maintenance Name Role Phone Shannon Cardozo MD Primary Care Provider Ady Meng MD Primary Care Provider Reason for Visit * Reason Onset Date Comments Call From Pharmacy 12/29/2019 meloxicam (MO BIC) 15 MG tablet Encounter Details Date Type Department Care Team Description 12/29/2019 Telephone Rheumatology - [address] [address] Al Fong MD Call From Pharmacy (meloxicam [...] pharmacist: Pharm[facility] Pharmacist Name: [facility] Name of the medication meloxicam (MOBIC) [...] on filedocumented in this encounter Care Teams Groundskeeping Maintenance Relationship Specialty Start Date End Date Shannon Cardozo MD PCP - General Internal Medicine 12/06/15 04/22/21 Ady Pate MD [address] [place] [address] PCP - General Internal Medicine 04/23/21 documented as of this encounter
--- OUTSIDE RECORDS SUMMARY | 2024-12-17 07:21 | XMS_ITS | Encounter Summary ---
Author Organization [facility] Address [address] [place] [address] Care Team Providers Care Reo Asset Manager Name Role Phone Ady Pate MD Primary Care Provider Unava ilable Javier Recinos MD Unavailable [phone] System, Provider Not In Unavailable Unavaila ble Encounter Details Date Type Department Care Team (Late st Contact Info) Description 02/13/2024 Scanned Document [facility] [address] [place] [phone] Huan Foley MD [address] [facility] [address] [place] [address] Social History Tobacco Use Types Packs/Day Years [...] 8:00 AM EDT [facility] [address] [phone] Javier Recinos MD 31 [facility] [address] [place] [address] 03/16/2025 8:00 AM EDT Office Visit [facility] [address] [place] [phone] Jocy Lazcano PA-C [address] [place] [address] documented as of this encounter Visit Diagnoses Not on filedocumented in this encounter Care Teams Reo Asset Manager Relationship Specialty Start Date End Date Ady Pate MD PCP - General 06/09/22 Javier Recinos MD [address] [facility] [address] [place] [address] Surgery, Orthopedic 06/09/22 System, Provider Not In 07/02/24 documented as of this encounter
--- OUTSIDE RECORDS SUMMARY | 2024-12-17 07:21 | XMS_ITS | Encounter Summary ---
Author Organization [facility] Address [address] [place] [address] Care Team Providers Care Account Services Specialist Name Role Phone Ady Pate MD Primary Care Provider Unava ilable Javier Recinos MD Unavailable [phone] System, Provider Not In Unavailable Unavaila ble Encounter Details Date Type Department Care Team (Late st Contact Info) Description 06/14/2022 Telephone [facility] [place] [address] [facility] 2nd [address] [place] [address] Jia Osor[place], [place] [address] [place] [address] Social History Tobacco Use Types Packs/Day Years [...] Have you recently had an admission to SNF/Rehab/Fdc? No Have you traveled internationally or domestically in the last month? No documented in this encounter Plan of Treatment Upcoming Encounters Date Type Department Care Team (Late st Contact Info) Description 02/27/2025 8:00 AM EDT [facility] [address] [phone] Javier Recinos MD [address] [place] [address] 03/16/2025 8:00 AM EDT [facility] [address] [address] Jocy Lazcano PA-C 7 [facility] [address] [place] [address] documented as of this encounter Visit Diagnoses Not on filedocumented in this encounter Care Teams Account Services Specialist Relationship Specialty Start Date End Date Ady Pate MD PCP - General 06/09/22 Javier Recinos MD [address] [place] [address] Surgery, Orthopedic 06/09/22 System, Provider Not In 07/02/24 documented as of this encounter
--- OUTSIDE RECORDS SUMMARY | 2024-12-17 07:21 | XMS_ITS | Encounter Summary ---
Author Organization [facility] Address [address] [place] [address] Care Team Providers Care Grinder Set Up Operator Thread Tool Name Role Phone Shannon Cardozo MD Primary Care Provider Ady Meng MD Primary Care Provider [phone] Reason for Visit * Reason Onset Date Comments REFERRAL 09/21/2017 Encounter Details Date Type Department Care Team Description 09/21/2017 Telephone Genetic & Disease Counseling - [address] [address] Aysha Espinoza PA-C REFERRAL Social History Tobacco [...] from the genetic testing schedule. Order expires 09/10/18,[facility]. documented in this encounter Plan of Treatment Not on file documented as of this encounter Visit Diagnoses Not on filedocumented in this encounter Care Teams Grinder Set Up Operator Thread Tool Relationship Specialty Start Date End Date Shannon Cardozo MD PCP - General Internal Medicine 12/06/15 04/22/21 Ady Pate MD [address] [place] [address] PCP - General Internal Medicine 04/23/21 documented as of this encounter
--- OUTSIDE RECORDS SUMMARY | 2024-12-17 07:21 | XMS_ITS | Encounter Summary ---
Author Organization [facility] Address [address] [place] [address] Care Team Providers Care Corn Sheller Name Role Phone Shannon Cardozo MD Primary Care Provider [facility] Ady Pate MD Primary Care Provider Encounter Details Date Type Department Care Team Description 12/07/2015 Wire Strander Report Medical Records [address] [place] [address] [facility] [address] [phone] Social History Tobacco Use Types Packs/Day Years Used Date Smoking Tobacco: Never Alcohol Use Standard Drinks/Week Comments Yes 0 (1 standard drink = 0.6 oz pur e alcohol) rare Sex Assigned at Date Recorded Not on file documented as of this encounter Plan of Treatment Not on file documented as of this encounter Visit Diagnoses Not on filedocumented in this encounter Care Teams Corn Sheller Relationship Specialty Start Date End Date Shannon Cardozo MD PCP - General Internal Medicine 12/06/15 04/22/21 Ady Pate MD [address] [place] [address] PCP - General Internal Medicine 04/23/21 documented as of this encounter
--- OUTSIDE RECORDS SUMMARY | 2024-12-17 07:21 | XMS_ITS | Encounter Summary ---
Author Organization [facility] Address [address] [place] [address] Care Team Providers Care Coloring Machine Operator Name Role Phone Ady Pate MD Primary Care Provider Unava ilable Javier Recinos MD Unavailable [phone] System, Provider Not In Unavailable Unavaila ble Encounter Details Date Type Department Care Team (Late st Contact Info) Description 01/24/2023 Scanned Document [facility] [address] [place] [phone] Javier Recinos MD [address] [place] [address] [place] [address] [place] [address] Social History Tobacco Use Types Packs/Day Years [...] 8:00 AM EDT [facility] [address] [phone] Javier Recinos MD 31 [facility] [address] [place] [address] 03/16/2025 8:00 AM EDT Office Visit [facility] [address] [place] [phone] Jocy Lazcano PA-C [address] [place] [address] documented as of this encounter Visit Diagnoses Not on filedocumented in this encounter Care Teams Coloring Machine Operator Relationship Specialty Start Date End Date Ady Pate MD PCP - General 06/09/22 Javier Recinos MD 31 [facility] [address] [place] [address] Surgery, Orthopedic 06/09/22 System, Provider Not In 07/02/24 documented as of this encounter
--- OUTSIDE RECORDS SUMMARY | 2024-12-17 07:21 | XMS_ITS | Clinical Summary ---
Author Organization [facility] Address [address] [place] [address] Care Team Providers Care Blanching Machine Operator Name Role Phone Ady Pate MD Primary Care Provider Javier Gonzalez MD Unavailable [phone] System, Provider Not In Unavailable Unavaila ble Allergies Active Allergy Reactions Criticality Noted Date Comments Adhesives/Tape Rash/Dermatitis Medium 07/02/2024 Codeine Other (See Comments) Medium 06/12/2022 Stomach cramps Penicillins GI Intolerance/Nausea/Vomiting Low 05/30 Medications amLODIPine (NORVASC) 2.5 MG tablet Take 1 tablet (2.5 mg total) by mouth every evening. 04/09/20 24 Active Stelara 90 MG/ML subcutaneous injection Inject 1 mL (90 mg total) under the skin every 3 (three) months. Last taken 03/01/2024 07/30/19 24 Active rosuvastatin (CRESTOR) 40 MG tablet 07/03/20 24 Active Blood Glucose Monitoring Suppl ([facility] Blood Glucose Meter) w/Device Kit Use to check blood sugar every morning before breakfast and 2 hours after if BS is below 120. If higher than 120 in the AM or 250 - 300 2 hours after meal contact MD office. 10/30/19 25 Active Lancets [facility] Check blood sugar 4 times a day or as directed. 11/08/19 25 026 Active glucose blood (Contour Test) test strip See Admin Instructions . 11/08/19 25 026 Active Lancets (OneTouch Delica Plus Olpsnp80E) Misc 10/31/19 25 Active metFORMIN (GLUCOPHAGE-XR) 500 MG 24 hr tablet Take 1 tablet by mouth daily. 04/09/20 24 Active gabapentin (NEURONTIN) 300 MG capsuleIndicati ons:Radiculopat hy, lumbar region Take 1 capsule (300 mg total) by mouth 3 (three) times a day. 90 capsule 3 12/16/19 25 Active methocarbamol (ROBAXIN) 750 MG tabletIndicatio ns:Lumbar radiculitis Take 1 tablet (750 mg total) by mouth nightly as needed for muscle spasms. 30 tablet 12/16/19 25 Active meloxicam (MOBIC) 7.5 MG tablet Take 7.5 mg by mouth daily. Active gabapentin (NEURONTIN) 300 MG capsuleIndicati ons:Radiculopat hy, lumbar region Take 1 capsule (300 mg total) by mouth 3 (three) times a day. 90 capsule 08/05/19 25 025 Discontinued(Re order) methylPREDNISol one (MEDROL DOSEPAK) 4 MG tabletIndicatio ns:Radiculopath y, lumbar region Take as directed on package insert. Take with food to avoid GI upset. 21 tablet 10/24/19 25 025 Discontinued methocarbamol (ROBAXIN) 750 MG tabletIndicatio ns:Lumbar radiculitis TAKE ONE TABLET BY MOUTH FOUR TIMES A DAY NEEDED FOR MUSCLE SPASMS 60 tablet 11/04/19 25 025 Discontinued(Re order) Active Problems Problem Noted Date Diagnosed Date [...] C5-7 anterior cervical discectomy and fusion at [facility] on 05/15/[address] Recinos. Morbid obesity [...] (07/02/2024 4:38 PM EST): Followed by brake operator helper Dr. Bharat patrick appt 12/20/2023. Currently on stelara- last injection 03/01/2024. Do not take any further injections prior to surgery Assessment & Plan (04/22/2024 4:41 PM EDT): Followed by brake operator helper Dr. Bharat patrick appt 12/20/2023. Currently on [...] Encounters Date Type Department Care Team Description 12/15/2024 8:30 AM EDT Ancillary Procedure Orthopedic [address] [phone] Arrived 12/15/2024 8:15 AM EDT Office Visit Orthopedic [address] [phone] Jocy Lazcano PA-C Status post lumbar spinal arthrodesis (Primary Dx); Radiculopathy, lumbar region; Lumbar radiculitis 11/03/2024 [facility]ill [facility] [address] [place] [address] Javier Recinos MD Lumbar radiculitis 10/27/2024 8:30 AM EDT Ancillary Procedure Orthopedic [address] [phone] 10/27/2024 8:15 AM EDT Office Visit Orth[facility] [address] [phone] Jocy Lazcano PA-C Postsurgical arthrodesis status (Primary Dx) 10/23/2024 Orders Only [facility] [address] [address] Jocy Lazcano PA-C Radiculopathy, lumbar region (Primary Dx) 10/13/2024 5:30 PM EDT Treatment [facility] [address] [address] Yari García, PT Lumbar radiculopathy (Primary Dx) 10/07/2024 7:30 AM EDT [facility] [address] [address] Yari García, PT Lumbar radiculopathy (Primary Dx) 10/03/2024 7:30 AM EST [facility] [address] [address] Yari García, PT Lumbar radiculopathy (Primary Dx) 10/01/2024 7:00 AM EST [facility] [address] [address] Yari García, PT Lumbar radiculopathy (Primary Dx) 09/24/2024 8:30 AM EST Treatment [facility] [address] [address] Yari García, PT Lumbar radiculopathy (Primary Dx) 09/22/2024 11:15 AM EST Treatment [facility] [address] [address] Yari García, PT Lumbar radiculopathy (Primary Dx) [...] advised to stop 2 weeks before surgery [facility] Utilities Answer Date Recorded In the past 12 months has th e electric, gas, oil, or water company threatened to shut off services in your [...] any time in the past 12 m [facility], were you homeless or living in a mcfp (including now)? No 07/17/2024 Comments No Sex [...] 8:00 AM EDT [facility] [address] [phone] Javier Recinos MD [address] [place] [address] 03/16/2025 8:00 AM EDT [facility] Visit [facility] [address] [place] [address] Jocy Lazcano PA-C [address] [place] [address] Health Maintenance Due Date Last Done Comments [...] 8 weeks. Medical Devices Implanted Type Area Electrostatic Painter Device Identifier Shelf Expiration Date Model / Serial / Lot [id number] Re-Line-O Ti Ned, 5.5x35mm Lordotic Implanted:Qty : 2 on 07/05/2022 by Javier Recinos MD at [facility] Nail/Ned N/A: Spine Lumbar [employer] [id number] / / [id number] Ned Spinal 55mm 5.5mm Reline Lrdtc Ti Mas Nonst - [id number] Implanted:Qty : 1 on 07/16/2024 by Javier Recinos MD at [facility] Nail/Ned N/A: Spine Lumbar [employer] 03/08/2040 [id number] / / N/A [id number] Ned Spinal 55mm 5.5mm Reline Lrdtc Ti Mas Nonst - [id number] Implanted:Qty : 1 on 07/16/2024 by Javier Recinos MD at [facility] Nail/Ned N/A: Spine Lumbar [employer] 03/08/2040 [id number] / / N/A [id number] Screw Bone Spine Reline 2c 50mm 7.5mm Mdlr Shnk Nonst Mas - [id number] Implanted:Qty : 4 on 07/05/2022 by Javier Recinos MD at [facility] Spine N/A: Spine Lumbar [employer] [id number] / / [id number] Screw Bone Spine Reline Mdlr Reduction Extension [place] Nonst - [id number] Implanted:Qty : 4 on 07/05/2022 by Javier Recinos MD at [facility] Spine N/A: Spine Lumbar [employer] [id number] / / [id number] Screw Bone Spine Reline 5.5mm Lock Open [place] Nonst - [id number] Implanted:Qty : 4 on 07/05/2022 by Javier Recinos MD at [facility] Spine N/A: Spine Lumbar [employer] [id number] / / [id number] Screw Bone Spine Reline 5.5mm Lock Open [place] - [id number] Implanted:Qty : 1 on 07/16/2024 by Javier Recinos MD at [facility] Spine N/A: Spine Lumbar [employer] [id number] / / [id number] Screw Bone Spine Reline 5.5mm Lock Open [place] - [id number] Implanted:Qty : 1 on 07/16/2024 by Javier Recinos MD at [facility] Spine N/A: Spine Lumbar [employer] [id number] / / [id number] Screw Bone Spine Reline 5.5mm Lock Open [place] - [id number] Implanted:Qty : 1 on 07/16/2024 by Javier Recinos MD at [facility] Spine N/A: Spine Lumbar [employer] [id number] / / [id number] Screw Bone Spine Reline 5.5mm Lock Open [place] - [id number] Implanted:Qty : 1 on 07/16/2024 by Javier Recinos MD at [facility] Spine N/A: Spine Lumbar [employer] [id number] / / [id number] Screw Bone Spine Reline 5.5mm Lock Open [place] - [id number] Implanted:Qty : 1 on 07/16/2024 by Javier Recinos MD at [facility] Spine N/A: Spine Lumbar [employer] [id number] / / [id number] Screw Bone Spine Reline 5.5mm Lock Open [place] - [id number] Implanted:Qty : 1 on 07/16/2024 by Javier Recinos MD at [facility] Spine N/A: Spine Lumbar [employer] [id number] / / [id number] Screw Bone Spine Reline Mdlr Reduction Extension [place] Nonst - [id number] Implanted:Qty : 1 on 07/16/2024 by Javier Recinos MD at [facility] Spine N/A: Spine Lumbar [employer] [id number] / / [id number] Screw Bone Spine Reline Mdlr Reduction Extension [place] Nonst - [id number] Implanted:Qty : 1 on 07/16/2024 by Javier Recinos MD at [facility] Spine N/A: Spine Lumbar [employer] [id number] / / [id number] Screw Bone Spine Reline Mdlr Reduction Extension [place] Nonst - [id number] Implanted:Qty : 1 on 07/16/2024 by Javier Recinos MD at [facility] Spine N/A: Spine Lumbar [employer] [id number] / / [id number] Screw Bone Spine Reline 2c 50mm 7.5mm Mdlr Shnk Nonst Mas - [id number] Implanted:Qty : 1 on 07/16/2024 by Javier Recinos MD at [facility] Spine N/A: Spine Lumbar [employer] 07/04/2027 [id number] / / N/A [id number] Shank Screw 50mm 6.5mm Reline 2c Spine Mdlr Mas Nonst Lf - [id number] Implanted:Qty : 1 on 07/16/2024 by Javier Recinos MD at [facility] Spine N/A: Spine Lumbar [employer] [id number] / / [id number] Shank Screw 50mm 6.5mm Reline 2c Spine [facility] - [id number] Implanted:Qty : 1 on 07/16/2024 by Javier Recinos MD at [facility] Spine N/A: Spine Lumbar [employer] [id number] / / [id number] Substitute Bone Graft Ms Grft Matrix Block Void Filler 20ml - [id number] Implanted:Qty : 1 on 07/05/2022 by Javier Recinos MD at [facility] Void Filler N/A: Spine Lumbar [employer] MIN[employer]ALLY INV[employer] T 01/26/2025 [id number] / / [id number] Filler Bone Void 15cc 1.7-10mm Canc Algrf Chp Frzdr - [id number] Implanted:Qty : 1 on 07/05/2022 by Javier Recinos MD at [facility] Void Filler N/A: Spine Lumbar [employer] F[employer] 02/14/2025 [id number] / [id number] / [id number] Filler Bone Void 5cc Dbx Algrf Putty Frzdr - [id number] Implanted:Qty : 1 on 07/16/2024 by Javier Recinos MD at [facility] Void Filler N/A: Spine Lumbar [employer] 03/05/2026 [id number] / [id number] / [id number] Filler Bone Void 30cc 1.7-10mm Canc Algrf Chp Frzdr - [id number] Implanted:Qty : 1 on 07/16/2024 by Javier Recinos MD at [facility] Void Filler N/A: Spine Lumbar [employer] 04/05/2027 [id number] / [id number] / [id number], 20 Degree Implanted:Qty : 1 on 07/05/2022 by Javier Recinos MD at [facility] N/A: Spine Lumbar 03/15/2027 / / [id number] Description:catalog# [id number] 10d Implanted:Qty : 1 on 07/16/2024 by Javier Recinos MD at [facility] N/A: Spine Lumbar [employer] [id number] / / Procedures Procedure Name Priority Date/Time Associated Diagnosis Comments XR LUMBAR SPINE COMPLETE 4+ VIEWS Routine 12/15/2024 8:28 AM EDT Status post lumbar spinal arthrodesis XR LUMBAR SPINE COMPLETE W/FLEX,EXT 4+VIEWS Routine [...] Maintenance Results * XR Lumbar spine complete 4+ views (12/15/2024 8:28 AM EDT) Narrative [facility] - 12/15/2024 8:28 AM EDT This exam was performed in office at [facility] and images reviewed by orthopedic provider. ??Any findings are documented within ambulatory encounter note on date of service. Jocy Lazcano PA-C IMG DIAGNOSTIC IMAGING ORDERA BLES Final Result Performing Organization Address City/[facility]/ZIP Co de Phone Number OAH * XR Lumbar spine complete w/Flex,Ext, 4+Views (10/27/2024 8:29 AM EDT) Narrative [facility] - 10/27/2024 8:29 AM EDT [facility] and images reviewed by orthopedic provider. ??Any findings are documented within ambulatory encounter note on date of service. Jocy Lazcano PA-C IMG DIAGNOSTIC IMAGING ORDERA BLES Final Result Performing Organization Address [facility]/State/ZIP Co de Phone Number OA * (ABNORMAL) Basic Metabolic Panel (07/17/2024 4:55 AM EST) Glucose 215(H) 65 - 99 mg/dL 07/17/2024 7:20 AM [facility] Comment:Fasting: <100 mg/dL, Non-Fasting: <200 mg/dL (ADA 2004) Blood Urea Nitrogen (BUN) 12 8 - 21 mg/dL 07/17/2024 7:20 AM [facility] Creatinine 0.7 0.4 - 1.1 mg/dL 07/17/2024 7:20 AM [facility] eGFR >90 >59 07/17/2024 7:20 AM [facility] Comment:CKD-EPI (2020) in mL /min/1.73 sq meters. Sodium 136 136 - 145 mmol/L 07/17/2024 7:20 AM [facility] Potassium 4.5 3.4 - 5.3 mmol/L 07/17/2024 7:20 AM [facility] Chloride 103 98 - 107 mmol/L 07/17/2024 7:20 AM [facility] CO2 22 22 - 33 mmol/L 07/17/2024 7:20 AM [facility] Anion Gap 11 7 - 17 07/17/2024 7:20 AM [facility] Calcium 9.0 8.7 - 10.5 mg/dL 07/17/2024 7:20 AM [facility] BUN/Creatinine Ratio 17 10.0 - 25.0 Ratio 07/17/2024 7:20 AM [facility] Blood (Plasma/Serum) 07/17/2024 4:55 AM EST 07/17/2024 5:32 AM EST us Javier Recinos MD LAB BLOOD ORDERABLES [place] [address], [place] [address] * (ABNORMAL) Hemoglobin A1c with Estimated Average Glucose (07/03/2024 9:00 AM EST) Hemoglobin A1C 7.8(H) <5.7 % 07/03/2024 1:28 PM [facility] Comment: A1c% ? Interpretation 5.7 - 6.0 ?Increase risk of diabetes 6.1 - 6.4 ?Higher risk of diabetes > or = 6.5 ?? Consistent with diabetes Diabetes Care, 33(Supp 1):S1-S61, 2010 Estimated Average Glucose 177 mg/dL 07/03/2024 1:28 PM EST [facility] Blood Blood specimen / Unknown 07/03/2024 9:00 AM EST 07/03/2024 12:57 PM EST Li Woodson PA-C LAB BLOOD ORDERABLES Final Result Performing Organization Address City/State/[facility] Co de Phone Number [address] [address], [address] [address] from Last 3 Months or Most Recently Relevant to Health Maintenance Insurance [facility] UMR UMR Advance Directives * Full Code (Latest Code Status on File) Date Activated Date Inactivated Comments 07/16/2024 7:54 PM * Full Code Date Activated Date Inactivated Comments 07/16/2024 10:28 AM 07/16/2024 7:54 PM * Full Code Date Activated Date Inactivated Comments 07/05/2022 3:24 PM 07/16/2024 10:23 AM * Full Code Date Activated Date Inactivated Comments 07/05/2022 6:49 AM 07/05/2022 3:24 PM Care Teams Blanching Machine Operator Relationship Specialty Start Date End Date Ady Pate MD PCP - General 06/09/22 Javier Recinos MD [address] [place] [address] Surgery, Orthopedic 06/09/22 System, Provider Not In 07/02/24
--- OUTSIDE RECORDS SUMMARY | 2024-12-17 07:21 | XMS_ITS | Encounter Summary ---
Author Organization [employer] [facility] Address [address] [place] [address] Care Team Providers Care Electricity Trader Name Role Phone Ady Pate MD Primary Care Provider [phone] Reason for Visit * Reason Onset Date Comments Prior Authorization 09/22/2021 Colonoscopy Encounter Details Date Type Department Care Team Description 09/22/2021 Telephone Internal Medicine - [address], [address] [place] [address] Michell William MD Prior Authorization (Colonoscopy) Social [...] 09/22/2021 12:42 PM EST R auth # [id number] Valid 09/22/21-10/20/21 {Per David Frank with [employer] Forwarded to [employer] Schedulers documented in this encounter Plan of Treatment Not on file documented as of this encounter Visit Diagnoses Not on filedocumented in this encounter Care Teams Electricity Trader Relationship Specialty Start Date End Date Ady Pate MD [address] [place] [address] PCP - General Internal Medicine 04/23/21 documented as of this encounter
--- OUTSIDE RECORDS SUMMARY | 2024-12-17 07:21 | XMS_ITS | Encounter Summary ---
Author Organization [facility] Address [address] [place] [address] Care Team Providers Care Cardiology Physician Name Role Phone Ady Pate MD Primary Care Provider Unava Javier Grossman MD Unavailable [phone] System, Provider Not In Unavailable Unavaila ble Encounter Details Date Type Department Care Team (Late st Contact Info) Description 12/15/2024 8:30 AM EDT [facility] [address] [phone] Arrived Social History Tobacco Use Types Packs/Day Years Used Date Smoking Tobacco: Never Passive Smoke Exposure: Past Smokeless Tobacco: Never Alcohol Use Standard Drinks/Week Comments Yes 0 (1 standard drink = 0.6 oz pure alcohol) 1 glass/month advised to stop 2 weeks before surgery [facility] Utilities Answer Date Recorded In the past 12 months has [employer], gas, oil, or water [employer] threatened to shut off services in your [...] any time in the past [address] [facility], were you homeless or living in a long-term (including now)? No 07/17/2024 Comments No Sex [...] 8:00 AM EDT [facility] [address] [phone] Javier Recinos MD [address] [place] [address] 03/16/2025 8:00 AM EDT [facility] [address] [phone] Jocy Lazcano PA-C [address] [place] [phone] documented as of this encounter Goals Goal [...] 8 weeks. documented as of this encounter Procedures Procedure Name Priority Date/Time Associated Diagnosis Comments XR LUMBAR SPINE COMPLETE 4+ VIEWS Routine 12/15/2024 8:28 AM EDT Status post lumbar spinal arthrodesis documented in this encounter Results * XR Lumbar spine complete 4+ views (12/15/2024 8:28 AM EDT) Narrative [facility] - 12/15/2024 8:28 AM EDT This exam was performed in office at [facility] and images reviewed by orthopedic provider. ??Any findings are documented within ambulatory encounter note on date of service. Jocy Lazcano PA-C IMG DIAGNOSTIC IMAGING ORDERA BLES Final Result [facility] documented in this encounter Visit Diagnoses Not on filedocumented in this encounter Care Teams Cardiology Physician Relationship Specialty Start Date End Date Ady Pate MD PCP - General 06/09/22 Javier Recinos MD [address] [place] [address] Surgery, Orthopedic 06/09/22 System, Provider Not In 07/02/24 documented as of this encounter
--- OUTSIDE RECORDS SUMMARY | 2024-12-17 07:21 | XMS_ITS | Encounter Summary ---
Author Organization [facility] Address [address] [place] [address] Care Team Providers Care Collection Officer Name Role Phone Shannon Cardozo MD Primary Care Provider [facility] Ady Pate MD Primary Care Provider [phone] Encounter Details Date Type Department Care Team Description 02/08/2016 POLO COACH/[facility] Report Medical Records [address] [place] [address] Abstract, Provider Social History Tobacco Use Types [...] on filedocumented in this encounter Care Teams Collection Officer Relationship Specialty Start Date End Date Shannon Cardozo MD PCP - General Internal Medicine 12/06/15 04/22/21 Ady Pate MD [address] [place] [address] PCP - General Internal Medicine 04/23/21 documented as of this encounter
--- OUTSIDE RECORDS SUMMARY | 2024-12-17 07:21 | XMS_ITS | Encounter Summary ---
Author Organization [facility] Address [address] [place] [address] Care Team Providers Care Studio Operation Engineer Name Role Phone Ady Pate MD Primary Care Provider Unava ilable Javier Recinos MD Unavailable [phone] System, Provider Not In Unavailable Unavaila ble Encounter Details Date Type Department Care Team (Late st Contact Info) Description 05/15/2024 Scanned Document [facility] [address] [place] [phone] Javier Recinos MD [address] [place] [address] [address] [place] [address] Social History Tobacco Use Types Packs/Day Years [...] 8:00 AM EDT [facility] [address] [phone] Javier Recinos MD [address] [facility] [address] [place] [address] 03/16/2025 8:00 AM EDT [facility] Visit [facility] [address] [place] [phone] Jocy Lazcano PA-C [address] [place] [address] documented as of this encounter Visit Diagnoses Not on filedocumented in this encounter Care Teams Studio Operation Engineer Relationship Specialty Start Date End Date Ady Pate MD PCP - General 06/09/22 Javier Recinos MD [address] [facility] [address] [place] [address] Surgery, Orthopedic 06/09/22 System, Provider Not In 07/02/24 documented as of this encounter
--- OUTSIDE RECORDS SUMMARY | 2024-12-17 07:21 | XMS_ITS | Encounter Summary ---
Author Organization [facility] Address [address] [place] [address] Care Team Providers Care Secret Code Expert Name Role Phone Ady Pate MD Primary Care Provider Javier Gonzalez MD Unavailable [phone] System, Provider Not In Unavailable Unavaila ble Reason for Visit * Reason Comments Follow-up Encounter Details Date Type Department Care Team (Late st Contact Info) Description 12/15/2024 8:15 AM EDT [facility] [address] [phone] Jocy Lazcano PA-C [address] [place] [address] Status post lumbar spinal arthrodesis (Primary Dx); Radiculopathy, lumbar region; Lumbar radiculitis Social History Tobacco Use Types Packs/Day Years Used Date Smoking Tobacco: Never Passive Smoke Exposure: Past Smokeless Tobacco: Never Alcohol Use Standard Drinks/Week Comments Yes 0 (1 standard drink = 0.6 oz pure alcohol) 1 glass/month advised to stop 2 weeks before surgery [facility] Utilities Answer Date Recorded In the past 12 months has [employer], gas, oil, or water [employer] threatened to shut off services in your [...] were you homeless or living in a correction (including now)? No 07/17/2024 Comments No Sex and Gender Information Value Date Recorded Sex Assigned at Female 03/03/2024 9:39 AM EDT Legal Sex Female 1:11 PM EST Gender Identity Female 03/03/2024 9:39 AM EDT Sexual Orientation Heterosexual (straight) 04/23 11:40 AM EDT documented as of this encounter Progress Notes * Jocy Lazcano PA-C - 12/15/2024 8:15 AM EDT Images from the original note were not included. [facility] [address] [facility] [address] [facility] [phone] Encounter Date: 12/15/2024 Assessment & Plan Yasmine Chau is a 54 y.o. female 5-month status post L3-L4 XLIF and posterolateral decompression instrumented fusion 07/16/2024. This is her 4th spine surgery. She understands her expected timeline for rehab and recovery. Encouraged to continue with exercising. We discussed alternatives to ov op-bec-tqxrvlc pain medications. She does take meloxicam 7.5 mg at bedtime in addition to methocarbamol. These medications help decrease pain which also helps her to sleep. NSAID use currently limited secondary to chronic NSAID use and her diabetes. Prior to her second fusion, she was taking up to 2700 mg of gabapentin. We discussed increasing her gabapentin to 3 times a day, more if needed. I will plan to reevaluate her in 3 months. We did briefly discuss sending her to a different pain management doctor for second opinion as she was previously getting injections with a brilliandeer lopper out of [place]. Greater than 30 minutes was spent reviewing the patient's EMR, independently reviewing outside and/or internal imaging, conducting today's history and physical exam, discussing the diagnosis and treatment options with the patient, and coordinating their follow-up care. History of Present Illness Yasmine Chau is a 54 y.o. female 5 months status post adjacent segment L3-4 XLIF and L3-4 laminectomy and L3-L5 fusion 07/16/2024. Her previous surgery consisted of an L4-5 TLIF performed 07/05/2022, following 2 previous right-sided microdiscectomies done from an outside surgeon. Patient was last seen 10/27/2024. She reported developing severe recurrent lower back pain while working with physical therapy. She was given a Medrol Dosepak. Patient encouraged to continue with therapy. Patient returns today for routine follow-up. She is tearful. She feels frustrated. She continues toreport lower back pain and pressure radiating to the bilateral hips that limits her activities. Prior to surgery, she was incapacitated by leg pain. She states that this has improved and she no longer requires assistance to ambulate. Nevertheless, her back pain continues to limit her. She is participating in aquatic aerobics and chair exercises. She notes that her stamina has improved in that she is no longer incapacitated by pain following exercise. She finds it difficult to lose weight given her ongoing back and hip pain. She is diabetic. Following her surgery in June, her A1c increased from 6.8 to 7.7. Physical Exam Imaging X-rays taken today demonstrate interbody cages at L3-L4 and L4-L5. There are bilateral transpedicular screws and rods L3-L5. There is severe degenerative L5- S1 spondylosis. There is no subluxation indynamic views. No evidence of hardware migration, failure, or lucency. Visit Orders 1. Status post lumbar spinal arthrodesis - XR Lumbar spine complete 4+ views; Future - XR Lumbar spine complete 4+ views 2. Radiculopathy, lumbar region - gabapentin (NEURONTIN) 300 MG capsule; Take 1 capsule (300 mg total) by mouth 3 (three) times a day. Dispense: 90 capsule; Refill: 3 3. Lumbar radiculitis - methocarbamol (ROBAXIN) 750 MG tablet; Take 1 tablet (750 mg total) by mouth nightly as needed for muscle spasms. Dispense: 30 tablet; Refill: 0 Jocy Lazcano PA-C documented in this encounter Plan of Treatment Upcoming Encounters Date Type Department Care Team (Late st Contact Info) Description 02/27/2025 8:00 AM EDT [facility] [address] [phone] Javier Recinos MD [address] [place] [address] 03/16/2025 8:00 AM EDT Office Visit [facility] [address] [place] [phone] Jocy Lazcano PA-C [address] [place] [phone] documented as of this encounter Goals Goal [...] 4+ views (12/15/2024 8:28 AM EDT) Narrative [facility] - 12/15/2024 8:28 AM EDT This exam was performed in office at [facility] and images reviewed by orthopedic provider. ??Any findings are documented within ambulatory encounter note on date of service. Jocy Lazcano PA-C IMG DIAGNOSTIC IMAGING ORDERA BLES Final Result [facility] documented in this encounter Visit Diagnoses Diagnosis Status post lumbar spinal arthrodesis- Primary Radiculopathy, lumbar region Thoracic or lumbosacral neuritis or radiculitis, unspecified Lumbar radiculitis documented in this encounter Care Teams Secret Code Expert Relationship Specialty Start Date End Date Ady Pate MD PCP - General 06/09/22 Javier Recinos MD [address] [place] [address] Surgery, Orthopedic 06/09/22 System, Provider Not In 07/02/24 documented as of this encounter
--- OUTSIDE RECORDS SUMMARY | 2024-12-17 07:21 | XMS_ITS | Encounter Summary ---
Author Organization [facility] Address [address] [place] [address] Care Team Providers Care Manager Planning Name Role Phone Shannon Cardozo MD Primary Care Provider Ady Meng MD Primary Care Provider Reason for Visit * Reason Onset Date Comments refill request 10/27/2020 Encounter Details Date Type Department Care Team Description 10/27/2020 Refill Adult Medicine [address] [address] Shannon Cardozo MD refill request Social History Tobacco Use Types Packs/Day Years Used Date Smoking Tobacco: Never Smokeless Tobacco: Never Alcohol Use Standard Drinks/Week Comments Yes 0 (1 standard drink = 0.6 oz pur e alcohol) rare Sex Assigned at Date Recorded Not on file documented as of this encounter Miscellaneous Notes * Telephone Encounter - Shannon Cardozo MD - 10/28/2020 12:35 PM EDT This was ordered by rheumatology in a different encounter. This request was sent to me in error. * Telephone Encounter - Tamiko Tomas M.A. - 10/28/2020 9:03 AM EDT Brit = 10/01/20 Nov - none vm left. Refill pended if appropriate. Thank you * Telephone Encounter - Krupa Damariusz - 10/27/2020 3:29 PM EDT Patient would like script to be: E-PRESCRIBED/FAXED TO PHARMACY WHEN WAS THE PATIENT'S LAST APPOINTMENT IN ADULT MEDICINE? 10/01/20 WHEN WAS THE LAST TIME THE PATIENT SAW THEIR PCP? Same as above Does patient have an upcoming appointment? No-unable to reach left [facility] to call for appointment due to refill request. Appt due (THE MEDICATION REQUESTED IS ON THE MED [...] N/A Patients current insurance carrier is: Payor: [facility] / Plan: POS $0 GALLITO [id number] / Product Type: POS [id number] documented in this encounter Plan of Treatment Not on file documented as of this encounter Visit Diagnoses Diagnosis Psoriatic arthropathy documented in this encounter Care Teams Manager Planning Relationship Specialty Start Date End Date Shannon Cardozo MD PCP - General Internal Medicine 12/06/15 04/22/21 Ady Pate MD [address] [place] [id number] PCP - General Internal Medicine 04/23/21 documented as of this encounter
--- OUTSIDE RECORDS SUMMARY | 2024-12-17 07:21 | XMS_ITS | Encounter Summary ---
Author Organization [facility] Address [address] [place] [address] Care Team Providers Care Relocation Services Specialist Name Role Phone Ady Pate MD Primary Care Provider Unava ilable Javier Recinos MD Unavailable [phone] System, Provider Not In Unavailable Unavaila ble Encounter Details Date Type Department Care Team (Late st Contact Info) Description 05/27/2024 Scanned Document [facility] [address] [phone] Mayte Lowe [address] [place] [address] Social History Tobacco Use Types Packs/Day Years [...] 8:00 AM EDT [facility] [address] [phone] Javier Recinos MD [address] [facility] [address] [place] [address] 03/16/2025 8:00 AM EDT [facility] Visit [facility] [address] [place] [phone] Jocy Lazcano PA-C [address] [place] [address] documented as of this encounter Visit Diagnoses Not on filedocumented in this encounter Care Teams Relocation Services Specialist Relationship Specialty Start Date End Date Ady Paet MD PCP - General 06/09/22 Javier Recinos MD [address] [facility] [address] [place] [address] Surgery, Orthopedic 06/09/22 System, Provider Not In 07/02/24 documented as of this encounter
--- OUTSIDE RECORDS SUMMARY | 2024-12-17 07:21 | XMS_ITS | Continuity of Care Document ---
Author Organization [facility] Address [address] [place] [address] Care Team Providers Care Community Development Technician Name Role Phone Cases Gary MENDOZA Unavailable Unavailable Procedures Procedure Date Patient Left Without Being Seen 014 Advance Directives Directive Yes / No Effective Date File Name No Information Encounters Encounter Description Practice Location Reason(s) For Visit Diagnoses Date Provider Providers Copied on Encounter [facility], [address], [place], [place], [id number], [place] [facility] [place] No Information Cases Gary. [address], [address], [place], [place], [id number], [place]. tel:[phone] Family History Family Member Type Diagnosis Age At Onset No Information Payers Payer name Insurance type Covered republican ID Authoriza tion(s) [employer] PPO POS EPO QPOS MISC CI [id number] Social History Type Description Quantity Date Captured [...]
--- OUTSIDE RECORDS SUMMARY | 2024-12-17 07:21 | XMS_ITS | Encounter Summary ---
Author Organization [facility] Address [address] [place] [address] Care Team Providers Care Crm Marketing Executive Name Role Phone Shannon Cardozo MD Primary Care Provider Ady Meng MD Primary Care Provider Reason for Visit * Reason Onset Date Comments Information Needed 09/23/2020 FYI Encounter Details Date Type Department Care Team Description 09/23/2020 Telephone Pulmonology - [place] [address] [facility] [address] [place] [phone] [facility] [address] [place] [address] Information Needed (FYI ) Social History Tobacco Use Types Packs/Day Years [...] have Coronavirus / COVID-19? No / Unsure 09/20/2020 8:11 AM EST documented as of this encounter Miscellaneous Notes * Telephone Encounter - Vamsi Lama - 09/23/2020 2:13 PM EST Caller requesting call back from provider: Is the caller the patient? YES If caller is not the patient, what is the callers name? N/A Callers relationship to patient? N/A If person calling is not the patient themselves, is there a verbal release in FYI or permanent comments for this person: NO Reason for call back: Patient was calling office to let Reema know that she cant schedule follow upyet due to her insurance company not approving her cpap yet. She will call insurance to resolve theissue and will call to back to schedule follow up. Caller offered to speak with the nurse for assistance: YES Response: Patient offered to speak with nurse for assistance and patient agreed. Message forwarded to nurse. documented in this encounter Plan of Treatment Not on file documented as of this encounter Visit Diagnoses Not on filedocumented in this encounter Care Teams Crm Marketing Executive Relationship Specialty Start Date End Date Shannon Cardozo MD PCP - General Internal Medicine 12/06/15 04/22/21 Ady Pate MD [address] [place] [address] PCP - General Internal Medicine 04/23/21 documented as of this encounter
--- OUTSIDE RECORDS SUMMARY | 2024-12-17 07:21 | XMS_ITS | Encounter Summary ---
Author Organization [facility] Address [address] [place] [address] Care Team Providers Care Chemist Pharmaceutical Name Role Phone Ady Pate MD Primary Care Provider [phone] Encounter Details Date Type Department Care Team Description 04/25/2021 Telephone Rheumatology - [address] [address] Al Fong MD Social History Tobacco Use [...] Otezla 30 mg 1 BID [facility] documented in this encounter Plan of Treatment Not on file documented as of this encounter Visit Diagnoses Not on filedocumented in this encounter Care Teams Chemist Pharmaceutical Relationship Specialty Start Date End Date Ady Pate MD [address] [place] [address] PCP - General Internal Medicine 04/23/21 documented as of this encounter
--- OUTSIDE RECORDS SUMMARY | 2024-12-17 07:21 | XMS_ITS | Encounter Summary ---
Author Organization [facility] Address [address] [place] [address] Care Team Providers Care Marine Equipment Engineer Name Role Phone Ady Pate MD Primary Care Provider [phone] Reason for Visit * Reason Onset Date Comments Prior Authorization 07/12/2021 Encounter Details Date Type Department Care Team Description 07/12/2021 Telephone Gastroenterology - [place] [address] [facility] [address] [place] [phone] Michell William MD Prior Authorization Social History [...] 09/22/2021 12:40 PM EST R Auth # [id number] Valid 09/22/21-10/20/21 Per David Frank with [employer] * Telephone Encounter - Aiden Luo - 09/20/2021 9:58 AM EST Good morning, Patient has a plan through [employer] - ID [id number]. Sorry for he delay, I was finally [...] authorization for patient Thank You Missy Ochoa [phone] Prior Auth Department * Telephone Encounter - Aiden Luo - 07/12/2021 2:12 PM EST Pre-auth needed Patient is scheduled for a colonoscopy 10/20/2021 Diagnosis Screening Patients insurance: [facility] Appointment is with Michell William MD Code to process pre-auth for: [id number] Location of procedure: [facility] documented in this encounter Plan of Treatment Not on file documented as of this encounter Visit Diagnoses Not on filedocumented in this encounter Care Teams Marine Equipment Engineer Relationship Specialty Start Date End Date Ady Pate MD [address] [place] [id number] PCP - General Internal Medicine 04/23/21 documented as of this encounter
--- NOTE | 2024-12-17 07:23 | A.OFFVIS_ITS ---
Vital Signs 12/17/24 07:29 Height 5 ft 4 in Weight 240 lb 15.444 oz BMI 41.4 BP 134/92 H Blood Pressure Location Lt brachial Position Sitting Pulse 79 Pulse Source Pulse Oximeter Pulse Oximetry (%) 95 Oxygen Delivery Method Room Air Intake Visit Reasons: PSO Intake Note: Patient presents for PsO follow up. Allergies adhesive Allergy (Severe, Verified 12/17/24 07:28) Swelling Penicillins Allergy (Unknown, Verified 12/17/24 07:28) Nausea and Vomiting codeine Adverse Reaction (Unknown, Verified 12/17/24 07:28) Abdominal Pain Medication List - Last Reconciled 12/17/24 by Christel Pierce MD amlodipine 2.5 mg PO DAILY clobetasol 0.05% 1 appl topical BID 2 weeks meloxicam 7.5 mg PO BID 30 days rosuvastatin 20 mg PO BEDTIME Stelara (ustekinumab) 90 mg subcut Q12W NS triamcinolone acetonide 0.1% 1 appl topical DAILY HPI Comments Details: Patient is a 54-year-old female with hypertension, hyperlipidemia, polyarticular osteoarthritis (C-spine, L-spine, hands), psoriasis complicated by psoriatic arthritis here today for follow up Interval History: Patient last seen 07/14/[address] Patel. At that time she was following up for her psoriasis, psoriatic arthritis and degenerative arthritis. She had recently had cervical spine surgery and was planning to do back surgery. She was on hold for her Stelara and was having worsening of her psoriatic patches and was given clobetasol cream for this. She had a successful back surgery and was doing well. Was able to restart her Stelara and her psoriasis improved currently only has 2 small patches on her back. Respect to her hands she continues to have intermittent pain and stiffness but no swelling or dactylitis. She currently takes meloxicam 7.5 mg 1 to 2 times a day which helps with the pain States that she got a letter from her insurance stating that Stelara will not be covered moving forward Rheumatologic History: PsO/PsA 01/09 - poor response to NSAIDs; on meloxicam fall - Enbrel caused injection site reactions December 2016 - Humira started - stopped 04/16 - she felt she had weight gain and not effective 06/16: Otezla started ineffective DC 06/2023 Stelara 90 mg 07/2023 effective for skin Current Rheumatology Medication(s): Stelara 90mg SC every 12 weeks Meloxicam 7.5mg bid Clobetasol topical 0.05% bid [facility] Medical History (Updated 12/17/24 @ 16:20 by Christel Pierce MD) Diabetes mellitus Surgical History H/O cervical spine surgery History of back surgery Family History Mother Arthritis Hypertension Stroke Father Alcohol abuse Substance abuse Maternal Grandmother Arthritis Hypertension Family/Other Ovarian cancer Social History Household Members: Spouse Housing: House Alcohol intake: current Alcohol intake frequency: holidays/special occasions only Alcohol type: wine Patient Tobacco Use Status: Never used Tobacco service: No Current occupational status: employed 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 Review of Systems Const Details: Review of Systems Constitutional: Denies fever, chills, weight loss ENT: Denies vision changes, eye pain or eye redness, dental caries, dry mouth GI: Denies nausea, vomiting, diarrhea, abdominal pain, change in BM Pulm: Denies SOB, NGUYEN, hemoptysis, wheezing Cards: Denies chest pain, palpitations Skin: Denies Raynaud's, rash, nail changes, photosensitivity, 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 Well appearing and in no apparent painful distress HEENT Conjunctiva and sclera clear. ?Pupils equal round and reactive to light. ?No l ymphadenopathy. ? CHEST/RESPIRATORY SYSTEM Normal respiratory effort and able to speak in complete sentences. ?Clear to auscultation bilaterally. ?No crackles, rales, rhonchi, wheezes heard. CARDIAC SYSTEM Regular rate and rhythm. ?S1 and S2 heard no murmurs. ?Radial pulses intact bilaterally MSK Hands: ?Able to make a fist. No synovitis noted to the MCPs, PIPs or DIPs. ?No tenderness to palpation of these joints. Heberden's nodes noted? Wrists: ?Full range of motion at the wrists without pain. ?No tenderness to palpation or synovitis noted to the wrists. Elbows: Full range of motion without pain. No tenderness, weakness, swelling, increased warmth or erythema. Shoulders: Full range of active range of motion without pain. No tenderness, weakness, swelling, increased warmth or erythema. Knees: ?Full range of motion. ?No tenderness, swelling, increased warmth or erythema.?No effusion or crepitations Ankles: Full range of motion. ?No tenderness, swelling, increased warmth or erythema.? Feet: ?Negative squeeze test. ?No tenderness to palpation or swelling of the MTPs. Tender points:?No tenderness to palpation of the bilateral trapezius, supraspinatus, greater trochanters, anterior costochondral junctions, bilateral gluteal areas, bilateral suboccipital muscle insertions SKIN two 1 cm psoriasis plaques noted to the lower back Results Reviewed Results Reviewed: Laboratory Tests 12/11/24 06:11 WBC 6.0 RBC 5.03 Hgb 14.6 Hct 44.6 Plt Count 273 ESR 11 Sodium 139 Potassium 3.9 Chloride 106 Carbon Dioxide 25 BUN 21 H Creatinine 0.94 AST 30 ALT 37 H C-Reactive Protein 0.16 Infectious serologies 12/11/24 06:11 Hepatitis A IgM Ab Nonreactive Hep Bs Antigen Negative Hep Bs Antibody NONREACTIVE Hep B Core Total Ab Nonreactive Hepatitis C Ab (EIA) Nonreactive TB Test (T-Spot) Com Negative Assessment & Plan Assessment & Plan (1) Psoriatic arthritis: Comment: 01/09 - poor response to NSAIDs; on meloxicam fall - Enbrel caused injection site reactions December 2016 - Humira started - stopped 04/16 - she felt she had weight gain and not effective 06/16: Otezla started ineffective DC 06/2023 Stelara 90 mg 07/2023 effective for skin Code(s): L40.50 - Arthropathic psoriasis, unspecified Category: Medical Plan: #PsO/PsA Patient is a 54-year-old female with psoriasis complicated by psoriatic arthritis here today for follow up. Patient is currently in remission of psoriasis and psoriatic arthritis on Stelara. We will continue with this medication. Restarted the pharmacy and she has a prior Auth for this medication until January 2025. We will continue this unless advised otherwise by her insurance For complaining of hand and foot pain which is likely due to her degenerative arthritis but we will check XRs Plan - Stelara 90mg every 12 weeks - XRs hands and feet - RTC 4 months - Labs before visit: CBC, CMP, ESR, CRP (2) Osteoarthritis of hands, bilateral: Code(s): M19.041 - Primary osteoarthritis, right hand; M19.042 - Primary osteoarthritis, left hand Category: Medical Qualifiers: Osteoarthritis type: primary Qualified Code(s): M19.041 - Primary osteoarthritis, right hand; M19.042 - Primary osteoarthritis, left hand Plan: #OA Patient also with bilateral hand osteoarthritis I responds pretty well to meloxicam. Discussed with patient that she has mild transaminitis and she would need to be mindful of the amount of meloxicam that she uses. Recommended that she use the lowest dose she can for modest pain relief (3) Long-term current use of ustekinumab: Code(s): Z79.620 - senior care (current) use of immunosuppressive biologic Plan: #senior care ustekinumab Risks and benefits of ustekinumab (Stelara) discussed with the patient Risks include increased risk of infections and certain types of cancers Benefits include improved disease control Plan I spent 30 minutes reviewing the record and labs, taking a history, examining the patient, discussing the treatment plan, ordering diagnostic work up and documenting in the medical record Orders: Orders Comprehensive Met. Panel 4 Months L40.50 - Arthropathic psoriasis, unspecified, M19.041 - Primary osteoarthritis, right hand, M19.042 - Primary osteoarthritis, left hand C Reactive Protein 4 Months L40.50 - Arthropathic psoriasis, unspecified, M19.041 - Primary osteoarthritis, right hand, M19.042 - Primary osteoarthritis, left hand Erythrocyte Sedimentation Rate 4 Months L40.50 - Arthropathic psoriasis, unspecified, M19.041 - Primary osteoarthritis, right hand, M19.042 - Primary osteoarthritis, left hand XR hand RT min 3V Today L40.50 - Arthropathic psoriasis, unspecified, M19.041 - Primary osteoarthritis, right hand, M19.042 - Primary osteoarthritis, left hand Complete Blood Count Auto Diff 4 Months L40.50 - Arthropathic psoriasis, unspecified, M19.041 - Primary osteoarthritis, right hand, M19.042 - Primary osteoarthritis, left hand XR foot RT min 3V Today L40.50 - Arthropathic psoriasis, unspecified, M19.041 - Primary osteoarthritis, right hand, M19.042 - Primary osteoarthritis, left hand XR foot LT min 3V Today L40.50 - Arthropathic psoriasis, unspecified, M19.041 - Primary osteoarthritis, right hand, M19.042 - Primary osteoarthritis, left hand XR hand LT min 3V Today L40.50 - Arthropathic psoriasis, unspecified, M19.041 - Primary osteoarthritis, right hand, M19.042 - Primary osteoarthritis, left hand Coding Level of Care Code Est Pt Level 4 (43584) Complex EM visit Add On G2211 Diagnoses Psoriatic arthritis L40.50 Primary osteoarthritis of both hands M19.041; M19.042 Osteoarthritis type: primary Long-term current use of ustekinumab Z79.620
[2024-12-17 07:29] VITALS: BP 134/92; PULSE 79; O2SAT 95; BMI 41.4
== END 2024-12-17 08:08 | disposition home or self-care (01) ==
LOC: HO.RHE 07:16
PROVIDERS: PCP Pediatrics; Visit Provider Student in an Organized Health Care Education/Training Program
DX: L40.50 Arthropathic psoriasis, unspecified (principal); M19.041 Primary osteoarthritis, right hand; M19.042 Primary osteoarthritis, left hand; Z79.620 Long term (current) use of immunosuppressive biologic
CPT/HCPCS: 99214; G2211

== ENCOUNTER 2025-04-15 11:46 | Outpatient (REF) | payer OTHER, SELFPAY ==
--- OUTSIDE RECORDS SUMMARY | 2014-02-23 07:00 | XMS_ITS | Continuity of Care Document ---
Author Organization [facility] Address [address] [place] [address] Care Team Providers Care Sprinkler Inspector Name Role Phone Cases Gary MENDOZA Unavailable Unavailable Procedures Procedure Date Patient Left Without Being Seen 014 Advance Directives Directive Yes / No Effective Date File Name No Information Encounters Encounter Description Practice Location Reason(s) For Visit Diagnoses Date Provider Providers Copied on Encounter [facility], [address], [place], [place], [id number], [place] [facility] [place] No Information Cases Gary. [address], [address], [place], [place], [id number], [place]. tel:[phone] Family History Family Member Type Diagnosis Age At Onset No Information Payers Payer name Insurance type Covered democrat ID Authoriza tion(s) Cign[employer] PPO POS EPO QPOS MISC CI [id number] Social History Type Description Quantity Date Captured Comments Sex Female Smoking Status No Information Chief Complaint And Reason For Visit No Information Reason For Referral Reason For Referral No Information History Of Present Illness Encounter Date Complaint History Of Prese nt Illness No Information Functional Status Date Functional Assessmen t No Information Instructions Date Instruction Additional Infor mation No Information Assessments Type Assessment Date No Information Patient Care Teams Name Effective Dates (start - stop) Status Members No Information
[2025-04-15 14:18] LABS: MANUAL DIFF FLAG NO
[2025-04-15 14:30] LABS: Hematocrit 45.0 % (37.0-47.0); Hemoglobin 14.9 g/dl (12.0-16.0); Imm Gran Abs Auto 0.01 X10*3/uL (0.00-0.03); Imm Gran Pct Auto 0.2 % (0.0-0.4); Lymphocytes Absolute Auto 1.5 X10*3/uL (1.2-4.9); Mean Corpuscular HGB Conc 33.1 g/dl (31.0-35.0); Mean Corpuscular Hemoglobin 29.7 pg (27.0-33.0); Mean Corpuscular Volume 89.6 fL (80.0-98.0); NRBC Abs Auto 0.000 X10*3/uL (0.0-0.012); NRBC Pct Auto 0.0 /100WBC (0.0-0.2); Platelet Count 266 X10*3/uL (160-400); Red Blood Count 5.02 X10*6/uL (4.20-5.50); White Blood Count 6.0 X10*3/uL (4.8-10.8)
[2025-04-15 14:42] LABS: Alanine Aminotransferase 133 U/L (0-31); Albumin Level 4.8 g/dL (3.5-5.0); Alkaline Phosphatase 100 U/L (39-117); Anion Gap 11 (12-20); Aspartate Amino Transferase 65 U/L (5-31); Blood Urea Nitrogen 23 mg/dL (9-16); Calcium 10.2 mg/dL (8.4-10.2); Carbon Dioxide 28 mmol/L (22-29); Chloride 107 mmol/L (96-108); Estimated Glomerular Filt Rate > 60; Potassium 4.2 mmol/L (3.3-5.1); Sodium 142 mmol/L (135-145); Total Protein 7.3 g/dL (6.5-8.0)
--- OUTSIDE RECORDS SUMMARY | 2025-04-15 15:16 | XMS_ITS ---
Author Name [facility] Organization Unknown Results Test Name/Text Value Interpretation Date Range Source POC Glucose 201.0 mg/dL Above high normal 07/17/2024 65 - 99 [facility] POC Glucose 194.0 mg/dL Above high normal 07/17/2024 65 - 99 [facility] Glucose SerPl-mCnc 215.0 mg/dL Above high normal 07/17/2024 65 - 99 [facility] BUN/Creat SerPl 17.0 Ratio Normal 07/17/2024 10 - 25 [facility] Sodium SerPl-sCnc 136.0 mmol/L Normal 07/17/2024 136 - 14 5 [facility] BUN SerPl-mCnc 12.0 mg/dL Normal 07/17/2024 8 - [address] GFR/BSA.pred SerPlBld [id number] >90.0 Normal 07/17/2024 59 - [facility] Potassium SerPl-sCnc 4.5 mmol/L Normal 07/17/2024 3.4 - 5 .3 [facility] Calcium SerPl-mCnc 9.0 mg/dL Normal 07/17/2024 8.7 - 10.5 [facility] Anion Gap Bld-sCnc 11.0 Normal 07/17/2024 7 - 17 [facility] CO2 SerPl-sCnc 22.0 mmol/L Normal 07/17/2024 22 - 33 [facility] CCT Creat SerPl-mCnc 0.7 mg/dL Normal 07/17/2024 0.4 - 1.1 [facility] Chloride SerPl-sCnc 103.0 mmol/L Normal 07/17/2024 98 - 1 07 [facility] MCHC RBC Auto-mCnc 33.2 g/dL Normal 07/17/2024 30 - 36 [facility] RBC num Bld Auto 4.19 Mil/uL Normal 07/17/2024 4 - 5.4 [facility] Platelet num Bld Auto 252.0 Thou/uL Normal 07/17/2024 150 - 450 [facility] MCV RBC Auto 89.0 fL Normal 07/17/2024 80 - 100 [facility] MCH RBC Qn Auto 29.6 pg Normal 07/17/2024 27 - [address] Hct VFr Bld Auto 37.3 % Normal 07/17/2024 35 - 47 [facility] CCT WBC num Bld Auto 16.4 Thou/uL Above high normal 07/17/2024 4 - 11 [facility] PMV Bld Auto 9.1 fL Normal 07/17/2024 7.5 - 12.5 [facility] Hgb Bld-mCnc 12.4 g/dL Normal 07/17/2024 11.7 - 15.7 HHCC T RDW RBC Auto-Rto 11.9 % Normal 07/17/2024 11.5 - 14.5 [facility] POC Glucose 222.0 mg/dL Above high normal 07/17/2024 65 - 99 [facility] POC Glucose 259.0 mg/dL Above high normal 07/17/2024 65 - 99 [facility] POC Glucose 224.0 mg/dL Above high normal 07/16/2024 65 - 99 [facility] POC Glucose 210.0 mg/dL Above high normal 07/16/2024 65 - 99 [facility] POC Glucose 157.0 mg/dL Above high normal 07/16/2024 65 - 99 [facility] Prealb SerPl-mCnc 22.0 mg/dL Normal 07/03/2024 20 - 40 [facility] Glucose SerPl-mCnc 199.0 mg/dL Above high normal 07/03/2024 65 - 99 [facility] Creat SerPl-mCnc 0.6 mg/dL Normal 07/03/2024 0.4 - 1.1 HH CCT GFR/BSA.pred SerPlBld [id number] >90.0 Normal 07/03/2024 59 - [facility] CO2 SerPl-sCnc 22.0 mmol/L Normal 07/03/2024 22 - 33 [facility] CCT Chloride SerPl-sCnc 102.0 mmol/L Normal 07/03/2024 98 - 1 07 [facility] BUN/Creat SerPl 22.0 Ratio Normal 07/03/2024 10 - 25 [facility] CCT Anion Gap Bld-sCnc 13.0 Normal 07/03/2024 7 - 17 [facility] BUN SerPl-mCnc 13.0 mg/dL Normal 07/03/2024 8 - [address] Calcium SerPl-mCnc 9.4 mg/dL Normal 07/03/2024 8.7 - 10.5 [facility] Potassium SerPl-sCnc 4.4 mmol/L Normal 07/03/2024 3.4 - 5 .3 [facility] Sodium SerPl-sCnc 137.0 mmol/L Normal 07/03/2024 136 - 14 5 [facility] Transferrin SerPl-mCnc 313.0 mg/dL Normal 07/03/2024 200 - 360 [facility] aPTT PPP 33.0 seconds Normal 07/03/2024 25 - 36 [facility] Anticoagulant Information not given Normal 07/03/2024 CCT Prothrombin time 10.3 seconds Normal 07/03/2024 10 - 13.5 [facility] INR PPP 0.9 Normal 07/03/2024 [facility] Anticoagulant Information not given Normal 07/03/2024 [facility] Hgb A1c MFr Bld 7.8 % Above high normal 07/03/2024 - 5.7 [facility] Est. average glucose Bld gHb Est-mCnc 177.0 mg/dL Normal 07/03/2024 CCT Basophils/leuk NFr Bld Auto 0.7 % Normal 07/03/2024 CCT MCHC RBC Auto-mCnc 33.2 g/dL Normal 07/03/2024 30 - 36 [facility] Hgb Bld-mCnc 14.2 g/dL Normal 07/03/2024 11.7 - 15.7 [facility] T Eosinophil/leuk NFr Bld Auto 1.9 % Normal 07/03/2024 [facility] Monocytes/leuk NFr Bld Auto 6.7 % Normal 07/03/2024 [facility] Lymphocytes num Bld Auto 1.34 Thou/uL Below low normal 07/03/2024 1.5 - 4.5 [facility] Neutrophils/leuk NFr Bld Auto 72.3 % Normal 07/03/2024 CCT MCV RBC Auto 89.0 fL Normal 07/03/2024 80 - 100 [facility] Eosinophil num Bld Auto 0.14 Thou/uL Normal 07/03/2024 0 - 0.7 [facility] Imm Granulocytes/leuk NFr Bld Auto 0.1 % Normal 07/03/2024 [facility] Basophils num Bld Auto 0.05 Thou/uL Normal 07/03/2024 0 - 0.2 [facility] Hct VFr Bld Auto 42.8 % Normal 07/03/2024 35 - 47 [facility] Monocytes num Bld Auto 0.49 Thou/uL Normal 07/03/2024 0.2 - 1.5 [facility] Imm Granulocytes num Bld Auto 0.01 Thou/uL Normal 07/03/2024 0 - 0.1 [facility] PMV Bld Auto 8.6 fL Normal 07/03/2024 7.5 - 12.5 [facility] Platelet num Bld Auto 297.0 Thou/uL Normal 07/03/2024 150 - 450 [facility] MCH RBC Qn Auto 29.4 pg Normal 07/03/2024 27 - [address] RBC num Bld Auto 4.83 Mil/uL Normal 07/03/2024 4 - 5.4 [facility] WBC num Bld Auto 7.3 Thou/uL Normal 07/03/2024 4 - 11 [facility] RDW RBC Auto-Rto 11.9 % Normal 07/03/2024 11.5 - 14.5 [facility] Lymphocytes/leuk NFr Bld Auto 18.3 % Normal 07/03/2024 [facility] Neutrophils num Bld Auto 5.3 Thou/uL Normal 07/03/2024 2 - 7.5 [facility] Result Not Detected Normal 07/03/2024 - [facility] Result Not Detected Normal 04/24/2024 - [facility] Transferrin SerPl-mCnc 333.0 mg/dL Normal 04/24/2024 200 - 360 [facility] Prealb SerPl-mCnc 22.0 mg/dL Normal 04/24/2024 20 - 40 [facility] INR PPP 0.9 Normal 04/24/2024 [facility] Prothrombin time 10.0 seconds Normal 04/24/2024 10 - 13.5 [facility] Anticoagulant Information not given Normal 04/24/2024 [facility] aPTT PPP 33.0 seconds Normal 04/24/2024 25 - 36 [facility] Anticoagulant Information not given Normal 04/24/2024 [facility] History of Medication Use Medication Directions Dispensed Refills Start Date End Date Stat us methocarbamol (ROBAXIN) 750 MG tablet TAKE ONE TABLET BY MOUTH FOUR TIMES A DAY NEEDED FOR MUSCLE SPASMS 11/03/2024 active glucose blood (Contour Test) test strip See Admin Instructions. 10/29/2024 active bisacodyl (DULCOLAX) 10 MG suppository Insert 1 suppository (10 mg total) into the rectum daily as needed for constipation (if no bowel movement by day 2). 07/17/2024 active polyethylene glycol (miraLAx) 17 g packet Take 1 packet (17 g total) by mouth daily. 07/17/2024 active clindamycin (CLEOCIN) 300 MG capsule TAKE 2 CAPSULES BY MOUTH 1 HOUR PRIOR TO DENTAL PROCEDURE 07/07/2024 active rosuvastatin (CRESTOR) 40 MG tablet 07/03/2024 active senna (SENOKOT) 8.6 MG Tab tablet Take 1 tablet by mouth 2 (two) times a day as needed for constipation. 05/14/2024 active metFORMIN (GLUCOPHAGE-XR) 500 MG 24 hr tablet Take 1 tablet by mouth daily. 04/09/2024 active gabapentin (NEURONTIN) 300 MG capsule Take 1 capsule (300 mg total) by mouth 3 (three) times a day. 01/22/2024 active cyclobenzaprine (FLEXERIL) 5 MG tablet Take 1 or 2 tabs by mouth every 8 hours as needed for muscle spasm 01/22/2024 active methocarbamol (ROBAXIN) 750 MG tablet Take 1 tablet (750 mg total) by mouth 4 (four) times a day as needed for muscle spasms. 07/07/2022 active ustekinumab (STELARA) 90 MG/ML subcutaneous injection Inject under the skin. aborted rosuvastatin (CRESTOR) 20 MG tablet Take 1 tablet (20 mg total) by mouth nightly. active Allergies Allergen Reaction Severity Comment Documented Date Source Statu s ADHESIVES/TAPE RASH/DERMATITIS 07/02/2024 [facility] active PENICILLINS GI INTOLERANCE/NAUS EA/VOMITING 06/12/2022 [facility] active CODEINE OTHER (SEE COMMENTS) Stomach cramps [facility] Problems Problem Status Onset Date Problem Type Date of Resoluti on Source Neurogenic claudication due to lumbar spinal stenosis active 2024-07-02 ProblemAct [facility] Psoriatic arthritis active ProblemAct [facility] Sleep apnea active ProblemAct [facility] S/P laminectomy with spinal fusion active 2022-07-05 ProblemAct [facility] Diabetes active 2017-09-13 ProblemAct [facility] Lumbar radiculitis active 2024-07-16 ProblemAct [facility] Hypertension active 2024-04-09 ProblemAct [facility] Mixed hyperlipidemia active 2005-10-04 ProblemAct [facility] Disorder of intervertebral disc at C5-C6 level with radiculopathy active 2024-04-22 ProblemAct [facility] Morbid obesity active 2024-04-22 Problem[address] [facility] Encounters Encounter Type Encounter Reason Primary Diagnosis Location Date Ambulatory [facility] 02/27/2025 Ambulatory Arthrodesis status Arthrodesis status [facility] 02/27/2025 Ambulatory [facility] 12/15/2024 Ambulatory Low back pain, unspecified Low back pain, unspecified [facility] 12/15/2024 Ambulatory [facility] 10/27/2024 Ambulatory Arthrodesis status Arthrodesis status [facility] 10/27/2024 Ambulatory Radiculopathy, lumba r region Radiculopathy, lumbar region [facility] 10/13/2024 Ambulatory Radiculopathy, lumba r region Radiculopathy, lumbar region [facility] 10/07/2024 Ambulatory Radiculopathy, lumba r region Radiculopathy, lumbar region [facility] 10/03/2024 Ambulatory Radiculopathy, lumba r region Radiculopathy, lumbar region [facility] 10/01/2024 Ambulatory Radiculopathy, lumba r region Radiculopathy, lumbar region [facility] 09/24/2024 Ambulatory Radiculopathy, lumba r region Radiculopathy, lumbar region [facility] 09/22/2024 Ambulatory Radiculopathy, lumba r region Radiculopathy, lumbar region [facility] 09/17/2024 Ambulatory Radiculopathy, lumba r region Radiculopathy, lumbar region [facility] 09/10/2024 Ambulatory Radiculopathy, lumba r region Radiculopathy, lumbar region [facility] 09/04/2024 Ambulatory Radiculopathy, lumba r region Radiculopathy, lumbar region [facility] 09/02/2024 Ambulatory Radiculopathy, cervical region Radiculopathy, cervical region [facility] 08/29/2024 Ambulatory [facility] 08/29/2024 Ambulatory Radiculopathy, cervical region Radiculopathy, cervical region [facility] 08/29/2024 Ambulatory Radiculopathy, cervical region Radiculopathy, cervical region [facility] 08/26/2024 Ambulatory Radiculopathy, cervical region Radiculopathy, cervical region [facility] 08/22/2024 Ambulatory Radiculopathy, cervical region Radiculopathy, cervical region [facility] 08/20/2024 Ambulatory Radiculopathy, cervical region Radiculopathy, cervical region [facility] 08/13/2024 Ambulatory [facility] 08/01/2024 Ambulatory Radiculopathy, lumba r region Radiculopathy, lumbar region [facility] 08/01/2024 Inpatient Radiculopathy, lumba r region Radiculopathy, lumbar region [facility] 07/16/2024 Ambulatory Encounter for other preprocedural examination Encounter for other preprocedural examination [facility] 07/03/2024 Ambulatory [facility] 06/02/2024 Ambulatory Radiculopathy, cervical region Radiculopathy, cervical region [facility] 06/02/2024 Ambulatory Pain Pain [facility] 05/20/2024 Ambulatory [facility] Cervical disc disorder at C5-C6 level with radiculopathy [facility], [facility] 05/15/2024 Ambulatory Pain Pain [facility] 05/12/2024 Ambulatory Spinal stenosis, lumbar region with neurogenic claudication Spinal stenosis, lumbar region with neurogenic claudication [facility] 05/06/2024 Ambulatory Encounter for other preprocedural examination Encounter for other preprocedural examination [facility] 04/24/2024 Ambulatory Follow-up Follow-up [facility] 03/03/2024 Ambulatory [facility] Radiculopathy, lumbosacral region [facility] 02/13/2024 Ambulatory Radiculopathy, lumbosacral region Radiculopathy, lumbosacral region [facility] 02/06/2024 Ambulatory Lumbago with sciatica, left side Lumbago with sciatica, left side [facility] 01/22/2024 Ambulatory [facility] 12/12/2023 Ambulatory Arthrodesis status Arthrodesis status [facility] 12/12/2023 Ambulatory Cervical disc disorder at C5-C6 level with radiculopathy Cervical disc disorder at C5-C6 level with radiculopathy [facility] 03/09/2023 Ambulatory Sacroiliitis, no t elsewhere classified [facility] 02/20/2023 Inpatient Arthrodesis status [facility] 07/05/2022 Ambulatory Encounter for preprocedural laboratory examination [facility] 07/03/2022 Ambulatory Encounter for ot her preprocedural examination [facility] 06/15/2022 Care Team Organization Name Specialty Phone Email Start Date End Da te [facility] 12/15/2024 03/28/2025 [facility] 04/16/2024 [facility] 02/08/2024 [facility] 12/12/2023 [facility] 06/15/2022 025 [facility] 06/15/2022 07/06/2022
--- OUTSIDE RECORDS SUMMARY | 2025-04-15 15:16 | XMS_ITS | Encounter Summary ---
Author Organization [facility] Address [address] [place] [address] Care Team Providers Care Resident Engineer Name Role Phone Ady Pate MD Primary Care Provider Unava ilable Javier Recinos MD Unavailable [phone] System, Provider Not In Unavailable Unavaila ble Encounter Details Date Type Department Care Team (Late st Contact Info) Description 09/03/2024 Scanned Document [facility] [address] [phone] Mayte Lowe [address] [place] [id number] Social History Tobacco Use Types Packs/Day Years Used Date Smoking Tobacco: Never Passive Smoke Exposure: Past Smokeless Tobacco: Never Alcohol Use Standard Drinks/Week Comments Yes 0 (1 standard drink = 0.6 oz pure alcohol) 1 glass/month advised to stop 2 weeks before surgery [facility] Utilities Answer Date Recorded In the past 12 months has Clinical [employer], oil, or water [employer] threatened to shut off services in your [...] Care Team (Late st Contact Info) Description 04/16/2025 8:00 AM EDT Office Visit [facility] [address] [phone] Javier Recinos MD [address] [facility] [address] [place] [address] Chris Thurston MD [address] [place] [id number] 06/22/2025 8:00 AM EST Office Visit [facility] [address] [phone] Jocy Lazcano PA-C [address] [phone] 08/26/2025 8:00 AM EST Office Visit [facility] [address] [phone] Jocy Lazcano PA-C [address] [id number] documented as of this encounter Goals Goal [...] no pain in LE in 8 weeks. This documentation is for closing of the episode of care. The patient was not treated on the date of this documentation and there are no charges associated with this documentation. documented as of this encounter Visit Diagnoses Not on filedocumented in this encounter Care Teams Resident Engineer Relationship Specialty Start Date End Date Ady Pate MD PCP - General 06/09/22 Javier Recinos MD [address] [place] [id number] Surgery, Orthopedic 06/09/22 System, Provider Not In 07/02/24 documented as of this encounter
--- OUTSIDE RECORDS SUMMARY | 2025-04-15 15:16 | XMS_ITS | Clinical Summary ---
Author Organization Formerly [facility] Address [address] [place] [address] Care Team Providers Care Java Technical Architect Name Role Phone Ady Pate MD Primary Care Provider Javier Gonzalez MD Unavailable [phone] System, Provider Not In Unavailable Unavaila [...] rosuvastatin (CRESTOR) 40 MG tablet 4 Active Blood Glucose Monitoring Suppl ([facility] Blood Glucose Meter) w/Device Kit Use to check blood sugar every morning before breakfast and 2 hours after if BS is below 120. If higher than 120 in the AM or 250 - 300 2 hours after meal contact MD office. 5 Active Lancets [facility] Check blood sugar 4 times a day or as directed. 5 11/08/19 26 Active glucose blood (Contour Test) test strip See Admin Instructions. 5 11/08/19 26 Active Lancets (OneTouch Delica Plus [id number]) Misc 5 Active metFORMIN (GLUCOPHAGE-XR) 500 MG 24 hr tablet Take 1 tablet by mouth daily. 4 Active meloxicam (MOBIC) 7.5 MG tablet Take 7.5 mg by mouth daily. Active gabapentin (NEURONTIN) 300 MG capsuleIndication s:Radiculopathy, lumbar region TAKE 1 CAPSULE BY MOUTH 3 TIMES DAILY 270 capsule 3 5 Active methocarbamol (ROBAXIN) 750 MG tabletIndications :Lumbar radiculitis TAKE 1 TABLET BY MOUTH EVERY NIGHT NEEDED FOR MUSCLE SPASM(S) 30 tablet 5 Active Active Problems Problem Noted [...] C5-7 anterior cervical [place]ce[place] [facility] [place] Recinos. Morbid obesity [...] Plan (07/02/2024 4:38 PM EST): Followed by side framer Dr. Bharat patrick appt 12/20/2023. Currently on stelara- last injection 03/01/2024. Do not take any further injections prior to surgery Assessment & Plan (04/22/2024 4:41 PM EDT): Followed by side framer Dr. Bharat patrick appt 12/20/2023. Currently on [...] Encounters Date Type Department Care Team Description 04/02/2025 Documentation [facility] [address] [phone] Salma Ramirez, PT Lower Back - PT Discharge 03/09/2025 Refill [facility] [address] [phone] Jocy Lazcano PA-C Lumbar radiculitis 02/27/2025 8:10 AM EDT Ancillary Procedure [facility] [address] [phone] Javier Recinos MD 02/27/2025 8:00 AM EDT Office Visit [facility] [address] [phone] Javier Recinos MD S/P lumbar spinal fusion (Primary Dx) 02/03/2025 Refill [facility] [address] [phone] Jocy Lazcano PA-C Radiculopathy, lumbar region from Last 3 Months Family History Medical [...] advised to stop 2 weeks before surgery [facility] Utilities Answer Date Recorded In the past 12 months has [employer], [employer], oil, or water [employer] threatened to shut off services in your [...] any time in the past 12 m [facility], were you homeless or living in a group home (including now)? No 07/17/2024 Comments No [...] 86 07/17/2024 9:00 AM EST Temperature 36.4 C (97.5 F) 07/17/2024 9:00 AM EST Respiratory Rate 18 07/17/2024 9:00 AM EST [...] Description 04/16/2025 8:00 AM EDT Office Visit [facility] PH[facility]ICAL MEDIC[facility] & [facility] [address] [facility] [address] [place] [address] Javier Recinos MD 31 [facility] 100 [place] [address] Chris Thurston MD [address] [place] [address] [address] [place], [place] [address] 06/22/2025 8:00 AM EST [facility] Visit [facility] [address] [place] [address] Jocy Lazcano PA-C [address] [address] 08/26/2025 8:00 AM EST [facility] [address] [phone] Jocy Lazcano PA-C [address] [phone] Health Maintenance Due Date Last Done Comments [...] Modern a risk series) 12/16/2020 11/18/2020, 10/20/2020 Diabetic Self-Management Tra ining (DSMT) 04/22/2024 Medical Nutrition Therapy (MNT) 07/30/2024 Influenza Vaccine 02/27/2025 04/09/2024, , 07/11/2021, Additional history exists Hemoglobin A1C 04/25/2025 01/23/2025, 1211/2023, 06/15/2022, Additional history exists Creatinine with GFR 07/17/2025 [...] are no charges associated with this documentation. Medical Devices Implanted Type Area Laundry Helper Device Identifier Shelf Expiration Date Model / Serial / Lot [id number] Re-Line-O Ti Ned, 5.5x35mm Lordotic Implanted:Qty : 2 on 07/05/2022 by Javier Recinos MD at [facility] Nail/Ned N/A: Spine Lumbar [employer] [id number] / / [id number] Ned Spinal 55mm 5.5mm Reline Lrdtc Ti Mas Nonst - [id number] Implanted:Qty : 1 on 07/16/2024 by Javier Recinos MD at [facility] Nail/Ned N/A: Spine Lumbar [employer] 03/08/2040 [id number] / / N/A [id number] Ned Spinal 55mm 5.5mm Reline Lrdtc Ti Mas Nonst - [id number] Implanted:Qty : 1 on 07/16/2024 by Javier Recinos MD at [facility] Nail/Ned N/A: Spine Lumbar [employer] 03/08/2040 [id number] / / N/A [id number] Screw Bone Spine Reline 2c 50mm 7.5mm Mdlr Shnk Nonst Mas - [id number] Implanted:Qty : 4 on 07/05/2022 by Javier Recinos MD at [facility] Spine N/A: Spine Lumbar [employer] [id number] / / [id number] Screw Bone Spine Reline Mdlr Reduction Extension [place] Nonst - [id number] Implanted:Qty : 4 on 07/05/2022 by Javier Recinos MD at [facility] Spine N/A: Spine Lumbar [employer] [id number] / / [id number] Screw Bone Spine Reline 5.5mm Lock Open [place] Nonst - [id number] Implanted:Qty : 4 on 07/05/2022 by Javier Recinos MD at [facility] Spine N/A: Spine Lumbar [employer] [id number] / / [id number] Screw Bone Spine Reline 5.5mm Lock Open [place] - [id number] Implanted:Qty : 1 on 07/16/2024 by Javier Recinos MD at [facility] Spine N/A: Spine Lumbar [employer] [id number] / / [id number] Screw Bone Spine Reline 5.5mm Lock Open [place] - [id number] Implanted:Qty : 1 on 07/16/2024 by Javier Recinos MD at [facility] Spine N/A: Spine Lumbar [employer] [id number] / / [id number] Screw Bone Spine Reline 5.5mm Lock Open [place] - [id number] Implanted:Qty : 1 on 07/16/2024 by Javier Recinos MD at [facility] Spine N/A: Spine Lumbar [employer] [id number] / / [id number] Screw Bone Spine Reline 5.5mm Lock Open [place] - [id number] Implanted:Qty : 1 on 07/16/2024 by Javier Recinos MD at [facility] Spine N/A: Spine Lumbar [employer] [id number] / / [id number] Screw Bone Spine Reline 5.5mm Lock Open [place] - [id number] Implanted:Qty : 1 on 07/16/2024 by Javier Recinos MD at [facility] Spine N/A: Spine Lumbar [employer] [id number] / / [id number] Screw Bone Spine Reline 5.5mm Lock Open [place] - [id number] Implanted:Qty : 1 on 07/16/2024 by Javier Recinos MD at [facility] Spine N/A: Spine Lumbar [employer] [id number] / / [id number] Screw Bone Spine Reline Mdlr Reduction Extension [place] Nonst - [id number] Implanted:Qty : 1 on 07/16/2024 by Javier Recinos MD at [facility] Spine N/A: Spine Lumbar [employer] [id number] / / [id number] Screw Bone Spine Reline Mdlr Reduction Extension [place] Nonst - [id number] Implanted:Qty : 1 on 07/16/2024 by Javier Recinos MD at [facility] Spine N/A: Spine Lumbar [employer] [id number] / / [id number] Screw Bone Spine Reline Mdlr Reduction Extension [place] Nonst - [id number] Implanted:Qty : 1 on 07/16/2024 by Javier Recinos MD at [facility] Spine N/A: Spine Lumbar [employer] [id number] / / [id number] Screw Bone Spine Reline 2c 50mm 7.5mm Mdlr Shnk Nonst Mas - [id number] Implanted:Qty : 1 on 07/16/2024 by Javier Recinos MD at [facility] Spine N/A: Spine Lumbar [employer] 07/04/2027 [id number] / / N/A [id number] Shank Screw 50mm 6.5mm Reline 2c Spine Mdlr Mas Nonst Lf - [id number] Implanted:Qty : 1 on 07/16/2024 by Javier Recinos MD at [facility] Spine N/A: Spine Lumbar [employer] [id number] / / [id number] Shank Screw 50mm 6.5mm Reline 2c Spine Mdlr Mas Nonst Lf - [id number] Implanted:Qty : 1 on 07/16/2024 by Javier Recinos MD at [facility] Spine N/A: Spine Lumbar [employer] [id number] / / [id number] Substitute Bone Graft Ms Grft Matrix Block Void Filler 20ml - [id number] Implanted:Qty : 1 on 07/05/2022 by Javier Recinos MD at [facility] Void Filler N/A: Spine Lumbar [employer] MINIMALLY INVASIVE T 01/26/2025 [id number] / / [id number] Filler Bone Void 15cc 1.7-10mm Canc Algrf Chp Frzdr - [id number] Implanted:Qty : 1 on 07/05/2022 by Javier Recinos MD at [facility] Void Filler N/A: Spine Lumbar [employer] TRANS[employer] F[employer] 02/14/2025 [id number] / [id number] / [id number] Filler Bone Void 5cc Dbx Algrf Putty Frzdr - [id number] Implanted:Qty : 1 on 07/16/2024 by Javier Recinos MD at [facility] Void Filler N/A: Spine Lumbar [employer] 03/05/2026 [id number] / [id number] / [id number] Filler Bone Void 30cc 1.7-10mm Canc Algrf Chp Frzdr - [id number] Implanted:Qty : 1 on 07/16/2024 by Javier Recinos MD at [facility] Void Filler N/A: Spine Lumbar [employer] 04/05/2027 [id number] / [id number] / [id number] 20 Degree Implanted:Qty : 1 on 07/05/2022 by Javier Recinos MD at [facility] N/A: Spine Lumbar 03/15/2027 / / [id number] Description:catalog# [id number] Mod [id number] 10d Implanted:Qty : 1 on 07/16/2024 by Javier Recinos MD at [facility] N/A: Spine Lumbar [employer] [id number] / / Procedures Procedure Name Priority Date/Time Associated Diagnosis Comments XR LUMBAR SPINE COMPLETE W/FLEX,EXT 4+VIEWS Routine 02/27/2025 8:17 AM EDT S/P lumbar spinal fusion BASIC METABOLIC PANEL Routine 07/17/2024 4:55 AM [...] * XR Lumbar spine complete w/Flex,Ext, 4+Views (02/27/2025 8:17 AM EDT) Narrative OAH - 02/27/2025 8:17 AM EDT This exam was performed in office at [facility] and images reviewed by orthopedic provider. Any findings are documented within ambulatory encounter note on date of service. us Javier Recinos MD IMG DIAGNOSTIC IMAGING ORDERAB LES Final Result OA * (ABNORMAL) Basic Metabolic Panel (07/17/2024 4:55 AM EST) Glucose 215(H) 65 - 99 mg/dL 07/17/2024 7:20 AM EST [facility] Comment:Fasting: <100 mg/dL, Non-Fasting: <200 mg/dL (ADA 2005) Blood Urea Nitrogen (BUN) 12 8 - 21 mg/dL 07/17/2024 7:20 AM [facility] Creatinine 0.7 0.4 - 1.1 mg/dL 07/17/2024 7:20 AM [facility] eGFR >90 >59 07/17/2024 7:20 AM [facility] Comment:CKD-EPI (2020) in mL /min/1.73 sq meters. Sodium 136 136 - 145 mmol/L 07/17/2024 7:20 AM [facility] Potassium 4.5 3.4 - 5.3 mmol/L 07/17/2024 7:20 AM [facility] Chloride 103 98 - 107 mmol/L 07/17/2024 7:20 AM [facility] CO2 22 22 - 33 mmol/L 07/17/2024 7:20 AM [facility] Anion Gap 11 7 - 17 07/17/2024 7:20 AM [facility] Calcium 9.0 8.7 - 10.5 mg/dL 07/17/2024 7:20 AM [facility] BUN/Creatinine Ratio 17 10.0 - 25.0 Ratio 07/17/2024 7:20 AM [facility] Blood (Plasma/Serum) 07/17/2024 4:55 AM EST 07/17/2024 5:32 AM EST Javier Recinos MD LAB BLOOD [place] [address], [place] [address] from Last 3 Months or Most Recently Relevant to Health Maintenance Insurance R [facility] R Advance Directives * Full Code (Latest Code Status on File) Date Activated Date Inactivated Comments 07/16/2024 7:54 PM * Full Code Date Activated Date Inactivated Comments 07/16/2024 10:28 AM 07/16/2024 7:54 PM * Full Code Date Activated Date Inactivated Comments 07/05/2022 3:24 PM 07/16/2024 10:23 AM * Full Code Date Activated Date Inactivated Comments 07/05/2022 6:49 AM 07/05/2022 3:24 PM Care Teams Java Technical Architect Relationship Specialty Start Date End Date Ady Pate MD PCP - General 06/09/22 Javier Recinos MD [address] [place] [address] Surgery, Orthopedic 06/09/22 System, Provider Not In 07/02/24
--- OUTSIDE RECORDS SUMMARY | 2025-04-15 15:16 | XMS_ITS | Encounter Summary ---
Author Organization Formerly [facility] Address [address] [place] [address] Care Team Providers Care Business Support Manager Name Role Phone Ady Pate MD Primary Care Provider Unava ilable Javier Recinos MD Unavailable [phone] System, Provider Not In Unavailable Unavaila ble Encounter Details Date Type Department Care Team (Late st Contact Info) Description 05/15/2024 Scanned Document [facility] [address] [place] [phone] Javier Recinos MD [address] [place] [address] [address] [place] [address] Social History Tobacco Use Types Packs/Day Years [...] Description 04/16/2025 8:00 AM EDT Office Visit [facility] & [facility] [address] [phone] Javier Recinos MD 31 [facility] 100 [place] [address] Chris Thurston MD 538 [facility] 103 [place] [address] 06/22/2025 8:00 AM EST [facility] [address] [phone] Jocy Lazcano PA-C [address] [address] 08/26/2025 8:00 AM EST [facility] [address] [phone] Jocy Lazcano PA-C [address] [address] documented as of this encounter Visit Diagnoses Not on filedocumented in this encounter Care Teams Business Support Manager Relationship Specialty Start Date End Date Ady Pate MD PCP - General 06/09/22 Javier Recinos MD 31 [facility] 100 [place] [address] Surgery, Orthopedic 06/09/22 System, Provider Not In 07/02/24 documented as of this encounter
--- OUTSIDE RECORDS SUMMARY | 2025-04-15 15:16 | XMS_ITS | Clinical Summary ---
Author Organization [facility] [address] [facility] lding Address [address] [place] [address] Phone Care Team Providers Care Canvas Products Sales Representative Name Role Phone Rishi Pate MD Primary Care Provider [phone] Allergies Active Allergy Reactions Criticality Noted Date Comments Adhesive Rash Medium 07/02/2024 Codeine GI intolerance 10/04/2005 abdominal pains Penicillins Nausea And Vomiting 08/09/2018 Medications cyclobenzaprine (FLEXERIL) 5 mg tablet TAKE 1 OR 2 TABLETS BY MOUTH EVERY 8 HOURS NEEDED FOR MUSCLE SPASM 01/22/20 24 Active gabapentin (NEURONTIN) 300 mg capsule if needed. 01/22/20 24 Active meloxicam (MOBIC) 7.5 mg tablet 03/01/20 24 Active methocarbamoL (ROBAXIN) 750 mg tablet TAKE ONE TABLET BY MOUTH FOUR TIMES A DAY NEEDED FOR MUSCLE SPASMS 01/03/20 24 Active amLODIPine (NORVASC) 2.5 mg tablet TAKE 1 TABLET BY MOUTH ONCE DAILY 90 tablet 1 12/09/19 25 Active blood-glucose,r eceiver,cont (Dexcom G6 Houseperson) miscIndications :Type 2 diabetes mellitus without complication, without long-term current use of insulin (CMS/HCC V24, CMS/HCC V28) Use to check blood sugar every morning before breakfast and 2 hours after if BS is below 120. If higher than 120 in the AM or 250 - 300 2 hours after meal contact MD office. 1 each 12/27/19 25 Active Wezlana 90 mg/mL syringe Inject 90 mg under the skin every 3 (three) months. 01/14/20 25 Active blood-glucose sensor (Dexcom G6 Sensor) deviceIndicatio ns:Type 2 diabetes mellitus without complication, without long-term current use of insulin ([facility] V24, [facility] V28) APPLY 1 SENSOR ONTO SKIN DIRECTED AND CHANGE EVERY 10 DAYS. USE TO CHECK BLOOD SUGAR EVERY MORNING BEFORE BREAKFAST AND 2 HOURS AFTER IF BLOOD SUGAR IS BELOW 120. IF HIGHER THAN 120 IN THE MORNING OR 250-300 2 HOURS AFTER MEAL CONTACT MD OFFICE 9 each 03/04/20 25 Active rosuvastatin (CRESTOR) 40 mg tablet TAKE 1 TABLET BY MOUTH ONCE DAILY 90 tablet 3 03/10/20 25 Active Dexcom G6 Transmitter deviceIndicatio ns:Type 2 diabetes mellitus without complication, without long-term current use of insulin ([facility] V24, [facility] V28) USE DIRECTED CONTINUOUSLY 1 each 3 03/10/20 25 Active metFORMIN XR (GLUCOPHAGE-XR) 500 mg 24 hr tablet Take 1 tablet (500 mg total) by mouth 1 (one) time each day. with food 30 each 03/10/20 25 026 Active tirzepatide (Mounjaro) 5 mg/0.5 mL injectionIndica tions:Type 2 diabetes mellitus without complication, without long-term current use of insulin ([facility] V24, [facility] V28) Inject 0.5 mL (5 mg total) under the skin every 7 (seven) days. 2 mL 1 04/14/20 25 025 Active tirzepatide (Mounjaro) 5 mg/0.5 mL injectionIndica tions:Type 2 diabetes mellitus without complication, without long-term current use of insulin ([facility] V24, [facility] V28) Inject 0.5 mL (5 mg total) under the skin every 7 (seven) days. 2 mL 1 02/24/20 25 025 Discontin ued(Reord er) tirzepatide (Mounjaro) 5 mg/0.5 mL injectionIndica tions:Type 2 diabetes mellitus without complication, without long-term current use of insulin ([facility] V24, [facility] V28) Inject 0.5 mL (5 mg total) under the skin every 7 (seven) days. 2 mL 1 04/06/20 25 025 Discontin ued(Reord er) Active Problems Problem Noted Date Diagnosed Date Hypertension 04/09/2024 Obstructive sleep apnea 06/17/2020 Overview (08/28/2024): [facility] Home Sleep Apnea Test: Date [...] Primary osteoarthritis of both feet 05/13/2019 Diabetes ([facility] V24, [facility] V28) 09/13/2017 Overview (08/28/2024): 04/22 - HgbA1C 6.9% Lumbar disc disease with radiculopathy Overview (08/28/2024): L5-S1 Surgery 05/14 L4-L5 surgery 09/18 Sacroiliitis ([facility] V24) 09/10/2007 Overview (08/28/2024): Clem Causey Psoriatic arthropathy ([facility] V24, [facility] V28) 10/01/2006 Overview (08/28/2024): Dr. Fong 01/09 [...] by insurance 08/14 - referred to external sports intern for consideration of UV therapy Last Assessment & Plan: Make sure to keep your sports intern appointment. Mixed hyperlipidemia 10/04/2005 Overview (08/28/2024): 04/13 - ASCVD 10yr risk 0.8% IMO update Obesity (BMI 30-39.9) 10/04/2005 Encounters Date Type Department Care Team Description 01/26/2025 3:00 PM EDT Office Visit Adult [place] [address] [place] [address] Edna Mcpherson, JEANNIE Type 2 diabetes mellitus without complication, without long-term current use of insulin ([facility] V24, [facility] V28) (Primary Dx) from Last 3 Months Immunizations Name Administration [...] History Surgery Date Site/Laterality Comments CHOLECYSTECTOMY PROCEDURE: [place] LAPAROSCOPY SURG CHOLECYSTECTOMY BREAST BIOPSY 2018 Right [...] pain 03/14/2013 DX:Left shoul teresa pain; COMMENT: [facility] PT - minimal improvement [...] Sign Reading Time Taken Comments Blood Pressure 133/83 01/26/2025 3:08 PM EDT Pulse 80 01/26/2025 3:08 PM EDT Temperature 36.6 C (97.8 F) 01/26/2025 3:08 PM EDT Respiratory Rate - - Oxygen Saturation - - Inhaled Oxygen Concentration - - Weight 110 kg (242 lb) 01/26/2025 3:08 PM EDT Height 167.6 cm (5' 6 ) 01/26/2025 3:08 PM EDT Body Mass Index 39.06 01/26/2025 3:08 PM EDT Plan of Treatment Upcoming Encounters Date Type Department Care Team (Late st Contact Info) Description 04/28/2025 8:30 AM EDT Office Visit Adult Medicine [facility] [address] [place] [address] Edna Mcpherson NP [address] [place] [address] Health Maintenance Due Date Last Done Comments Diabetes: Annual Foot Exam 1980 Diabetes: Annual Retina Eye Exam 1980 Hepatitis B Vaccines (1 of 3 - 19+ 3-dose series) 1989 Cervical Cancer Screening: Pap Smear 1991 Pneumococcal Vaccine: 50+ Years (2 of 2 - PCV) 09/10/2018 09/10/2017 Zoster Vaccines (1 of 2) 2020 HIV Screening 07/08/2022 Social Influencers of Health Screening 07/08/2022 Diabetes: Annual Urine Albumin-Creatinine Ratio (uACR) 05/08/2024 Depression Screening 07/30/2024 COVID-19 Vaccine ( season) 2025 05/26/2021, 11/18/2020, 10/20/2020 Influenza Vaccine (#1) 2025 , 07/11/2021, 06/20/2020, Additional history exists Diabetes: Blood Sugar Control Test (HGBA1C) 07/25/2025 01/23/2025, 07/03/2024, 04/09/2024, Additional history exists Diabetes: Annual GFR (Glomerular Filtration Rate) 01/23/2026 01/23/2025, 07/17/2024, 07/17/2024, Additional history exists Hypertension/CHF/CAD Annual BMP Blood Test 01/23/2026 01/23/2025, 07/17/2024, 07/17/2024, Additional history exists Breast Cancer Screening 12/11/2026 12/12/19, 08/05/2018, 07/26/2018 Cholesterol Screening (Lipid Panel) 01/23/2030 01/23/2025, 04/09/2024, 04/09/2024 Colorectal Cancer Screening: Colonoscopy 10/21/2031 10/20/2021 DTaP,Tdap,and Td Vaccines (3 - Td or Tdap) 03/20/2033 03/20/2023, 07/18/2013 Hepatitis C Screening Completed 12/21/2016 HIB Vaccines Aged Out No longer eligi [...] Procedure Name Priority Date/Time Associated Diagnosis Comments HEMOGLOBIN A1C Routine 01/23/2025 1:28 PM EDT Type 2 diabetes mellitus without complication, without long-term current use of insulin ([facility] V24, [facility] V28) Mixed hyperlipidemia LIPID PANEL WITH REFLEX TO DIRECT LDL Routine 01/23/2025 1:28 PM EDT Mixed hyperlipidemia COMPREHENSIVE METABOLIC PANEL Routine 01/23/2025 1:28 PM EDT Primary hypertension EXTERNAL MAMMOGRAM REPORT 12/11/2024 COLONOSCOPY Routine 10/20/2021 HEPATITIS C SCREENING Routine 12/21/2016 from Last 3 Months or Most Recently Relevant to Health Maintenance Results * (ABNORMAL) Lipid panel with reflex to direct LDL (01/23/2025 1:28 PM EDT) Cholesterol 183 0 - 200 mg/dL LAB CHEMISTRY METHOD 01/23/2025 3:[address] [facility] Triglycerides 284(H) 0 - 150 mg/dL LAB CHEMISTRY METHOD 01/23/2025 3:[address] [facility] HDL 47 >=40 mg/dL LAB CHEMISTRY METHOD 01/23/2025 3:[address] [facility] LDL Calculated 79 0 - 100 mg/dL LAB CHEMISTRY METHOD 01/23/2025 3:[address] [facility] VLDL Cholesterol [place] 56.8 mg/dL LAB CHEMISTRY METHOD 01/23/2025 3:[address] [facility] Non HDL Chol. (LDL+VLDL) 136 <145 mg/dL LAB CHEMISTRY METHOD 01/23/2025 3:[address] [facility] Chol/HDL Ratio 3.9 0.0 - 4.4 LAB CHEMISTRY METHOD 01/23/2025 3:[address] [facility] Blood Venous blood specimen / Unknown Venipuncture / Unknown 01/23/2025 1:28 PM EDT 01/23/2025 1:29 PM EDT Edna Mcpherson ECONOMICS DEPARTMENT CHAIR LAB BLOOD ORDERABLES Final Res ult Performing Organization Address [facility]/ZIP Co de Phone Number [facility] [address] [place] [address], [place] [phone] * (ABNORMAL) Hemoglobin A1c (01/23/2025 1:28 PM EDT) Pathologist [facility] Hemoglobin A1C 9.4(H) <6.5 % LAB CHEMISTRY METHOD 01/23/2025 10:[address] [facility] Mean Bld Glu Estim. 223 mg/dL LAB CHEMISTRY METHOD 01/23/2025 10:[address] [facility] Blood Venous blood specimen / Unknown Venipuncture / Unknown 01/23/2025 1:28 PM EDT 01/23/2025 1:29 PM EDT Edna Mcpherson ECONOMICS DEPARTMENT CHAIR LAB BLOOD ORDERABLES Final Res ult Performing Organization Address [facility]/ZIP Co de Phone Number [facility] [address] [place] [address], [place] [phone] * (ABNORMAL) Comprehensive metabolic panel (01/23/2025 1:28 PM EDT) Pathologist [facility] Sodium 136 133 - 145 mmol/L LAB CHEMISTRY METHOD 01/23/2025 3:[address] [facility] Potassium 4.1 3.5 - 5.5 mmol/L LAB CHEMISTRY METHOD 01/23/2025 3:[address] [facility] Chloride 102 96 - 110 mmol/L LAB CHEMISTRY METHOD 01/23/2025 3:44 PM [facility] CO2 27 21 - 32 mmol/L LAB CHEMISTRY METHOD 01/23/2025 3:44 PM [facility] Anion Gap 7 3 - 11 LAB CHEMISTRY METHOD 01/23/2025 3:44 PM [facility] Glucose 197(H) 70 - 100 mg/dL LAB CHEMISTRY METHOD 01/23/2025 3:44 PM [facility] BUN 18 5 - 25 mg/dL LAB CHEMISTRY METHOD 01/23/2025 3:44 PM [facility] Creatinine 1.01 0.50 - 1.10 mg/dL LAB CHEMISTRY METHOD 01/23/2025 3:44 PM [facility] eGFR 66 >=60 mL/min/1. 73m2 LAB CHEMISTRY METHOD 01/23/2025 3:44 PM [facility] Comment:Calculation based on the Chronic Kidney Disease Epidemiology Collaboration (CKD-EPI) equation refit without adjustment for race. BUN/Creatinine Ratio 17.8 LAB CHEMISTRY METHOD 01/23/2025 3:44 PM [facility] Calcium 9.7 8.5 - 10.5 mg/dL LAB CHEMISTRY METHOD 01/23/2025 3:44 PM [facility] AST (SGOT) 24 10 - 42 unit/L LAB CHEMISTRY METHOD 01/23/2025 3:44 PM [facility] ALT (SGPT) 47 10 - 60 unit/L LAB CHEMISTRY METHOD 01/23/2025 3:44 PM [facility] Alkaline Phosphatase 105 42 - 121 unit/L LAB CHEMISTRY METHOD 01/23/2025 3:44 PM [facility] Total Protein 7.1 6.0 - 8.0 g/dL LAB CHEMISTRY METHOD 01/23/2025 3:44 PM [facility] Albumin 3.8 3.2 - 5.0 g/dL LAB CHEMISTRY METHOD 01/23/2025 3:[address] [facility] Total Bilirubin 1.6(H) 0.0 - 1.4 mg/dL LAB CHEMISTRY METHOD 01/23/2025 3:[address] [facility] Blood Venous blood specimen / Unknown Venipuncture / Unknown 01/23/2025 1:28 PM EDT 01/23/2025 1:29 PM EDT Edna Mcpherson ECONOMICS DEPARTMENT CHAIR LAB BLOOD ORDERABLES Final Res ult [facility] [address] [place] [address], [place] [phone] * External Mammogram Report (12/11/2024) Anatomical Region Laterality Modality Mammography Provider [facility] IMG BI PROCEDURES Final Result * Colonoscopy (10/20/2021) Pathologist [facility] Colonoscopy no interpretation , abstracted Anatomical Region Laterality Modality Other Historical Provider HEALTH MAINTENANCE Final Result * Hepatitis C Screening (12/21/2016) Pathologist [facility] Hepatitis C Screening abstracted Historical Provider HEALTH MAINTENANCE Final Result from Last 3 Months or Most Recently Relevant to Health Maintenance Insurance [facility] Care Teams Can[employer] Products Sales Representative Relationship Specialty Start Date End Date Rishi Pate MD [address] [place] [id number] PCP - General Internal Medicine 04/23/21
--- OUTSIDE RECORDS SUMMARY | 2025-04-15 15:16 | XMS_ITS | Encounter Summary ---
Author Organization [facility] Address [address] [place] [address] Care Team Providers Care Director Information Security Name Role Phone Ady Pate MD Primary Care Provider Unava ilable Javier Recinos MD Unavailable [phone] System, Provider Not In Unavailable Unavaila ble Encounter Details Date Type Department Care Team (Late st Contact Info) Description 06/14/2022 Telephone [facility] [address] [facility] 2nd Floor [address] [place] [address] Jia Osorio, [place] [address] [place] [address] Social History Tobacco Use Types Packs/Day Years [...] Have you recently had an admission to SNF/Rehab/Group Home? No Have you traveled internationally or domestically in the last month? No documented in this encounter Plan of Treatment Upcoming Encounters Date Type Department Care Team (Late st Contact Info) Description 04/16/2025 8:00 AM EDT Office Visit [facility] PHYSICAL [facility]IC[facility] & REHAB [address] [phone] Javier Recinos MD [address] [address] Chris Thurston MD [address] [place] [address] 06/22/2025 8:00 AM EST [facility] Visit [facility] [address] [place] [phone] Jocy Lazcano PA-C [address] [phone] 08/26/2025 8:00 AM EST [facility] [address] [phone] Jocy Lazcano PA-C [address] [phone] documented as of this encounter Visit Diagnoses Not on filedocumented in this encounter Care Teams Director Information Security Relationship Specialty Start Date End Date Ady Pate MD PCP - General 06/09/22 Javier Recinos MD [address] [place] [address] Surgery, Orthopedic 06/09/22 System, Provider Not In 07/02/24 documented as of this encounter
--- OUTSIDE RECORDS SUMMARY | 2025-04-15 15:16 | XMS_ITS | Encounter Summary ---
Author Organization [facility] Address [address] [place] [address] Care Team Providers Care Forensic Structural Engineer Name Role Phone dAy Pate MD Primary Care Provider Unava ilable Javier Recinos MD Unavailable [phone] System, Provider Not In Unavailable Unavaila ble Encounter Details Date Type Department Care Team (Late st Contact Info) Description 02/13/2024 Scanned Document [facility] [address] [place] [phone] Huan Foley MD [address] [facility] [address] [place] [address] Social History Tobacco Use Types Packs/Day Years [...] Description 04/16/2025 8:00 AM EDT Office Visit [facility] PHYSICAL MEDICINE & REHAB [facility] [address] [address] Javier Recinos MD 31 [facility] 100 [place] [address] Chris Thurston MD 538 [facility] [address] [place] [address] 06/22/2025 8:00 AM EST [facility] [address] [phone] Jocy Lazcano PA-C [address] [address] 08/26/2025 8:00 AM EST [facility] [address] [phone] Jocy Lazcano PA-C [address] [phone] documented as of this encounter Visit Diagnoses Not on filedocumented in this encounter Care Teams Forensic Structural Engineer Relationship Specialty Start Date End Date Ady Pate MD PCP - General 06/09/22 Javier Recinos MD 31 [facility] [address] [place] [address] Surgery, Orthopedic 06/09/22 System, Provider Not In 07/02/24 documented as of this encounter
--- OUTSIDE RECORDS SUMMARY | 2025-04-15 15:16 | XMS_ITS | Encounter Summary ---
Author Organization [facility] [place] Address [address] [place] [address] Care Team Providers Care Hobbies [employer] Crafts Sales Representative Name Role Phone Ady Pate MD Primary Care Provider Unava ilable Javier Recinos MD Unavailable [phone] System, Provider Not In Unavailable Unavaila ble Encounter Details Date Type Department Care Team (Late st Contact Info) Description 01/24/2023 Scanned Document [facility] [address] [place] [phone] Javier Recinos MD [address] [place] [address] [place] [address] [place] [address] Social History Tobacco Use Types Packs/Day Years [...] Description 04/16/2025 8:00 AM EDT Office Visit [facility] PHYSICAL MEDICINE & REHAB [facility] 76 [facility] [address] [place] [address] Javier Recinos MD 31 [facility] 100 [place] [address] Chris Thurston MD 538 [facility] 103 [place] [address] 06/22/2025 8:00 AM EST [facility] [address] [phone] Jocy Lazcano PA-C [address] [address] 08/26/2025 8:00 AM EST [facility] [address] [phone] Jocy Lazcano PA-C [address] [address] documented as of this encounter Visit Diagnoses Not on filedocumented in this encounter Care Teams [employer] Sales Representative Relationship Specialty Start Date End Date Ady Pate MD PCP - General 06/09/22 Javier Recinos MD 31 [facility] [address] [place] [address] Surgery, Orthopedic 06/09/22 System, Provider Not In 07/02/24 documented as of this encounter
--- OUTSIDE RECORDS SUMMARY | 2025-04-15 15:16 | XMS_ITS | Encounter Summary ---
Author Organization [facility] Address [address] [place] [address] Care Team Providers Care In School Suspension Aide Name Role Phone Ady Pate MD Primary Care Provider Unava ilable Javier Recinos MD Unavailable [phone] System, Provider Not In Unavailable Unavaila ble Encounter Details Date Type Department Care Team (Late st Contact Info) Description 05/27/2024 Scanned Document [facility] [address] [phone] Mayte Lowe [address] [place] [phone] Social History Tobacco Use Types Packs/Day Years [...] Description 04/16/2025 8:00 AM EDT Office Visit [facility] PHYSICAL MEDICINE & REHAB [facility] [address] [phone] Javier Recinos MD [address] [facility] 100 [place] [address] Chris Thurston MD 538 [facility] [address] [place] [address] 06/22/2025 8:00 AM EST [facility] [address] [phone] Jocy Lazcano PA-C [address] [phone] 08/26/2025 8:00 AM EST [facility] [address] [phone] Jocy Lazcano PA-C [address] [phone] documented as of this encounter Visit Diagnoses Not on filedocumented in this encounter Care Teams In School Suspension Aide Relationship Specialty Start Date End Date Ady Pate MD PCP - General 06/09/22 Javier Recinos MD [address] [address] Surgery, Orthopedic 06/09/22 System, Provider Not In 07/02/24 documented as of this encounter
== END 2025-04-15 11:47 | disposition home or self-care (01) ==
LOC: HO.WFDLDS 11:46
PROVIDERS: Visit Provider Student in an Organized Health Care Education/Training Program
DX: L40.50 Arthropathic psoriasis, unspecified (principal); M19.041 Primary osteoarthritis, right hand; M19.042 Primary osteoarthritis, left hand
CPT/HCPCS: 36415; 80053; 85025; 85652; 86140

== ENCOUNTER 2025-04-21 07:27 | Outpatient (AMB) | payer OTHER, SELFPAY ==
--- OUTSIDE RECORDS SUMMARY | 2014-02-23 07:00 | XMS_ITS | Continuity of Care Document ---
Author Organization [facility] Address [address] [place] [address] Care Team Providers Care Associate Web Developer Name Role Phone Cases Gary MENDOZA Unavailable Unavailable Procedures Procedure Date Patient Left Without Being Seen 014 Advance Directives Directive Yes / No Effective Date File Name No Information Encounters Encounter Description Practice Location Reason(s) For Visit Diagnoses Date Provider Providers Copied on Encounter [facility], [address], [place], [place], [id number], [place] [facility] [place] No Information Cases Gary. [address], [address], [place], [place], [id number], [place]. tel:[phone] Family History Family Member Type Diagnosis Age At Onset No Information Payers Payer name Insurance type Covered libertarian ID Authoriza tion(s) C[employer] PPO POS EPO QPOS MISC CI [id number] Social History Type Description Quantity Date Captured [...]
--- OUTSIDE RECORDS SUMMARY | 2025-04-16 08:00 | XMS_ITS | Encounter Summary ---
Author Organization [facility] Address [address] [place] [address] Care Team Providers Care Slitter Scorer Cut Off Operator Name Role Phone Ady Pate MD Primary Care Provider Unava ilable Javier Recinos MD Unavailable [phone] System, Provider Not In Unavailable Unavaila ble Reason for Visit * Reason Comments Back Pain Lower back pain * Pain Management (Routine) - Pending Review Specialty Diagnoses / Procedures Referred By Contact Referred To Contact Pain Medicine / Physical Medicine and Rehabilitation Diagnoses S/P lumbar spinal fusion Javier Recinos MD [address] [place] [address] Phone: tel: fax: Chris Thurston MD [address] [place] [address] Phone: tel: fax: Referral ID Status Reason Start Date Expiration Date Visits Requested Visits Authorized [id number] Pending Review Consult 02/27/2025 02/28/2026 1 1 Encounter Details Date Type Department Care Team (Late st Contact Info) Description 04/16/2025 8:00 AM EDT Office Visit [facility] PHYSICAL MEDICINE & REHAB [address] [phone] Javier Recinos MD [address] [place] [address] Chris Thurston MD [address] [address] Social History Tobacco Use Types Packs/Day Years Used Date Smoking Tobacco: Never Passive Smoke Exposure: Past Smokeless Tobacco: Never Alcohol Use Standard Drinks/Week Comments Yes 0 (1 standard drink = 0.6 oz pure alcohol) 1 glass/month advised to stop 2 weeks before surgery [facility] Utilities Answer Date Recorded In the past 12 months has e [employer], [employer], oil, or water [employer] threatened to shut off services in your [...] any time in the past 12 m [facility], were you homeless or living in a chcf (including now)? No 07/17/2024 Physical Activity Answer Date Recorded On average, how many days pe r week do you engage in moderate to strenuous exercise (like a brisk walk)? 0 days 04/16/2025 On average, how many minutes do you exercise per day at this level? 0 min 04/16/2025 Comments No Sex and Gender Information Value Date Recorded Sex Assigned at Female 03/03/2024 9:39 AM EDT Legal Sex Female 1:11 PM EST Gender Identity Female 03/03/2024 9:39 AM EDT Sexual Orientation Heterosexual (straight) 04/23 11:40 AM EDT documented as of this encounter Last Filed Vital Signs Vital Sign Reading Time Taken Comments Blood Pressure 108/70 04/16/2025 8:06 AM EDT Pulse - - Temperature - - Respiratory Rate - - Oxygen Saturation - - Inhaled Oxygen Concentration - - Weight - - Height - - Body Mass Index - - documented in this encounter Plan of Treatment Upcoming Encounters Date Type Department Care Team (Late st Contact Info) Description 05/07/2025 9:30 AM EDT Patient Off Site Visit [facility] PHYSICAL MEDICINE & REHAB [address] [phone] Chris Thurston MD [address] [place] [address] 06/04/2025 8:00 AM EST Telemedicine [facility] PHYSICAL MEDICINE & REHAB [address] [phone] Chris Thurston MD [address] [place] [address] 06/22/2025 8:00 AM EST [facility] [address] [phone] Jocy Lazcano PA-C [address] [place] [address] 08/26/2025 8:00 AM EST [facility] [address] [phone] Jocy Lazcano PA-C 7 [facility] [address] [place] [address] documented as of this encounter Goals Goal [...] on filedocumented in this encounter Care Teams Slitter Scorer Cut Off Operator Relationship Specialty Start Date End Date Ady Pate MD PCP - General 06/09/22 Javier Rceinos MD [address] [place] [address] [address] [place] [address] Surgery, Orthopedic 06/09/22 System, Provider Not In 07/02/24 documented as of this encounter
--- OUTSIDE RECORDS SUMMARY | 2025-04-21 07:30 | XMS_ITS | Encounter Summary ---
Author Organization [facility] Address [address] [place] [address] Care Team Providers Care Svp Innovation Partnerships Name Role Phone Ady Pate MD Primary Care Provider Javier Gonzalez MD Unavailable [phone] System, Provider Not In Unavailable Unavaila ble Encounter Details Date Type Department Care Team (Latest Contact Info) Description 04/16/2025 Travel Social History Tobacco Use Types Packs/Day Years Used Date Smoking Tobacco: Never Passive Smoke Exposure: Past Smokeless Tobacco: Never Alcohol Use Standard Drinks/Week Comments Yes 0 (1 standard drink = 0.6 oz pure alcohol) 1 glass/month advised to stop 2 weeks before surgery [facility] Utilities Answer Date Recorded In the past 12 months has e [employer] gas, oil, or water [employer] threatened to shut off services in your [...] any time in the past 12 [facility], were you homeless or living in a long term (including now)? No 07/17/2024 Physical Activity Answer [...] 9:30 AM EDT Patient Off Site Visit [facility] [address] [address] Chris Thurston MD [address] [place] [address] 06/04/2025 8:00 AM EST Telemedicine [facility] & RE[facility] [address] [address] Chris Thurston MD [address] [place] [address] 06/22/2025 8:00 AM EST [facility] [address] [place] [address] Jocy Lazcano PA-C [address] [place], [place] [address] 08/26/2025 8:00 AM EST [facility] [address] [phone] Jocy Lazcano PA-C [address] [place], [place] [phone] documented as of this encounter Goals Goal [...] on filedocumented in this encounter Care Teams Svp Innovation Partnerships Relationship Specialty Start Date End Date Ady Pate MD PCP - General 06/09/22 Javier Recinos MD [address] [place] [address] Surgery, Orthopedic 06/09/22 System, Provider Not In 07/02/24 documented as of this encounter
--- OUTSIDE RECORDS SUMMARY | 2025-04-21 07:30 | XMS_ITS | Encounter Summary ---
Author Organization [facility] Address [address] [place] [address] Care Team Providers Care Manager Private Name Role Phone Ady Pate MD Primary Care Provider [phone] Encounter Details Date Type Department Care Team Description 04/24/2024 Sawing And Assembly Supervisor Report Medical Records [address] [place] [address] Abstract, Provider Social History Tobacco Use Types [...] filedocumented in this encounter Care Teams Manager Private Relationship Specialty Start Date End Date Ady Pate MD [address] [place] [address] PCP - General Internal Medicine 04/23/21 documented as of this encounter
--- OUTSIDE RECORDS SUMMARY | 2025-04-21 07:30 | XMS_ITS | Encounter Summary ---
Author Organization [facility] Address [address] [place] [address] Care Team Providers Care Disaster Recovery Manager Name Role Phone Shannon Cardozo MD Primary Care Provider Ady Meng MD Primary Care Provider Reason for Visit * Reason Onset Date Comments Call From Pharmacy 12/29/2019 meloxicam (MO BIC) 15 MG tablet Encounter Details Date Type Department Care Team Description 12/29/2019 Telephone Rheumatology - [address] [address] Al Fong MD Call From Pharmacy (meloxicam [...] pharmacist: [facility] Pharmacist Name: [facility] Name of the medication meloxicam (MOBIC) [...] on filedocumented in this encounter Care Teams Disaster Recovery Manager Relationship Specialty Start Date End Date Shannon Cardozo MD PCP - General Internal Medicine 12/06/15 04/22/21 Ady Pate MD [address] [place] [address] PCP - General Internal Medicine 04/23/21 documented as of this encounter
--- OUTSIDE RECORDS SUMMARY | 2025-04-21 07:30 | XMS_ITS | Encounter Summary ---
Author Organization [facility] Address [address] [place] [address] Care Team Providers Care Sheet Folder Name Role Phone Shannon Cardozo MD Primary Care Provider [facility] Ady Pate MD Primary Care Provider [phone]- [phone] Encounter Details Date Type Department Care Team Description 09/19/2019 [facility] [address] [place] [address] Jersey Rooney Social History Tobacco Use Types [...] filedocumented in this encounter Care Teams Sheet Folder Relationship Specialty Start Date End Date Shannon Cardozo MD PCP - General Internal Medicine 12/06/15 04/22/21 Ady Pate MD [address] [place] [address] PCP - General Internal Medicine 04/23/21 documented as of this encounter
--- OUTSIDE RECORDS SUMMARY | 2025-04-21 07:30 | XMS_ITS | Encounter Summary ---
Author Organization [facility] Address [address] [place] [address] Care Team Providers Care Refrigeration Installer Name Role Phone Ady Pate MD Primary Care Provider Unava ilable Javier Recinos MD Unavailable [phone] System, Provider Not In Unavailable Unavaila ble Encounter Details Date Type Department Care Team (Late st Contact Info) Description 09/03/2024 Scanned Document [facility] [address] [address] Mayte Lowe [address] [place] [address] Social History Tobacco Use Types Packs/Day Years Used Date Smoking Tobacco: Never Passive Smoke Exposure: Past Smokeless Tobacco: Never Alcohol Use Standard Drinks/Week Comments Yes 0 (1 standard drink = 0.6 oz pure alcohol) 1 glass/month advised to stop 2 weeks before surgery [facility] Utilities Answer Date Recorded In the past 12 months has [employer] gas, oil, or water [employer] threatened to shut off services in your [...] were you homeless or living in a nursing home (including now)? No 07/17/2024 Comments No [...] 9:30 AM EDT Patient Off Site Visit [facility] PHYSICAL MEDICINE & REHAB [address] [phone] Chris Thurston MD [address] [place] [address] 06/04/2025 8:00 AM EST Telemedicine [facility] PHYSICAL MEDICINE & REHAB [address] [address] Chris Thurston MD [address] [place] [address] 06/22/2025 8:00 AM EST [facility] Visit [facility] [address] [place] [phone] Jocy Lazcano PA-C [address] [place], [place] [address] 08/26/2025 8:00 AM EST [facility] [address] [phone] Jocy Lazcano PA-C [address] [place], [place] [phone] documented as of this encounter Goals Goal [...] on filedocumented in this encounter Care Teams Refrigeration Installer Relationship Specialty Start Date End Date Ady Pate MD PCP - General 06/09/22 Javier Recinos MD [address] [place] [address] Surgery, Orthopedic 06/09/22 System, Provider Not In 07/02/24 documented as of this encounter
--- OUTSIDE RECORDS SUMMARY | 2025-04-21 07:30 | XMS_ITS | Encounter Summary ---
Author Organization [facility] Address [address] [place] [address] Care Team Providers Care Practice Advisor Name Role Phone Shannon Cardozo MD Primary Care Provider Ady Meng MD Primary Care Provider Reason for Visit * Reason Onset Date Comments Abnormal Mammogram 08/07/2018 Encounter Details Date Type Department Care Team Description 08/07/2018 Telephone Radiology - [address] [address] Radiology, Authorizing Abnormal Mammogram Social History Tobacco [...] 08/19/2018 2:44 PM EST Pt went to [facility] for 2nd breast biopsy. L.m. Therefore [...] on filedocumented in this encounter Care Teams Practice Advisor Relationship Specialty Start Date End Date Shannon Cardozo MD PCP - General Internal Medicine 12/06/15 04/22/21 Ady Pate MD [address] [place] [address] PCP - General Internal Medicine 04/23/21 documented as of this encounter
--- OUTSIDE RECORDS SUMMARY | 2025-04-21 07:30 | XMS_ITS | Encounter Summary ---
Author Organization [facility] Address [address] [place] [address] Care Team Providers Care Millinery Salesperson Name Role Phone Shannon Cardozo MD Primary Care Provider [facility] Ady Pate MD Primary Care Provider [phone] Encounter Details Date Type Department Care Team Description 09/10/2018 Orders Only Medical Records [address] [place] [address] Abstract, Provider Social History Tobacco Use Types [...] on filedocumented in this encounter Care Teams Millinery Salesperson Relationship Specialty Start Date End Date Shannon Cardozo MD PCP - General Internal Medicine 12/06/15 04/22/21 Ady Pate MD [address] [place] [address] PCP - General Internal Medicine 04/23/21 documented as of this encounter
--- OUTSIDE RECORDS SUMMARY | 2025-04-21 07:30 | XMS_ITS | Encounter Summary ---
Author Organization [facility] Address [address] [place] [address] Care Team Providers Care Family Readiness Support Assistant Name Role Phone Ady Pate MD Primary Care Provider [phone] Reason for Visit * Reason Onset Date Comments Prior Authorization 07/12/2021 Encounter Details Date Type Department Care Team Description 07/12/2021 Telephone Gastroenterology - [place] [address] [facility] [address] [place] [phone] Michell William MD Prior Authorization Social History [...] 09/22/2021 12:40 PM EST R Auth # [id number] Valid 09/22/21-10/20/21 Per David Frank with [employer] * Telephone Encounter - Aiden Luo - 09/20/2021 9:58 AM EST Good morning, Patient has a plan through [employer] - ID [id number]. Sorry for he delay, I was finally able to reach her today. * Telephone Encounter - Missy Erazoauregard - 09/20/2021 9:14 AM EST Any update on patient insurance? * Telephone Encounter - Aiden uLo - 09/13/2021 10:43 AM EST Phoned patient, LM on to obtain new insurance information. * Telephone Encounter - Missy Ochoa - 09/13/2021 10:32 AM EST Patient insurance termed 07/29/21. Please get updated insurance information so we may obtain authorization for patient Thank You Missy Ochoa [phone] Prior Auth Department * Telephone Encounter - Aiden Luo - 07/12/2021 2:12 PM EST Pre-auth needed Patient is scheduled for a colonoscopy 10/20/2021 Diagnosis Screening Patients insurance: [facility] Appointment is with Michell William MD Code to process pre-auth for: [id number] Location of procedure: [facility] documented in this encounter Plan of Treatment Not on file documented as of this encounter Visit Diagnoses Not on filedocumented in this encounter Care Teams Family Readiness Support Assistant Relationship Specialty Start Date End Date Ady Pate MD [address] [place] [id number] PCP - General Internal Medicine 04/23/21 documented as of this encounter
--- OUTSIDE RECORDS SUMMARY | 2025-04-21 07:30 | XMS_ITS | Encounter Summary ---
Author Organization [facility] Address [address] [place] [address] Care Team Providers Care Route Supervisor Name Role Phone Shannon Cardozo MD Primary Care Provider [facility] Ady Pate MD Primary Care Provider [phone] Encounter Details Date Type Department Care Team Description 05/29/2016 Release of Information Medical Records [address] [place] [address] Abstract, Provider Social History Tobacco Use Types [...] on filedocumented in this encounter Care Teams Route Supervisor Relationship Specialty Start Date End Date Shannon Cardozo MD PCP - General Internal Medicine 12/06/15 04/22/21 Ady Pate MD [address] [place] [address] PCP - General Internal Medicine 04/23/21 documented as of this encounter
--- OUTSIDE RECORDS SUMMARY | 2025-04-21 07:30 | XMS_ITS | Encounter Summary ---
Author Organization [facility] Address [address] [place] [address] Care Team Providers Care Seam Stay Stitcher Name Role Phone Jose Angel Tang Primary Care Provider Unav ailable Shannon Cardozo MD Primary Care Provider Unavaila ble Ady Pate MD Primary Care Provider Encounter Details Date Type Department Care Team Description 03/10/2013 Consultant Internship Report Medical Records [address] [place] [address] [place] [address] [place] [address] Social History Tobacco Use Types Packs/Day Years Used Date Smoking Tobacco: Never Alcohol Use Standard Drinks/Week Comments Yes 0 (1 standard drink = 0.6 oz pur e alcohol) rare Sex Assigned at Date Recorded Not on file documented as of this encounter Plan of Treatment Not on file documented as of this encounter Visit Diagnoses Not on filedocumented in this encounter Care Teams Seam Stay Stitcher Relationship Specialty Start Date End Date Jose Angel Tang PCP - General 08/09/06 12/05/15 Shannon Cardozo MD PCP - General Internal Medicine 12/06/15 04/22/21 Ady Pate MD [address] [place], [place] [phone] PCP - General Internal Medicine 04/23/21 documented as of this encounter
--- OUTSIDE RECORDS SUMMARY | 2025-04-21 07:30 | XMS_ITS | Encounter Summary ---
Author Organization [facility] Address [address] [place] [address] Care Team Providers Care Gravity Prospecting Operator Name Role Phone Ady Pate MD Primary Care Provider [phone] Encounter Details Date Type Department Care Team Description 03/29/2022 Pt. Non Urgent Medical Question Adult Medicine - [place] [address] [place] [address] Ady Pate MD [address] [place], [place] [phone] Social History Tobacco Use Types Packs/Day Years [...] on filedocumented in this encounter Care Teams Gravity Prospecting Operator Relationship Specialty Start Date End Date Ady Pate MD [address] [place] [address] PCP - General Internal Medicine 04/23/21 documented as of this encounter
--- OUTSIDE RECORDS SUMMARY | 2025-04-21 07:30 | XMS_ITS | Encounter Summary ---
Author Organization [facility] Address [address] [place] [address] Care Team Providers Care Eligibility Manager Name Role Phone Ady Pate MD Primary Care Provider Unava ilable Javier Recinos MD Unavailable [phone] System, Provider Not In Unavailable Unavaila ble Encounter Details Date Type Department Care Team (Late st Contact Info) Description 05/15/2024 Scanned Document [facility] [address] [place] [phone] Javier Recinos MD [address] [place] [address] [address] [place] [address] Social History Tobacco Use Types Packs/Day Years [...] 9:30 AM EDT Patient Off Site Visit [facility] PHYSICAL MEDICINE & REHAB [address] [phone] Chris Thurston MD [address] [place] [address] 06/04/2025 8:00 AM EST Telemedicine [facility] & REHAB [address] [phone] Chris Thurston MD [address] [place] [address] 06/22/2025 8:00 AM EST [facility] [address] [phone] Jocy Lazcano PA-C [address] [address] 08/26/2025 8:00 AM EST [facility] [address] [address] Jocy Lazcano PA-C [address] [address] documented as of this encounter Visit Diagnoses Not on filedocumented in this encounter Care Teams Eligibility Manager Relationship Specialty Start Date End Date Ady Pate MD PCP - General 06/09/22 Javier Recinos MD [address] [address] Surgery, Orthopedic 11/11/22 System, Provider Not In 07/02/24 documented as of this encounter
--- OUTSIDE RECORDS SUMMARY | 2025-04-21 07:30 | XMS_ITS | Encounter Summary ---
Author Organization [facility] Address [address] [place] [address] Care Team Providers Care Educational Psychology Teacher Name Role Phone Shannon Cardozo MD Primary Care Provider [facility] Ady Pate MD Primary Care Provider [phone] Encounter Details Date Type Department Care Team Description 09/10/2020 Old Medical Records Medical Records [address] [place] [address] Abstract, Provider Social History Tobacco Use Types [...] on filedocumented in this encounter Care Teams Educational Psychology Teacher Relationship Specialty Start Date End Date Shannon Cardozo MD PCP - General Internal Medicine 12/06/15 04/22/21 Ady Pate MD [address] [place] [address] PCP - General Internal Medicine 04/23/21 documented as of this encounter
--- OUTSIDE RECORDS SUMMARY | 2025-04-21 07:30 | XMS_ITS | Encounter Summary ---
Author Organization [facility] Address [address] [place] [address] Care Team Providers Care Meter Calibrator Name Role Phone Ady Pate MD Primary Care Provider Unava ilable Javier Recinos MD Unavailable [phone] System, Provider Not In Unavailable Unavaila ble Encounter Details Date Type Department Care Team (Late st Contact Info) Description 01/24/2023 Scanned Document [facility] [address] [place] [phone] Javier Recinos MD [address] [place] [address] [address] [place] [address] Social History Tobacco Use Types Packs/Day Years [...] 9:30 AM EDT Patient Off Site Visit [facility] PHYSICAL MEDICINE & REHAB [address] [address] Chris Thurston MD [address] [place] [address] 06/04/2025 8:00 AM EST Telemedicine [facility]YSICAL MEDICINE & REHAB [address] [address] Chris Thurston MD [address] [place] [address] 06/22/2025 8:00 AM EST [facility] [address] [address] Jocy Lazcano PA-C [address] [address] 08/26/2025 8:00 AM EST [facility] [address] [address] Jocy Lazcano PA-C [address] [address] documented as of this encounter Visit Diagnoses Not on filedocumented in this encounter Care Teams Meter Calibrator Relationship Specialty Start Date End Date Ady Pate MD PCP - General 06/09/22 Javier Recinos MD [address] [address] Surgery, Orthopedic 06/09/22 System, Provider Not In 07/02/24 documented as of this encounter
--- OUTSIDE RECORDS SUMMARY | 2025-04-21 07:30 | XMS_ITS | Encounter Summary ---
Author Organization [facility] Address [address] [place] [address] Care Team Providers Care Circulation Librarian Name Role Phone Shannon Cardozo MD Primary Care Provider Ady Meng MD Primary Care Provider Reason for Visit * Reason Onset Date Comments refill request 10/27/2020 Encounter Details Date Type Department Care Team Description 10/27/2020 Refill Adult Medicine [address] [address] Shannon Cardozo MD refill request Social History [...] an upcoming appointment? No-unable to reach left [facility] to call for appointment due to refill [...] N/A Patients current insurance carrier is: Payor: [facility] / Plan: POS $0 GALLITO [id number] / Product Type: POS [id number] documented in this encounter Plan of Treatment Not on file documented as of this encounter Visit Diagnoses Diagnosis Psoriatic arthropathy documented in this encounter Care Teams Circulation Librarian Relationship Specialty Start Date End Date Shannon Cardozo MD PCP - General Internal Medicine 12/06/15 04/22/21 Ady Pate MD [address] [place] [id number] PCP - General Internal Medicine 04/23/21 documented as of this encounter
--- OUTSIDE RECORDS SUMMARY | 2025-04-21 07:30 | XMS_ITS | Encounter Summary ---
Author Organization [facility] Address [address] [place] [address] Care Team Providers Care School Community Relations Coordinator Name Role Phone Ady Pate MD Primary Care Provider [phone] Reason for Visit * Reason Comments E-prescribe Rx Request Encounter Details Date Type Department Care Team Description 03/08/2022 Refill Rheumatology - [address] [address] Al Fong MD E-prescribe Rx Request Social [...] arthropathy documented in this encounter Care Teams School Community Relations Coordinator Relationship Specialty Start Date End Date Ady Pate MD [address] [place] [address] PCP - General Internal Medicine 04/23/21 documented as of this encounter
--- OUTSIDE RECORDS SUMMARY | 2025-04-21 07:30 | XMS_ITS | Encounter Summary ---
Author Organization [facility] Address [address] [place] [address] Care Team Providers Care Copper Etcher Name Role Phone Shannon Cardozo MD Primary [facility] Ady Pate MD Primary Care Provider Encounter Details Date Type Department Care Team Description 06/13/2016 Pelletizer Tender Report Medical Records [address] [place] [address] [place] Rooney Social History Tobacco Use Types [...] on filedocumented in this encounter Care Teams Copper Etcher Relationship Specialty Start Date End Date Shannon Cardozo MD PCP - General Internal Medicine 12/06/15 04/22/21 Ady Pate MD [address] [place] [address] PCP - General Internal Medicine 04/23/21 documented as of this encounter
--- OUTSIDE RECORDS SUMMARY | 2025-04-21 07:30 | XMS_ITS | Encounter Summary ---
Author Organization [facility] Address [address] [place] [address] Care Team Providers Care Brattice Builder Name Role Phone Shannon Cardozo MD Primary Care Provider Ady Meng MD Primary Care Provider [phone] Reason for Visit * Reason Onset Date Comments Prior Authorization 05/20/2019 [place] Encounter Details Date Type Department Care Team Description 05/20/2019 Telephone Adult Medicine - [address] [address] Shannon Cardozo MD Prior Authorization ([place]) Social [...] My Meds request: Yes -- Barker Code [id number] Name of Medication Apremilast (OTEZLA) 30 MG Tab Dose of Medication 30MG What is the RX # from the faxed refill? How does patient take this med? Sig - Route: Take 30 mg by mouth 2 times daily. - Oral What Pharmacy did the fax come from: [facility] fax #: [phone] [employer] Party Information from fax: What Prescription Plan does the patient have? [employer] RX BIN/PCN if applicable: Cardholder ID:[id number] Person Code: Relationship Code: spouse Help desk phone: documented in this encounter Plan of Treatment Not on file documented as of this encounter Visit Diagnoses Not on filedocumented in this encounter Care Teams Brattice Builder Relationship Specialty Start Date End Date Shannon Cardozo MD PCP - General Internal Medicine 12/06/15 04/22/21 Ady Pate MD [address] [place] [address] PCP - General Internal Medicine 04/23/21 documented as of this encounter
--- OUTSIDE RECORDS SUMMARY | 2025-04-21 07:30 | XMS_ITS | Encounter Summary ---
Author Organization [facility] Address [address] [place] [address] Care Team Providers Care Dive Superintendent Name Role Phone Shannon Cardozo MD Primary Care Provider [facility] Ady Pate MD Primary Care Provider Encounter Details Date Type Department Care Team Description 11/14/2016 Orders Only Adult Medicine [address] [address] Marni Bejarano MD Bacterial sinusitis (Primary Dx) [...] (chronic) documented in this encounter Care Teams Dive Superintendent Relationship Specialty Start Date End Date Shannon Cardozo MD PCP - General Internal Medicine 12/06/15 04/22/21 Ady Pate MD [address] [place] [address] PCP - General Internal Medicine 04/23/21 documented as of this encounter
--- OUTSIDE RECORDS SUMMARY | 2025-04-21 07:30 | XMS_ITS | Encounter Summary ---
Author Organization [facility] Address [address] [place] [address] Care Team Providers Care Manager Construction Name Role Phone Ady Pate MD Primary Care Provider Unava Javier Grossman MD Unavailable [phone] System, Provider Not In Unavailable Unavaila ble Encounter Details Date Type Department Care Team (Late st Contact Info) Description 04/16/[address] [facility] [address] [phone] Georgia Abel, JT [address] [place] [address] Social History Tobacco Use Types Packs/Day Years Used Date Smoking Tobacco: Never Passive Smoke Exposure: Past Smokeless Tobacco: Never Alcohol Use Standard Drinks/Week Comments Yes 0 (1 standard drink = 0.6 oz pure alcohol) 1 glass/month advised to stop 2 weeks before surgery [facility] Utilities Answer Date Recorded In the past 12 months has [employer], [employer], oil, or water [employer] threatened to shut off services in your [...] a nursing home (including now)? No 07/17/2024 Physical Activity Answer [...] 9:30 AM EDT Patient Off Site Visit [facility] [address] [phone] Chris Thurston MD [address] [place] [address] 06/04/2025 8:00 AM EST Telemedicine [facility] [address] [facility] [address] [place] [phone] Chris Thurston MD 8 [facility] [address] [place] [address] 06/22/2025 8:00 AM EST Office Visit [facility] [address] [place] [phone] Jocy Lazcano PA-C 7 [facility] [address] [place], [place] [phone] 08/26/2025 8:00 AM EST [facility] [address] [phone] Jocy Lazcano PA-C 7 [facility] [address] [place], [place] [phone] documented as of this encounter Goals Goal [...] filedocumented in this encounter Care Teams Manager Construction Relationship Specialty Start Date End Date Ady Pate MD PCP - General 06/09/22 Javier Recinos MD [address] [place] [address] Surgery, Orthopedic 06/09/22 System, Provider Not In 07/02/24 documented as of this encounter
--- OUTSIDE RECORDS SUMMARY | 2025-04-21 07:30 | XMS_ITS | Encounter Summary ---
Author Organization [facility] Address [address] [place] [address] Care Team Providers Care Premium Card Cancellation Clerk Name Role Phone Ady Pate MD Primary Care Provider [phone] Encounter Details Date Type Department Care Team Description 11/20/2022 Desk Officer Report Medical Records [address] [place] [address] Al Fong MD Social History Tobacco Use [...] on filedocumented in this encounter Care Teams Premium Card Cancellation Clerk Relationship Specialty Start Date End Date Ady Pate MD [address] [place] [address] PCP - General Internal Medicine 04/23/21 documented as of this encounter
--- OUTSIDE RECORDS SUMMARY | 2025-04-21 07:30 | XMS_ITS | Encounter Summary ---
Author Organization [facility] Address [address] [place] [address] Care Team Providers Care Rougher Machine Operator Name Role Phone Ady Pate MD Primary Care Provider [phone] Encounter Details Date Type Department Care Team Description 02/06/2024 Wirer Report Medical Records [address] [place] [address] Abstract, Provider Social History Tobacco Use Types [...] on filedocumented in this encounter Care Teams Rougher Machine Operator Relationship Specialty Start Date End Date Ady Pate MD [address] [place] [address] PCP - General Internal Medicine 04/23/21 documented as of this encounter
--- OUTSIDE RECORDS SUMMARY | 2025-04-21 07:30 | XMS_ITS | Encounter Summary ---
Author Organization [facility] Address [address] [place] [address] Care Team Providers Care Freight Traffic Consultant Name Role Phone Ady Pate MD Primary Care Provider Unava ilable Javier Recinos MD Unavailable [phone] System, Provider Not In Unavailable Unavaila ble Encounter Details Date Type Department Care Team (Late st Contact Info) Description 05/27/2024 Scanned Document [facility] [address] [phone] Mayte Lowe [address] [place] [address] Social History Tobacco Use Types Packs/Day Years [...] 9:30 AM EDT Patient Off Site Visit [facility] [address] [phone] Chris Thurston MD [address] [place] [address] 06/04/2025 8:00 AM EST Telemedicine [facility] [address] [phone] Chris Thurston MD [address] [place] [address] 06/22/2025 8:00 AM EST [facility] [address] [phone] Jocy Lazcano PA-C [address] [phone] 08/26/2025 8:00 AM EST [facility] [address] [phone] Jocy Lazcano PA-C [address] [phone] documented as of this encounter Visit Diagnoses Not on filedocumented in this encounter Care Teams Freight Traffic Consultant Relationship Specialty Start Date End Date Ady Pate MD PCP - General 06/09/22 Javier Recinos MD [address] [address] Surgery, Orthopedic 06/09/22 System, Provider Not In 07/02/24 documented as of this encounter
--- OUTSIDE RECORDS SUMMARY | 2025-04-21 07:30 | XMS_ITS | Encounter Summary ---
Author Organization [facility] Address [address] [place] [address] Care Team Providers Care Enlisted Aircrew/Aerial Observer/Gunner Name Role Phone Shannon Cardozo MD Primary Care Provider Ady Meng MD Primary Care Provider [phone] Reason for Visit * Reason Onset Date Comments Congestion 11/14/2016 Encounter Details Date Type Department Care Team Description 11/14/2016 Telephone Adult Medicine - [address] [address] Shannon Cardozo MD Congestion Social History Tobacco Use Types Packs/Day Years Used Date Smoking Tobacco: Never Smokeless Tobacco: Never Alcohol Use Standard Drinks/Week Comments Yes 0 (1 standard drink = 0.6 oz pur e alcohol) rare Sex Assigned at Date Recorded Not on file documented as of this encounter Miscellaneous Notes * Telephone Encounter - Robby Muniz L.P.N. - 11/14/2016 11:07 AM EDT Patitn called aware of RX * Telephone Encounter - Marni Bejarano MD - 11/14/2016 11:03 AM EDT Prescription sent through for augmentin * Telephone Encounter - Robby Muniz L.P.N. - 11/14/2016 10:39 AM EDT Patient C/O of chest congestion Prod cough light in color Wants an RX sent to her pharmacy She is very upset She called 11/09 played telephone tag Called Sunday told we were closed Called urgent care Sunday told her she would need an appt She wants a RX called to her pharmacy She has an appt tomorrow with her PCP She states that is for a different reason I'm sick of feeling sick Wants an RX called to her pharmacy today Please review and advise * Telephone Encounter - Elisha Marr - 11/14/2016 10:17 AM EDT Symptoms patient is presenting: the pt is congested and has a lot of muscos in her chest she is coughing she saw Dr Harris for the problem and is requesting medication be sent to her pharmacy If pain or injury related was it due to an accident at work or from a motor vehicle accident? NO If yes, gather 3rd libertarian insurance information Date of accident/Injury: How long has patient had these symptoms?: PCP: Shannon Cardozo Payor: [facility] / Plan: POS $0 GALLITO [id number] / Product Type: POS [id number] documented in this encounter Plan of Treatment Not on file documented as of this encounter Visit Diagnoses Not on filedocumented in this encounter Care Teams Enlisted Aircrew/Aerial Observer/Gunner Relationship Specialty Start Date End Date Shannon Cardozo MD PCP - General Internal Medicine 12/06/15 04/22/21 Ady Pate MD [address] [place] [address] PCP - General Internal Medicine 04/23/21 documented as of this encounter
--- OUTSIDE RECORDS SUMMARY | 2025-04-21 07:30 | XMS_ITS | Clinical Summary ---
Author Organization [facility] Address [address] [place] [address] Care Team Providers Care Temporary Administrative Assistant Name Role Phone Ady Pate MD Primary Care Provider Javier Gonzalez MD Unavailable [phone] System, Provider Not In Unavailable Unavaila ble Allergies Active Allergy Reactions Criticality Noted Date Comments Adhesives/Tape Rash/Dermatitis Medium 07/02/2024 Codeine Other (See Comments) Medium 06/12/2022 Stomach cramps Penicillins GI Intolerance/Nausea/Vomiting Low 05/30 Medications amLODIPine (NORVASC) 2.5 MG tablet Take 1 tablet (2.5 mg total) by mouth every evening. 04/09/20 24 Active rosuvastatin (CRESTOR) 40 MG tablet 07/03/20 24 Active Blood Glucose Monitoring Suppl ([employer] Blood Glucose Meter) w/Device Kit Use to check blood sugar every morning before breakfast and 2 hours after if BS is below 120. If higher than 120 in the AM or 250 - 300 2 hours after meal contact MD office. 10/30/19 25 Active Lancets [facility] Check blood sugar 4 times a day or as directed. 11/08/19 25 026 Active glucose blood (Contour Test) test strip See Admin Instructions. 11/08/19 25 026 Active Lancets (OneTouch Delica Plus Umzsti99M) Misc 10/31/19 25 Active metFORMIN (GLUCOPHAGE-XR) 500 MG 24 hr tablet Take 1 tablet by mouth daily. 04/09/20 24 Active meloxicam (MOBIC) 7.5 MG tablet Take 7.5 mg by mouth daily. Active gabapentin (NEURONTIN) 300 MG capsuleIndicatio ns:Radiculopathy , lumbar region TAKE 1 CAPSULE BY MOUTH 3 TIMES DAILY 270 capsule 3 02/04/20 25 Active methocarbamol (ROBAXIN) 750 MG tabletIndication s:Lumbar radiculitis TAKE 1 TABLET BY MOUTH EVERY NIGHT NEEDED FOR MUSCLE SPASM(S) 30 tablet 03/10/20 25 Active Mounjaro 2.5 MG/0.5ML pen-injector 01/27/20 25 Active Stelara 90 MG/ML subcutaneous injection Inject 1 mL (90 mg total) under the skin every 3 (three) months. Last taken 03/01/2024 07/30/19 24 025 Discontinued Active Problems Problem Noted Date [...] C5-7 anterior cervical discectomy and fusion at [facility] on 05/15/[address] Recinos. Morbid obesity [...] Plan (07/02/2024 4:38 PM EST): Followed by interlocking tower operator Dr. Bharat patrick appt 12/20/2023. Currently on stelara- last injection 03/01/2024. Do not take any further injections prior to surgery Assessment & Plan (04/22/2024 4:41 PM EDT): Followed by interlocking tower operator Dr. Bharat patrick appt 12/20/2023. Currently on [...] Encounters Date Type Department Care Team Description 04/16/2025 8:00 AM EDT Office Visit [facility] [address] [phone] Javier Recinos MD Gutierrez, David E, MD 04/16/2025 Scanned Document [facility] [address] [phone] Georgia Abel [place] 04/16/2025 Travel 04/02/2025 Documentation [facility] [address] [phone] Salma Ramirez, PT Lower Back - PT Discharge 03/09/2025 Refill [facility] [address] [phone] Jocy Lazcano PA-C Lumbar radiculitis 02/27/2025 8:10 AM EDT Ancillary Procedure [facility] [address] [phone] Javier Recinos MD 02/27/2025 8:00 AM EDT Office [facility] [address] [phone] Javier Recinos MD S/P lumbar spinal fusion (Primary Dx) 02/03/2025 Refill [facility] [address] [phone] Jocy Lazcano PA-C Radiculopathy, lumbar region from [...] to stop 2 weeks before surgery [facility] Distractifyities Answer Date Recorded In the past 12 months has th e [employer], oil, or water [employer] threatened to shut off services in [...] any time in the past 12 m cox monett, were you homeless or living in a halfway (including now)? No 07/17/2024 Physical Activity Answer [...] Pressure 108/70 04/16/2025 8:06 AM EDT Pulse 86 07/17/2024 9:00 AM EST Temperature [...] 9:30 AM EDT Patient Off Site Visit [facility] [address] [phone] Chris Thurston MD [address] [place] [address] 06/04/2025 8:00 AM EST Telemedicine [facility] [address] [phone] Chris Thurston MD [address] [place] [address] 06/22/2025 8:00 AM EST [facility] Visit [facility] [address] [phone] Jocy Lazcano PA-C [address] [phone] 08/26/2025 8:00 AM EST [facility] Visit [facility] [address] [phone] [facility]-C [facility] [address] [place], [place] [phone] Health Maintenance Due Date Last Done Comments Hepatitis C Virus Screening 1970 Foot Exam 1980 Lipid Panel 1980 Ophthalmology Exam 1980 HIV Screening 1983 Microalbumin/Creatinine Rati o Urine 1988 DTaP/Tdap/Td Vaccines (1 - Tdap) 1989 Hepatitis B Vaccines (1 of 3 - 19+ 3-dose series) 1989 Pneumococcal Vaccines 50+ (1 of 2 - PCV) 1989 Pap Smear (Ages 21-65) 1991 Mammogram 2010 Colonoscopy 2015 Zoster (Shingles) Vaccine (1 of 2) 2020 Diabetic Self-Management Tra ining (DSMT) 04/22/2024 Medical Nutrition Therapy (MNT) 07/30/2024 Influenza Vaccine 02/27/2025 04/09/2024, , 07/11/2021, Additional history exists COVID-19 Vaccine (3 - 2024-2 6 season) 2025 11/18/2020, 10/20/2020 Hemoglobin A1C 04/25/2025 01/23/2025, 12/11/2023, 06/15/2022, Additional history exists Creatinine with GFR [...] this documentation. Medical Devices Implanted Type Area Latex Caster Device Identifier Shelf Expiration Date Model / Serial / Lot [id number] Re-Line-O Ti Ned, 5.5x35mm Lordotic Implanted:Qty : 2 on 07/05/2022 by Javier Recinos MD at [facility] Nail/Ned N/A: Spine Lumbar [employer] [id number] / / [id number] Ned Spinal 55mm 5.5mm Reline Lrdtc Ti Mas Nonst - [id number] Implanted:Qty : 1 on 07/16/2024 by Javier Recinos MD at [facility] Nail/Ned N/A: Spine Lumbar [employer] 03/08/2040 [id number] / / N/A [id number] Ned Spinal 55mm 5.5mm Reline Lrdtc Ti Mas Nonst - [id number] Implanted:Qty : 1 on 07/16/2024 by Javier Recinos MD at [facility] Nail/Ned N/A: Spine Lumbar [employer] 03/08/2040 [id number] / / N/A [id number] Screw Bone Spine Reline 2c 50mm 7.5mm Shnk Nonst Mas - [id number] Implanted:Qty : 4 on 07/05/2022 by Javier Recinos MD at [facility] Spine N/A: Spine Lumbar [employer] [id number] / / [id number] Screw Bone Spine Reline Mdlr Reduction Extension Tulip Nonst - [id number] Implanted:Qty : 4 on 07/05/2022 by Javier Recinos MD at [facility] Spine N/A: Spine Lumbar [employer] [id number] / / [id number] Screw Bone Spine Reline 5.5mm Lock Open Tulip Nonst - [id number] Implanted:Qty : 4 on 07/05/2022 by Javier Recinos MD at [facility] Spine N/A: Spine Lumbar [employer] [id number] / / [id number] Screw Bone Spine Reline 5.5mm Lock Open Tulip - [id number] Implanted:Qty : 1 on 07/16/2024 by Javier Recinos MD at [facility] Spine N/A: Spine Lumbar [employer] [id number] / / [id number] Screw Bone Spine Reline 5.5mm Lock Open Tulip - [id number] Implanted:Qty : 1 on 07/16/2024 by Javier Recinos MD at [facility] Spine N/A: Spine Lumbar [employer] [id number] / / [id number] Screw Bone Spine Reline 5.5mm Lock Open Tulip - [id number] Implanted:Qty : 1 on 07/16/2024 by Javier Recinos MD at [facility] Spine N/A: Spine Lumbar [employer] [id number] / / [id number] Screw Bone Spine Reline 5.5mm Lock Open Tulip - [id number] Implanted:Qty : 1 on 07/16/2024 by Javier Recinos MD at [facility] Spine N/A: Spine Lumbar [employer] [id number] / / [id number] Screw Bone Spine Reline 5.5mm Lock Open Tulip - [id number] Implanted:Qty : 1 on 07/16/2024 by Javier Recinos MD at [facility] Spine N/A: Spine Lumbar [employer] [id number] / / [id number] Screw Bone Spine Reline 5.5mm Lock Open Tulip - [id number] Implanted:Qty : 1 on 07/16/2024 by Javier Recinos MD at [facility] Spine N/A: Spine Lumbar [employer] [id number] / / [id number] Screw Bone Spine Reline Mdlr Reduction Extension Tulip Nonst - [id number] Implanted:Qty : 1 on 07/16/2024 by Javier Recinos MD at [facility] Spine N/A: Spine Lumbar [employer] [id number] / / [id number] Screw Bone Spine Reline Mdlr Reduction Extension Tulip Nonst - [id number] Implanted:Qty : 1 on 07/16/2024 by Javier Recinos MD at [facility] Spine N/A: Spine Lumbar [employer] [id number] / / [id number] Screw Bone Spine Reline Mdlr Reduction Extension Tulip Nonst - [id number] Implanted:Qty : 1 on 07/16/2024 by Javier Recinos MD at [facility] Spine N/A: Spine Lumbar [employer] [id number] / / [id number] Screw Bone Spine Reline 2c 50mm 7.5mm Mdlr Shnk Nonst Mas - [id number] Implanted:Qty : 1 on 07/16/2024 by Javier Recinos MD at [facility] Spine N/A: Spine Lumbar [employer] 07/04/2027 [id number] / / N/A [id number] Shank Screw 50mm 6.5mm Reline 2c Spine Mdlr Mas Nonst Lf - [id number] Implanted:Qty : 1 on 07/16/2024 by Javier Recinos MD at [facility] Spine N/A: Spine Lumbar [employer] [id number] / / [id number] Shank Screw 50mm 6.5mm Reline 2c Spine Mdlr Mas Nonst Lf - [id number] Implanted:Qty : 1 on 07/16/2024 by Javier Recinos MD at [facility] Spine N/A: Spine Lumbar [employer] [id number] / / [id number] Substitute Bone Graft Ms Grft Matrix Block Void Filler 20ml - [id number] Implanted:Qty : 1 on 07/05/2022 by Javier Recinos MD at [facility] Void Filler N/A: Spine Lumbar [employer] MINIMALLY INVASIVE T 01/26/2025 [id number] / / [id number] Filler Bone Void 15cc 1.7-10mm Canc Algrf Chp Frzdr - [id number] Implanted:Qty : 1 on 07/05/2022 by Javier Recinos MD at [facility] Void Filler N/A: Spine Lumbar MUSC[employer]OSKELETAL TRANSPLANT FOU 02/14/2025 [id number] / [id number] / [id number] Filler Bone Void 5cc Dbx Algrf Putty Frzdr - [id number] Implanted:Qty : 1 on 07/16/2024 by Javier Recinos MD at [facility] Void Filler N/A: Spine Lumbar [employer]OSKELETAL TRANSPLANT FOU 03/05/2026 [id number] / [id number] / [id number] Filler Bone Void 30cc 1.7-10mm Canc Algrf Chp Frzdr - [id number] Implanted:Qty : 1 on 07/16/2024 by Javier Recinos MD at [facility] Void Filler N/A: Spine Lumbar [employer]LETAL TRANSPLANT FOU 04/05/2027 [id number] / [id number] / [id number], 20 Degree Implanted:Qty : 1 on 07/05/2022 by Javier Recinos MD at [facility] N/A: Spine Lumbar 03/15/2027 / / [id number] Description:catalog# [id number] P2 [id number] Mod Xlw [id number] 10d Implanted:Qty : 1 on 07/16/2024 by Javier Recinos MD at [facility] N/A: Spine Lumbar [employer] [id number] / / Procedures Procedure Name Priority Date/Time [...] w/Flex,Ext, 4+Views (02/27/2025 8:17 AM EDT) Narrative OA - 02/27/2025 8:17 AM EDT This exam was performed in office at [facility] and images reviewed by orthopedic provider. Any findings are documented within ambulatory encounter note on date of service. us Javier Recinos MD IMG DIAGNOSTIC IMAGING ORDERAB LES Final Result [facility] * (ABNORMAL) Basic Metabolic Panel (07/17/2024 4:55 AM EST) Glucose 215(H) 65 - 99 mg/dL 07/17/2024 7:20 AM [facility] Comment:Fasting: <100 mg/dL, Non-Fasting: <200 mg/dL (ADA 2005) Blood Urea Nitrogen (BUN) 12 8 - 21 mg/dL 07/17/2024 7:20 AM [facility] Creatinine 0.7 0.4 - 1.1 mg/dL 07/17/2024 7:20 AM [facility] eGFR >90 >59 07/17/2024 7:20 AM [facility] Comment:CKD-EPI (2020) in mL /min/1.73 sq meters. Sodium 136 136 - 145 mmol/L 07/17/2024 7:20 AM [facility] Potassium 4.5 3.4 - 5.3 mmol/L 07/17/2024 7:20 AM [facility] Chloride 103 98 - 107 mmol/L 07/17/2024 7:20 AM [facility] CO2 22 22 - 33 mmol/L 07/17/2024 7:20 AM [facility] Anion Gap 11 7 - 17 07/17/2024 7:20 AM [facility] Calcium 9.0 8.7 - 10.5 mg/dL 07/17/2024 7:20 AM EST [facility] BUN/Creatinine Ratio 17 10.0 - 25.0 Ratio 07/17/2024 7:20 AM [facility] Blood (Plasma/Serum) 07/17/2024 4:55 AM EST 07/17/2024 5:32 AM EST us Javier Recinos MD LAB BLOOD ORDERABLES Final Res ult [facility] [address] [place] [address], [facility] [address] [place] [address] from Last 3 Months or Most Recently Relevant to Health Maintenance Insurance UMR UMR UMR Advance Directives * Full Code [...] 6:49 AM 07/05/2022 3:24 PM Care Teams Temporary Administrative Assistant Relationship Specialty Start Date End Date Ady Pate MD PCP - General 06/09/22 Javier Recinos MD [address] [place] [address] Surgery, Orthopedic 06/09/22 System, Provider Not In 07/02/24
--- OUTSIDE RECORDS SUMMARY | 2025-04-21 07:30 | XMS_ITS | Encounter Summary ---
Author Organization [facility] Address [address] [place] [address] Care Team Providers Care Client Solutions Specialist Name Role Phone Jose Angel Tang Primary Care Provider Shannon Hernadez MD Primary Care Provider Ady Meng MD Primary Care Provider Reason for Visit * Reason Onset Date Comments REFERRAL 12/30/2014 Encounter Details Date Type Department Care Team Description 12/30/2014 Telephone Podiatry - [address] [address] Krupa Sanon DPM REFERRAL Social History Tobacco [...] filedocumented in this encounter Care Teams Client Solutions Specialist Relationship Specialty Start Date End Date Jose Angel Tang PCP - General 08/09/06 12/05/15 Shannon Cardozo MD PCP - General Internal Medicine 12/06/15 04/22/21 Ady Pate MD [address] [place] [address] PCP - General Internal Medicine 04/23/21 documented as of this encounter
--- OUTSIDE RECORDS SUMMARY | 2025-04-21 07:30 | XMS_ITS | Encounter Summary ---
Author Organization [facility] Address [address] [place] [address] Care Team Providers Care Pneumatic Tool Operator Name Role Phone Ady Pate MD Primary Care Provider [phone] Encounter Details Date Type Department Care Team Description 09/25/2023 Manufacturing Sr Engineer Report Medical Records [address] [place] [address] Nora Patel MD Social History Tobacco Use [...] on filedocumented in this encounter Care Teams Pneumatic Tool Operator Relationship Specialty Start Date End Date Ady Pate MD [address] [place], [place] [phone] PCP - General Internal Medicine 04/23/21 documented as of this encounter
--- OUTSIDE RECORDS SUMMARY | 2025-04-21 07:30 | XMS_ITS | Encounter Summary ---
Author Organization [facility] Address [address] [place] [address] Care Team Providers Care Shank Stitcher Name Role Phone Shannon Cardozo MD [facility] Ady Pate MD Primary Care Provider Encounter Details Date Type Department Care Team Description 09/09/2019 Heat Transfer Technician Report Medical Records [address] [place] [address] [place] Rooney Social History Tobacco Use Types [...] on filedocumented in this encounter Care Teams Shank Stitcher Relationship Specialty Start Date End Date Shannon Cardozo MD PCP - General Internal Medicine 12/06/15 04/22/21 Ady Pate MD [address] [place] [address] PCP - General Internal Medicine 04/23/21 documented as of this encounter
--- OUTSIDE RECORDS SUMMARY | 2025-04-21 07:30 | XMS_ITS | Encounter Summary ---
Author Organization [facility] Address [address] [place] [address] Care Team Providers Care Qa Software Tester Name Role Phone Ady Pate MD Primary Care Provider Unava ilable Javier Recinos MD Unavailable [phone] System, Provider Not In Unavailable Unavaila ble Encounter Details Date Type Department Care Team (Late st Contact Info) Description 02/13/2024 Scanned Document [facility] [address] [place] [phone] Huan Foley MD [address] [place] [address] Social History Tobacco Use Types Packs/Day Years [...] 9:30 AM EDT Patient Off Site Visit [facility] [address] [address] Chris Thurston MD [address] [place] [address] 06/04/2025 8:00 AM EST Telemedicine [facility] [address] [address] Chris Thurston MD [address] [place] [address] 06/22/2025 8:00 AM EST [facility] [address] [phone] Jocy Lazcano PA-C [address] [address] 08/26/2025 8:00 AM EST [facility] [address] [address] Jocy Lazcano PA-C [address] [address] documented as of this encounter Visit Diagnoses Not on filedocumented in this encounter Care Teams Qa Software Tester Relationship Specialty Start Date End Date Ady Pate MD PCP - General 06/09/22 Javier Recinos MD [address] [address] Surgery, Orthopedic 11/11/22 System, Provider Not In 07/02/24 documented as of this encounter
--- OUTSIDE RECORDS SUMMARY | 2025-04-21 07:30 | XMS_ITS | Encounter Summary ---
Author Organization [facility] Address [address] [place] [address] Care Team Providers Care Section Gang Name Role Phone Shannon Cardozo MD Primary Care Provider [facility] Ady Pate MD Primary Care Provider Encounter Details Date Type Department Care Team Description 07/31/2019 Telephone Adult Medicine - [place] [address] [place] [address] Shannon Cardozo MD Social History Tobacco Use [...] filedocumented in this encounter Care Teams Section Gang Relationship Specialty Start Date End Date Shannon Cardozo MD PCP - General Internal Medicine 12/06/15 04/22/21 Ady Pate MD [address] [place] [address] PCP - General Internal Medicine 04/23/21 documented as of this encounter
--- OUTSIDE RECORDS SUMMARY | 2025-04-21 07:30 | XMS_ITS | Encounter Summary ---
Author Organization [employer] [facility] Address [address] [place] [address] Care Team Providers Care Binder Folder Operator Name Role Phone Ady Pate MD Primary Care Provider [phone] Reason for Visit * Reason Onset Date Comments Prior Authorization 09/22/2021 Colonoscopy Encounter Details Date Type Department Care Team Description 09/22/2021 Telephone Internal Medicine - [address], [address] [place] [address] Michell William MD Prior Authorization (Colonoscopy) Social [...] 09/22/2021 12:42 PM EST R auth # [id number] Valid 09/22/21-10/20/21 {Per David Frank with [employer] Forwarded to [facility] Schedulers documented in this encounter Plan of Treatment Not on file documented as of this encounter Visit Diagnoses Not on filedocumented in this encounter Care Teams Binder Folder Operator Relationship Specialty Start Date End Date Ady Pate MD [address] [place] [address] PCP - General Internal Medicine 04/23/21 documented as of this encounter
--- OUTSIDE RECORDS SUMMARY | 2025-04-21 07:30 | XMS_ITS | Encounter Summary ---
Author Organization [facility] Address [address] [place] [address] Care Team Providers Care News Correspondent Name Role Phone Ady Pate MD Primary Care Provider [phone] Reason for Visit * Reason Onset Date Comments Orders Call 07/07/2022 Encounter Details Date Type Department Care Team Description 07/07/2022 Telephone Adult Medicine - [place] [address] [place], [place] [phone] Ady Pate MD [address] [place], [place] [phone] Orders Call Social History Tobacco Use Types [...] stating patient had a back surgery in [place]. Surgeon in not licensed in [place]. [facility] is asking if Dr will sign all the orders for the patient. Please advise documented in this encounter Plan of Treatment Not on file documented as of this encounter Visit Diagnoses Not on filedocumented in this encounter Care Teams News Correspondent Relationship Specialty Start Date End Date Ady Pate MD [address] [place] [address] PCP - General Internal Medicine 04/23/21 documented as of this encounter
--- OUTSIDE RECORDS SUMMARY | 2025-04-21 07:30 | XMS_ITS | Encounter Summary ---
Author Organization [facility] Address [address] [place] [address] Care Team Providers Care Ground Operations Supervisor Name Role Phone Ady Pate MD Primary Care Provider [phone] Reason for Visit * Reason Onset Date Comments Prior Authorization 07/05/2022 In lab sleep study Encounter Details Date Type Department Care Team Description 07/05/2022 Telephone Adult Medicine [address] [address] Talita Arthur MD [address] [place] [phone] Prior Authorization (In lab sleep study) [...] [facility] no auth required call reference # [id number]. [facility] phone # [phone] Order and benefits faxed to [employer] for scheduling. They will contact pt. Notification letter sent. documented in this encounter Plan of Treatment Not on file documented as of this encounter Visit Diagnoses Not on filedocumented in this encounter Care Teams Ground Operations Supervisor Relationship Specialty Start Date End Date Ady Pate MD [address] [place] [address] PCP - General Internal Medicine 04/23/21 documented as of this encounter
--- OUTSIDE RECORDS SUMMARY | 2025-04-21 07:30 | XMS_ITS | Clinical Summary ---
Author Organization [facility] [address] [facility] Address [address] [place] [address] Phone Care Team Providers Care Assembly Line Driver Name Role Phone Rishi Pate MD Primary Care Provider [phone] Allergies Active Allergy Reactions Criticality Noted Date [...] 12/09/19 25 Active blood-glucose,r eceiver,cont (Dexcom G6 [place] Operator) miscIndications :Type 2 diabetes mellitus without complication, [...] complication, without long-term current use of insulin ([facility] V24, [facility] V28) APPLY 1 SENSOR ONTO SKIN DIRECTED [...] complication, without long-term current use of insulin ([facility] V24, [facility] V28) USE DIRECTED CONTINUOUSLY 1 each 3 03/10/20 25 Active metFORMIN XR (GLUCOPHAGE-XR) 500 mg 24 hr tablet Take 1 tablet (500 mg total) by mouth 1 (one) time each day. with food 30 each 03/10/20 25 026 Active tirzepatide (Mounjaro) 5 mg/0.5 mL injectionIndica tions:Type 2 diabetes mellitus without complication, without long-term current use of insulin ([facility] V24, [facility] V28) Inject 0.5 mL (5 mg total) under the skin every 7 (seven) days. 2 mL 1 04/14/20 25 025 Active tirzepatide (Mounjaro) 5 mg/0.5 mL injectionIndica tions:Type 2 diabetes mellitus without complication, without long-term current use of insulin ([facility] V24, [facility] V28) Inject 0.5 mL (5 mg total) under the skin every 7 (seven) days. 2 mL 1 02/24/20 25 025 Discontin ued(Reord er) tirzepatide (Mounjaro) 5 mg/0.5 mL injectionIndica tions:Type 2 diabetes mellitus without complication, without long-term current use of insulin ([facility] V24, [facility] V28) Inject 0.5 mL (5 mg total) under the skin every 7 (seven) days. 2 mL 1 04/06/20 25 025 Discontin ued(Reord er) Active Problems Problem Noted Date Diagnosed Date Hypertension 04/09/2024 Obstructive sleep apnea 06/17/2020 Overview (08/28/2024): [facility] Home Sleep Apnea Test: Date 06/08/2020; [...] Primary osteoarthritis of both feet 05/13/2019 Diabetes ([facility] V24, [facility] V28) 09/13/2017 Overview (08/28/2024): 04/22 - HgbA1C 6.9% Lumbar disc disease with radiculopathy Overview (08/28/2024): L5-S1 Surgery 05/14 L4-L5 surgery 09/18 Sacroiliitis ([facility] V24) 09/10/2007 Overview (08/28/2024): Clem Causey Psoriatic arthropathy ([facility] V24, [facility] V28) 10/01/2006 Overview (08/28/2024): Dr. Fong 01/09 [...] by insurance 08/14 - referred to external panel sewer for consideration of UV therapy Last Assessment & Plan: Make sure to keep your panel sewer appointment. Mixed hyperlipidemia 10/04/2005 Overview (08/28/2024): 04/13 - ASCVD 10yr risk 0.8% IMO update Obesity (BMI 30-39.9) 10/04/2005 Encounters Date Type Department Care Team Description 01/26/2025 3:00 PM EDT Office Visit Adult [place] [address] [place] [address] Edna Mcpherson, JEANNIE Type 2 diabetes mellitus without complication, without long-term current use of insulin ([facility] V24, [facility] V28) (Primary Dx) from Last 3 Months [...] History Surgery Date Site/Laterality Comments CHOLECYSTECTOMY PROCEDURE: [place] LAPAROSCOPY SURG CHOLECYSTECTOMY BREAST BIOPSY 2018 Right [...] pain 03/14/2013 DX:Left shoul teresa pain; COMMENT: [facility] PT - minimal improvement [...] 8:30 AM EDT Office Visit Adult Medicine [facility] [address] [place] [address] Edna Mcpherson NP [address] [place] [address] Health Maintenance Due Date Last Done Comments [...] - Td or Tdap) 03/20/2033 03/20/2023, 07/18/2013 RSV Immunization Adult Patients (1 - 1-dose 75+ series) 2045 Hepatitis C Screening Completed 12/21/2016 HIB Vaccines [...] complication, without long-term current use of insulin ([facility] V24, [facility] V28) Mixed hyperlipidemia LIPID PANEL WITH REFLEX [...] LAB CHEMISTRY METHOD 01/23/2025 3:44 PM EDT [facility] Triglycerides 284(H) 0 - 150 mg/dL LAB CHEMISTRY METHOD 01/23/2025 3:44 PM EDT [facility] HDL 47 >=40 mg/dL LAB CHEMISTRY METHOD 01/23/2025 3:44 PM EDT [facility] LDL Calculated 79 0 - 100 mg/dL LAB CHEMISTRY METHOD 01/23/2025 3:44 PM EDT [facility] VLDL Cholesterol [place] 56.8 mg/dL LAB CHEMISTRY METHOD 01/23/2025 3:44 PM EDT [facility] Non HDL Chol. (LDL+VLDL) 136 <145 mg/dL LAB CHEMISTRY METHOD 01/23/2025 3:44 PM EDT [facility] Chol/HDL Ratio 3.9 0.0 - 4.4 LAB CHEMISTRY METHOD 01/23/2025 3:44 PM EDT [facility] Blood Venous blood specimen / Unknown Venipuncture / Unknown 01/23/2025 1:28 PM EDT 01/23/2025 1:29 PM EDT Edna Mcpherson LAB BLOOD ORDERABLES Final Res ult Performing Organization Address [facility]/ZIP Co de Phone Number [facility] [address] [place] [address], [place] [phone] * (ABNORMAL) Hemoglobin A1c (01/23/2025 1:28 PM EDT) Hemoglobin A1C 9.4(H) <6.5 % LAB CHEMISTRY METHOD 01/23/2025 10:28 PM EDT [facility] Mean Bld Glu Estim. 223 mg/dL LAB CHEMISTRY METHOD 01/23/2025 10:28 PM EDT [facility] Blood Venous blood specimen / Unknown Venipuncture / Unknown 01/23/2025 1:28 PM EDT 01/23/2025 1:29 PM EDT Edna Mcpherson NP LAB BLOOD ORDERABLES Final Res ult Performing Organization Address [facility]/ZIP Co de Phone Number [facility] [address] [place] [address], [place] [phone] * (ABNORMAL) Comprehensive metabolic panel (01/23/2025 1:28 PM EDT) Sodium 136 133 - 145 mmol/L LAB CHEMISTRY METHOD 01/23/2025 3:44 PM EDT [facility] Potassium 4.1 3.5 - 5.5 mmol/L LAB CHEMISTRY METHOD 01/23/2025 3:44 PM EDT [facility] Chloride 102 96 - 110 mmol/L LAB CHEMISTRY METHOD 01/23/2025 3:44 PM [facility] CO2 27 21 - 32 mmol/L LAB CHEMISTRY METHOD 01/23/2025 3:44 PM [facility] Anion Gap 7 3 - 11 LAB CHEMISTRY METHOD 01/23/2025 3:44 PM [facility] Glucose 197(H) 70 - 100 mg/dL LAB CHEMISTRY METHOD 01/23/2025 3:44 PM [facility] BUN 18 5 - 25 mg/dL LAB CHEMISTRY METHOD 01/23/2025 3:44 PM [facility] Creatinine 1.01 0.50 - 1.10 mg/dL LAB CHEMISTRY METHOD 01/23/2025 3:44 PM [facility] eGFR 66 >=60 mL/min/1. 73m2 LAB CHEMISTRY METHOD 01/23/2025 3:44 PM [facility] Comment:Calculation based on the Chronic Kidney Disease Epidemiology Collaboration (CKD-EPI) equation refit without adjustment for race. BUN/Creatinine Ratio 17.8 LAB CHEMISTRY METHOD 01/23/2025 3:44 PM [facility] Calcium 9.7 8.5 - 10.5 mg/dL LAB CHEMISTRY METHOD 01/23/2025 3:44 PM [facility] AST (SGOT) 24 10 - 42 unit/L LAB CHEMISTRY METHOD 01/23/2025 3:44 PM [facility] ALT (SGPT) 47 10 - 60 unit/L LAB CHEMISTRY METHOD 01/23/2025 3:44 PM [facility] Alkaline Phosphatase 105 42 - 121 unit/L LAB CHEMISTRY METHOD 01/23/2025 3:44 PM [facility] Total Protein 7.1 6.0 - 8.0 g/dL LAB CHEMISTRY METHOD 01/23/2025 3:44 PM [facility] Albumin 3.8 3.2 - 5.0 g/dL LAB CHEMISTRY METHOD 01/23/2025 3:44 PM EDT [facility] Total Bilirubin 1.6(H) 0.0 - 1.4 mg/dL LAB CHEMISTRY METHOD 01/23/2025 3:44 PM EDT [facility] Blood Venous blood specimen / Unknown Venipuncture / Unknown 01/23/2025 1:28 PM EDT 01/23/2025 1:29 PM EDT Edna Mcpherson NP LAB BLOOD ORDERABLES Final Res ult [facility] [address] [place] [address], * External Mammogram Report (12/11/2024) Anatomical Region Laterality Modality Mammography Provider [facility] IMG BI PROCEDURES Final Result * Colonoscopy (10/20/2021) Colonoscopy no interpretation , abstracted Anatomical Region Laterality Modality Other Historical Provider HEALTH MAINTENANCE Final Result * Hepatitis C Screening (12/21/2016) Hepatitis C Screening abstracted Historical Provider HEALTH MAINTENANCE Final Result from Last 3 Months or Most Recently Relevant to Health Maintenance Insurance [facility] [place] [id number] Care Teams Assembly Line Driver Relationship Specialty Start Date End Date Rishi Pate MD [address] [place] [address] PCP - General Internal Medicine 04/23/21
--- OUTSIDE RECORDS SUMMARY | 2025-04-21 07:30 | XMS_ITS | Clinical Summary ---
Author Organization [facility] Address [address] [place] [address] Care Team Providers Care Mems Engineer Name Role Phone Ady Pate MD Primary Care Provider [phone] Allergies Active Allergy Reactions Severity Noted Date [...] sleep apnea mild AHI 14 05/30 Overview: [facility] Home Sleep Apnea Test: Date 06/08/2020; [...] by insurance 08/14 - referred to external price accuracy supervisor for consideration of UV therapy Last Assessment & Plan: Make sure to keep your price accuracy supervisor appointment. Mixed hyperlipidemia 10/04/2005 Overview: 04/13 - ASCVD 10yr risk 0.8% IMO update Obesity (BMI 30-39.9) 10/04/2005 Resolved Problems Problem Noted Date Resolved Date Left shoulder pain 03/14/2013 07/18/2013 Overview: [facility] PT - minimal improvement [...] Hypertension Mother Stroke Mother Hypertension Uncle [address] Uncle 2 Relation Name Status Comments Aunt [...] 64 04/09/2024 10:32 AM EDT Temperature 36.3 C (97.3 F) 04/09/2024 10:32 AM EDT Respiratory Rate 14 03/20/2023 9:47 [...] 40-64 07/26/202007/26, 07/26/2018, 09/10/2017, Additional history exists DIABETES: BLOOD SUGAR CONTRO L TEST (HGBA1C) 07/09/2024 04/09/2024, 03/20/2023, 03/24/2022, Additional history exists BMI CHECK/ADVISE 07/30/2024 03/20/2023, , 04/06/2022, Additional history exists MAMMOGRAM 11/21/2024 11/22/2023, 10/29 (External Completion), 11/16/2022, Additional history exists Covid-19 Vaccine (3 - 2022-2 4 season) 2025 11/18/2020, 10/20/2020 INFLUENZA (#1) 2025 04/09/2024, 06/29, 06/20/2020, Additional history exists DIABETES/HEART DISEASE: MALGORZATA MCKENZIE CHOLESTEROL (LDL) 04/09/2025 04/09/2024, 03/20/2023, 09/20/2022, Additional history exists COLON CANCER SCREENING 10/21/2031 , 10/20/2021 (Completed) DTAP/TDAP/TD (3 - Td or Tdap) 03/20/2033 03/20/2023, 07/18/2013 PNEUMOCOCCAL VACCINE FOR HIG H RISK PATIENTS (#2) 2035 09/10/2017 Insurance Payer Benefit Plan / Group Subscriber ID Effective Dates Phone Address Type WORKERS COMP WORKERS COMPENSATIO N/[place] [id number] 2002-Pres ent [id number] [place] [address] OTHER [facility]/10%/ 30/F/PPO [id number] 2014-Pres ent [phone] [address] [place] [address] PPO Fee-for- Service WORKERS COMP WORKERS COMPENSATIO [place] [id number] 2015-Pre sent [phone] [facility] [address] [place] [address] OTHER [employer] COMMERCIAL PPO $0 [id number] 2021-Pre sent [facility] [address] [address] [place] [address] PPO Fee-for- Service Care Teams Mems Engineer Relationship Specialty Start Date End Date Ady Pate MD [address] [place] [address] PCP - General Internal Medicine 04/23/21
--- OUTSIDE RECORDS SUMMARY | 2025-04-21 07:30 | XMS_ITS | Encounter Summary ---
Author Organization [facility] Address [address] [place] [address] Care Team Providers Care Sash Finisher Name Role Phone Shannon Cardozo MD Primary Care Provider Parveen Ady Mariano MD Primary Care Provider [phone] Reason for Visit * Reason Comments E-prescribe Rx Request Encounter Details Date Type Department Care Team Description 05/07/2020 Refill Adult Medicine - [address] [address] Shannon Cardozo MD E-prescribe Rx Request Social [...] N/A Patients current insurance carrier is: Payor: [facility] / Plan: POS $0 GALLITO [id number] / Product Type: POS [id number] documented in this encounter Plan of Treatment Not on file documented as of this encounter Visit Diagnoses Not on filedocumented in this encounter Care Teams Sash Finisher Relationship Specialty Start Date End Date Shannon Cardozo MD PCP - General Internal Medicine 12/06/15 04/22/21 Ady Pate MD [address] [place] [address] PCP - General Internal Medicine 04/23/21 documented as of this encounter
--- OUTSIDE RECORDS SUMMARY | 2025-04-21 07:30 | XMS_ITS | Encounter Summary ---
Author Organization [facility] Address [address] [place] [address] Care Team Providers Care Printer Assistant Name Role Phone Ady Pate MD Primary Care Provider Unava ilable Javier Recinos MD Unavailable [phone] System, Provider Not In Unavailable Unavaila ble Encounter Details Date Type Department Care Team (Late st Contact Info) Description 06/14/2022 Telephone [facility] [place] [address] [facility] 2nd Floor [address] [place] [address] Jia Osorio, [place] [address] [place] [address] Social History Tobacco Use Types Packs/Day Years [...] Have you recently had an admission to SNF/Rehab/Long Term? No Have you traveled internationally or domestically in the last month? No documented in this encounter Plan of Treatment Upcoming Encounters Date Type Department Care Team (Late st Contact Info) Description 05/07/2025 9:30 AM EDT Patient Off Site Visit [facility] [address] [address] Chris Thurston MD [address] [place] [address] 06/04/2025 8:00 AM EST Telemedicine [facility] [address] [place] [address] Chris Thurston MD [address] [facility] [address] [place] [address] 06/22/2025 8:00 AM EST [facility] [address] [place] [address] Jocy Lazcano PA-C [address] [phone] 08/26/2025 8:00 AM EST [facility] [address] [phone] Jocy Lazcano PA-C [address] [phone] documented as of this encounter Visit Diagnoses Not on filedocumented in this encounter Care Teams Printer Assistant Relationship Specialty Start Date End Date Ady Pate MD PCP - General 06/09/22 Javier Recinos MD [address] [address] Surgery, Orthopedic 06/09/22 System, Provider Not In 07/02/24 documented as of this encounter
--- OUTSIDE RECORDS SUMMARY | 2025-04-21 07:30 | XMS_ITS | Encounter Summary ---
Author Organization [facility] Address [address] [place] [address] Care Team Providers Care Prop Worker Name Role Phone Shannon Cardozo MD [facility] Ady Pate MD Primary Care Provider [phone] Encounter Details Date Type Department Care Team Description 05/16/2016 Boat Ride Operator Report Medical Records [address] [place] [address] [place] Rooney Social History Tobacco Use Types [...] on filedocumented in this encounter Care Teams Prop Worker Relationship Specialty Start Date End Date Shannon Cardozo MD PCP - General Internal Medicine 12/06/15 04/22/21 Ady Pate MD [address] [place] [address] PCP - General Internal Medicine 04/23/21 documented as of this encounter
--- NOTE | 2025-04-21 07:34 | A.OFFVIS_ITS ---
Vital Signs 04/21/25 07:39 Height 5 ft 4 in Weight 229 lb 15.074 oz BMI 39.5 BP 132/90 H Blood Pressure Location Lt brachial Position Sitting Pulse 79 Pulse Source Pulse Oximeter Pulse Oximetry (%) 98 Oxygen Delivery Method Room Air Intake Visit Reasons: PSO Intake Note: Patient presents for PsO follow up. Allergies adhesive Allergy (Severe, Verified 04/21/25 07:38) Swelling Penicillins Allergy (Unknown, Verified 04/21/25 07:38) Nausea and Vomiting codeine Adverse Reaction (Unknown, Verified 04/21/25 07:38) Abdominal Pain Medication List - Last Reconciled 04/21/25 by Christel Pierce MD amlodipine 2.5 mg PO DAILY clobetasol 0.05% 1 appl topical BID 2 weeks meloxicam 7.5 mg PO BID 30 days rosuvastatin 20 mg PO BEDTIME tirzepatide (Mounjaro) 5 mg subcut QWEEK triamcinolone acetonide 0.1% 1 appl topical DAILY ustekinumab-auub 90 mg subcut Q12W HPI Comments Details: Patient is a 55-year-old female with hypertension, hyperlipidemia, polyarticular osteoarthritis (C-spine, L-spine, hands), psoriasis complicated by psoriatic arthritis here today for follow up Interval History: Patient last seen 12/17/24 with me - On Stelara 90mg SC every 12 weeks, meloxicam 7.5mg daily - Continues to have intermittent pain and stiffness but no swelling or dactylitis. - She currently takes meloxicam 7.5 mg 1 to 2 times a day which helps with the pain - States that she got a letter from her insurance stating that Stelara will not be covered moving forward - No changes to medication - XRs ordered Today, - Stelara changed to biosimilar - On Ustekinumab-auub 90mg SC every 12 weeks, meloxicam 7.5mg daily - Forgot to do XRs - Still c/o pain to the feet - Recently started Mounjaro for worsening DM Rheumatologic History: PsO/PsA 01/09 - poor response to NSAIDs; on meloxicam fall - Enbrel caused injection site reactions December 2016 - Humira started - stopped 04/16 - she felt she had weight gain and not effective 06/16: Otezla started ineffective DC 06/2023 Stelara 90 mg 07/2023 effective for skin Current Rheumatology Medication(s): Ustekinumab-auub 90mg SC every 12 weeks Meloxicam 7.5mg daily Clobetasol topical 0.05% bid PFSH Medical History (Updated 12/17/24 @ 16:20 by Christel Pierce MD) Diabetes mellitus Surgical History H/O cervical spine surgery History of back surgery Family History Mother Arthritis Hypertension Stroke Father Alcohol abuse Substance abuse Maternal Grandmother Arthritis Hypertension Family/Other Ovarian cancer Social History Household Members: Spouse Housing: House Alcohol intake: current Alcohol intake frequency: holidays/special occasions only Alcohol type: wine Patient Tobacco Use Status: Never used Tobacco service: No Current occupational status: employed 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 Review of Systems Const Details: Review of Systems Constitutional: Denies fever, chills, weight loss ENT: Denies vision changes, eye pain or eye redness, dental caries, dry mouth GI: Denies nausea, vomiting, diarrhea, abdominal pain, change in BM Pulm: Denies SOB, NGUYEN, hemoptysis, wheezing Cards: Denies chest pain, palpitations Skin: Denies Raynaud's, rash, nail changes, photosensitivity, TELEPHONE COLLECTOR: Denies headaches, weakness, paresthesias, recurrent falls MSK: as per HPI All other systems reviewed and are unremarkable except noted above Physical Exam Exam Exam: Vital signs reviewed Physical Examination CONSTITUITIONAL Patient alert and cooperative. Well appearing and in no apparent painful distress MSK Hands * Right Hand: Able to make a fist. No swelling or tenderness to palpation of the MCPs, PIPs or DIPs. * Left Hand: Able to make a fist. No swelling or tenderness to palpation of the MCPs, PIPs or DIPs. Wrists * Right Wrist: Full ROM to flexion and extension. No swelling or TTP * Left Wrist: Full ROM to flexion and extension. No swelling or TTP Elbows * Right Elbow: Full ROM. No swelling or TTP. No TTP of the medial epicondyle. No TTP of the lateral epicondyle * Left Elbow: Full ROM. No swelling or TTP. No TTP of the medial epicondyle. No TTP of the lateral epicondyle Shoulders * Right shoulder: Full ROM. No swelling noted. No TTP of the AC joint. No TTP of the subacromial bursa. No TTP of the posterior shoulder * Left shoulder: Full ROM. No swelling noted. No TTP of the AC joint. No TTP of the subacromial bursa. No TTP of the posterior shoulder Knees * Right knee: Full ROM. No swelling noted. No TTP of the knee joint line. No TTP of pes anserine bursa * Left knee: Full ROM. No swelling noted. No TTP of the knee joint line. No TTP of pes anserine bursa. Ankles * Right ankle: Good ankle dorsiflexion and plantar flexion. No swelling. No TTP of the ankle joint * Left ankle: Good ankle dorsiflexion and plantar flexion. No swelling. No TTP of the ankle joint Feet * Right foot: Negative squeeze test * Left foot: Negative squeeze test Tender points? * No tenderness to palpation of the bilateral trapezius, supraspinatus, anterior costochondral junctions, bilateral suboccipital muscle insertions SKIN No rashes Vital Signs: Last Vital Signs Pulse 79 04/21/25 07:39 BP 132/90 H 04/21/25 07:39 Pulse Ox 98 04/21/25 07:39 Oxygen Delivery Method Room Air 04/21/25 07:39 BMI result Body Mass Index 39.5 Results Reviewed Results Reviewed: Laboratory Tests 12/11/24 04/15/25 04/15/25 06:11 11:41 11:48 WBC 6.0 RBC 5.02 Hgb 14.9 Hct 45.0 Plt Count 266 ESR 6 Sodium 142 Potassium 4.2 Chloride 107 Carbon Dioxide 28 BUN 23 H Creatinine 0.82 AST 30 65 H ALT 37 H 133 H C-Reactive Protein 0.14 Infectious serologies 12/11/24 06:11 Hepatitis A IgM Ab Nonreactive Hep Bs Antigen Negative Hep Bs Antibody NONREACTIVE Hep B Core Total Ab Nonreactive Hepatitis C Ab (EIA) Nonreactive TB Test (T-Spot) Com Negative Assessment & Plan Assessment & Plan (1) Psoriatic arthritis: Comment: 01/09 - poor response to NSAIDs; on meloxicam fall - Enbrel caused injection site reactions December 2016 - Humira started - stopped 04/16 - she felt she had weight gain and not effective 06/16: Otezla started ineffective DC 06/2023 Stelara 90 mg 07/2023 effective for skin Code(s): L40.50 - Arthropathic psoriasis, unspecified Category: Medical Plan: #PsO/PsA Patient is a 55-year-old female with psoriasis complicated by psoriatic arthritis here today for follow up. Patient is currently in remission of psoriasis and psoriatic arthritis on Stelara biosimilar. Still getting good efficacy from the biosimilar but continues to have foot>hand pain Reminded her to get XRs Plan - Ustekinumab 90mg every 12 weeks - XRs hands and feet - RTC 6 months - Labs before visit: CBC, CMP, ESR, CRP (2) Transaminitis: Code(s): R74.01 - Elevation of levels of liver transaminase levels Category: Medical Plan: #Transaminitis Slightly worse Plan - Abd US with elastography - Repeat CMP 2 weeks (3) Osteoarthritis of hands, bilateral: Code(s): M19.041 - Primary osteoarthritis, right hand; M19.042 - Primary osteoarthritis, left hand Category: Medical Qualifiers: Osteoarthritis type: primary Qualified Code(s): M19.041 - Primary osteoarthritis, right hand; M19.042 - Primary osteoarthritis, left hand Plan: #OA Patient also with bilateral hand osteoarthritis I responds pretty well to meloxicam. Discussed with patient that she has mild transaminitis and she would need to be mindful of the amount of meloxicam that she uses. Recommended that she use the lowest dose she can for modest pain relief Plan - Try to decrease meloxicam to every other day (4) Long-term current use of ustekinumab: Code(s): Z79.620 - exterminator helper (current) use of immunosuppressive biologic Plan: #exterminator helper ustekinumab Risks and benefits of ustekinumab (Stelara) discussed with the patient Risks include increased risk of infections and certain types of cancers Benefits include improved disease control Plan I spent 30 minutes reviewing the record and labs, taking a history, examining the patient, discussing the treatment plan, ordering diagnostic work up and documenting in the medical record Orders: Orders US abdomen comp w elastography Today R74.01 - Elevation of levels of liver transaminase levels Complete Blood Count Auto Diff 6 Months Z79.899 - Other terminal operations manager (current) drug therapy C Reactive Protein 6 Months Z79.899 - Other terminal operations manager (current) drug therapy Comprehensive Met. Panel 6 Months Z79.899 - Other terminal operations manager (current) drug therapy Erythrocyte Sedimentation Rate 6 Months Z79.899 - Other senior care (current) drug therapy Comprehensive Met. Panel 2 Weeks Z79.899 - Other senior care (current) drug therapy Medications: Changed From meloxicam 7.5 mg PO BID 30 days 60 tabs 5RF for joint pain M19.041 - Primary osteoarthritis, right hand, M19.042 - Primary osteoarthritis, left hand To meloxicam 7.5 mg PO DAILY 30 tabs 5RF for joint pain 30 days M19.041 - Primary osteoarthritis, right hand, M19.042 - Primary osteoarthritis, left hand Coding Level of Care Code Est Pt Level 4 (87282) Complex EM visit Add On G2211 Diagnoses Psoriatic arthritis L40.50 Transaminitis R74.01 Primary osteoarthritis of both hands M19.041; M19.042 Osteoarthritis type: primary Long-term current use of ustekinumab Z79.620
[2025-04-21 07:39] VITALS: BP 132/90; PULSE 79; O2SAT 98; BMI 39.5
== END 2025-04-21 08:01 | disposition home or self-care (01) ==
LOC: HO.RHES 07:28
PROVIDERS: PCP Pediatrics; Visit Provider Student in an Organized Health Care Education/Training Program
DX: L40.50 Arthropathic psoriasis, unspecified (principal); R74.01 Elevation of levels of liver transaminase levels; M19.041 Primary osteoarthritis, right hand; M19.042 Primary osteoarthritis, left hand; Z79.620 Long term (current) use of immunosuppressive biologic
CPT/HCPCS: 99214; G2211

== ENCOUNTER 2025-07-22 09:49 | Outpatient (REF) | payer OTHER, SELFPAY ==
--- OUTSIDE RECORDS SUMMARY | 2025-07-20 14:30 | XMS_ITS | Encounter Summary ---
Author Organization [facility] [place] [address] Care Team Providers Care Supervisor Train Operations Name Role Phone Rishi Pate MD Primary Care Provider [phone] Reason for Visit * Reason Comments Annual Exam Encounter Details Date Type Department Care Team (Latest Contact Info) Description 07/20/2025 2:30 PM EST Office Visit Adult Medicine - [place] [address] [place] [phone] Edna Mcpherson NP [address] [place] [address] Adult general medical examination (Primary Dx); Need for vaccination against Streptococcus pneumoniae; Type 2 diabetes mellitus without complication, without long-term current use of insulin (CMS/HCC V24, CMS/HCC V28); Mixed hyperlipidemia Social History Tobacco Use Types Packs/Day Years Used Date Smoking Tobacco: Never Smokeless Tobacco: Never Tobacco Cessation:Counseling Given: Not Answered Alcohol Use Standard Drinks/Week Comments Yes 0 (1 standard drink = 0.6 oz pur e alcohol) occasional Housing Instability Answer Date Recorde d Are you worried that in the next 2 months you may not have stable housing? No 04/27/2025 Food Access & Nutrition Answer Date Rec orded Do you have access to a vari ety of food including fruits and vegetables? Yes 04/27/2025 Access to Healthcare Answer Date Record ed Within the last 3 months, ho w many times did you visit the emergency department for your medical care? 0 04/27/2025 Health Literacy Answer Date Recorded How often do you need to hav e someone help you when you read instructions, pamphlets, or other written material from your doctor or pharmacy? Never 04/27/2025 Caregiver: How often do you need to have someone help you when you read instructions, pamphlets, or other written material from your doctor or pharmacy? Not on file 04/27/2025 Financial Risk Answer Date Recorded How hard is it for you to pa y for the very basics like food, housing, medical care, and air conditioning / heating? Not very hard 04/27/2025 Transportation Answer Date Recorded Has the lack of transportati on kept you from meetings, work, or from getting things needed for daily living? No Has the lack of transportati on kept you from medical appointments or from getting medications? No 04/27/2025 Social Isolation Answer Date Recorded How often do you feel lonely or isolated from th ose around you? Never 04/27/2025 Food Risk Answer Date Recorded Within the past 12 months we worried whether our food would run out before we got money to buy more. Never true 04/27/2025 Within the past 12 months th e food we bought just didn't last and we didn't have money to get more. Never true 04/27/2025 Dependent Care Answer Date Recorded Do you need help finding or paying for care for your loved ones. For example, child development associate teacher or elderly care for an older adult? No 04/27/2025 Education Answer Date Recorded Do you think completing more education or training, like finishing a GED, going to college, or learning a trade, would be helpful for you? No 04/27/2025 Employment and Income Answer Date Recor ded During the last four weeks, have you been actively looking for work? No 04/27/2025 Living Situation Answer Date Recorded What is your living situation? Unrecognized valu e 04/27/2025 Comments No Sex and Gender Information Value Date Recorded Sex Assigned at Not on file Legal Sex Female 7:27 AM EST Gender Identity Not on file Sexual Orientation Not on file documented as of this encounter Last Filed Vital Signs Vital Sign Reading Time Taken Comments Blood Pressure 127/83 07/20/2025 2:39 PM EST Pulse 78 07/20/2025 2:39 PM EST Temperature 36.2 C (97.1 F) 07/20/2025 2:39 PM EST Respiratory Rate - - Oxygen Saturation - - Inhaled Oxygen Concentration - - Weight 103 kg (228 lb) 07/20/2025 2:39 PM EST Height 162.6 cm (5' 4 ) 07/20/2025 2:39 PM EST Body Mass Index 39.14 07/20/2025 2:39 PM EST documented in this encounter Ordered Prescriptions Prescription Sig Dispense Quantity Refills Last Filled Start Date End Date tirzepatide (Mounjaro) 7.5 mg/0.5 mL injectionIndicatio ns:Type 2 diabetes mellitus without complication, without long-term current use of insulin ([facility] V24, [facility] V28) Inject 0.5 mL (7.5 mg total) under the skin every 7 (seven) days. 2 mL 2 07/20/2025 10/18/2025 documented in this encounter Progress Notes * Edna Mcpherson NP - 07/20/2025 2:30 PM EST CHIEF COMPLAINT: Annual Exam IDENTIFIER: Yasmine Chau is a 55 y.o. old female. HPI: Patient presents today for annual physical exam. Lives with . She is up to date with preventative screening. She will get flu and pneumonia vaccine today. Diabetes II - Currently on mounjaro 5 mg weekly and metformin 500 mg XR tolerating well. -A1C improved to 6.2 Denies polydisia, polyuria or numbnesss and tingling of lower extremity Microalbumin not at goal but improving. - Has lost 20 lb since starting GLP-1 has Platou in weight ROS: GENERAL: Negative for malaise, significant weight loss and fever HEENT: No changes in hearing or vision. No nosebleeds or other nasal problems NECK: Negative for lumps, goiter, pain, and significant neck swelling RESPIRATORY: No cough, wheezing or shortness of breath CARDIOVASCULAR: Negative for chest pain, leg swelling and palpitations BREAST: No lumps, discharge, pain or change in skin GI: Negative for abdominal discomfort, changes in bowel habits, blood in stool or black stools : Negative for dysuria, frequency, and incontinence LOAN CLOSER: Negative for abnormal vaginal bleeding and abnormal vaginal discharge MUSCULOSKELETAL: Negative for joint pain or swelling, back pain and muscle pain. SKIN: No lesions, rash, or itching PSYCH: No sleep disturbances, depression or major stressors HEMATOLOGY/LYMPHOLOGY: No prolonged bleeding, easy bruising, or swollen lymph nodes ENDOCRINE: Negative for cold or heat intolerance, polyuria, polydipsia and goiter NEURO: No persistent headache, fainting, seizures, strokes, TIAs, weakness, numbness or tingling The remainder of review of systems is noncontributory. PAST MEDICAL HISTORY: Patient Active Problem List Diagnosis Date Noted Hypertension 04/09/2024 Obstructive sleep apnea 06/17/2020 Primary osteoarthritis of both feet 05/13/2019 Diabetes ([facility] V24, [facility] V28) 09/13/2017 Lumbar disc disease with radiculopathy 06/01/2016 Sacroiliitis ([facility] V24) 09/10/2007 Psoriatic arthropathy ([facility] V24, [facility] V28) 10/01/2006 Psoriasis 02/02/2006 Mixed hyperlipidemia 10/04/2005 Obesity (BMI 30-39.9) 10/04/2005 SOCIAL HISTORY: Social History Tobacco Use Smoking status: Never Smokeless tobacco: Never Substance Use Topics Alcohol use: Yes Comment: occasional FAMILY HISTORY: Family Status Relation Name Status Mother Father alcoholism MGM (Not Specified) Uncle (Not Specified) Uncle (Not Specified) Aunt (Not Specified) No partnership data on file Family History[1] ACTIVE MEDICATIONS: Medications Taking[2] ALLERGIES: Adhesive, Codeine, and Penicillins PHYSICAL EXAM: Blood pressure 127/83, pulse 78, temperature 36.2 ??C (97.1 ??F), temperature source Temporal, height 1.626 m (64 ), weight 103 kg (228 lb). Body mass index is 39.14 kg/m??. BMI is greater than 25.0 (above the normal range) - see Plan APPEARANCE: Alert and in no acute distress EYES: PERRLA, conjunctiva and sclera normal and normal fundal exam EARS: External ears normal. Canals clear. TMs normal. NOSE/SINUS: Nares normal. Septum midline. Mucosa normal. No drainage or sinus tenderness MOUTH/THROAT: no erythema, lesions, or exudates NECK: Neck supple, no adenopathy, thyroid symmetric and of normal size HEART: RRR with normal S1 and S2, no murmurs, no gallops, no JVD appreciated CHEST: non-tender LUNG: clear to auscultation bilaterally BREAST (FEMALE): Exam deferred by provider. To be completed with LOAN CLOSER LYMPH NODES: grossly normal ABDOMEN: Bowel sounds normoactive, no bruits and soft, non-tender, without organomegaly or palpablemasses BACK: no pain to palpation and good flexion and extension EXTREMITIES: Extremities warm and well perfused without clubbing, cyanosis, or edema NEURO: Awake, alert and oriented x 3 and reflexes symmetrical SKIN: Skin color, texture, turgor normal. No rashes or lesions. LABS/IMAGING: No results found for: WBC , HGB , HCT , MCV Lab Results Component Value Date NA 140 07/15/2025 K 4.0 07/15/2025 CO2 27 07/15/2025 CL 103 07/15/2025 BUN 19 07/15/2025 ALKPHOS 97 07/15/2025 Lab Results Component Value Date CHOL 161 07/15/2025 LDL 124 (A) 04/09/2024 HDL 58 07/15/2025 TRIG 152 (H) 07/15/2025 No results found for: TSH ORDERS: Orders Placed This Encounter Procedures Pneumococcal conjugate 20 valent (Prevnar 20, PCV 20) 2mo and older Influenza trivalent, MDCK, 0.5mL, preservative free (Flucelvax) 6mo and older Comprehensive metabolic panel Standing Status: Future Expected Date: 10/18/2025 Expiration Date: 07/20/2026 Lipid panel with reflex to direct LDL Standing Status: Future Expected Date: 10/18/2025 Expiration Date: 07/20/2026 Hemoglobin A1c Standing Status: Future Expected Date: 10/18/2025 Expiration Date: 07/20/2026 Release to patient: Immediate [1] Microalbumin creatinine urine ratio Standing Status: Future Expected Date: 10/18/2025 Expiration Date: 07/20/2026 Release to patient: Immediate [1] IMPRESSION: 1. Adult general medical examination 2. Need for vaccination against Streptococcus pneumoniae Pneumococcal conjugate 20 valent (Prevnar 20, PCV 20) 2mo and older 3. Type 2 diabetes mellitus without complication, without long-term current use of insulin ([facility], [facility] V28) tirzepatide (Mounjaro) 7.5 mg/0.5 mL injection Hemoglobin A1c Microalbumin creatinine urine ratio 4. Mixed hyperlipidemia Comprehensive metabolic panel Lipid panel with reflex to direct LDL PLAN: 1. Health maintenance: The patient presented for an evaluation of general health. As part of this visit, we reviewed the following issues, which are considered an essential part of preventative health in this age group: - Breast cancer screening, which includes clinical exam and mammograms annually - mammogram up-to-date - Colon cancer screening (colonoscopy every 10 years/annual FOBT plus flexi sigmoidoscopy every 5 years/double-contrast BE every 5 years/Cologuard every 3 years/Annual FOBT) - up to date - Cervical cancer testing every 1-5 years - patient is up-to-date - Blood pressure annual screening performed - Cholesterol screening every five years - up to date - Osteoporosis prevention including calcium/vitamin D intake, weight bearing exercise & smokingcessation - Nutritional and exercise counseling - patient advised to pursue at least 30 minutes of exercise most days of the week, limit portion sizes, eat breakfast, and avoid eating after dinner - Counseling of injury prevention including fire prevention, smoke alarms and seat belt usage - Screening for depression - over the past TWO WEEKS, been bothered by little INTEREST or PLEASURE in doing things or by feeling DOWN, DEPRESSED, or HOPELESS? No - Screening for Type 2 diabetes mellitus in those with hypertension and/or hyperlipidemia - Education about skin cancer - Recommendations about immunizations - patient is due for Tdap immunization and Influenza immunization and is ordered for this - Recommendation of an eye exam for glaucoma every 2-4 years in this age range - patient will self-refer - Preconception counseling - see Substance & Sexuality section of medical record - Osteoporosis screening for high-risk patients - Screening for substance abuse (including tobacco, alcohol, and recreational drugs) - see Substance & Sexuality section of medical record - Management of menopause - up to date - Genetic cancer risk screening - NO INDICATION: Hereditary Cancer Syndrome Risk Assessment completed and evaluated. No indication found for genetic testing at this time. - Did you have a dental visit in the last 12 months? Yes - Did you have a dental problem in the last 6 months? No 1. Adult general medical examination (Primary) -Pt. Educated on diet and exercise - Order placed to get Flu and pneumonia vaccine today 2. Type 2 diabetes mellitus without complication, without long-term current use of insulin (CMS/HCCV24, CMS/HCC V28) -A1C improved to 6.2, increase mounjaro to 7.5 to aid in weight loss as she has Platou. - tirzepatide (Mounjaro) 7.5 mg/0.5 mL injection; Inject 0.5 mL (7.5 mg total) under the skin every7 (seven) days. Dispense: 2 mL; Refill: 2 - Hemoglobin A1c; Future - Microalbumin creatinine urine ratio; Future For this encounter, I personally performed, face to face and ybi-lxsb-oh-face services that include: -Review and update of allergies, PMH, problem list and medications.changes was reconciled with the patient/family/parent/guardian. - Medical appropriate examination - Care planning through shared decision making with counseling for plan of care, risk/benefit of care plan and follow-up recommendations Orders Placed This Encounter Procedures Pneumococcal conjugate 20 valent (Prevnar 20, PCV 20) 2mo and older Influenza trivalent, MDCK, 0.5mL, preservative free (Flucelvax) 6mo and older Comprehensive metabolic panel Standing Status: Future Expected Date: 10/18/2025 Expiration Date: 07/20/2026 Lipid panel with reflex to direct LDL Standing Status: Future Expected Date: 10/18/2025 Expiration Date: 07/20/2026 Hemoglobin A1c Standing Status: Future Expected Date: 10/18/2025 Expiration Date: 07/20/2026 Release to patient: Immediate [1] Microalbumin creatinine urine ratio Standing Status: Future Expected Date: 10/18/2025 Expiration Date: 07/20/2026 Release to patient: Immediate [1] Edna Mcpherson NP on 07/20/2025 at 3:35 PM EST [1] Family History Problem Relation Name Age of Onset Hyperlipidemia Mother Arthritis Mother Hypertension Mother Stroke Mother Alcohol/Drug Father Arthritis Maternal Grandmother Hypertension Maternal Grandmother Hypertension Uncle Heart attack Uncle Heart attack Uncle Other cancer Aunt ovarian [2] Outpatient Medications Marked as Taking for the 07/20/25 encounter (Office Visit) with Edna Mcpherson NP Medication Sig Dispense Refill amLODIPine (NORVASC) 2.5 mg tablet Take 1 tablet (2.5 mg total) by mouth 1 (one) time each day. 90 tablet 0 blood-glucose sensor (Dexcom G6 Sensor) device APPLY DIRECTED AND CHANGE EVERY 10 DAYS . CHECK EVERY AM BEFORE BREAKFAST & 2 HRS AFTER IF BS < 120. IF >120 IN AM OR 250-300 2HRS AFTER MEAL CALL 9 each 3 blood-glucose,media relations coordinator,cont (Dexcom G6 Certified Surgical Assistant) misc Use to check blood sugar every morning beforebreakfast and 2 hours after if BS is below 120. If higher than 120 in the AM or 250 - 300 2 hours after meal contact MD office. 1 each 0 cyclobenzaprine (FLEXERIL) 5 mg tablet TAKE 1 OR 2 TABLETS BY MOUTH EVERY 8 HOURS NEEDED FOR MUSCLE SPASM Dexcom G6 Transmitter device USE DIRECTED CONTINUOUSLY 1 each 3 gabapentin (NEURONTIN) 300 mg capsule if needed. meloxicam (MOBIC) 7.5 mg tablet metFORMIN XR (GLUCOPHAGE-XR) 500 mg 24 hr tablet Take 1 tablet (500 mg total) by mouth 1 (one) timeeach day. with food 30 each 9 methocarbamoL (ROBAXIN) 750 mg tablet TAKE ONE TABLET BY MOUTH FOUR TIMES A DAY NEEDED FOR MUSCLE SPASMS rosuvastatin (CRESTOR) 40 mg tablet TAKE 1 TABLET BY MOUTH ONCE DAILY 90 tablet 3 Wezlana 90 mg/mL syringe Inject 90 mg under the skin every 3 (three) months. [DISCONTINUED] Mounjaro 5 mg/0.5 mL injection INJECT THE CONTENTS OF ONE PEN SUBCUTANEOUSLY WEEKLY DIRECTED 6 mL 0 documented in this encounter Plan of Treatment Upcoming Encounters Date Type Department Care Team (Late st Contact Info) Description 10/19/2025 8:30 AM EDT Office Visit Adult Medicine [facility] [address] [place] [phone] Odette Yan PA [address] [place] [phone] Scheduled Orders Name Type Priority Associated Diagnoses Orde r Schedule Comprehensive metabolic panel Lab Routine Mixed hyperlipidemia Expected: 10/18/2025, Expires: 07/20/2026 Lipid panel with reflex to direct LDL Lab Routine Mixed hyperlipidemia Expected: 10/18/2025, Expires: 07/20/2026 Hemoglobin A1c Lab Routine Type 2 diabetes mellitus without complication, without long-term current use of insulin ([facility] V24, CMS/HCC V28) Expected: 10/18/2025, Expires: 07/20/2026 Microalbumin creatinine urine ratio Lab Routine Type 2 diabetes mellitus without complication, without long-term current use of insulin ([facility] V24, [facility] V28) Expected: 10/18/2025, Expires: 07/20/2026 documented as of this encounter Visit Diagnoses Diagnosis Adult general medical examination- Primary Unspecified general medical examination Need for vaccination against Streptococcus pneumoniae Type 2 diabetes mellitus without complication, without long-term current use of insulin ([facility] V24, [facility] V28) Mixed hyperlipidemia documented in this encounter Discontinued Medications Medication Sig Discontinue Reason Start Date End Da te Mounjaro 5 mg/0.5 mL injectionIndications :Type 2 diabetes mellitus without complication, without long-term current use of insulin ([facility] V24, [facility] V28) INJECT THE CONTENTS OF ONE PEN SUBCUTANEOUSLY WEEKLY DIRECTED 05/12/2025 07/20/2025 documented as of this encounter Orders Immunization/Injection Count Last Ordered Date First Ordered Date INFLUENZA TRIVALENT, MDCK, 0 .5ML, PRESERVATIVE FREE (FLUCELVAX) 6MO AND OLDER 1 07/20/2025 PNEUMOCOCCAL CONJUGATE 20 VA LENT (PREVNAR 20, PCV 20) 2MO AND OLDER 1 07/20/2025 documented in this encounter Additional Health Concerns Assessment Noted Time PHQ-9 Depression Total Score: 6 04/27/20 25 10:14 AM EDT documented as of this encounter Care Teams Supervisor Train Operations Relationship Specialty Start Date End Date Rishi Pate MD [address] [place] [id number] PCP - General Internal Medicine 04/23/21 documented as of this encounter
--- NOTE | ~2025-07-22 | US_ITS ---
EXAMINATION: US ABDOMEN COMPLETE WITH LIVER ELASTOGRAPHY HISTORY: R74.01 - Elevation of levels of liver transaminase levels TECHNIQUE: Real-time grayscale ultrasound imaging of the abdomen was performed and images were reviewed. COMPARISON: There are no prior studies available for comparison. FINDINGS: Liver: The right lobe of the liver measures 19.1 cm in size. The left lobe of the liver measures 10.9 cm in size. The liver demonstrates heterogeneous increased echotexture, consistent with steatosis. Multiple areas of focal fatty sparing are noted. No focal mass or intrahepatic biliary ductal dilatation is identified. There is normal hepatopedal flow in the portal vein. Ultrasound elastography of the liver was performed with 10 separate measurements of the liver parenchyma with the patient in the supine position. Measurements were obtained approximately 2 cm below [place]'s capsule and perpendicular to the capsule. The median shear wave velocity is 0.91 m/s. The interquartile range/median (IQR/median) is 0.25. Gallbladder and biliary tree: The gallbladder is surgically absent. The common bile duct measures 12 mm in diameter. Kidneys: The right kidney measures 10.5 cm in length. The left kidney measures 11.4 cm in length. The kidneys are unremarkable, without evidence of masses, hydronephrosis, or calculi. Pancreas: The pancreatic head, neck, and body are unremarkable. The pancreatic tail is obscured by bowel gas. Spleen: The spleen is normal in size and contour, measuring 9.4 cm in length. Abdominal aorta and inferior vena cava: The visualized portions of the abdominal aorta and inferior vena cava are normal in caliber. There is no free fluid in the abdomen. US/US abdomen comp w elastography IMPRESSION: 1. Hepatomegaly and heterogeneous hepatic steatosis. 2. Dilatation of the common bile duct which may be within normal limits for a patient status post cholecystectomy. The median shear wave velocity in the liver is 0.91 m/s, corresponding to a median liver stiffness of 2.5 kPa. The IQR/median value is 0.25. This is indicative of a quality data set. Findings are indicative of a normal elastography value with a low likelihood of severe fibrosis or cirrhosis. REFERENCE: Society of Radiologists in Ultrasound Liver Stiffness Thresholds (2020): LIVER STIFFNESS THRESHOLDS: *Shear wave velocity less than 1.3 m/s (Liver Stiffness equal or less than 5 kPa): High probability of being normal. *Shear wave velocity less than 1.7 m/s (Liver Stiffness less than 9 kPa): In the absence of other known clinical signs, rules out compensated advanced chronic liver disease. *Shear wave velocity between 1.7-2.1 m/s (Liver Stiffness 9-13 kPa): Suggestive of compensated advanced chronic liver disease but need further test for confirmation. *Shear wave velocity between 2.1-2.4 m/s (Liver Stiffness 13-17 kPa): Rules in compensated advanced chronic liver disease. *Shear wave velocity greater than 2.4 m/s (Liver Stiffness over 17 kPa): Suggestive of clinically significant portal hypertension. QUALITY OF DATA SET: *IQR/Median value equal or less than 0.30 implies a quality data set. *IQR/Median value over 0.30 implies a poor quality data set. SIGNIFICANT CHANGE FROM PRIOR EXAM: Significant change if liver stiffness measurement is 10% or greater from prior exam. OTHER CONSIDERATIONS: The stage of liver fibrosis may be overestimated in the setting of acute hepatitis, liver inflammation, elevated liver function tests, hepatic vascular congestion, obstructive cholestasis, non-fasting state, and infiltrative diseases such as amyloidosis and lymphoma. In some patients with NAFLD, the liver stiffness thresholds for compensated advanced chronic liver disease may be lower. In causes other than viral hepatitis and NAFLD, liver stiffness thresholds are not well established. Electronically signed by: Jersey Brennan MD 07/22/2025 10:24 AM [facility]
--- NOTE | ~2025-07-22 | XR_ITS ---
EXAMINATION: XR HAND 3 VIEWS BILATERAL HISTORY: L40.50 - Arthropathic psoriasis, unspecified COMPARISON: There are no prior studies available for comparison. FINDINGS: Six views of the bilateral hands are submitted. Osseous mineralization is normal. There is no fracture or dislocation. There is no significant joint space narrowing. No erosions are identified. The soft tissues are unremarkable. XR/XR Hand Bilat min 3v IMPRESSION: Unremarkable examination of the bilateral hands. Electronically signed by: Jersey Brennan MD 07/22/2025 10:33 AM [facility]
--- NOTE | ~2025-07-22 | XR_ITS ---
EXAMINATION: XR FOOT 3 OR MORE VIEWS BILATERAL HISTORY: L40.50 - Arthropathic psoriasis, unspecified COMPARISON: Comparison is made with the prior examination dated 06/29/2023. FINDINGS: Six views of the bilateral feet are submitted. Osseous mineralization is normal. There is no fracture or dislocation. On the right, there is mild osteoarthritis of the 1st MTP joint and associated hallux valgus deformity. There is mild narrowing of the 1st MTP joint of the left foot. No erosions are seen. There are small bilateral plantar calcaneal spurs. The soft tissues are unremarkable. 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 Mild hallux valgus deformity on the right. Electronically signed by: Jersey Brennan MD 07/22/2025 10:35 AM [facility]
--- OUTSIDE RECORDS SUMMARY | 2025-07-22 09:55 | XMS_ITS | Encounter Summary ---
Author Organization [facility] Address [address] [place] [address] Care Team Providers Care Basket Mender Name Role Phone Ady Pate MD Primary Care Provider [phone] Javier Recinos MD Unavailable [phone] System, Provider Not In Unavailable Unavaila ble Encounter Details Date Type Department Care Team (Late st Contact Info) Description 05/27/2024 Scanned Document [facility] [address] [phone] Mayte Lowe [address] [place] [phone] Social History Tobacco Use Types Packs/Day Years [...] Care Team (Late st Contact Info) Description 06/21/2026 7:30 AM EST Office Visit [facility] [address] [phone] Javier Recinos MD [address] [place] [phone] documented as of this encounter Visit Diagnoses Not on filedocumented in this encounter Care Teams Basket Mender Relationship Specialty Start Date End Date Ady Pate MD PCP - General 06/09/22 Javier Recinos MD [address] [place] [phone] Surgery, Orthopedic 06/09/22 System, Provider Not In [address] [place] [phone] 07/02/24 documented as of this encounter
--- OUTSIDE RECORDS SUMMARY | 2025-07-22 09:55 | XMS_ITS | Encounter Summary ---
Author Organization [facility] Address [address] [place] [address] Care Team Providers Care Laundry Pricing Clerk Name Role Phone Ady Pate MD Primary Care Provider [phone] Javier Recinos MD Unavailable [phone] System, Provider Not In Unavailable Unavaila ble Encounter Details Date Type Department Care Team (Late st Contact Info) Description 05/15/2024 Scanned Document [facility] [address] [phone] Javier eRcinos MD [address] [place] [address] [place] [phone] Social History Tobacco Use Types Packs/Day Years [...] AM EST Office Visit [facility] [address] [phone] Javier Recinos MD [address] [place] [phone] documented as of this encounter Visit Diagnoses Not on filedocumented in this encounter Care Teams Laundry Pricing Clerk Relationship Specialty Start Date End Date Ady Pate MD PCP - General 06/09/22 Javier Recinos MD [address] [place] [phone] Surgery, Orthopedic 06/09/22 System, Provider Not In [address] [place] [address] 07/02/24 documented as of this encounter
--- OUTSIDE RECORDS SUMMARY | 2025-07-22 09:55 | XMS_ITS | Encounter Summary ---
Author Organization [facility] Address [address] [place] [address] Care Team Providers Care Carton Making Machinist Name Role Phone Ady Pate MD Primary Care Provider [phone] Javier Recinos MD Unavailable [phone] System, Provider Not In Unavailable Unavaila ble Encounter Details Date Type Department Care Team (Late st Contact Info) Description 09/03/2024 Scanned Document [facility] [address] [phone] Mayte Lowe [address] [place], [place] [phone] Social History Tobacco Use Types Packs/Day Years Used Date Smoking Tobacco: Never Passive Smoke Exposure: Past Smokeless Tobacco: Never Alcohol Use Standard Drinks/Week Comments Yes 0 (1 standard drink = 0.6 oz pure alcohol) 1 glass/month advised to stop 2 weeks before surgery [facility] Utilities Answer Date Recorded In the past 12 months has [employer], oil, or water [employer] threatened to shut off services in your [...] any time in the past 12 m ont, were you homeless or living in a skilled nursing (including now)? No 07/17/2024 Comments No Sex [...] AM EST Office Visit [facility] [address] [phone] Javier Recinos MD [address] [place] [phone] documented as of this encounter Goals Goal [...] on filedocumented in this encounter Care Teams Carton Making Machinist Relationship Specialty Start Date End Date Ady Pate MD PCP - General 06/09/22 Javier Recinos MD [address] [place] [address] Surgery, Orthopedic 06/09/22 System, Provider Not In [address] [place] [address] 07/02/24 documented as of this encounter
--- OUTSIDE RECORDS SUMMARY | 2025-07-22 09:55 | XMS_ITS | Clinical Summary ---
Author Organization [facility] Address [address] [place] [address] Care Team Providers Care Chef Kitchen Manager Name Role Phone Ady Pate MD Primary Care Provider [phone] Javier Recinos MD Unavailable [phone] System, Provider Not In Unavailable Unavaila ble Allergies Active Allergy Reactions Criticality Noted Date Comments Adhesives/Tape Rash/Dermatitis Medium 07/02/2024 Codeine Other (See Comments) Medium 06/12/2022 Stomach cramps Penicillins GI Intolerance/Nausea/Vomiting Low 05/30 Medications amLODIPine (NORVASC) 2.5 MG tablet Take 1 tablet (2.5 mg total) by mouth every evening. 4 Active rosuvastatin (CRESTOR) 40 MG tablet 4 Active Blood Glucose Monitoring Suppl ([facility] Blood Glucose Meter) w/Device Kit Use to check blood sugar every morning before breakfast and 2 hours after if BS is below 120. If higher than 120 in the AM or 250 - 300 2 hours after meal contact MD office. 5 Active Lancets [facility] Check blood sugar 4 times a day or as directed. 5 11/08/19 26 Active glucose blood (Contour Test) test strip See Admin Instructions. 5 11/08/19 26 Active Lancets (OneTouch Delica Plus [id number]) Misc 5 Active metFORMIN (GLUCOPHAGE-XR) 500 MG 24 hr tablet Take 1 tablet by mouth daily. 4 Active meloxicam (MOBIC) 7.5 MG tablet Take 7.5 mg by mouth daily. Active gabapentin (NEURONTIN) 300 MG capsuleIndicatio ns:Radiculopathy , lumbar region TAKE 1 CAPSULE BY MOUTH 3 TIMES DAILY 270 capsule 3 5 Active methocarbamol (ROBAXIN) 750 MG tabletIndication s:Lumbar radiculitis TAKE 1 TABLET BY MOUTH EVERY NIGHT NEEDED FOR MUSCLE SPASM(S) 30 tablet 5 Active Mounjaro 2.5 MG/0.5ML pen-injector Active polyethylene glycol (miraLAx) 17 g packet Take 1 packet (17 g total) by mouth. Active Wezlana 90 MG/ML Solution Prefilled Syringe Inject 90 mg under the skin. 5 Active Active Problems Problem Noted Date [...] C5-7 anterior cervical discectomy and fusion at [facility] on 05/15/[address] Recinos. Morbid obesity [...] Plan (07/02/2024 4:38 PM EST): Followed by engineering program analyst Dr. Bharat patrick appt 12/20/2023. Currently on stelara- last injection 03/01/2024. Do not take any further injections prior to surgery Assessment & Plan (04/22/2024 4:41 PM EDT): Followed by engineering program analyst Dr. Bharat patrick appt 12/20/2023. Currently on [...] Encounters Date Type Department Care Team Description 06/23/2025 9:15 AM EST Telemedicine [facility] [address] [phone] Chris Thurston MD Psoriatic arthritis (HCC) (Primary Dx); Back pain without sciatica; S/P laminectomy with spinal fusion 06/22/2025 8:00 AM EST Office Visit Orthopedic [address] [phone] Jocy Lazcano PA-C Status post lumbar spinal arthrodesis (Primary Dx); Chronic bilateral low back pain without sciatica 06/22/2025 7:55 AM EST Ancillary Procedure Orthopedic [place] [phone] 06/11/2025 9:45 AM EST Patient Off Site Visit [facility] [address] [phone] Chris Thurston MD Lumbar spondylosis (Primary Dx) from Last 3 Months Family [...] advised to stop 2 weeks before surgery [facility] Utilities Answer Date Recorded In the past 12 months has e electric, gas, oil, or water company [...] any time in the past 12 m [facility], were you homeless or living in a residential (including now)? No 07/17/2024 Physical Activity Answer [...] AM EST [facility] Visit [facility] [address] [phone] Javier Recinos MD [address] [place] [address] Health Maintenance Due Date Last Done Comments [...] (Ages 21-65) 1991 Mammogram 2010 Colonoscopy 2015 RSV Vaccine 50 years and old er and Patients (1 - Risk 50-74 years 1-dose series) 2020 Zoster (Shingles) Vaccine (1 of 2) 2020 Influenza Vaccine 02/27/2025 04/09/2024, , 07/11/2021, Additional history exists COVID-19 Vaccine (3 - 2024-2 6 season) 2025 11/18/2020, 10/20/2020 Creatinine with GFR 07/17/2025 07/17/2024, 07/03/2024, 07/06/2022, Additional history exists Hemoglobin A1C 10/25/2025 04/27/2025, 12/29, 07/03/2024, Additional history exists Goals Goal Patient Goal [...] this documentation. Medical Devices Implanted Type Area Master Control Technician Device Identifier Shelf Expiration Date Model / Serial / Lot [id number] Re-Line-O Ti Ned, 5.5x35mm Lordotic Implanted:Qty : 2 on 07/05/2022 by Javier Recinos MD at [facility] Nail/Ned N/A: Spine Lumbar [employer] [id number] / / [id number] Ned Spinal 55mm 5.5mm Reline Lrdtc Ti Mas Nonst - [id number] Implanted:Qty : 1 on 07/16/2024 by Javier Recinos MD at [facility] Nail/Ned N/A: Spine Lumbar [employer] 03/08/2040 [id number] / / N/A [id number] Ned Spinal 55mm 5.5mm Reline Lrdtc Ti Mas Nonst - [id number] Implanted:Qty : 1 on 07/16/2024 by Javier Recinos MD at [facility] Nail/Ned N/A: Spine Lumbar [employer] 03/08/2040 [id number] / / N/A [id number] Screw Bone Spine Reline 2c 50mm 7.5mm Mdlr Shnk Nonst Mas - [id number] Implanted:Qty : 4 on 07/05/2022 by Javier Recinos MD at [facility] Spine N/A: Spine Lumbar [employer] [id number] / / [id number] Screw Bone Spine Reline Mdlr Reduction Extension [place] Nonst - [id number] Implanted:Qty : 4 on 07/05/2022 by Javier Recinos MD at [facility] Spine N/A: Spine Lumbar [employer] [id number] / / [id number] Screw Bone Spine Reline 5.5mm Lock Open [place] Nonst - [id number] Implanted:Qty : 4 on 07/05/2022 by Javier Recinos MD at [facility] Spine N/A: Spine Lumbar [employer] [id number] / / [id number] Screw Bone Spine Reline 5.5mm Lock Open [place] - [id number] Implanted:Qty : 1 on 07/16/2024 by Javier Recinos MD at [facility] Spine N/A: Spine Lumbar [employer] [id number] / / [id number] Screw Bone Spine Reline 5.5mm Lock Open [place] - [id number] Implanted:Qty : 1 on 07/16/2024 by Javier Recinos MD at [facility] Spine N/A: Spine Lumbar [employer] [id number] / / [id number] Screw Bone Spine Reline 5.5mm Lock Open [place] - [id number] Implanted:Qty : 1 on 07/16/2024 by Javier Recinos MD at [facility] Spine N/A: Spine Lumbar [employer] [id number] / / [id number] Screw Bone Spine Reline 5.5mm Lock Open [place] - [id number] Implanted:Qty : 1 on 07/16/2024 by Javier Recinos MD at [facility] Spine N/A: Spine Lumbar [employer] [id number] / / [id number] Screw Bone Spine Reline 5.5mm Lock Open [place] - [id number] Implanted:Qty : 1 on 07/16/2024 by Javier Recinos MD at [facility] Spine N/A: Spine Lumbar [employer] [id number] / / [id number] Screw Bone Spine Reline 5.5mm Lock Open [place] - [id number] Implanted:Qty : 1 on 07/16/2024 by Javier Recinos MD at [facility] Spine N/A: Spine Lumbar [employer] [id number] / / [id number] Screw Bone Spine Reline Mdlr Reduction Extension [place] Nonst - [id number] Implanted:Qty : 1 on 07/16/2024 by Javier Recinos MD at [facility] Spine N/A: Spine Lumbar [employer] [id number] / / [id number] Screw Bone Spine Reline Mdlr Reduction Extension [place] Nonst - [id number] Implanted:Qty : 1 on 07/16/2024 by Javier Recinos MD at [facility] Spine N/A: Spine Lumbar [employer] [id number] / / [id number] Screw Bone Spine Reline Mdlr Reduction Extension [place] Nonst - [id number] Implanted:Qty : 1 on 07/16/2024 by Javier Recinos MD at [facility] Spine N/A: Spine Lumbar [employer] [id number] / / [id number] Screw Bone Spine Reline 2c 50mm 7.5mm Mdlr Shnk Nonst Mas - [id number] Implanted:Qty : 1 on 07/16/2024 by Javier Recinos MD at [facility] Spine N/A: Spine Lumbar [employer] 07/04/2027 [id number] / / N/A [id number] Shank Screw 50mm 6.5mm Reline 2c Spine Mdlr Mas Nonst Lf - [id number] Implanted:Qty : 1 on 07/16/2024 by Javier Recinos MD at [facility] Spine N/A: Spine Lumbar [employer] [id number] / / [id number] Shank Screw 50mm 6.5mm Reline 2c Spine Mdlr Mas Nonst Lf - [id number] Implanted:Qty : 1 on 07/16/2024 by Javier Recinos MD at [facility] Spine N/A: Spine Lumbar [employer] [id number] / / [id number] Substitute Bone Graft Ms Grft Matrix Block Void Filler 20ml - [id number] Implanted:Qty : 1 on 07/05/2022 by Javier Recinos MD at [facility] Void Filler N/A: Spine Lumbar [employer] MINIMALLY INVASIVE T 01/26/2025 [id number] / / [id number] Filler Bone Void 15cc 1.7-10mm Canc Algrf Chp Frzdr - [id number] Implanted:Qty : 1 on 07/05/2022 by Javier Recinos MD at [facility] Void Filler N/A: Spine Lumbar [employer]KELETAL TRANSPLANT FOU 02/14/2025 [id number] / [id number] / [id number] Filler Bone Void 5cc Dbx Algrf Putty Frzdr - [id number] Implanted:Qty : 1 on 07/16/2024 by Javier Recinos MD at [facility] Void Filler N/A: Spine Lumbar [employer] 03/05/2026 [id number] / [id number] / [id number] Filler Bone Void 30cc 1.7-10mm Canc Algrf Chp Frzdr - [id number] Implanted:Qty : 1 on 07/16/2024 by Javier Recinos MD at [facility] Void Filler N/A: Spine Lumbar [employer]LET[employer] TRANS[employer] FOU 04/05/2027 [id number] / [id number] / [id number], 20 Degree Implanted:Qty : 1 on 07/05/2022 by Javier Recinos MD at [facility] N/A: Spine Lumbar 03/15/2027 / / [id number] Description:catalog# [id number] Mod [id number] Implanted:Qty : 1 on 07/16/2024 by Javier Recinos MD at [facility] N/A: Spine Lumbar [employer] [id number] / / Procedures Procedure Name Priority Date/Time Associated Diagnosis Comments XR LUMBAR SPINE COMPLETE W/FLEX,EXT 4+VIEWS Routine 06/22/2025 7:58 AM EST Status post lumbar spinal arthrodesis BASIC METABOLIC PANEL Routine 07/17/2024 4:55 AM [...] * XR Lumbar spine complete w/Flex,Ext, 4+Views (06/22/2025 7:58 AM EST) Narrative OA - 06/22/2025 7:58 AM EST This exam was performed in office at [facility] and images reviewed by orthopedic provider. Any findings are documented within ambulatory encounter note on date of service. us Jocy Lazcano PA-C IMG DIAGNOSTIC IMAGING ORDERA BLES Final Result OA * (ABNORMAL) Basic Metabolic Panel (07/17/2024 4:55 AM EST) Glucose 215(H) 65 - 99 mg/dL 07/17/2024 7:20 AM [facility] Comment:Fasting: <100 mg/dL, Non-Fasting: <200 mg/dL (ADA 2005) Blood Urea Nitrogen (BUN) 12 8 - 21 mg/dL 07/17/2024 7:20 AM [facility] Creatinine 0.7 0.4 - 1.1 mg/dL 07/17/2024 7:20 AM [facility] eGFR >90 >59 07/17/2024 7:20 AM [facility] Comment:CKD-EPI (2020) in mL /min/1.73 sq meters. Sodium 136 136 - 145 mmol/L 07/17/2024 7:20 AM [facility] Potassium 4.5 3.4 - 5.3 mmol/L 07/17/2024 7:20 AM [facility] Chloride 103 98 - 107 mmol/L 07/17/2024 7:20 AM [facility] CO2 22 22 - 33 mmol/L 07/17/2024 7:20 AM [facility] Anion Gap 11 7 - 17 07/17/2024 7:20 AM [facility] Calcium 9.0 8.7 - 10.5 mg/dL 07/17/2024 7:20 AM [facility] BUN/Creatinine Ratio 17 10.0 - 25.0 Ratio 07/17/2024 7:20 AM [facility] Blood (Plasma/Serum) 07/17/2024 4:55 AM EST 07/17/2024 5:32 AM EST Javier Recinos MD LAB BLOOD [place] [address], [address] [address] from Last 3 Months or Most Recently Relevant to Health Maintenance Insurance [facility] [employer] [facility] Advance Directives * Full Code (Latest Code Status on File) Date Activated Date Inactivated Comments 07/16/2024 7:54 PM * Full Code Date Activated Date Inactivated Comments 07/16/2024 10:28 AM 07/16/2024 7:54 PM * Full Code Date Activated Date Inactivated Comments 07/05/2022 3:24 PM 07/16/2024 10:23 AM * Full Code Date Activated Date Inactivated Comments 07/05/2022 6:49 AM 07/05/2022 3:24 PM Care Teams Chef Kitchen Manager Relationship Specialty Start Date End Date Ady Pate MD PCP - General 06/09/22 Javier Recinos MD [address] [place] [address] Surgery, Orthopedic 06/09/22 System, Provider Not In [address] [place] [address] 07/02/24
--- OUTSIDE RECORDS SUMMARY | 2025-07-22 09:55 | XMS_ITS | Encounter Summary ---
Author Organization [facility] Address [address] [place] [address] Care Team Providers Care Senior It Recruiter Name Role Phone Ady Pate MD Primary Care Provider [phone] Javier Recinos MD Unavailable [phone] System, Provider Not In Unavailable Unavaila ble Encounter Details Date Type Department Care Team (Late st Contact Info) Description 04/16/2025 Scanned Document [facility] [address] [phone] Georgia Abel, JT [address] [place] [address] Social History Tobacco Use Types Packs/Day Years Used Date Smoking Tobacco: Never Passive Smoke Exposure: Past Smokeless Tobacco: Never Alcohol Use Standard Drinks/Week Comments Yes 0 (1 standard drink = 0.6 oz pure alcohol) 1 glass/month advised to stop 2 weeks before surgery [facility] Utilities Answer Date Recorded In the past 12 months has [place], gas, oil, or water [employer] threatened to shut off services in your [...] any time in the past 12 m [facility], were you homeless or living in a half-way (including now)? No 07/17/2024 Physical Activity Answer [...] AM EST [facility] [address] [phone] Javier Recinos MD [address] [place] [address] documented as of this encounter Goals Goal Patient Goal Type Associated Problems Recent Progress Patient-Stated? Author PT 2 Physical Therapy On track(2024 6:31 PM [...] on filedocumented in this encounter Care Teams Senior It Recruiter Relationship Specialty Start Date End Date Ady Pate MD PCP - General 06/09/22 Javier Recinos MD [address] [place] [address] Surgery, Orthopedic 06/09/22 System, Provider Not In [address] [place] [address] 07/02/24 documented as of this encounter
--- OUTSIDE RECORDS SUMMARY | 2025-07-22 09:55 | XMS_ITS | Encounter Summary ---
Author Organization [facility] Address [address] [place] [address] Care Team Providers Care Media Marketing Manager Name Role Phone Ady Pate MD Primary Care Provider [phone] Javier Recinos MD Unavailable [phone] System, Provider Not In Unavailable Unavaila ble Encounter Details Date Type Department Care Team (Late st Contact Info) Description 02/13/2024 Scanned Document [facility] [address] [place] [phone] Huan Foley MD [address] [place] [address] [address] [place] [address] Social History Tobacco Use Types Packs/Day Years [...] AM EST [facility] [address] [phone] Javier Recinos MD [address] [place] [address] documented as of this encounter Visit Diagnoses Not on filedocumented in this encounter Care Teams Media Marketing Manager Relationship Specialty Start Date End Date Ady Pate MD PCP - General 06/09/22 Javeir Recinos MD [address] [place] [address] Surgery, Orthopedic 06/09/22 System, Provider Not In [address] [place] [address] 07/02/24 documented as of this encounter
--- OUTSIDE RECORDS SUMMARY | 2025-07-22 09:55 | XMS_ITS | Encounter Summary ---
Author Organization [facility] [place] [address] Care Team Providers Care Grinder Machine Setter Name Role Phone Rishi Pate MD Primary Care Provider [phone] Encounter Details Date Type Department Care Team ([facility] st Contact Info) Description 07/16/2025 Results Follow-Up Adult [address] [phone] Jez Rai RN Social History Tobacco Use Types Packs/Day Years [...] ed Within the last 3 months, ho [place] many times did you visit the emergency [...] for your loved ones. For example, child and family counselor or elderly care for an older adult? [...] 8:30 AM EDT Office Visit Adult Medicine [facility] [address] [place] [phone] Odette Yan PA [address] [place] [phone] documented as of this encounter Visit Diagnoses Not on filedocumented in this encounter Additional Health Concerns Assessment Noted Time PHQ-9 Depression Total Score: 6 04/27/20 25 10:14 AM EDT documented as of this encounter Care Teams Grinder Machine Setter Relationship Specialty Start Date End Date Rishi Pate MD [address] [place] [address] PCP - General Internal Medicine 04/23/21 documented as of this encounter
--- OUTSIDE RECORDS SUMMARY | 2025-07-22 09:56 | XMS_ITS | Encounter Summary ---
Author Organization [facility] Address [address] [place] [address] Care Team Providers Care Trapeze Performer Name Role Phone Ady Pate MD Primary Care Provider [phone] Javier Recinos MD Unavailable [phone] System, Provider Not In Unavailable Unavaila ble Encounter Details Date Type Department Care Team (Late st Contact Info) Description 01/24/2023 Scanned Document [facility] [address] [phone] Javier Recinos MD [address] [place] [address] [place] [address] Social History Tobacco Use Types Packs/Day Years [...] AM EST [facility] Visit [facility] [address] [phone] Javier Recinos MD [address] [place] [address] documented as of this encounter Visit Diagnoses Not on filedocumented in this encounter Care Teams Trapeze Performer Relationship Specialty Start Date End Date Ady Pate MD PCP - General 06/09/22 Javier Recinos MD [address] [place] [address] Surgery, Orthopedic 06/09/22 System, Provider Not In [address] [place] [address] 07/02/24 documented as of this encounter
--- OUTSIDE RECORDS SUMMARY | 2025-07-22 09:56 | XMS_ITS | Clinical Summary ---
Author Organization [facility] [address] [facility] lding Address [address] [place] [address] Phone Care Team Providers Care Python Programmer Name Role Phone Rishi Pate MD Primary Care Provider [phone] Allergies Active Allergy Reactions Criticality Noted Date Comments Adhesive Rash Medium 07/02/2024 Codeine GI intolerance 10/04/2005 abdominal pains Penicillins Nausea And Vomiting, GI intolerance 08/09/2018 Medications cyclobenzaprin e (FLEXERIL) 5 mg tablet TAKE 1 OR 2 TABLETS BY MOUTH EVERY 8 HOURS NEEDED FOR MUSCLE SPASM Active gabapentin (NEURONTIN) 300 mg capsule if needed. 024 Active meloxicam (MOBIC) 7.5 mg tablet Active methocarbamoL (ROBAXIN) 750 mg tablet TAKE ONE TABLET BY MOUTH FOUR TIMES A DAY NEEDED FOR MUSCLE SPASMS 024 Active blood-glucose, licensed tax consultant,cont (Dexcom G6 Ruling Machine Feeder) miscIndication s:Type 2 diabetes mellitus without complication, without long-term current use of insulin (CMS/[facility] V24, CMS/HCC V28) Use to check blood sugar every morning before breakfast and 2 hours after if BS is below 120. If higher than 120 in the AM or 250 - 300 2 hours after meal contact MD office. 1 each 025 Active Wezlana 90 mg/mL syringe Inject 90 mg under the skin every 3 (three) months. 025 Active rosuvastatin (CRESTOR) 40 mg tablet TAKE 1 TABLET BY MOUTH ONCE DAILY 90 tablet 3 Active Dexcom G6 Transmitter deviceIndicati ons:Type 2 diabetes mellitus without complication, without long-term current use of insulin ([facility] V24, [facility] V28) USE DIRECTED CONTINUOUSLY 1 each 3 Active metFORMIN XR (GLUCOPHAGE-XR ) 500 mg 24 hr tablet Take 1 tablet (500 mg total) by mouth 1 (one) time each day. with food 30 each 025 2025 Active blood-glucose sensor (Dexcom G6 Sensor) deviceIndicati ons:Type 2 diabetes mellitus without complication, without long-term current use of insulin ([facility] V24, [facility] V28) APPLY DIRECTED AND CHANGE EVERY 10 DAYS . CHECK EVERY AM BEFORE BREAKFAST & 2 HRS AFTER IF BS < 120. IF >120 IN AM OR 250-300 2 HRS AFTER MEAL CALL MD 9 each 3 Active amLODIPine (NORVASC) 2.5 mg tablet Take 1 tablet (2.5 mg total) by mouth 1 (one) time each day. 90 tablet Active tirzepatide (Mounjaro) 7.5 mg/0.5 mL injectionIndic ations:Type 2 diabetes mellitus without complication, without long-term current use of insulin ([facility] V24, [facility] V28) Inject 0.5 mL (7.5 mg total) under the skin every 7 (seven) days. 2 mL 2 025 2025 Active Mounjaro 5 mg/0.5 mL injectionIndic ations:Type 2 diabetes mellitus without complication, without long-term current use of insulin ([facility] V24, [facility] V28) INJECT THE CONTENTS OF ONE PEN SUBCUTANEOUSLY WEEKLY DIRECTED 6 mL 025 2024 Discontinued Active Problems Problem Noted Date Diagnosed Date Hypertension 04/09/2024 Obstructive sleep apnea 06/17/2020 Overview (08/28/2024): [facility] Home Sleep Apnea Test: Date [...] Primary osteoarthritis of both feet 05/13/2019 Diabetes 09/13/2017 Overview (08/28/2024): 04/22 - HgbA1C 6.9% Lumbar disc disease with radiculopathy 6 Overview (08/28/2024): L5-S1 Surgery 05/14 L4-L5 surgery 09/18 Sacroiliitis 09/10/2007 Overview (08/28/2024): Clem Causey Psoriatic arthropathy 10/01/2006 Overview (08/28/2024): Dr. Fong 01/09 - poor response to NSAIDs; took Mobic, now meloxicam fall - Enbrel caused injection site reactions December 2016 - Humira started - stopped 04/16 - she felt she had weight gain and not effective 06/16: Otezla started Psoriasis 02/02/2006 Overview (08/28/2024): Julio Cesar Doss PA-C 04/13 - apremilast denied coverage by insurance 08/14 - referred to external procedural nurse for consideration of UV therapy Last Assessment & Plan: Make sure to keep your procedural nurse appointment. Mixed hyperlipidemia 10/04/2005 Overview (08/28/2024): 04/13 - ASCVD 10yr risk 0.8% IMO update Obesity (BMI 30-39.9) 10/04/2005 Encounters Date Type Department Care Team Description 07/20/2025 2:30 PM EST Office Visit Adult Medicine [address] [address] Edna Mcpherson NP Adult general medical examination (Primary Dx); Need for vaccination against Streptococcus pneumoniae; Type 2 diabetes mellitus without complication, without long-term current use of insulin ([facility] V24, [facility] V28); Mixed hyperlipidemia 07/16/2025 Results Follow-Up [address] [phone] Jez Rai RN 07/15/2025 4:25 PM EST Lab Draw Station [address] [address] Type 2 diabetes mellitus without complication, without long-term current use of insulin ([facility] V24, [facility] V28) 04/29/2025 Results Follow-Up [address] [address] Edna Mcpherson NP 04/28/2025 8:30 AM EDT Office Visit Adult [address] [address] Edna Mcpherson NP Type 2 diabetes mellitus without complication, without long-term current use of insulin ([facility] V24, [facility] V28) (Primary Dx); Primary hypertension; Mixed hyperlipidemia 04/28/2025 Telephone Adult [address] [address] Rishi Pate MD from Last 3 Months Immunizations Immunization Administration Dates Next Due Influenza Quadravalent, MDCK , 0.5ml, preservative free (Flucelvax) 6mo and older 04/09/2024,07/11/2021,05/10/2018 Influenza trivalent, 0.5mL, preservative free (Fluarix; FluLaval; Fluzone) ages 6mo and older (Afluria) 3 years and older 06/20/2020 Influenza trivalent, MDCK, 0 .5mL, preservative free (Flucelvax) 6mo and older 07/20/2025 Influenza trivalent, with pr eservative (Fluzone; Afluria) 6mo and older 06/20/2020,09/18/2019 Pneumococcal conjugate 20 va lent (Prevnar 20, PCV 20) 2mo and older 07/20/2025 Pneumococcal polysaccharide 23 valent (Pneumovax 23) 2yo [...] pain 03/14/2013 DX:Left shoul teresa pain; COMMENT: [facility] - minimal improvement [...] do you feel lonely or isolated from ose around you? Never 04/27/2025 Food Risk [...] for your loved ones. For example, child daycare worker or elderly care for an older adult? [...] on file Sexual Orientation Not on file Last Filed Vital Signs [...] Mass Index 39.14 07/20/2025 2:39 PM EST Plan of Treatment Upcoming Encounters Date Type Department Care Team (Late st Contact Info) Description 10/19/2025 8:30 AM EDT Office Visit Adult Medicine - [place] [address] [place] [address] Odette Yan PA [address] [place] [phone] Health Maintenance Due Date Last Done Comments Diabetes: Annual Foot Exam 1980 Diabetes: Annual Retina Eye Exam 1980 Hepatitis B Vaccines (1 of 3 - 19+ 3-dose series) 1989 Cervical Cancer Screening: Pap Smear 1991 Zoster Vaccines (1 of 2) 2020 HIV Screening 07/08/2022 COVID-19 Vaccine ( season) 2025 05/26/2021, 11/18/2020, 10/20/2020 Diabetes: Blood Sugar Control Test (HGBA1C) 01/13/2026 07/15/2025, 04/27/2025, 01/23/2025, Additional history exists Social Influencers of Health Screening 04/27/2026 04/27/2025 Diabetes: Annual Urine Albumin-Creatinine Ratio (uACR) 07/15/2026 07/15/2025, 04/27/2025 Diabetes: Annual GFR (Glomerular Filtration Rate) 07/15/2026 07/15/2025, 01/23/2025, 07/17/2024, Additional history exists Hypertension/CHF/CAD Annual BMP Blood Test 07/15/2026 07/15/2025, 01/23/2025, 07/17/2024, Additional history exists Breast Cancer Screening 12/11/2026 12/12/19, 08/05/2018, 07/26/2018 Cholesterol Screening (Lipid Panel) 07/15/2030 07/15/2025, 01/23/2025, 04/09/2024, Additional history exists Colorectal Cancer Screening: Colonoscopy 10/21/2031 10/20/2021 DTaP,Tdap,and Td Vaccines (3 - Td or Tdap) 03/20/2033 03/20/2023, 07/18/2013 RSV Immunization Adult Patients (1 - 1-dose 75+ series) 2045 Hepatitis C Screening Completed 12/21/2016 Depression Screening Completed 04/27/2025 Influenza Vaccine Completed 07/20/2025, , 07/11/2021, Additional history exists Pneumococcal Vaccine: 50+ Years Completed 07/20/2025, 09/10/2017 HIB Vaccines Aged Out No longer eligi [...] Procedure Name Priority Date/Time Associated Diagnosis Comments MICROALBUMIN CREATININE URINE RATIO Routine 07/15/2025 4:34 PM EST Type 2 diabetes mellitus without complication, without long-term current use of insulin ([facility] V24, CMS/[facility] V28) HEMOGLOBIN A1C Routine 07/15/2025 4:34 PM EST Type 2 diabetes mellitus without complication, without long-term current use of insulin (CMS/HCC V24, CMS/[facility] V28) LIPID PANEL WITH REFLEX TO DIRECT LDL Routine 07/15/2025 4:34 PM EST Type 2 diabetes mellitus without complication, without long-term current use of insulin (CMS/[facility] V24, CMS/[facility] V28) COMPREHENSIVE METABOLIC PANEL Routine 07/15/2025 4:34 PM EST Type 2 diabetes mellitus without complication, without long-term current use of insulin ([facility] V24, [facility] V28) MICROALBUMIN CREATININE URINE RATIO Routine 04/27/2025 1:30 PM EDT Type 2 diabetes mellitus without complication, without long-term current use of insulin ([facility] V24, [facility] V28) HEMOGLOBIN A1C Routine 04/27/2025 1:20 PM EDT Type 2 diabetes mellitus without complication, without long-term current use of insulin ([facility] V24, [facility] V28) EXTERNAL MAMMOGRAM REPORT 12/11/2024 COLONOSCOPY Routine 10/20/2021 HEPATITIS C SCREENING Routine 12/21/2016 from Last 3 Months or Most Recently Relevant to Health Maintenance Results * (ABNORMAL) Lipid panel with reflex to direct LDL (07/15/2025 4:34 PM EST) Cholesterol 161 0 - 200 mg/dL 07/15/2025 6:53 PM [facility] Triglycerides 152(H) 0 - 150 mg/dL 07/15/2025 6:53 PM [facility] HDL 58 >=40 mg/dL 07/15/2025 6:53 PM [facility] LDL Calculated 73 0 - 100 mg/dL 07/15/2025 6:53 PM [facility] Comment:Estimated LDL is macario culated using the Friedewald equation: Total cholesterol - HDL cholesterol - (Triglycerides/5) VLDL Cholesterol Macario 30.4 mg/dL 07/15/2025 6:53 PM [facility] Non HDL Chol. (LDL+VLDL) 103 <145 mg/dL 07/15/2025 6:53 PM [facility] Chol/HDL Ratio 2.8 0.0 - 4.4 07/15/2025 6:53 PM EST [facility] Blood Venous blood specimen / Unknown Venipuncture / Unknown 07/15/2025 4:34 PM EST 07/15/2025 4:[address] [facility] PATIENT SERVICES SPECIALIST LAB BLOOD ORDERABLES Final Res ult Performing Organization Address City/[facility]/ZIP Co de Phone Number [facility] [address] [place] [address], [place] [phone] * (ABNORMAL) Microalbumin creatinine urine ratio (07/15/2025 4:34 PM EST) Only the most recent of2 resultswithin the time period is included. Creatinine, Urine 82.0 mg/dL 07/15/2025 6:52 PM [facility] Microalb, Ur 117.0(H) 0.0 - 29.0 mg/L 07/15/2025 6:52 PM [facility] Microalb/Creat Ratio 143(H) <30 mg/g creat 07/15/2025 6:52 PM [facility] Urine Urine specimen obtained by clean catch procedure / Unknown Non-blood Collection / Unknown 07/15/2025 4:34 PM EST 07/15/2025 4:34 PM [facility] PATIENT SERVICES SPECIALIST LAB URINE ORDERABLES Final Res ult [facility] [address] [place] [address], [place] [phone] * Hemoglobin A1c (07/15/2025 4:34 PM EST) Only the most recent of2 resultswithin the time period is included. Hemoglobin A1C 6.2 <6.5 % LAB CHEMISTRY METHOD 07/15/2025 11:08 PM [facility] Mean Bld Glu Estim. 131 mg/dL LAB CHEMISTRY METHOD 07/15/2025 11:08 PM [facility] Blood Venous blood specimen / Unknown Venipuncture / Unknown 07/15/2025 4:34 PM EST 07/15/2025 4:34 PM EST us Edna Mcpherson NP LAB BLOOD ORDERABLES Final Res ult [facility] [address] [place] [address], [place] [phone] * Comprehensive metabolic panel (07/15/2025 4:34 PM EST) Sodium 140 133 - 145 mmol/L 07/15/2025 6:53 PM [facility] Potassium 4.0 3.5 - 5.5 mmol/L 07/15/2025 6:53 PM [facility] Chloride 103 96 - 110 mmol/L 07/15/2025 6:53 PM [facility] CO2 27 21 - 32 mmol/L 07/15/2025 6:53 PM [facility] Anion Gap 10 3 - 11 07/15/2025 6:53 PM [facility] Glucose 98 70 - 100 mg/dL 07/15/2025 6:53 PM [facility] BUN 19 5 - 25 mg/dL 07/15/2025 6:53 PM [facility] Creatinine 0.93 0.50 - 1.10 mg/dL 07/15/2025 6:53 PM [facility] eGFR 73 >=60 mL/min/1. 73m2 07/15/2025 6:53 PM [facility] Comment:Calculation based on the Chronic Kidney Disease Epidemiology Collaboration (CKD-EPI) equation refit without adjustment for race. BUN/Creatinine Ratio 20.4 07/15/2025 6:53 PM [facility] Calcium 9.6 8.5 - 10.5 mg/dL 07/15/2025 6:53 PM [facility] AST (SGOT) 34 10 - 42 unit/L 07/15/2025 6:53 PM [facility] ALT (SGPT) 52 10 - 60 unit/L 07/15/2025 6:53 PM [facility] Alkaline Phosphatase 97 42 - 121 unit/L 07/15/2025 6:53 PM [facility] Total Protein 7.5 6.0 - 8.0 g/dL 07/15/2025 6:53 PM [facility] Albumin 4.6 3.2 - 5.0 g/dL 07/15/2025 6:53 PM [facility] Total Bilirubin 1.3 0.0 - 1.4 mg/dL 07/15/2025 6:53 PM [facility] Blood Venous blood specimen / Unknown Venipuncture / Unknown 07/15/2025 4:34 PM EST 07/15/2025 4:34 PM EST Edna Mcpherson NP LAB BLOOD ORDERABLES Final Res ult [facility] [address] [place] [address], * External Mammogram Report (12/11/2024) Anatomical Region Laterality Modality Mammography Provider [facility] IMG BI PROCEDURES Final Result * Colonoscopy (10/20/2021) Pathologist [facility] Colonoscopy no interpretation , abstracted Anatomical Region Laterality Modality Other Historical Provider HEALTH MAINTENANCE Final Result * Hepatitis C Screening (12/21/2016) Pathologist [facility] Hepatitis C Screening abstracted Historical Provider HEALTH MAINTENANCE Final Result from Last 3 Months or Most Recently Relevant to Health Maintenance Insurance [facility] [place] [id number] Care Teams Python Programmer Relationship Specialty Start Date End Date Rishi Pate MD [address] [place] [id number] PCP - General Internal Medicine 04/23/21
== END 2025-07-22 09:50 | disposition home or self-care (01) ==
LOC: HO.US 09:49
PROVIDERS: PCP Pediatrics; Visit Provider Student in an Organized Health Care Education/Training Program
DX: R74.01 Elevation of levels of liver transaminase levels (principal)
CPT/HCPCS: 73130; 73630; 76700; 76981

== ENCOUNTER → 2025-07-22 09:52 | Outpatient (BNV) | payer OTHER, SELFPAY | PROVIDERS: PCP Pediatrics; Visit Provider Radiology Diagnostic Radiology | DX: L40.50 Arthropathic psoriasis, unspecified (principal); R74.01 Elevation of levels of liver transaminase levels | CPT/HCPCS: 73130; 73630; 76700 ==